=== PATIENT | female | born 1950 | race Caucasian/White ===

== ENCOUNTER 2016-03-04 14:19 | Inpatient (IN) ==
[2016-03-04 15:21] LABS: Red Cell Distribution Width 16.6 % (11.5-14.5)
[2016-03-04 15:27] LABS: Hematocrit 26.6 % (35.3-44.9); Hemoglobin 8.8 g/dL (11.5-15.4); Immature Platelets 5.8 % (1.1-6.1); Mean Corpuscular HGB Conc 33.1 g/dL (31.6-35.5); Mean Corpuscular Hemoglobin 28.3 pg (28.0-33.3); Mean Corpuscular Volume 85.5 fL (83.0-100.0); Mean Platelet Volume 9.3 fL (9.4-12.4); Red Blood Count 3.11 M/mcL (3.82-4.97)
[2016-03-04 15:29] LABS: INR 1.2; Prothrombin Time 13.1 Seconds (9.4-12.1)
[2016-03-04 15:32] LABS: Activated Partial Thrombo Time 25.9 Seconds (26.0-36.0)
--- NOTE | 2016-03-04 15:32 | Emergency Department Note ---
Disposition Clinical Impression: Congestive heart failure, Leukemia Disposition: Admitted As Inpatient Condition: Fair Referrals: Yuri Monsivais DO [Primary Care Provider] - Forms: ED Satisfaction Letter Time of Disposition: 17:30 General Adult HPI - General Chief complaint: ED Shortness of Breath/Dyspnea Stated complaint: KAREN Blood clot or water Time Seen by Provider: 03/04/16 14:51 Source: patient Limitations: no limitations Nursing Notes Reviewed: Yes Vital Signs Reviewed: Yes - History of Present Illness HPI Narrative: 65 year female presents to emergency room for shortness of breath. Patient was seeing her oncologist today for her leukemia appointment. They noted her to have oxygen saturations in the 70s. She was sent to the ER for evaluation. She does not wear home oxygen. She has no lung history. She denies any history of congestive heart failure. She has noticed increased swelling in her lower legs as well as the shortness of breath. She has pain along the bilateral lower ribs. No documented fevers. Slight sputum production at times. She denies any chest pain. Her last chemotherapy was on Thursday. Onset (ago): day(s) (2) Location: chest Radiation: non-radiation Pain Scale: 0 Consistency: constant Improves with: nothing Worsens with: movement Associated symptoms: Reports: other (Lower extremity swelling) Treatments Prior to Arrival: none - Related Data Home Medications Medication Instructions Recorded Confirmed Alprazolam [Xanax] 0.5 mg PO TID PRN 09/15/14 03/04/16 Multivitamin [Multivitamins] 1 tab PO PRN PRN 09/15/14 03/04/16 Citalopram [CeleXA] 20 mg PO DAILY 09/25/14 03/04/16 Previous Rx's Medication Instructions Recorded Folic Acid 1 mg PO DAILY #30 tablet 04/16/15 Filgrastim [Neupogen] 300 mcg IJ DAILY #30 mls 07/30/15 Diphenhydramine HCl/Zinc Acet 28.3 gm TP PRN PRN #1 cream..g. 10/16/15 [Benadryl Itch Stopping Crm] Cytarabine/PF [Cytarabine 20 mg/ml 20 mg SQ BID 10 Days 01/17/16 Vial] Deferasirox [Jadenu] 4 tab PO DAILY #360 tablet 02/19/16 Ondansetron [Zofran] 8 mg PO Q8HR PRN #90 tablet 02/19/16 Allergies Allergy/AdvReac Type Severity Reaction Status Date / Time Penicillins Allergy Unknown Hives Verified 07/02/15 11:43 Constitutional: Reports: as per HPI Eyes: Reports: as per HPI Cardiovascular: Reports: dyspnea on exertion, edema. Denies: chest pain Respiratory: Reports: cough, dyspnea Gastrointestinal: Reports: as per HPI Genitourinary: Reports: as per HPI Musculoskeletal: Reports: as per HPI Integumentary: Reports: as per HPI Neurological: Reports: as per HPI Psychiatric: Reports: as per HPI Endocrine: Reports: as per HPI Past Medical History - Past Medical History Medical history: Reports: cancer, other Surgical history: Reports: cholecystectomy Psychiatric history: Reports: anxiety, depression - Social History Smoking Status: Former smoker Smokeless Tobacco Status: No Alcohol use: Reports: none Drug use: Reports: none Physical Exam - General Limitations: no limitations General appearance: alert - Head Head exam: atraumatic, normocephalic - Eye Eye exam: Present: normal appearance - ENT ENT exam: normal exam - Chest Chest inspection: Present: symmetric chest wall rise - Respiratory Respiratory exam: Present: respiratory distress (Patient is tachypnea.), other ( Positive for bibasilar crackles. Decreased breath sounds in the bases.) - Cardiovascular Cardiovascular exam: Present: regular rate, normal rhythm - Abdominal Exam Abdominal exam: Present: soft, Non-Tender. Absent: tenderness, distention - Extremities Exam Extremities exam: Present: pedal edema, other (1+ pitting edema in the lower legs bilaterally.). Absent: calf tenderness - Back Exam Back exam: Present: normal inspection, full ROM - Neurological Exam Neurological exam: Present: alert, oriented X3, CN II-XII intact - Psychiatric Psychiatric exam: Present: normal affect, normal mood - Skin Skin exam: Present: warm, dry, intact Course Course Narrative: Chest x-ray reveals evidence of pulmonary edema. Symptoms are consistent with more congestive heart failure. Patient will need to be admitted for further workup. I did order 40 mg of IV Lasix. Spoke with the hospitalist who accepted the patient to their service. Vital Signs Temperature 97.8 F 03/04/16 14:37 Pulse Rate 86 03/04/16 14:37 Respiratory Rate 18 03/04/16 14:37 Blood Pressure 115/53 03/04/16 14:37 O2 Sat by Pulse Oximetry 63 L 03/04/16 14:37 Temperature 97.8 F 03/04/16 14:37 Pulse Rate 76 03/04/16 16:22 Respiratory Rate 22 03/04/16 16:22 Blood Pressure 132/71 03/04/16 16:22 O2 Sat by Pulse Oximetry 100 03/04/16 16:22 Oxygen Delivery Oxygen Delivery Nasal Cannula Medical Decision Making - MDM Narrative Medical decision making narrative: Patient is being admitted for further workup of her congestive heart failure. She is hemodynamically stable. Lasix was given. - Medical Records Medical records reviewed: Yes I reviewed the patient's medical records. - Lab Data Lab results reviewed: Yes I reviewed the patient's lab results. Result diagrams: 03/04/16 15:17 03/04/16 15:17 Lab Results 03/04/16 03/04/16 03/04/16 Range/Units 15:17 15:17 15:17 WBC 51.8 H* (4.3-11.1) K/mcL RBC 3.11 L (3.82-4.97) M/mcL Hgb 8.8 L (11.5-15.4) g/dL Hct 26.6 L (35.3-44.9) % MCV 85.5 (83.0-100.0) fL MCH 28.3 (28.0-33.3) pg MCHC 33.1 (31.6-35.5) g/dL RDW 16.6 H (11.5-14.5) % Plt Count 17 L* (140-400) K/mcL MPV 9.3 L (9.4-12.4) fL Seg Neutrophils % 12.0 % Band Neutrophils % 2.0 (0-4) % Lymphocytes % 24.0 % Monocytes % 4.0 % Myelocytes % 6.0 H (0) % Blast Cells % 52.0 H (0) % Neutrophils # 7.3 (1.6-8.9) K/mcL Lymphocytes # 12.4 H (0.6-4.6) K/mcL Monocytes # 2.1 H (0.0-1.3) K/mcL Smudge Cells Present A (Not Present) Platelet Estimate Marked Decrease L (Normal) Immature Plt Fraction 5.8 (1.1-6.1) % Anisocytosis 1+ A (Not Present) PT (9.4-12.1) Seconds INR APTT (26.0-36.0) Seconds Sodium 137 (136-145) mEq/L Potassium 3.9 (3.5-4.5) mEq/L Chloride 105 (98-109) mEq/L Carbon Dioxide 26 (19-29) mEq/L BUN 32 H (7-20) mg/dL Creatinine 0.86 (0.57-1.11) mg/dL Est GFR ( Amer) > 60 (> 60) Est GFR (Non-Af Amer) > 60 (> 60) BUN/Creatinine Ratio 37 H (6-26) Glucose 106 H (70-99) mg/dL Calculated Osmolality 291 (280-300) Calcium 7.6 L (8.6-10.8) mg/dL Troponin I 0.03 (0-0.03) ng/mL B-Natriuretic Peptide (0-100) pg/mL 03/04/16 03/04/16 Range/Units 15:17 15:17 WBC (4.3-11.1) K/mcL RBC (3.82-4.97) M/mcL Hgb (11.5-15.4) g/dL Hct (35.3-44.9) % MCV (83.0-100.0) fL MCH (28.0-33.3) pg MCHC (31.6-35.5) g/dL RDW (11.5-14.5) % Plt Count (140-400) K/mcL MPV (9.4-12.4) fL Seg Neutrophils % % Band Neutrophils % (0-4) % Lymphocytes % % Monocytes % % Myelocytes % (0) % Blast Cells % (0) % Neutrophils # (1.6-8.9) K/mcL Lymphocytes # (0.6-4.6) K/mcL Monocytes # (0.0-1.3) K/mcL Smudge Cells (Not Present) Platelet Estimate (Normal) Immature Plt Fraction (1.1-6.1) % Anisocytosis (Not Present) PT 13.1 H (9.4-12.1) Seconds INR 1.2 APTT 25.9 L (26.0-36.0) Seconds Sodium (136-145) mEq/L Potassium (3.5-4.5) mEq/L Chloride (98-109) mEq/L Carbon Dioxide (19-29) mEq/L BUN (7-20) mg/dL Creatinine (0.57-1.11) mg/dL Est GFR ( Amer) (> 60) Est GFR (Non-Af Amer) (> 60) BUN/Creatinine Ratio (6-26) Glucose (70-99) mg/dL Calculated Osmolality (280-300) Calcium (8.6-10.8) mg/dL Troponin I (0-0.03) ng/mL B-Natriuretic Peptide 198 H (0-100) pg/mL - Radiology Data Radiology results reviewed: Yes I reviewed the patient's radiology results. - EKG Data EKG #1 EKG attestation: Yes I reviewed and interpreted this EKG. EKG results narrative: Rate of 81. Normal sinus rhythm. Normal axis. MI interval 132. QRS 80. Corrected QT 414. No signs of acute ischemia
[2016-03-04 15:33] LABS: Platelet Count 17 K/mcL (140-400)
[2016-03-04 15:35] LABS: BUN/Creatinine Ratio 37 (6-26); Blood Urea Nitrogen 32 mg/dL (7-20); Calcium 7.6 mg/dL (8.6-10.8); Carbon Dioxide 26 mEq/L (19-29); Chloride 105 mEq/L (98-109); Glucose 106 mg/dL (70-99); Osmolality,Calculated 291 (280-300); Potassium 3.9 mEq/L (3.5-4.5); Sodium 137 mEq/L (136-145); eGFR For African Americans > 60 (> 60); eGFR For Non-African Americans > 60 (> 60)
[2016-03-04] MEDS ORDERED: Furosemide 40 MG/4 ML VIAL IVP ONE (15:36)
[2016-03-04 16:01] LABS: Lymphocytes # 12.4 K/mcL (0.6-4.6); Monocytes # 2.1 K/mcL (0.0-1.3); Neutrophils # 7.3 K/mcL (1.6-8.9)
[2016-03-04 16:03] LABS: Anisocytosis 1+ (Not Present); Platelet Estimate Marked Decrease (Normal); Smudge Cells Present (Not Present)
[2016-03-04] MEDS ORDERED: Ipratropium/Albuterol Neb 3 ML IH PRN (17:27)
[2016-03-04] MEDS ORDERED: Acetaminophen 325 MG TABLET PO PRN (17:28)
[2016-03-04] MEDS ORDERED: *HR* Morphine 2 MG/ML SYRINGE IVP PRN (17:28)
[2016-03-04] MEDS ORDERED: Ondansetron 4 MG/2 ML VIAL IVP PRN (17:28)
[2016-03-04] MEDS ORDERED: Naloxone 0.4 MG/ML INJ IVP PRN (17:28)
[2016-03-04] MEDS ORDERED: ALPRAZolam 0.5 MG TABLET PO PRN (17:30)
--- NOTE | 2016-03-04 17:34 | Internal Med History&Physical ---
Date of Encounter: 03/04/16 Time of Encounter: 17:32 Assessment and Plan (1) Acute pulmonary edema Current visit: Yes Status: Acute Acute hypoxic respiratory failure secondary to acute pulmonary edema and bilateral pleural effusions possibly secondary to CHF systolic versus diastolic that could be related to chemotherapy Start Lasix IV, strict I's and O's , daily weight Oxygen therapy Echocardiogram (2) Acute respiratory failure Current visit: Yes Status: Acute Qualifiers: Respiratory failure complication: hypoxia Qualified Code(s): J96.01 - Acute respiratory failure with hypoxia (3) Depression Current visit: Yes Status: Acute Qualifiers: Depression Type: unspecified Qualified Code(s): F32.9 - Major depressive disorder, single episode, unspecified (4) Anxiety Current visit: Yes Status: Acute Stable continue xanax prn (5) Congestive heart failure Current visit: Yes Status: Acute Qualifiers: Congestive heart failure type: unspecified congestive heart failure type Congestive heart failure chronicity: unspecified congestive heart failure chronicity Qualified Code(s): I50.9 - Heart failure, unspecified (6) Refractory thrombocytopenia Current visit: No Status: Acute Consider transfusion At the moment, we will avoid giving her more volume with a transfusion unless she starts bleeding Recheck in the morning (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 The patient will be admitted as inpatient, she is expected to stay more than 2 midnights. Full code. Time spent on this admission 45 minutes. She is high risk for respiratory failure Qualifiers: Leukemia Active/Remission status: relapsed Qualified Code(s): C92.02 - Acute myeloblastic leukemia, in relapse Internal Medicine - H&P: HPI Chief complaint: Shortness of breath and hypoxia Admitted From: Emergency Dept History of present illness: Ms. Miles is a 65 year old female with a past medical history of AML, depression , came to the emergency room sent from her oncologist office Dr. Humphrey she was found to have saturation of oxygen of 70%. She does not use any oxygen at home. She had chemotherapy last Thursday. The patient was referred to the emergency room and a chest x-ray shows acute pulmonary edema with bilateral pleural effusions. There are no echocardiograms recorded from the past. Her white blood cell count is 51.8 with 50% blasts platelets are 17 without signs of bleeding. The patient denies any chest pain, has been bringing up clear phlegm. No fevers or chills, no sick contacts. No other complaints other than leg edema for the past few days. 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) Psychiatric history: anxiety, depression - Past Surgical History Surgical History: cholecystectomy, other (Bone marrow biopsy) - Social History Smoking Status: Former smoker (Quit 7 years ago) Smokeless Tobacco Status: No Alcohol use: none Drug use: none - Additional Family History Additional family history: 2 brothers with AML and daughter with Hodgkin's lymphoma Internal Medicine - H&P: Meds Alprazolam [Xanax] 0.5 mg PO TID PRN 09/15/14 [History] Multivitamin [Multivitamins] 1 tab PO PRN PRN 09/15/14 [History] Citalopram [CeleXA] 20 mg PO DAILY 09/25/14 [History] Folic Acid 1 mg PO DAILY #30 tablet 04/16/15 [Rx] Filgrastim [Neupogen] 300 mcg IJ DAILY #30 mls 07/30/15 [Rx] Diphenhydramine HCl/Zinc Acet [Benadryl Itch Stopping Crm] 28.3 gm TP PRN PRN # 1 cream..g. 10/16/15 [Rx] Cytarabine/PF [Cytarabine 20 mg/ml Vial] 20 mg SQ BID 10 Days 01/17/16 [Rx] Deferasirox [Jadenu] 4 tab PO DAILY #360 tablet 02/19/16 [Rx] Ondansetron [Zofran] 8 mg PO Q8HR PRN #90 tablet 02/19/16 [Rx] Allergies Penicillins Allergy (Unknown, Verified 07/02/15 11:43) Hives All Systems PM: A 10-system review of systems was performed and is negative for pertinent findings except as documented above in the HPI. Review of systems: Still feels short of breath, denies any chest pain, no abdominal pain, no dysuria. Other systems out of the Ten reviewed were negative - Constitutional Vitals: Temp Pulse Resp BP Pulse Ox 97.8 F 76 22 132/71 100 03/04/16 14:37 03/04/16 16:22 03/04/16 16:22 03/04/16 16:22 03/04/16 16:22 General appearance: Present: A&O X 3 - Head Head exam: Present: atraumatic, normocephalic - Eye Eye exam: Present: PERRL, conjuntiva pink, sclera anicteric Pupils: Present: PERRL - Neck Neck exam general surgery: Present: supple, trachea midline. Absent: lymphadenopathy - Respiratory Respiratory exam: Present: CTAB, rales (Bilateral blunted breath sounds with diffuse crackles). Absent: accessory muscle use, rhonchi, wheezes - Cardiovascular Cardiovascular exam: Present: RRR, +S1, +S2. Absent: diastolic murmur, gallop, rubs, systolic murmur - GI/Abdominal GI/Abdominal exam: Present: normal bowel sounds, soft, no peritoneal signs. Absent: distended, tenderness - Extremities Exam Extremities exam: Present: pedal edema (+2 pitting edema in both lower extremities), warm, radial pulses palpable and symetrical. Absent: calf tenderness, cyanotic - Neurological Exam Neurological exam: Present: CN II-XII intact, oriented X3, no focal deficits. Absent: pronater drift, facial droop, speech deficit - Skin Skin exam: Present: dry, intact Internal Med - H&P Results - Labs CBC & Chem 7: 03/04/16 15:17 03/04/16 15:17 Labs: Short CBC 03/04/16 Range/Units 15:17 WBC 51.8 H* (4.3-11.1) K/mcL Hgb 8.8 L (11.5-15.4) g/dL Hct 26.6 L (35.3-44.9) % Plt Count 17 L* (140-400) K/mcL Neutrophils # 7.3 (1.6-8.9) K/mcL BMP 03/04/16 15:17 Sodium 137 Potassium 3.9 Chloride 105 Carbon Dioxide 26 BUN 32 H Creatinine 0.86 Glucose 106 H Calcium 7.6 L Cardiac Enzymes 03/04/16 Range/Units 15:17 Troponin I 0.03 (0-0.03) ng/mL - Impressions ITS Impressions Chest X-Ray 03/04/16 15:08 IMPRESSION: Pulmonary edema D/ / Cj Garcia MD / Cj Garcia MD Interpreting Provider: Cj Garcia MD
[2016-03-04] MEDS: Furosemide 40 MG/4 ML VIAL IV SCH (20:42)
[2016-03-05 06:05] LABS: BUN/Creatinine Ratio 29 (6-26); Blood Urea Nitrogen 30 mg/dL (7-20); Calcium 7.6 mg/dL (8.6-10.8); Carbon Dioxide 36 mEq/L (19-29); Chloride 98 mEq/L (98-109); Chol/HDL Ratio 12.4 (0-4.9); Cholesterol 124 mg/dL (< 200); Glucose 104 mg/dL (70-99); HDL Cholesterol 10 mg/dL (40-59); LDL Cholesterol,Calculated 67 mg/dL (0-99); Osmolality,Calculated 298 (280-300); Potassium 3.6 mEq/L (3.5-4.5); Sodium 141 mEq/L (136-145); Triglycerides 235 mg/dL (< 150); eGFR For African Americans > 60 (> 60); eGFR For Non-African Americans 54 (> 60)
[2016-03-05] MEDS: Furosemide 40 MG/4 ML VIAL IV SCH ×2 (08:38→22:02)
--- NOTE | 2016-03-05 09:38 | Electrocardiograph Report ---
[facility] Test Date: 2016-03-04 Pat Name: Tamy Miles Department: 105 Room: 2NE28 Gender: F [employer]: : 1950 Requested By: Slade Zelaya Order Number: [id number] Reading MD: Arron Persaud MD Measurements Intervals [place] Rate: 81 P: 51 LA: 132 QRS: 43 QRSD: 80 T: 59 QT: 376 QTc: 414 Interpretive Statements SINUS RHYTHM Electronically Signed On 03-05-16 09:37:05 EST by Arron Persaud MD
--- NOTE | 2016-03-05 10:56 | ECHO - Doppler Report ---
Echocardiogram Name: Tamy Miles Date of Study: 03/05/2016 Date: 1950 Ht: 61.0 in Medical Record#: [id number] Age: 65 Wt: 167.0 lb Gender: Female BSA: 1.75 Order #: [id number] Location: [facility] Room #: 2NE28 Reading Physician: Lexie Duarte DO Box Person: Lilia Rg Ordering Physician: Anthony Jenkins MD Primary Physician: Yuri Monsivais DO Indications: Congestive heart failure Impressions: LVEF 60%. Normal left ventricular size and systolic function. Normal right ventricular size and function. No significant valvular dysfunction. No pulmonary hypertension. Left Ventricular Wall Motion: Rest Echo Findings All wall segments showed normal motion. Findings: Study Quality * Technically adequate exam. ECG Findings * Normal sinus rhythm. Left Ventricle * LVEF 60%. * Normal LV chamber size, wall thickness and function. * Pseudonormal Grade II diastolic dysfunction. Aortic Valve * No aortic regurgitation. * Aortic valve not well visualized. * No aortic stenosis. Mitral Valve * Normal mitral valve structure. * No mitral stenosis. * Trace mitral regurgitation. Left Atrium * Normal left atrial size. Tricuspid Valve * Tricuspid valve not well visualized. * Estimated RA pressure is 3 mmHg. * Estimated RVSP is 15 mmHg. * No pulmonary hypertension. Right Ventricle * Normal right ventricular structure and function. Right Atrium * Normal right atrial size. Interatrial Septum * No evidence of PFO by color Doppler. IVC * The IVC is not dilated. Pericardium * There is no pericardial effusion present. Pulmonic Valve * Pulmonic valve is not well visualized. * No pulmonic stenosis. * No pulmonic regurgitation. Pulmonary Artery * Pulmonary artery not well visualized. Aorta * Not well visualized. History Years 40 Packs 1 Family History of CAD Measurements: BP: 132/ 67 2D Normal Values IVSd: .80 cm 0.6 - 1.0 cm LVIDd: 4.40 cm 3.7 - 5.6 cm LVPWd: .80 cm 0.6 - 1.1 cm LVIDs: 2.80 cm 1.5 - 3.6 cm AO: 2.90 cm < 4.0 cm LA: 3.90 cm 2.0 - 4.0cm %FS: 36.40 cm >25 % LA volume: 42 Mitral Valve Peak E:1.43 m/sec Peak A:1.30 m/sec E/A Ratio:1.1 Peak E' Lat Alvin:9.16 cm/s Peak E' Med Alvin:6.14 cm/s E/E' Lat Ratio:15.6 E/E' Med Ratio:23.3 Tricuspid Valve TV Regurg Peak Grad: 12.00mmHg TV Regurg Peak Alvin: 1.75m/sec Updated by Lexie Duarte on 03/05/2016 10:51:20 AM electronically signed on 03/05/2016 10:51:49 AM with status of Final Wall Motion [place]: 1=Normal, 2=Hypokinesis, 3=Akinesis, 4=Dyskinesis, 5=Aneurysmal, 6=Hyperkinetic, X=Not Visualized (Blank)=Missing
--- NOTE | 2016-03-05 12:44 | Internal Med Progress Note ---
<Ian Ceja - Last Filed: 03/05/16 14:31> Date of Encounter: 03/05/16 Time of Encounter: 09:15 - Assessment and plan (1) Acute pulmonary edema Current Visit: Yes Status: Acute Assessment and plan: -On the day of admission patient was restarted on her chemotherapy, infused with platelets and packed red blood cells. Developed shortness of breath shortly afterward. Believe Pulmonary edema due to acute fluid overload. -Patient given Lasix. Condition improved. -ECHO LV 60%. BNP <300 -Continue current therapy (2) Acute respiratory failure Current Visit: Yes Status: Acute Assessment and plan: -See above. -Patient still requiring nasal cannula. Does not wear home oxygen. -Patient will not be discharged today. Possibly tomorrow pending patient comfort and o2 status. We will reassess 02 status tomorrow to see if patient will need home oxygen or not. If so, will work with healthcare social worker to provide this service for the patient -Patient is improving. Repeat CXR not needed at this time or ABG. -Continue lasixs. Monitor renal function. Qualifiers: Respiratory failure complication: hypoxia Qualified Code(s): J96.01 - Acute respiratory failure with hypoxia (3) Leukemia Current Visit: Yes Status: Acute Assessment and plan: - Diagnosed in 2013. Multiple rounds of chemo therapy. Home meds reviewed and administered. -Not concerned for tumor lysis syndrome. However, continue to monitor. Monitor K , Ca Qualifiers: Leukemia type: myeloid Myeloid leukemia type: acute Leukemia Active/ Remission status: without remission Qualified Code(s): C92.00 - Acute myeloblastic leukemia, not having achieved remission (4) Goals of care, counseling/discussion Current Visit: Yes Status: Acute Assessment and plan: -Discussed with patient her CODE STATUS. She wishes to remain full code at this time. Open for discussion when is present in the room. - Time Spent With Patient 25 - 35 minutes - Subjective Interval history: Patient states that she is feeling much better today compared to yesterday. Does have mild shortness of breath, is on 4 L of nasal cannula, does not wear oxygen at home. When she took off the nasal cannula her oxygen saturation declined. Patient denies chest pain, has noticed her peripheral edema has decreased and she has returned back to baseline in her physical appearance. Patient has no questions or concerns at this time. Diagnosed with AML in 2013. Recently started back on chemotherapy. She is up ad andres., eating and drinking normally. Oxygen saturation 93% - Constitutional Vitals: Temp Pulse Resp BP Pulse Ox 98 F 86 16 135/57 92 L 03/05/16 11:20 03/05/16 11:20 03/05/16 11:20 03/05/16 11:20 03/05/16 11:20 General appearance: Present: A&O X 3 - Respiratory Respiratory exam: Present: CTAB - Cardiovascular Cardiovascular exam: Present: RRR. Absent: diastolic murmur - GI/Abdominal GI/Abdominal exam: Present: normal bowel sounds, soft, no peritoneal signs - Extremities Exam Additional comments: No peripheral upper or lower edema Internal Medicine: Result - Labs CBC & Chem 7: 03/04/16 15:17 03/05/16 05:40 Labs: BMP 03/05/16 05:40 Sodium 141 Potassium 3.6 Chloride 98 Carbon Dioxide 36 H BUN 30 H Creatinine 1.03 Glucose 104 H Calcium 7.6 L - ABG Interpretation ABG results: PT/INR, D-dimer PT 13.1 Seconds (9.4-12.1) H 03/04/16 15:17 - VTE Documentation of Mechanical Device: Intermittent pneumatic compression device Consult Discharge Plan - Plan Instructions: Heart Failure (DC), Pulmonary Edema (DC), Acute Myeloid Leukemia (DC), Acute Myeloid Leukemia, Inspector General (GEN) Additional Instructions: Please follow-up with your primary care doctor, oncologist. If you have worsening of symptoms including not limited to increased shortness of breath, chest pain, fever, rash, blood in the urine or stool. Please come to the ED to be evaluated. Referrals: Yuri Monsivais DO [Primary Care Provider] - <oJse Ramon Vergara - Last Filed: 03/06/16 18:49> Date of Encounter: 03/05/16 - Assessment and plan (1) Acute respiratory failure Current Visit: Yes Status: Acute Qualifiers: Respiratory failure complication: hypoxia Qualified Code(s): J96.01 - Acute respiratory failure with hypoxia (2) Acute pulmonary edema Current Visit: Yes Status: Resolved (3) Acute myeloid leukemia Current Visit: No Status: Chronic Qualifiers: Leukemia Active/Remission status: relapsed Qualified Code(s): C92.02 - Acute myeloblastic leukemia, in relapse - Constitutional Vitals: Temp Pulse Resp BP Pulse Ox 96.9 F L 84 16 137/62 91 L 03/06/16 16:36 03/06/16 16:36 03/06/16 16:36 03/06/16 16:36 03/06/16 16:36 Internal Medicine: Result - Labs CBC & Chem 7: 03/06/16 05:30 03/06/16 05:30 Labs: Short CBC 03/06/16 Range/Units 05:30 WBC 53.3 H* (4.3-11.1) K/mcL Hgb 8.4 L (11.5-15.4) g/dL Hct 25.4 L (35.3-44.9) % Plt Count 11 L* (140-400) K/mcL Neutrophils # 2.1 (1.6-8.9) K/mcL BMP 03/06/16 03/06/16 05:30 09:30 Sodium 141 Potassium 3.2 L Chloride 93 L Carbon Dioxide 39 H BUN 20 Creatinine 0.93 Glucose 102 H Calcium 7.3 L 7.6 L - ABG Interpretation ABG results: PT/INR, D-dimer PT 13.1 Seconds (9.4-12.1) H 03/04/16 15:17 - Attending Attestation I examined this patient and my medical decision-making was reviewed with the Resident Physician on 03/05/16. I agree with the documented findings, disposition and treatment plan as described except to the extent set forth below. Ms. Miles is currently admitted for acute pulmonary edema and hypoxic respiratory failure. She remains high risk due to the potential for worsening respiratory failure. Ms. Miles is doing somewhat better with diuresis. No CP. Still on oxygen. No GI symptoms. Exam Alert. Comfortable Heart reg Lungs with crackles I/P 1. Acute hypoxic resp failure 2. Acute pulmonary edema Further diagnoses and plan as above. Probable d/c next 1-2 days.
[2016-03-05 16:11] LABS: Hematocrit 24.9 % (35.3-44.9); Hemoglobin 8.1 g/dL (11.5-15.4); Mean Corpuscular HGB Conc 32.5 g/dL (31.6-35.5); Mean Corpuscular Hemoglobin 27.8 pg (28.0-33.3); Mean Corpuscular Volume 85.6 fL (83.0-100.0); Red Blood Count 2.91 M/mcL (3.82-4.97); Red Cell Distribution Width 15.9 % (11.5-14.5)
[2016-03-05 16:17] LABS: Platelet Count 10 K/mcL (140-400)
[2016-03-05 16:18] LABS: BUN/Creatinine Ratio 27 (6-26); Blood Urea Nitrogen 27 mg/dL (7-20); Calcium 7.3 mg/dL (8.6-10.8); Carbon Dioxide 37 mEq/L (19-29); Chloride 96 mEq/L (98-109); Glucose 97 mg/dL (70-99); Osmolality,Calculated 297 (280-300); Potassium 3.7 mEq/L (3.5-4.5); Sodium 141 mEq/L (136-145); eGFR For African Americans > 60 (> 60); eGFR For Non-African Americans 55 (> 60)
[2016-03-05 17:07] LABS: Monocytes # 1.1 K/mcL (0.0-1.3); Reactive Lymphocytes Present (Not Present)
[2016-03-05 17:08] LABS: Platelet Estimate Marked Decrease (Normal); Smudge Cells Present (Not Present)
[2016-03-05 17:09] LABS: Hypochromasia Present (Not Present)
[2016-03-06 05:58] LABS: Hemoglobin 8.4 g/dL (11.5-15.4)
[2016-03-06 06:00] LABS: Hematocrit 25.4 % (35.3-44.9); Mean Corpuscular HGB Conc 33.1 g/dL (31.6-35.5); Mean Corpuscular Hemoglobin 28.1 pg (28.0-33.3); Mean Corpuscular Volume 84.9 fL (83.0-100.0); Mean Platelet Volume 12.3 fL (9.4-12.4); Red Blood Count 2.99 M/mcL (3.82-4.97); Red Cell Distribution Width 15.8 % (11.5-14.5)
[2016-03-06 06:03] LABS: BUN/Creatinine Ratio 22 (6-26); Blood Urea Nitrogen 20 mg/dL (7-20); Calcium 7.3 mg/dL (8.6-10.8); Carbon Dioxide 39 mEq/L (19-29); Chloride 93 mEq/L (98-109); Glucose 102 mg/dL (70-99); Osmolality,Calculated 295 (280-300); Potassium 3.2 mEq/L (3.5-4.5); Sodium 141 mEq/L (136-145); eGFR For African Americans > 60 (> 60); eGFR For Non-African Americans > 60 (> 60)
[2016-03-06 06:28] LABS: Platelet Count 11 K/mcL (140-400)
[2016-03-06 07:00] LABS: Platelet Estimate Marked Decrease (Normal); Smudge Cells Present (Not Present)
[2016-03-06] MEDS: Furosemide 40 MG/4 ML VIAL IV SCH (08:21)
[2016-03-06 09:25] LABS: Eosinophils # 0.5 K/mcL (0.0-0.6); Lymphocytes # 28.8 K/mcL (0.6-4.6); Monocytes # 0.5 K/mcL (0.0-1.3); Neutrophils # 2.1 K/mcL (1.6-8.9)
--- NOTE | 2016-03-06 09:42 | Internal Med Progress Note ---
Date of Encounter: 03/06/16 - Assessment and plan (1) Acute pulmonary edema Current Visit: Yes Status: Acute (2) Acute respiratory failure Current Visit: Yes Status: Acute Qualifiers: Respiratory failure complication: hypoxia Qualified Code(s): J96.01 - Acute respiratory failure with hypoxia (3) Leukemia Current Visit: Yes Status: Acute Qualifiers: Leukemia type: myeloid Myeloid leukemia type: acute Leukemia Active/ Remission status: without remission Qualified Code(s): C92.00 - Acute myeloblastic leukemia, not having achieved remission (4) Goals of care, counseling/discussion Current Visit: Yes Status: Acute - Subjective Interval history: Patient states that she is feeling much better today compared to yesterday. Does have mild shortness of breath, is on 4 L of nasal cannula, does not wear oxygen at home. When she took off the nasal cannula her oxygen saturation declined. Patient denies chest pain, has noticed her peripheral edema has decreased and she has returned back to baseline in her physical appearance. Patient has no questions or concerns at this time. Diagnosed with AML in 2013. Recently started back on chemotherapy. She is up ad andres., eating and drinking normally. Oxygen saturation 93% - Constitutional Vitals: Temp Pulse Resp BP Pulse Ox 98.1 F 89 18 137/64 94 L 03/06/16 07:49 03/06/16 07:49 03/06/16 07:49 03/06/16 07:49 03/06/16 07:49 General appearance: Present: A&O X 3 Internal Medicine: Result - Labs CBC & Chem 7: 03/06/16 05:30 03/06/16 05:30 Labs: Short CBC 03/05/16 03/06/16 Range/Units 16:04 05:30 WBC 55.3 H* 53.3 H* (4.3-11.1) K/mcL Hgb 8.1 L 8.4 L (11.5-15.4) g/dL Hct 24.9 L 25.4 L (35.3-44.9) % Plt Count 10 L* 11 L* (140-400) K/mcL Neutrophils # 10.0 H 2.1 (1.6-8.9) K/mcL BMP 03/05/16 03/06/16 16:04 05:30 Sodium 141 141 Potassium 3.7 3.2 L Chloride 96 L 93 L Carbon Dioxide 37 H 39 H BUN 27 H 20 Creatinine 1.00 0.93 Glucose 97 102 H Calcium 7.3 L 7.3 L - ABG Interpretation ABG results: PT/INR, D-dimer PT 13.1 Seconds (9.4-12.1) H 03/04/16 15:17 - VTE Documentation of Mechanical Device: Intermittent pneumatic compression device Consult Discharge Plan - Plan Referrals: ColopyYuri DO [Primary Care Provider] -
[2016-03-06] MEDS ORDERED: 0.9 % Sodium Chloride 500 ML ONE (14:14)
--- NOTE | 2016-03-06 15:33 | Discharge Summary ---
<Ian Ceja - Last Filed: 03/06/16 17:13> Date of Encounter: 03/06/16 Time of Encounter: 10:00 - Discharge Diagnosis (1) Acute pulmonary edema Priority: Primary Status: Resolved Comments: -Resolved (2) Acute respiratory failure Priority: Primary Status: Acute Comments: -Patient is ambulatory, denies chest pain or shortness of breath. Feels want to go home. Feels like she is back to her baseline. -However, patient's oxygenation saturation less than 90% whenever she is not on nasal cannula. Discussed home oxygen therapy with patient, she agrees to this treatment. Qualifiers: Respiratory failure complication: hypoxia Qualified Code(s): J96.01 - Acute respiratory failure with hypoxia (3) Leukemia Priority: Primary Status: Acute Comments: -AML diagnosis in 2013 Qualifiers: Leukemia type: myeloid Myeloid leukemia type: acute Leukemia Active/ Remission status: without remission Qualified Code(s): C92.00 - Acute myeloblastic leukemia, not having achieved remission (4) Goals of care, counseling/discussion Priority: Primary Status: Acute Comments: -Patient remains full code -She has supportive household who is able to oversee her care and well-being (5) Thrombocytopenia, alloimmune Status: Acute Comments: -Spoke with the [facility] oncology team who oversees her care. They recommend 6 pack of platelets. It patient tolerates transfusion well she may be discharged home. Will put in order. - Discharge Medications Home Medications: Alprazolam [Xanax] 0.5 mg PO TID PRN 09/15/14 [History] Multivitamin [Multivitamins] 1 tab PO PRN PRN 09/15/14 [History] Citalopram [CeleXA] 20 mg PO DAILY 09/25/14 [History] Folic Acid 1 mg PO DAILY #30 tablet 04/16/15 [Rx] Deferasirox [Jadenu] 4 tab PO DAILY #360 tablet 02/19/16 [Rx] Ascorbate Calcium [Vitamin C] 500 mg PO DAILY 03/04/16 [History] Allergies/Adverse Reactions: Allergies Penicillins Allergy (Unknown, Verified 07/02/15 11:43) Hives Date of admission: 03/04/16 17:50 Primary care physician: Yuri Leone Colopy Consults: 03/06/16 13:40 Consult to Manager In Home [CONS] Routine Reason for SW Consult: New home O2 set-up. 03/06/16. [facility]. Thrombocytopenia and advancement of care. Discharging clinician: Ian Ceja Anticipated date of discharge: 03/06/16 - Patient Status Disposition: Home, Self-Care Condition: Fair Functional capacity at discharge: independent ambulation Overall status at discharge: patient is progressing back to baseline (Did not require oxygen saturation at home) - Discharge Instructions Instructions: Heart Failure (DC), Pulmonary Edema (DC), Acute Myeloid Leukemia (DC), Acute Myeloid Leukemia, Manager [employer]otive (GEN) Follow Up With: Yuri Monsivais DO [Primary Care Provider] - Additional Instructions: Please follow-up with your primary care doctor, oncologist. If you have worsening of symptoms including not limited to increased shortness of breath, chest pain, fever, rash, blood in the urine or stool. Please come to the ED to be evaluated. - Diet and Activity Activity: increase activity as tolerated Diet: advance to your usual diet Interval History: Patient feels better today compared to yesterday. She has no complaints or concerns. Does not complain of CP. She denies SOB when the nasal cannula is off or decreased. However her oxygen saturation does decrease significantly. Hospital course: Ms. Miles is a 65 year old female - Time Spent with Patient Total time spent providing and/or coordinating discharge services: Greater than 30 minutes Specific discharge activities: -Please follow-up with your oncology physician. - Constitutional Vitals: Temp Pulse Resp BP Pulse Ox 97.5 F L 84 16 130/59 92 L 03/06/16 14:48 03/06/16 14:48 03/06/16 14:48 03/06/16 14:48 03/06/16 14:48 General appearance: Present: A&O X 3 Exam: Sitting up in bed, resting comfortably. Able to answer questions appropriately without becoming short of breath, is currently on the nasal cannula. Oxygen saturation 94% - Head Head exam: Present: atraumatic, normocephalic - Respiratory Respiratory exam: Present: CTAB. Absent: accessory muscle use, rales, rhonchi, wheezes - Cardiovascular Cardiovascular exam: Present: RRR, +S1, +S2. Absent: diastolic murmur, gallop, rubs, systolic murmur - GI/Abdominal GI/Abdominal exam: Present: soft, no peritoneal signs. Absent: distended, tenderness - Neurological Exam Neurological exam: Present: alert, oriented X3 - Psychiatric Psychiatric exam: Present: normal affect, normal mood - VTE Documentation of Mechanical Device: Intermittent pneumatic compression device <Rell Vergarain Joseluis - Last Filed: 03/06/16 18:46> Date of Encounter: 03/06/16 - Discharge Diagnosis (1) Acute respiratory failure Status: Acute Qualifiers: Respiratory failure complication: hypoxia Qualified Code(s): J96.01 - Acute respiratory failure with hypoxia (2) Acute pulmonary edema Status: Resolved (3) Acute myeloid leukemia Priority: Secondary Status: Chronic Qualifiers: Leukemia Active/Remission status: relapsed Qualified Code(s): C92.02 - Acute myeloblastic leukemia, in relapse Date of admission: 03/04/16 17:50 Primary care physician: Yuri Monsivais Consults: 03/06/16 13:40 Consult to Manager In Home [CONS] Routine Reason for SW Consult: New home O2 set-up. 03/06/16 15:33 Consult to Oncology Hematology [CONS] Routine Consulting Provider: Que Zelaya Jr Reason for Consult: Thombocytopenia. Transfusion. Already spoke with Isiah Zelaya this morning. Call Completed: Yes Hospital course: Ms. Miles is a 65 year old female - Time Spent with Patient Total time spent providing and/or coordinating discharge services: 36min - Constitutional Vitals: Temp Pulse Resp BP Pulse Ox 96.9 F L 84 16 137/62 91 L 03/06/16 16:36 03/06/16 16:36 03/06/16 16:36 03/06/16 16:36 03/06/16 16:36 - Attending Attestation I examined this patient and my medical decision-making was reviewed with the Resident Physician on 03/06/16. I agree with the documented findings, disposition and treatment plan as described except to the extent set forth below. Ms. Miles is feeling better today. She is still requiring oxygen but less. She is going to get platelets today and then plan discharge home. Exam Alert. Comfortable Heart reg Lungs clear now Abd soft I/P 1. Acute hypoxic resp failure 2. Acute pulmonary edema 3. AML Pt stable for discharge today after platelet transfusion.
[2016-03-06 16:37] VITALS: BP 137/62
== END 2016-03-06 18:10 | disposition home or self-care (01) | DRG 189 ==
LOC: EMEROO 14:19 → 2NENU 17:50
PROVIDERS: ADMIT Internal Medicine; ATTEND Internal Medicine

== ENCOUNTER 2016-05-26 16:16 | Inpatient (IN) ==
[2016-05-26] MEDS ORDERED: Ondansetron 4 MG/2 ML VIAL IVP ONE (16:29)
[2016-05-26 16:46] LABS: Mean Corpuscular Hemoglobin 28.6 pg (28.0-33.3); Mean Platelet Volume 8.8 fL (9.4-12.4)
[2016-05-26 16:48] LABS: Hematocrit 23.3 % (35.3-44.9); Hemoglobin 7.8 g/dL (11.5-15.4); Immature Platelets 1.6 % (1.1-6.1); Mean Corpuscular HGB Conc 33.5 g/dL (31.6-35.5); Mean Corpuscular Volume 85.3 fL (83.0-100.0); Red Blood Count 2.73 M/mcL (3.82-4.97); Red Cell Distribution Width 16.1 % (11.5-14.5)
[2016-05-26 16:50] LABS: Platelet Count 74 K/mcL (140-400)
[2016-05-26 16:51] LABS: INR 1.2; Prothrombin Time 13.2 Seconds (9.4-12.1)
[2016-05-26 16:53] LABS: Activated Partial Thrombo Time 25.2 Seconds (26.0-36.0)
[2016-05-26] MEDS ORDERED: Ipratropium/Albuterol Neb 3 ML IH ONE (16:56)
[2016-05-26 17:03] LABS: Albumin/Globulin Ratio 0.5 (1.1-2.2); Bilirubin,Direct 0.5 mg/dL (0.0-0.5); Bilirubin,Indirect 0.6 mg/dL (0.0-1.2); Bilirubin,Total 1.1 mg/dL (0.2-1.2); Calcium 7.9 mg/dL (8.6-10.8); Globulin 5.9 g/dL (2.4-3.5); Potassium 3.8 mEq/L (3.5-4.5); Total Protein 8.9 g/dL (6.0-8.3)
--- NOTE | 2016-05-26 17:03 | Emergency Department Note ---
Disposition Clinical Impression: Multifocal pneumonia, Severe sepsis, Acute respiratory acidosis, Anemia, chronic disease, Leukemia, Acute kidney injury, Thrombocytopenia Disposition: Admitted As Inpatient Condition: Serious General Adult HPI - General Chief complaint: ED Altered Mental Status Stated complaint: Needs CT scan, sent by Dr. Yeh Time Seen by Provider: 05/26/16 16:23 Source: family Limitations: altered mental status - History of Present Illness Pain Scale: 0 - Related Data Home Medications Medication Instructions Recorded Confirmed Citalopram [CeleXA] 20 mg PO DAILY 09/25/14 05/26/16 Alprazolam [Xanax 1 MG Tablet] 1 mg PO TID PRN 05/26/16 05/26/16 Deferasirox [Jadenu] 1,440 mg PO DAILY 05/26/16 05/26/16 Ondansetron [Zofran] 8 mg PO Q8H PRN 05/26/16 05/26/16 Previous Rx's Medication Instructions Recorded Aminocaproic Acid [Amicar] 500 mg PO TID #90 tablet 03/25/16 Folic Acid 1 mg PO DAILY #30 tablet 04/25/16 Acetaminophen w/Cod 300-30 mg 1 each PO Q6HR PRN #60 tablet 05/19/16 [Tylenol w/Codeine #3] Fluconazole [Diflucan] 100 mg PO DAILY #30 tablet 05/19/16 Levofloxacin [Levaquin] 750 mg PO DAILY #14 tablet 05/19/16 Allergies Allergy/AdvReac Type Severity Reaction Status Date / Time Penicillins Allergy Unknown Hives Verified 07/02/15 11:43 Past Medical History - Past Medical History Medical history: Reports: cancer, other Surgical history: Reports: cholecystectomy, other Psychiatric history: Reports: anxiety, depression - Social History Smoking Status: Former smoker Smokeless Tobacco Status: No Alcohol use: Reports: none Drug use: Reports: none Physical Exam - General Limitations: altered mental status General appearance: lethargic Course Vital Signs Temperature 96.3 F L 05/26/16 16:25 Pulse Rate 105 05/26/16 16:25 Respiratory Rate 20 05/26/16 16:25 Blood Pressure 186/87 05/26/16 16:25 O2 Sat by Pulse Oximetry 82 05/26/16 16:25 Temperature 97.4 F L 05/26/16 19:55 Pulse Rate 93 05/26/16 19:55 Respiratory Rate 20 05/26/16 19:55 Blood Pressure 138/63 05/26/16 19:55 O2 Sat by Pulse Oximetry 92 05/26/16 19:55 Oxygen Delivery Oxygen Delivery Non Rebreather Mask Medical Decision Making - Lab Data Result diagrams: 05/26/16 16:31 05/26/16 16:31 Lab Results 05/26/16 05/26/16 05/26/16 Range/Units 16:31 16:31 16:31 WBC 15.8 H D (4.3-11.1) K/mcL RBC 2.73 L (3.82-4.97) M/mcL Hgb 7.8 L D (11.5-15.4) g/dL Hct 23.3 L (35.3-44.9) % MCV 85.3 (83.0-100.0) fL MCH 28.6 (28.0-33.3) pg MCHC 33.5 (31.6-35.5) g/dL RDW 16.1 H (11.5-14.5) % Plt Count 74 L D (140-400) K/mcL MPV 8.8 L (9.4-12.4) fL Seg Neutrophils % 26.0 % Band Neutrophils % 8.0 H (0-4) % Lymphocytes % 44.0 % Monocytes % 12.0 % Blast Cells % 10.0 H (0) % Neutrophils # 5.4 (1.6-8.9) K/mcL Lymphocytes # 7.0 H (0.6-4.6) K/mcL Monocytes # 1.9 H (0.0-1.3) K/mcL Platelet Estimate Decreased L (Normal) Immature Plt Fraction 1.6 (1.1-6.1) % PT 13.2 H (9.4-12.1) Seconds INR 1.2 APTT 25.2 L (26.0-36.0) Seconds ABG pH (7.32-7.45) pH Units ABG pCO2 (35-45) mmHg ABG pO2 (85-104) mmHg ABG HCO3 (21-27) mEQ/L ABG Total CO2 (20-26) mEq/L ABG O2 Saturation (95-98) % ABG Base Excess (-2.0 to 3.0) mEq/L Blood Gas Modality Inspired O2 % Sodium 137 (136-145) mEq/L Potassium 3.8 (3.5-4.5) mEq/L Chloride 102 (98-109) mEq/L Carbon Dioxide 28 (19-29) mEq/L BUN 38 H (7-20) mg/dL Creatinine 1.39 H (0.57-1.11) mg/dL Est GFR ( Amer) 46 L (> 60) Est GFR (Non-Af Amer) 38 L (> 60) BUN/Creatinine Ratio 27 H (6-26) Glucose 163 H (70-99) mg/dL POC Glucose (58-89) Calculated Osmolality 297 (280-300) Lactic Acid (0.5-2.2) mmol/L Calcium 7.9 L (8.6-10.8) mg/dL Total Bilirubin 1.1 (0.2-1.2) mg/dL Direct Bilirubin 0.5 (0.0-0.5) mg/dL Indirect Bilirubin 0.6 (0.0-1.2) mg/dL AST 133 H (5-34) Units/L ALT 62 H (0-55) Units/L Alkaline Phosphatase 71 (38-126) Units/L Ammonia (18-72) mcmol/L Troponin I (0-0.03) ng/mL Serum Total Protein 8.9 H (6.0-8.3) g/dL Albumin 3.0 L (3.5-5.0) g/dL Globulin 5.9 H (2.4-3.5) g/dL Albumin/Globulin Ratio 0.5 L (1.1-2.2) Urine Color (Yellow) Urine Clarity (Clear) Urine pH (5.0-8.0) pH Units Ur Specific [place] (1.010-1.025) Urine Protein (Neg-Trace) mg/dL Urine Glucose (UA) (Normal) mg/dL Urine Ketones (Negative) mg/dL Urine Blood (Negative) Urine Nitrite (Negative) Urine Bilirubin (Negative) Urine Urobilinogen (Normal) mg/dL Ur Leukocyte Esterase (Negative) Urine Microscopic RBC (0-3) per hpf Urine Microscopic WBC (0-3) per hpf Ur Squamous Epith Cells (None-Few) per lpf Urine Bacteria (None-Few) per hpf Hyaline Casts (None-Few) per lpf Granular Casts (None Seen) per lpf Ur Culture Indicated? (NO) 05/26/16 05/26/16 05/26/16 Range/Units 16:31 16:31 16:31 WBC (4.3-11.1) K/mcL RBC (3.82-4.97) M/mcL Hgb (11.5-15.4) g/dL Hct (35.3-44.9) % MCV (83.0-100.0) fL MCH (28.0-33.3) pg MCHC (31.6-35.5) g/dL RDW (11.5-14.5) % Plt Count (140-400) K/mcL MPV (9.4-12.4) fL Seg Neutrophils % % Band Neutrophils % (0-4) % Lymphocytes % % Monocytes % % Blast Cells % (0) % Neutrophils # (1.6-8.9) K/mcL Lymphocytes # (0.6-4.6) K/mcL Monocytes # (0.0-1.3) K/mcL Platelet Estimate (Normal) Immature Plt Fraction (1.1-6.1) % PT (9.4-12.1) Seconds INR APTT (26.0-36.0) Seconds ABG pH (7.32-7.45) pH Units ABG pCO2 (35-45) mmHg ABG pO2 (85-104) mmHg ABG HCO3 (21-27) mEQ/L ABG Total CO2 (20-26) mEq/L ABG O2 Saturation (95-98) % ABG Base Excess (-2.0 to 3.0) mEq/L Blood Gas Modality Inspired O2 % Sodium (136-145) mEq/L Potassium (3.5-4.5) mEq/L Chloride (98-109) mEq/L Carbon Dioxide (19-29) mEq/L BUN (7-20) mg/dL Creatinine (0.57-1.11) mg/dL Est GFR ( Amer) (> 60) Est GFR (Non-Af Amer) (> 60) BUN/Creatinine Ratio (6-26) Glucose (70-99) mg/dL POC Glucose (58-89) Calculated Osmolality (280-300) Lactic Acid 1.9 (0.5-2.2) mmol/L Calcium (8.6-10.8) mg/dL Total Bilirubin (0.2-1.2) mg/dL Direct Bilirubin (0.0-0.5) mg/dL Indirect Bilirubin (0.0-1.2) mg/dL AST (5-34) Units/L ALT (0-55) Units/L Alkaline Phosphatase (38-126) Units/L Ammonia 62 (18-72) mcmol/L Troponin I 0.04 H* (0-0.03) ng/mL Serum Total Protein (6.0-8.3) g/dL Albumin (3.5-5.0) g/dL Globulin (2.4-3.5) g/dL Albumin/Globulin Ratio (1.1-2.2) Urine Color (Yellow) Urine Clarity (Clear) Urine pH (5.0-8.0) pH Units Ur Specific [place] (1.010-1.025) Urine Protein (Neg-Trace) mg/dL Urine Glucose (UA) (Normal) mg/dL Urine Ketones (Negative) mg/dL Urine Blood (Negative) Urine Nitrite (Negative) Urine Bilirubin (Negative) Urine Urobilinogen (Normal) mg/dL Ur Leukocyte Esterase (Negative) Urine Microscopic RBC (0-3) per hpf Urine Microscopic WBC (0-3) per hpf Ur Squamous Epith Cells (None-Few) per lpf Urine Bacteria (None-Few) per hpf Hyaline Casts (None-Few) per lpf Granular Casts (None Seen) per lpf Ur Culture Indicated? (NO) 05/26/16 05/26/16 05/26/16 Range/Units 16:52 17:12 17:44 WBC (4.3-11.1) K/mcL RBC (3.82-4.97) M/mcL Hgb (11.5-15.4) g/dL Hct (35.3-44.9) % MCV (83.0-100.0) fL MCH (28.0-33.3) pg MCHC (31.6-35.5) g/dL RDW (11.5-14.5) % Plt Count (140-400) K/mcL MPV (9.4-12.4) fL Seg Neutrophils % % Band Neutrophils % (0-4) % Lymphocytes % % Monocytes % % Blast Cells % (0) % Neutrophils # (1.6-8.9) K/mcL Lymphocytes # (0.6-4.6) K/mcL Monocytes # (0.0-1.3) K/mcL Platelet Estimate (Normal) Immature Plt Fraction (1.1-6.1) % PT (9.4-12.1) Seconds INR APTT (26.0-36.0) Seconds ABG pH 7.18 L* (7.32-7.45) pH Units ABG pCO2 89 H* (35-45) mmHg ABG pO2 78 L (85-104) mmHg ABG HCO3 33.2 H (21-27) mEQ/L ABG Total CO2 35.9 H (20-26) mEq/L ABG O2 Saturation 92 L (95-98) % ABG Base Excess 4.0 H (-2.0 to 3.0) mEq/L Blood Gas Modality NRB Inspired O2 100 % Sodium (136-145) mEq/L Potassium (3.5-4.5) mEq/L Chloride (98-109) mEq/L Carbon Dioxide (19-29) mEq/L BUN (7-20) mg/dL Creatinine (0.57-1.11) mg/dL Est GFR ( Amer) (> 60) Est GFR (Non-Af Amer) (> 60) BUN/Creatinine Ratio (6-26) Glucose (70-99) mg/dL POC Glucose 166 H (58-89) Calculated Osmolality (280-300) Lactic Acid (0.5-2.2) mmol/L Calcium (8.6-10.8) mg/dL Total Bilirubin (0.2-1.2) mg/dL Direct Bilirubin (0.0-0.5) mg/dL Indirect Bilirubin (0.0-1.2) mg/dL AST (5-34) Units/L ALT (0-55) Units/L Alkaline Phosphatase (38-126) Units/L Ammonia (18-72) mcmol/L Troponin I (0-0.03) ng/mL Serum Total Protein (6.0-8.3) g/dL Albumin (3.5-5.0) g/dL Globulin (2.4-3.5) g/dL Albumin/Globulin Ratio (1.1-2.2) Urine Color Yellow (Yellow) Urine Clarity Cloudy A (Clear) Urine pH 5.5 (5.0-8.0) pH Units Ur Specific [place] 1.021 (1.010-1.025) Urine Protein 30 H (Neg-Trace) mg/dL Urine Glucose (UA) Normal (Normal) mg/dL Urine Ketones Negative (Negative) mg/dL Urine Blood Small H (Negative) Urine Nitrite Negative (Negative) Urine Bilirubin Negative (Negative) Urine Urobilinogen Normal (Normal) mg/dL Ur Leukocyte Esterase Negative (Negative) Urine Microscopic RBC 5-15 H (0-3) per hpf Urine Microscopic WBC 0-3 (0-3) per hpf Ur Squamous Epith Cells Many H (None-Few) per lpf Urine Bacteria None Seen (None-Few) per hpf Hyaline Casts Few (None-Few) per lpf Granular Casts Few H (None Seen) per lpf Ur Culture Indicated? NO (NO) Critical Care Time Critical Care Time: Yes Total Critical Care Time: 45 Attestation: Patient presented hypoxic. Supplemental oxygen administered. Case discussed with the ICU/sales and customer relations rep. Patient to be admitted to the ICU with pneumonia and sepsis. Attestation Statement - Attestation Attestation: I examined this patient and my medical decision-making was reviewed with the RECEIVING BARN CUSTODIAN/PA/Advanced Practice Nurse/Resident Physician. I agree with the documented findings, disposition and treatment plan as described except to the extent set forth below. [id number] time provided Patient presents at the recommendation of her finishing pan operator. She is currently undergoing chemotherapy for leukemia. She has been confused over the past 3 days. On exam, the patient is sleepy but arousable to verbal stimuli and answers questions appropriately. She denies dyspnea. Pulse ox is in the 30s with a good waveform Patient placed on supplemental oxygen. Oxygenation immediately improved. At 16:50 I spoke with the sales and customer relations rep/ICU physician who has reviewed the patient's CT chest from earlier today as well as her portable chest x-ray. He recommends neb therapy and chest physiotherapy without bronchoscopy at this time. 17:35: Sepsis protocol fluid resuscitation not undertaken because the patient was not hypotensive
[2016-05-26 17:06] LABS: Monocytes # 1.9 K/mcL (0.0-1.3); Neutrophils # 5.4 K/mcL (1.6-8.9)
--- NOTE | 2016-05-26 17:06 | Emergency Department Note ---
Disposition Clinical Impression: Multifocal pneumonia, Severe sepsis, Acute respiratory acidosis, Anemia, chronic disease, Acute kidney injury, Thrombocytopenia Leukemia Qualifiers: Leukemia type: unspecified Leukemia Active/Remission status: without remission Qualified Code(s): C95.90 - Leukemia, unspecified not having achieved remission Disposition: Admitted As Inpatient Condition: Serious Referrals: Yuri Monsivais DO [Primary Care Provider] - Forms: ED Satisfaction Letter Time of Disposition: 18:18 Altered Mental Status HPI - General Chief Complaint: ED Altered Mental Status Stated Complaint: Needs CT scan, sent by Dr. Yeh Time Seen by Provider: 05/26/16 16:23 Source: family Limitations: altered mental status Nursing Notes Reviewed: Yes Vital Signs Reviewed: Yes - Related Data Home Medications Medication Instructions Recorded Confirmed Citalopram [CeleXA] 20 mg PO DAILY 09/25/14 05/26/16 Alprazolam [Xanax 1 MG Tablet] 1 mg PO TID PRN 05/26/16 05/26/16 Deferasirox [Jadenu] 1,440 mg PO DAILY 05/26/16 05/26/16 Ondansetron [Zofran] 8 mg PO Q8H PRN 05/26/16 05/26/16 Previous Rx's Medication Instructions Recorded Aminocaproic Acid [Amicar] 500 mg PO TID #90 tablet 03/25/16 Folic Acid 1 mg PO DAILY #30 tablet 04/25/16 Acetaminophen w/Cod 300-30 mg 1 each PO Q6HR PRN #60 tablet 05/19/16 [Tylenol w/Codeine #3] Fluconazole [Diflucan] 100 mg PO DAILY #30 tablet 05/19/16 Levofloxacin [Levaquin] 750 mg PO DAILY #14 tablet 05/19/16 Allergies Allergy/AdvReac Type Severity Reaction Status Date / Time Penicillins Allergy Unknown Hives Verified 07/02/15 11:43 Past Medical History - Past Medical History Medical history: Reports: cancer, other Surgical history: Reports: cholecystectomy, other Psychiatric history: Reports: anxiety, depression - Social History Smoking Status: Former smoker Smokeless Tobacco Status: No Alcohol use: Reports: none Drug use: Reports: none Physical Exam - General Limitations: altered mental status General appearance: lethargic Course - Reevaluation(s) Reevaluation #1: Assessment: CVA/stroke, TIA, sepsis, pneumonia, PE, ACS/VT/heart failure Plan: Sepsis workup: chest x-ray, EKG, CBC, BMP, cultures peripheral, troponin, CT head, ABG, lactic acid Current plan is to withhold therapy secondary to patient recently had a transfusion and platelets and patient currently is not fluid depleted. We will continue to monitor her fluid status and add fluids appropriately. Time: 16:57 Reevaluation #2: Patient has no complaints at this time. Patient's O2 sats 92%. Patient's CT from earlier shows multiple consolidations of both lungs, and chest x-ray shows him's complete consolidation of her left long with mild tracheal deviation to the left. Farm Equipment Mechanic Apprentice was consult and suggests no bronchoscopy recommends DuoNeb therapy and chest physiotherapy. Time: 17:04 Reevaluation #3: Patient states that she is feeling a lot better. She is no longer ashen and mirza in the facial regions and extremities like she was when she first and to the ED. Patient is accepted decision to admit. She will be sent to ICU for further evaluation and care. Patient started on aztreonam, levofloxacin, and vancomycin to cover for healthcare associated pneumonia. Patient's lung sounds are slightly improved after DuoNeb therapy as well. Time: 18:00 - Consultations Consultation #1: Respiratory: ABG results showed pH of 7.18, CO2 of 89, PO2 of 78, bicarbonate of 33.2. Time: 17:31 Consultation #2: Neetu YANES Accepted for admission 1815hrs Time: 18:15 Vital Signs Temperature 96.3 F L 05/26/16 16:25 Pulse Rate 105 05/26/16 16:25 Respiratory Rate 20 05/26/16 16:25 Blood Pressure 186/87 05/26/16 16:25 O2 Sat by Pulse Oximetry 82 05/26/16 16:25 Temperature 96.3 F L 05/26/16 16:25 Pulse Rate 86 05/26/16 16:52 Respiratory Rate 22 05/26/16 16:52 Blood Pressure 136/76 05/26/16 16:52 O2 Sat by Pulse Oximetry 93 05/26/16 16:52 Oxygen Delivery Oxygen Delivery Non Rebreather Mask Altered Mental Status - Lab Data Result diagrams: 05/26/16 16:31 Lab Results 05/26/16 05/26/16 05/26/16 Range/Units 16:31 16:31 16:52 WBC 15.8 H D (4.3-11.1) K/mcL RBC 2.73 L (3.82-4.97) M/mcL Hgb 7.8 L D (11.5-15.4) g/dL Hct 23.3 L (35.3-44.9) % MCV 85.3 (83.0-100.0) fL MCH 28.6 (28.0-33.3) pg MCHC 33.5 (31.6-35.5) g/dL RDW 16.1 H (11.5-14.5) % Plt Count 74 L D (140-400) K/mcL MPV 8.8 L (9.4-12.4) fL Immature Plt Fraction 1.6 (1.1-6.1) % POC Glucose 166 H (58-89) Ammonia 62 (18-72) mcmol/L TPA Checklist - LKW: 3-4.5 hrs Add. Contraindications Patient/family understanding: The patient/family members have been counseled and understood the risk, benefit , and alternatives of treatment.
[2016-05-26 17:07] LABS: Platelet Estimate Decreased (Normal)
[2016-05-26 17:25] LABS: ABG HCO3 33.2 mEQ/L (21-27); ABG Oxygen Saturation 92 % (95-98); ABG PO2 78 mmHg (85-104); ABG TCO2 35.9 mEq/L (20-26)
[2016-05-26 17:26] LABS: Blood Gas FiO2 100 %
[2016-05-26 17:28] LABS: ABG PCO2 89 mmHg (35-45); ABG PH 7.18 pH Units (7.32-7.45)
[2016-05-26] MEDS ORDERED: Vancomycin 1,000 MG in D5% in Water 250 ML IVPB ONE (17:39)
[2016-05-26] MEDS ORDERED: Aztreonam 2,000 MG in D5% in Water (Mini-Bag+) 100 ML IVPB ONE (17:39)
[2016-05-26] MEDS ORDERED: Levofloxacin 750 MG/150 ML 750 MG/150 ML BAG IVPB ONE (17:39)
[2016-05-26 18:00] LABS: Bilirubin,Urine Negative (Negative); Blood,Urine Small (Negative); Clarity,Urine Cloudy (Clear); Color,Urine Yellow (Yellow); Glucose,Urine (UA) Normal (Normal); Ketones,Urine Negative (Negative); Leukocyte Esterase,Urine Negative (Negative); Nitrite,Urine Negative (Negative); PH,Urine 5.5 pH Units (5.0-8.0); Protein,Urine 30 mg/dL (Neg-Trace); Specific Gravity,Urine 1.021 (1.010-1.025); Urobilinogen,Urine Normal (Normal)
[2016-05-26 18:01] LABS: Bacteria,Urine None Seen per hpf (None-Few); Squamous Epithelial Cell,Urine Many per lpf (None-Few); WBC,Urine 0-3 per hpf (0-3)
[2016-05-26 18:11] LABS: Granular Casts,Urine Few per lpf (None Seen); Hyaline Casts,Urine Few per lpf (None-Few)
[2016-05-26 20:23] LABS: Bilirubin,Urine Negative (Negative); Blood,Urine Small (Negative); Clarity,Urine Cloudy (Clear); Color,Urine Dark Yellow (Yellow); Glucose,Urine (UA) Normal (Normal); Ketones,Urine Negative (Negative); Leukocyte Esterase,Urine Negative (Negative); Nitrite,Urine Negative (Negative); PH,Urine 5.5 pH Units (5.0-8.0); Protein,Urine 100 mg/dL (Neg-Trace); Urobilinogen,Urine Normal (Normal)
[2016-05-26 20:26] LABS: Bacteria,Urine None Seen per hpf (None-Few); Squamous Epithelial Cell,Urine Many per lpf (None-Few); WBC,Urine 0-3 per hpf (0-3)
[2016-05-26 20:35] LABS: Granular Casts,Urine Few per lpf (None Seen)
--- NOTE | 2016-05-26 20:46 | Internal Med History&Physical ---
Date of Encounter: 05/26/16 Time of Encounter: 20:45 Assessment and Plan (1) Multifocal pneumonia Current visit: Yes Status: Acute We will treat for healthcare associated pneumonia with aztreonam, vancomycin and levofloxacin. Mucinex and supportive care. Pulmonary consultation - may need bronchoscopy. (2) Sepsis Current visit: Yes Status: Acute Secondary to Pneumonia. On IV antibiotics Qualifiers: Sepsis type: sepsis due to unspecified organism Qualified Code(s): A41.9 - Sepsis, unspecified organism (3) Acute respiratory failure Current visit: Yes Status: Acute Likely due to severe pneumonia. Patient is on Supplemental oxygen through venti mask at this time. Will check ABG and consider BiPAP therapy if the patient is not improving. Pulmonary consult Qualifiers: Respiratory failure complication: hypoxia and hypercapnia Qualified Code(s) : J96.01 - Acute respiratory failure with hypoxia; J96.02 - Acute respiratory failure with hypercapnia (4) Encephalopathy acute Current visit: Yes Status: Acute Likely due to pneumonia and hypoxemia. 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 (7) Leukemia Current visit: Yes Status: Chronic consult oncologist Qualifiers: Leukemia type: myeloid Myeloid leukemia type: acute Leukemia Active/ Remission status: without remission Qualified Code(s): C92.00 - Acute myeloblastic leukemia, not having achieved remission (8) Thrombocytopenia Current visit: Yes Status: Chronic Oncology consultation (9) Depression Current visit: Yes Status: Chronic Continue home medications Qualifiers: Depression Type: unspecified Qualified Code(s): F32.9 - Major depressive disorder, single episode, unspecified (10) Iron overload, transfusional Current visit: Yes Status: Chronic (11) Pancytopenia Current visit: Yes Status: Chronic Internal Medicine - H&P: HPI Chief complaint: Confusion; Shortness of breath; hypoxia Admitted From: Emergency Dept Plans for Post Hospital Care: Home History of present illness: Ms. 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 She apparently had more than 50 PRBC transfusions and platelet transfusion since August 2013. She also has h/o transfusion iron overload. She was in the oncologist Dr Villeda office today for transfusions. She was noted to be confused and encephalopathic and apparently was disoriented to time place and person - oncologist was concerned about the possibility of intracranial hemorrhage given patient's long-standing, profound thrombocytopenia and recommended evaluation in the ER. She was also noted to have oxygen saturations of about 81% on room air. She was evaluated in the emergency department - CT head was negative for acute abnormality; chest x-ray reported worsening left lung airspace disease with near complete whiteout. Improving right lower lobe airspace disease. She was given aztreonam, vancomycin and levofloxacin. She is admitted to the intensive care unit for further management. She reports shortness of breath at rest and on exertion but is improving since presentation to the emergency department. She denies significant cough or expectoration. She denies fever chills. No chest pain. His abdominal pain, dysphagia, hematuria, nausea, vomiting, hematemesis, melena, focal weakness, visual disturbances. Past Med Surg Social Fam HX - Past Medical History Medical history: cancer, other Psychiatric history: anxiety, depression - Past Surgical History Surgical History: cholecystectomy, other - Social History Smoking Status: Former smoker Smokeless Tobacco Status: No Alcohol use: none Drug use: none - Family History Mother Family Member Ethnicity: Non- Living Status: Hx Family Cardiac Disorders: No Hx Family Respiratory Disorders: No Hx Family Cancer: Yes (possible colon) - Additional Family History Additional family history: Family history of AML in 2 of her brothers. Her daughter has Hodgkin's disease. Internal Medicine - H&P: Meds Citalopram [CeleXA] 20 mg PO DAILY 09/25/14 [History] Aminocaproic Acid [Amicar] 500 mg PO TID #90 tablet 03/25/16 [Rx] Folic Acid 1 mg PO DAILY #30 tablet 04/25/16 [Rx] Acetaminophen w/Cod 300-30 mg [Tylenol w/Codeine #3] 1 each PO Q6HR PRN #60 tablet 05/19/16 [Rx] Fluconazole [Diflucan] 100 mg PO DAILY #30 tablet 05/19/16 [Rx] Levofloxacin [Levaquin] 750 mg PO DAILY #14 tablet 05/19/16 [Rx] Alprazolam [Xanax 1 MG Tablet] 1 mg PO TID PRN 05/26/16 [History] Deferasirox [Jadenu] 1,440 mg PO DAILY 05/26/16 [History] Ondansetron [Zofran] 8 mg PO Q8H PRN 05/26/16 [History] Allergies Penicillins Allergy (Unknown, Verified 07/02/15 11:43) Hives All Systems PM: A 10-system review of systems was performed and is negative for pertinent findings except as documented above in the HPI. - Constitutional Vitals: Temp Pulse Resp BP Pulse Ox 97.4 F L 87 18 135/90 95 05/26/16 19:55 05/26/16 20:30 05/26/16 20:30 05/26/16 20:30 05/26/16 20:30 Exam: General: Not in acute distress at the time of my evaluation. Alert and oriented HEENT: Oral mucosa is moist. conjunctival palor present. No scleral icterus Neck: No obvious neck swellings Lungs:B/L basal crackles present Cardiac: Regular rate and rhythm. No significant murmurs Abdomen: Soft, non tender. Bowel sounds present Neurological: Alert and oriented. No gross localizing deficits Psych: Not aggressive or agitated Extremities: B/L leg edema Skin: No generalized rash Internal Med - H&P Results - Labs CBC & Chem 7: 05/26/16 16:31 05/26/16 16:31 Labs: Urine 05/26/16 Range/Units 20:19 Urine Color Dark Yellow (Yellow) Urine Clarity Cloudy A (Clear) Urine pH 5.5 (5.0-8.0) pH Units Ur Specific [place] 1.020 (1.010-1.025) Urine Protein 100 H (Neg-Trace) mg/dL Urine Glucose (UA) Normal (Normal) mg/dL - EKG Data -: EKG Interpreted by Myself EKG shows normal: sinus rhythm Rate: normal - Impressions ITS Impressions Chest X-Ray 05/26/16 16:27 IMPRESSION: Worsening left lung airspace disease with near complete white out. Improved right lower lobe airspace disease. D/ / Nicholas Hand MD / Nicholas Hand MD Interpreting Provider: Nicholas Hand MD Head CT 05/26/16 16:28 IMPRESSION: No acute intracranial abnormality. D/ / Nicholas Hand MD / Nicholas Hand MD Interpreting Provider: Nicholas Hand MD
[2016-05-26] MEDS ORDERED: Naloxone 0.4 MG/ML INJ IVP PRN (20:51)
[2016-05-26] MEDS ORDERED: ALPRAZolam 1 MG TABLET PO PRN (20:57)
[2016-05-26] MEDS ORDERED: *HR* Acetaminophen w/Cod 300-30 mg 1 TAB TABLET PO PRN (20:57)
[2016-05-26] MEDS ORDERED: Vancomycin 1,000 MG in D5% in Water 250 ML IVPB SCH (21:00)
[2016-05-26] MEDS: Ipratropium/Albuterol Neb 3 ML IH SCH ×2 (21:11→23:56)
[2016-05-26] MEDS ORDERED: 0.9 % Sodium Chloride 1,000 ML IVC SCH (23:45)
[2016-05-27 00:03] LABS: ABG Base Excess 3.7 mEq/L (-2.0 to 3.0); ABG HCO3 31.8 mEQ/L (21-27); ABG Oxygen Saturation 85 % (95-98); ABG PH 7.23 pH Units (7.32-7.45); ABG PO2 59 mmHg (85-104); ABG TCO2 34.1 mEq/L (20-26)
[2016-05-27 00:04] LABS: Blood Gas FiO2 50 %
[2016-05-27 00:05] LABS: ABG PCO2 76 mmHg (35-45)
[2016-05-27] MEDS: 0.9 % Sodium Chloride 1,000 ML IVC SCH ×2 (02:21→15:46)
[2016-05-27] MEDS: Ipratropium/Albuterol Neb 3 ML IH SCH ×6 (04:11→23:13)
[2016-05-27] MEDS: Aztreonam 1,000 MG in D5% in Water (Mini-Bag+) 100 ML IVPB SCH ×3 (05:09→18:07)
[2016-05-27 05:37] LABS: ABG Base Excess 1.3 mEq/L (-2.0 to 3.0); ABG HCO3 30.2 mEQ/L (21-27); ABG Oxygen Saturation 90 % (95-98); ABG PO2 73 mmHg (85-104); ABG TCO2 32.7 mEq/L (20-26)
[2016-05-27 05:38] LABS: Blood Gas FiO2 70 %
[2016-05-27 05:39] LABS: ABG PCO2 81 mmHg (35-45); ABG PH 7.18 pH Units (7.32-7.45)
--- NOTE | 2016-05-27 06:17 | Event Note ---
Date of Encounter: 05/27/16 Time of Encounter: 06:13 I was asked to see this patient, per respiratory therapy. She is in ICU 3, for what appears to be pneumonia, placed on BiPAP for respiratory failure approximately 7 hours ago. From a clinical standpoint she is continued to improve she is breathing easier, resting comfortably vital signs are quite stable. Although repeat ABG showing a worsening respiratory acidosis. Subsequent with Cooper evaluated the patient she easily awakens she is alert and oriented, she is not tachypneic, does look somewhat frail. The very comfortable. From a physical exam standpoint, there is consolidation with decreased airflow in the left base. The right is fairly clear. Her respiratory rate is really not increased. She is not labored. Her abdomen is fairly soft nontender. Her lung sounds are as noted, her heart is regular without murmur. There is no JVD. Respiratory therapy assured me this is the correct ABG for the patient, therefore make a minor adjustment on the BiPAP with change of 14 respiratory with 7 expiratory, repeat ABG in 1 hours lung she's comfortable.
[2016-05-27 07:33] LABS: Hematocrit 19.5 % (35.3-44.9); Hemoglobin 6.6 g/dL (11.5-15.4); Immature Platelets 1.6 % (1.1-6.1); Mean Corpuscular HGB Conc 33.8 g/dL (31.6-35.5); Mean Corpuscular Hemoglobin 28.7 pg (28.0-33.3); Mean Corpuscular Volume 84.8 fL (83.0-100.0); Mean Platelet Volume 9.4 fL (9.4-12.4); Red Cell Distribution Width 16.1 % (11.5-14.5)
[2016-05-27 07:40] LABS: Platelet Count 43 K/mcL (140-400)
[2016-05-27 07:42] LABS: BUN/Creatinine Ratio 26 (6-26); C-Reactive Protein 47 mg/L (Less than 5); Calcium 7.4 mg/dL (8.6-10.8); Carbon Dioxide 29 mEq/L (19-29); Chloride 103 mEq/L (98-109); Glucose 100 mg/dL (70-99); Magnesium 2.2 mg/dL (1.6-2.6); Osmolality,Calculated 289 (280-300); Potassium 4.2 mEq/L (3.5-4.5); Sodium 137 mEq/L (136-145); eGFR For African Americans > 60 (> 60); eGFR For Non-African Americans 52 (> 60)
[2016-05-27 07:43] LABS: Blood Urea Nitrogen 27 mg/dL (7-20)
[2016-05-27 08:00] LABS: ABG Base Excess 5.3 mEq/L (-2.0 to 3.0); ABG HCO3 32.8 mEQ/L (21-27); ABG Oxygen Saturation 98 % (95-98); ABG PH 7.26 pH Units (7.32-7.45); ABG PO2 113 mmHg (85-104)
[2016-05-27 08:01] LABS: Blood Gas FiO2 70 %
[2016-05-27 08:02] LABS: ABG PCO2 73 mmHg (35-45)
[2016-05-27 08:12] LABS: Monocytes # 0.7 K/mcL (0.0-1.3); Neutrophils # 3.6 K/mcL (1.6-8.9); Platelet Estimate Marked Decrease (Normal)
[2016-05-27 08:13] LABS: Anisocytosis 1+ (Not Present); Stomatocytes 1+ (Not Present)
[2016-05-27] MEDS: Folic Acid 1 MG TABLET PO SCH (09:14)
[2016-05-27] MEDS: DEFERASIROX PO SCH (09:14)
[2016-05-27] MEDS: Fluconazole 100 MG TABLET PO SCH (09:14)
--- NOTE | 2016-05-27 09:25 | Pulmonology Consult Note ---
<Fortino Ace - Last Filed: 05/27/16 10:54> Date of Encounter: 05/27/16 Time of Encounter: 08:55 Assessment and Plan (1) Multifocal pneumonia Current Visit: Yes Status: Acute Continue support with BiPAP. Continue Aztreonam, Vancomycin and levofloxacin pending cultures. Adjust accordingly. Continue Mucinex. Duo Nebs DEV Q6hr. Albuterol PRN Q2hr. Recommended chest physical therapy to try to open up airspace of the left lung. (2) Sepsis Current Visit: Yes Status: Acute Secondary to pneumonia. See above. Qualifiers: Sepsis type: sepsis due to unspecified organism Qualified Code(s): A41.9 - Sepsis, unspecified organism (3) Acute respiratory failure Current Visit: No Status: Acute Improving on BiPAP. Patient is now alert and oriented. Continue BiPAP and IV antibiotics. ABGs improving. Continue to monitor. Qualifiers: Respiratory failure complication: hypoxia Qualified Code(s): J96.01 - Acute respiratory failure with hypoxia (4) HOOD (acute kidney injury) Current Visit: Yes Status: Resolved Creatinine 1.39 > 1.05 (5) Leukemia Current Visit: No Status: Acute Oncology on board. Due for blood transfusion today. Daughter is getting blood band with transfusion information for type and cross match. Currently on chemotherapy. Uncertain what the regimen is currently. Qualifiers: Leukemia type: myeloid Myeloid leukemia type: acute Leukemia Active/ Remission status: without remission Qualified Code(s): C92.00 - Acute myeloblastic leukemia, not having achieved remission (6) Depression Current Visit: Yes Status: Chronic Continue home medications. Qualifiers: Depression Type: unspecified Qualified Code(s): F32.9 - Major depressive disorder, single episode, unspecified (7) Pancytopenia Current Visit: Yes Status: Chronic Secondary to bone marrow failure. Transfusion dependent requiring more than 50 transfusions since August 2013. Oncology on board. History of Present Illness Consult date: 05/26/16 Requesting physician: Maria M Bajwa Reason for consult: pneumonia, other (respiratory failure) Chief complaint: dyspnea History of present illness: This is a 65 year old female with PMH of AML, pancytopenia, transfusion dependence, anxiety and depression who presented to the ER per Dr. Yeh for altered mental status. Upon arrival to the ER she was A&Ox0. CT of her head was negative for acute abnormality. CT was requested by Dr. Yeh due to patient's transfusion dependance and concern for intracranial hemorrhage. Her last platelet transfusion was yesterday and she is due for a blood transfusion today. Upon further investigation she was found to have left lung airspace disease with nearly complete whiteout. While in the ER she was saturating 81% on room air. ABG demonstrated severe acidosis with hypercapnea. The patient was started on aztreonam, vancomycin, and levofloxacin in the ER. Upon admission she was already improving in her mental status. At this time she is A&Ox3 and able to follow commands and converse well. She is saturating at 95% on BiPAP at 14 and 7. She is comfortable and only complaining that her mouth is dry at this time. Past Med Surg Social Fam HX - Past Medical History Medical history: cancer, other Psychiatric history: anxiety, depression - Past Surgical History Surgical History: cholecystectomy, other - Social History Smoking Status: Former smoker Smokeless Tobacco Status: No Alcohol use: none Drug use: none - Family History Mother Family Member Ethnicity: Non- Living Status: Hx Family Cardiac Disorders: No Hx Family Respiratory Disorders: No Hx Family Cancer: Yes (possible colon) Medications and Allergies Citalopram [CeleXA] 20 mg PO DAILY 09/25/14 [History] Aminocaproic Acid [Amicar] 500 mg PO TID #90 tablet 03/25/16 [Rx] Folic Acid 1 mg PO DAILY #30 tablet 04/25/16 [Rx] Acetaminophen w/Cod 300-30 mg [Tylenol w/Codeine #3] 1 each PO Q6HR PRN #60 tablet 05/19/16 [Rx] Fluconazole [Diflucan] 100 mg PO DAILY #30 tablet 05/19/16 [Rx] Levofloxacin [Levaquin] 750 mg PO DAILY #14 tablet 05/19/16 [Rx] Alprazolam [Xanax 1 MG Tablet] 1 mg PO TID PRN 05/26/16 [History] Deferasirox [Jadenu] 1,440 mg PO DAILY 05/26/16 [History] Ondansetron [Zofran] 8 mg PO Q8H PRN 05/26/16 [History] Allergies Penicillins Allergy (Unknown, Verified 07/02/15 11:43) Hives All Systems: A 10-system review of systems was performed and is negative for pertinent findings except as documented above in the HPI. - Constitutional Constitutional: no chills, no fever(s) - EENT Eyes: no loss of vision Nose, mouth and throat: dry mouth, no dysphagia, no headache(s) - Cardiovascular Cardiovascular: dyspnea, no chest pain - Respiratory Respiratory: dyspnea, dyspnea on exertion - Gastrointestinal Gastrointestinal: no diarrhea, no hematochezia, no melena, no nausea, no vomiting - Neurological Neurological: no confusion Physical Examination Vital Signs: Vital Signs, Last 4 Hours Temp Pulse Resp BP Pulse Ox 05/27/16 09:00 93 23 124/52 93 05/27/16 08:00 80 18 124/52 93 05/27/16 07:41 97.8 F 05/27/16 07:38 25 125/53 98 05/27/16 07:00 80 14 125/53 95 05/27/16 06:00 82 16 128/57 96 General appearance: no acute distress Eyes: nonicteric ENT: oropharynx dry Neck: supple Effort: normal, other (On BiPAP) Auscultation: bilateral: clear Cardiovascular: regular rate and rhythm Gastrointestinal: normoactive bowel sounds, non-tender, non-distended Integumentary: normal Extremities: no cyanosis Musculoskeletal: no deformities normal mental status, non-focal exam Results - Laboratory Findings CBC and BMP: 05/27/16 07:19 05/27/16 07:19 ABG ABG pH 7.26 pH Units (7.32-7.45) L 05/27/16 07:48 ABG pCO2 73 mmHg (35-45) H* 05/27/16 07:48 ABG pO2 113 mmHg (85-104) H 05/27/16 07:48 ABG O2 Saturation 98 % (95-98) 05/27/16 07:48 PT/INR, D-dimer PT 13.2 Seconds (9.4-12.1) H 05/26/16 16:31 Abnormal lab findings: Abnormal lab results RBC 2.30 M/mcL (3.82-4.97) L 05/27/16 07:19 Hgb 6.6 g/dL (11.5-15.4) L 05/27/16 07:19 Hct 19.5 % (35.3-44.9) L 05/27/16 07:19 RDW 16.1 % (11.5-14.5) H 05/27/16 07:19 Plt Count 43 K/mcL (140-400) L 05/27/16 07:19 Band Neutrophils % 17.0 % (0-4) H 05/27/16 07:19 Metamyelocytes % 3.0 % (0) H 05/27/16 07:19 Myelocytes % 11.0 % (0) H 05/27/16 07:19 Blast Cells % 26.0 % (0) H 05/27/16 07:19 Platelet Estimate Marked Decrease (Normal) L 05/27/16 07:19 Anisocytosis 1+ (Not Present) A 05/27/16 07:19 Stomatocytes 1+ (Not Present) A 05/27/16 07:19 PT 13.2 Seconds (9.4-12.1) H 05/26/16 16:31 APTT 25.2 Seconds (26.0-36.0) L 05/26/16 16:31 ABG pH 7.26 pH Units (7.32-7.45) L 05/27/16 07:48 ABG pCO2 73 mmHg (35-45) H* 05/27/16 07:48 ABG pO2 113 mmHg (85-104) H 05/27/16 07:48 ABG HCO3 32.8 mEQ/L (21-27) H 05/27/16 07:48 ABG Total CO2 35.0 mEq/L (20-26) H 05/27/16 07:48 ABG Base Excess 5.3 mEq/L (-2.0 to 3.0) H 05/27/16 07:48 BUN 27 mg/dL (7-20) H D 05/27/16 07:19 Est GFR (Non-Af Amer) 52 (> 60) L 05/27/16 07:19 Glucose 100 mg/dL (70-99) H 05/27/16 07:19 POC Glucose 133 (58-89) H 05/26/16 19:55 Calcium 7.4 mg/dL (8.6-10.8) L 05/27/16 07:19 AST 133 Units/L (5-34) H 05/26/16 16:31 ALT 62 Units/L (0-55) H 05/26/16 16:31 C-Reactive Protein 47 mg/L (Less than 5) H 05/27/16 07:19 Serum Total Protein 8.9 g/dL (6.0-8.3) H 05/26/16 16:31 Albumin 3.0 g/dL (3.5-5.0) L 05/26/16 16:31 Globulin 5.9 g/dL (2.4-3.5) H 05/26/16 16:31 Albumin/Globulin Ratio 0.5 (1.1-2.2) L 05/26/16 16:31 Urine Clarity Cloudy (Clear) A 05/26/16 20:19 Urine Protein 100 mg/dL (Neg-Trace) H 05/26/16 20:19 Urine Blood Small (Negative) H 05/26/16 20:19 Urine Microscopic RBC 3-5 per hpf (0-3) H 05/26/16 20:19 Ur Squamous Epith Cells Many per lpf (None-Few) H 05/26/16 20:19 Granular Casts Few per lpf (None Seen) H 05/26/16 20:19 - Clinical Findings Intake & Output: Intake & Output 05/26/16 05/27/16 05/27/16 23:59 07:59 15:59 Intake Total 250 / 500 100 / 100 Output Total 900 / 900 Balance 250 / 500 -800 / -800 Weight 71.2 kg Consult Discharge Plan - Plan Referrals: ColYuri wilson DO [Primary Care Provider] - - Attending Attestation I examined this patient and my medical decision-making was reviewed with the [employer]/PA/Advanced Practice Nurse/Resident Physician. I agree with the documented findings, disposition and treatment plan as described except to the extent set forth below. <Mateo Vallejo - Last Filed: 05/27/16 12:30> Date of Encounter: 05/27/16 All Systems: A 10-system review of systems was performed and is negative for pertinent findings except as documented above in the HPI. Physical Examination Vital Signs: Vital Signs, Last 4 Hours Temp Pulse Resp BP Pulse Ox 05/27/16 12:00 80 18 132/51 99 05/27/16 11:45 80 05/27/16 11:36 20 124/52 95 05/27/16 11:29 97.9 F 05/27/16 10:00 83 14 123/57 95 05/27/16 09:00 93 23 124/52 93 Results - Laboratory Findings CBC and BMP: 05/27/16 07:19 05/27/16 07:19 ABG ABG pH 7.26 pH Units (7.32-7.45) L 05/27/16 07:48 ABG pCO2 73 mmHg (35-45) H* 05/27/16 07:48 ABG pO2 113 mmHg (85-104) H 05/27/16 07:48 ABG O2 Saturation 98 % (95-98) 05/27/16 07:48 PT/INR, D-dimer PT 13.2 Seconds (9.4-12.1) H 05/26/16 16:31 Abnormal lab findings: Abnormal lab results RBC 2.30 M/mcL (3.82-4.97) L 05/27/16 07:19 Hgb 6.6 g/dL (11.5-15.4) L 05/27/16 07:19 Hct 19.5 % (35.3-44.9) L 05/27/16 07:19 RDW 16.1 % (11.5-14.5) H 05/27/16 07:19 Plt Count 43 K/mcL (140-400) L 05/27/16 07:19 Band Neutrophils % 17.0 % (0-4) H 05/27/16 07:19 Metamyelocytes % 3.0 % (0) H 05/27/16 07:19 Myelocytes % 11.0 % (0) H 05/27/16 07:19 Blast Cells % 26.0 % (0) H 05/27/16 07:19 Platelet Estimate Marked Decrease (Normal) L 05/27/16 07:19 Anisocytosis 1+ (Not Present) A 05/27/16 07:19 Stomatocytes 1+ (Not Present) A 05/27/16 07:19 PT 13.2 Seconds (9.4-12.1) H 05/26/16 16:31 APTT 25.2 Seconds (26.0-36.0) L 05/26/16 16:31 ABG pH 7.26 pH Units (7.32-7.45) L 05/27/16 07:48 ABG pCO2 73 mmHg (35-45) H* 05/27/16 07:48 ABG pO2 113 mmHg (85-104) H 05/27/16 07:48 ABG HCO3 32.8 mEQ/L (21-27) H 05/27/16 07:48 ABG Total CO2 35.0 mEq/L (20-26) H 05/27/16 07:48 ABG Base Excess 5.3 mEq/L (-2.0 to 3.0) H 05/27/16 07:48 BUN 27 mg/dL (7-20) H D 05/27/16 07:19 Est GFR (Non-Af Amer) 52 (> 60) L 05/27/16 07:19 Glucose 100 mg/dL (70-99) H 05/27/16 07:19 POC Glucose 133 (58-89) H 05/26/16 19:55 Calcium 7.4 mg/dL (8.6-10.8) L 05/27/16 07:19 AST 133 Units/L (5-34) H 05/26/16 16:31 ALT 62 Units/L (0-55) H 05/26/16 16:31 C-Reactive Protein 47 mg/L (Less than 5) H 05/27/16 07:19 Serum Total Protein 8.9 g/dL (6.0-8.3) H 05/26/16 16:31 Albumin 3.0 g/dL (3.5-5.0) L 05/26/16 16:31 Globulin 5.9 g/dL (2.4-3.5) H 05/26/16 16:31 Albumin/Globulin Ratio 0.5 (1.1-2.2) L 05/26/16 16:31 Urine Clarity Cloudy (Clear) A 05/26/16 20:19 Urine Protein 100 mg/dL (Neg-Trace) H 05/26/16 20:19 Urine Blood Small (Negative) H 05/26/16 20:19 Urine Microscopic RBC 3-5 per hpf (0-3) H 05/26/16 20:19 Ur Squamous Epith Cells Many per lpf (None-Few) H 05/26/16 20:19 Granular Casts Few per lpf (None Seen) H 05/26/16 20:19 - Clinical Findings Intake & Output: Intake & Output 05/26/16 05/27/16 05/27/16 23:59 07:59 15:59 Intake Total 250 / 500 100 / 100 100 / 100 Output Total 900 / 900 300 / 300 Balance 250 / 500 -800 / -800 -200 / -200 Weight 71.2 kg - Attending Attestation I have examined the pt and discussed her case with the resident on multidisciplinary rounds and agree with documented assessment and plan. Evidence of left lung volume loss on chest imaging. Cause unclear but most likely severe atelectasis vs consolidation. Afebrile without productive cough so would favor atelectasis over pneumonia. However, no clear cause. Will continue empiric abx now. Aggressive lung recruitment with scheduled bronchodilators, NIPPV, and targeted CPT.
[2016-05-27] MEDS ORDERED: Albuterol 2.5 MG/3 ML NEBULIZER IH PRN (10:53)
[2016-05-27] MEDS ORDERED: Vancomycin 1,000 MG in D5% in Water 250 ML IVPB ONE (12:00)
[2016-05-27] MEDS: *HR* Heparin 5,000 UNIT/ML VIAL SQ SCH (16:56)
--- NOTE | 2016-05-27 17:52 | Oncology Inp Consult Note ---
<Kaye Dietz E - Last Filed: 05/27/16 17:54> Date of Encounter: 05/27/16 Time of Encounter: 15:00 Assessment and Plan (1) Thrombocytopenia Status: Chronic Assessment and plan: transfuse to maintain platelets of 20,000 or greater (2) Transfusion-dependent anemia Status: Acute Assessment and plan: transfuse to maintain HGB of 7. - Data of Consult Patient: known to practice within the last 3 years Consult date: 05/27/16 Requesting Physician: Xi Hutchison Primary Care Provider: Yuri Monsivais - Consult Narrative Reason for consult: Anemia, thrombocytopenia, AML History of present illness: Ms. Miles is a 65 year old female with a past medical history of AML, bone marrow failure- transfusion dependent, iron over load, and depression. She was sent from the [facility] where she was receiving platelets yesterday to [place] emergency department. She was admitted with multifocal pneumonia, severe sepsis, acute respiratory acidosis, anemia, chronic disease, acute kidney injury , acute thrombocytopenia and altered mental status. Upon emergency department evaluation she was admitted to ICU. ABG results indicate pH of 7.18, CO2 of 89, PO2 of 78 and bicarbonate of 33.2. CBC indicated a white count of 15.8, hemoglobin 7.8, platelets 74,000. She had a CT of the chest indicated multifocal lobular consolidation, most severe in the left upper lobe, small bilateral pleural effusions left greater than right, emphysema and CAD. She also had a CAT scan of the head that indicated no abnormality. She was placed on BiPAP remain on treatment until late this afternoon which time she was switched to high flow nasal O2. She is feeling much better today, more alert. Doesn't recall much of day yesterday. Remains weak with, shortness of breath but is no longer on BiPap. Pulse ox 93% on high flow O2 per nasal cannula. Like for her to be transfused to maintain hemoglobin 7 or above and platelets greater than 20,000. Hematology History: She presented in August 2013 with pancytopenia: Anemia-hemoglobin 6.1, ANC of 800 , and platelets of 34,000. In August 2013 she had a bone marrow biopsy revealed 84% blasts positive for CD 34 , CD45, CD13, CDs 117 partial HLA-DR and CD38. 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 Consultation with several leukemia experts it was recommended the patient receive backside being induction followed by maintenance. She was seen by Dr. Mulu Seo at [facility] and had a bone marrow biopsy in November 2013 showed 1% blasts. 2013 at [facility] she had a repeat bone marrow that indicated AML, CDE BP a mutated. After extensive consultation with new issues she declined to proceed with stem cell transplant. She also saw Dr. Elijah Kaiser at [facility] again declined stem cell transplant. Treatment summary: 09/26- induction with Decitabine 20 mg/m2 x 10 days 10/31/2013-05/12/2014 she received 7 courses of Decitabine consolidation/ maintenance. This was stopped due to pancytopenia with transfusion and growth factor dependence. 2015-resume treatment with decitabine induction 10 days followed by maintenance every 28 days. Ongoing with different dose modification schemes based on the disease state and cytopenias. April 23 through 05/02/2016 she received 10 day twice a day induction regimen with low dose araC due to rising blast on dictating maintenance. Extending was on hold during the araC induction. June 2015-started on Aranesp for anemia due to antineoplastic treatment. She is transfusion dependant. She has had numerous packed cell and platelet trasnfusions. (see transfusion history)She has transfusional iron overload and in on iron chelation-Jadenu Past Med Surg Social Fam HX - Past Medical History Medical history: cancer (AML, Iron overload,), other Psychiatric history: anxiety, depression - Past Surgical History Surgical History: cholecystectomy, other - Social History Smoking Status: Former smoker Smokeless Tobacco Status: No Alcohol use: none Drug use: none - Family History Mother Family Member Ethnicity: Non- Living Status: Hx Family Cardiac Disorders: No Hx Family Respiratory Disorders: No Hx Family Cancer: Yes (possible colon) Medications and Allergies Citalopram [CeleXA] 20 mg PO DAILY 09/25/14 [History] Aminocaproic Acid [Amicar] 500 mg PO TID #90 tablet 03/25/16 [Rx] Folic Acid 1 mg PO DAILY #30 tablet 04/25/16 [Rx] Acetaminophen w/Cod 300-30 mg [Tylenol w/Codeine #3] 1 each PO Q6HR PRN #60 tablet 05/19/16 [Rx] Fluconazole [Diflucan] 100 mg PO DAILY #30 tablet 05/19/16 [Rx] Levofloxacin [Levaquin] 750 mg PO DAILY #14 tablet 05/19/16 [Rx] Alprazolam [Xanax 1 MG Tablet] 1 mg PO TID PRN 05/26/16 [History] Deferasirox [Jadenu] 1,440 mg PO DAILY 05/26/16 [History] Ondansetron [Zofran] 8 mg PO Q8H PRN 05/26/16 [History] Allergies Penicillins Allergy (Unknown, Verified 07/02/15 11:43) Hives All systems: reviewed and no additional remarkable complaints except as stated Constitutional: Present: fatigue, weakness Respiratory: Present: dyspnea Hematologic/Lymphatic: Present: easy bruising Oncology - Exam - Constitutional Vitals: Temp Pulse Resp BP Pulse Ox 98.5 F 90 20 132/60 94 05/27/16 15:30 05/27/16 17:00 05/27/16 17:00 05/27/16 17:00 05/27/16 17:00 General appearance: cooperative - Head Head exam: Present: normal inspection - ENT ENT exam: Present: mucous membranes dry - Respiratory Respiratory exam: Present: decreased breath sounds (all lung bledsoe ) - Cardiovascular Cardiovascular exam: Present: RRR - GI/Abdominal GI/Abdominal exam: Present: soft ( non tender) - Extremities Exam Extremities exam: Present: normal capillary refill, pedal edema (minimal) - Neurological Exam Neurological exam: Present: alert, oriented X3 - Psychiatric Psychiatric exam: Present: normal affect - Skin Skin exam: Present: abrasion (bruises) Oncology - Results - Labs Labs: Short CBC 05/27/16 Range/Units 07:19 WBC 10.5 (4.3-11.1) K/mcL Hgb 6.6 L (11.5-15.4) g/dL Hct 19.5 L (35.3-44.9) % Plt Count 43 L (140-400) K/mcL Neutrophils # 3.6 (1.6-8.9) K/mcL BMP 05/27/16 07:19 Sodium 137 Potassium 4.2 Chloride 103 Carbon Dioxide 29 BUN 27 H D Creatinine 1.05 Glucose 100 H Calcium 7.4 L Cardiac Enzymes 05/27/16 05/27/16 Range/Units 07:19 15:43 Troponin I 0.02 0.02 (0-0.03) ng/mL Laboratory Results - last 48 hr 05/26/16 05/26/16 05/26/16 16:31 16:31 16:31 WBC 15.8 H D RBC 2.73 L Hgb 7.8 L D Hct 23.3 L MCV 85.3 MCH 28.6 MCHC 33.5 RDW 16.1 H Plt Count 74 L D MPV 8.8 L Seg Neutrophils % 26.0 Band Neutrophils % 8.0 H Lymphocytes % 44.0 Monocytes % 12.0 Metamyelocytes % Myelocytes % Blast Cells % 10.0 H Neutrophils # 5.4 Lymphocytes # 7.0 H Monocytes # 1.9 H Platelet Estimate Decreased L Immature Plt Fraction 1.6 Anisocytosis Stomatocytes PT 13.2 H INR 1.2 APTT 25.2 L ABG pH ABG pCO2 ABG pO2 ABG HCO3 ABG Total CO2 ABG O2 Saturation ABG Base Excess Blood Gas Modality Inspired O2 Sodium 137 Potassium 3.8 Chloride 102 Carbon Dioxide 28 BUN 38 H Creatinine 1.39 H Est GFR ( Amer) 46 L Est GFR (Non-Af Amer) 38 L BUN/Creatinine Ratio 27 H Glucose 163 H POC Glucose Calculated Osmolality 297 Lactic Acid Calcium 7.9 L Magnesium Total Bilirubin 1.1 Direct Bilirubin 0.5 Indirect Bilirubin 0.6 AST 133 H ALT 62 H Alkaline Phosphatase 71 Ammonia Troponin I C-Reactive Protein Serum Total Protein 8.9 H Albumin 3.0 L Globulin 5.9 H Albumin/Globulin Ratio 0.5 L Urine Color Urine Clarity Urine pH Ur Specific Calvin Urine Protein Urine Glucose (UA) Urine Ketones Urine Blood Urine Nitrite Urine Bilirubin Urine Urobilinogen Ur Leukocyte Esterase Urine Microscopic RBC Urine Microscopic WBC Ur Squamous Epith Cells Urine Bacteria Hyaline Casts Granular Casts Ur Culture Indicated? 05/26/16 05/26/16 05/26/16 16:31 16:31 16:31 WBC RBC Hgb Hct MCV MCH MCHC RDW Plt Count MPV Seg Neutrophils % Band Neutrophils % Lymphocytes % Monocytes % Metamyelocytes % Myelocytes % Blast Cells % Neutrophils # Lymphocytes # Monocytes # Platelet Estimate Immature Plt Fraction Anisocytosis Stomatocytes PT INR APTT ABG pH ABG pCO2 ABG pO2 ABG HCO3 ABG Total CO2 ABG O2 Saturation ABG Base Excess Blood Gas Modality Inspired O2 Sodium Potassium Chloride Carbon Dioxide BUN Creatinine Est GFR ( Amer) Est GFR (Non-Af Amer) BUN/Creatinine Ratio Glucose POC Glucose Calculated Osmolality Lactic Acid 1.9 Calcium Magnesium Total Bilirubin Direct Bilirubin Indirect Bilirubin AST ALT Alkaline Phosphatase Ammonia 62 Troponin I 0.04 H* C-Reactive Protein Serum Total Protein Albumin Globulin Albumin/Globulin Ratio Urine Color Urine Clarity Urine pH Ur Specific Calvin Urine Protein Urine Glucose (UA) Urine Ketones Urine Blood Urine Nitrite Urine Bilirubin Urine Urobilinogen Ur Leukocyte Esterase Urine Microscopic RBC Urine Microscopic WBC Ur Squamous Epith Cells Urine Bacteria Hyaline Casts Granular Casts Ur Culture Indicated? 05/26/16 05/26/16 05/26/16 16:52 17:12 17:44 WBC RBC Hgb Hct MCV MCH MCHC RDW Plt Count MPV Seg Neutrophils % Band Neutrophils % Lymphocytes % Monocytes % Metamyelocytes % Myelocytes % Blast Cells % Neutrophils # Lymphocytes # Monocytes # Platelet Estimate Immature Plt Fraction Anisocytosis Stomatocytes PT INR APTT ABG pH 7.18 L* ABG pCO2 89 H* ABG pO2 78 L ABG HCO3 33.2 H ABG Total CO2 35.9 H ABG O2 Saturation 92 L ABG Base Excess 4.0 H Blood Gas Modality NRB Inspired O2 100 Sodium Potassium Chloride Carbon Dioxide BUN Creatinine Est GFR ( Amer) Est GFR (Non-Af Amer) BUN/Creatinine Ratio Glucose POC Glucose 166 H Calculated Osmolality Lactic Acid Calcium Magnesium Total Bilirubin Direct Bilirubin Indirect Bilirubin AST ALT Alkaline Phosphatase Ammonia Troponin I C-Reactive Protein Serum Total Protein Albumin Globulin Albumin/Globulin Ratio Urine Color Yellow Urine Clarity Cloudy A Urine pH 5.5 Ur Specific Calvin 1.021 Urine Protein 30 H Urine Glucose (UA) Normal Urine Ketones Negative Urine Blood Small H Urine Nitrite Negative Urine Bilirubin Negative Urine Urobilinogen Normal Ur Leukocyte Esterase Negative Urine Microscopic RBC 5-15 H Urine Microscopic WBC 0-3 Ur Squamous Epith Cells Many H Urine Bacteria None Seen Hyaline Casts Few Granular Casts Few H Ur Culture Indicated? NO 05/26/16 05/26/16 05/26/16 19:55 20:03 20:19 WBC RBC Hgb Hct MCV MCH MCHC RDW Plt Count MPV Seg Neutrophils % Band Neutrophils % Lymphocytes % Monocytes % Metamyelocytes % Myelocytes % Blast Cells % Neutrophils # Lymphocytes # Monocytes # Platelet Estimate Immature Plt Fraction Anisocytosis Stomatocytes PT INR APTT ABG pH ABG pCO2 ABG pO2 ABG HCO3 ABG Total CO2 ABG O2 Saturation ABG Base Excess Blood Gas Modality Inspired O2 Sodium Potassium Chloride Carbon Dioxide BUN Creatinine Est GFR ( Amer) Est GFR (Non-Af Amer) BUN/Creatinine Ratio Glucose POC Glucose 133 H Calculated Osmolality Lactic Acid 1.1 Calcium Magnesium Total Bilirubin Direct Bilirubin Indirect Bilirubin AST ALT Alkaline Phosphatase Ammonia Troponin I C-Reactive Protein Serum Total Protein Albumin Globulin Albumin/Globulin Ratio Urine Color Dark Yellow Urine Clarity Cloudy A Urine pH 5.5 Ur Specific Calvin 1.020 Urine Protein 100 H Urine Glucose (UA) Normal Urine Ketones Negative Urine Blood Small H Urine Nitrite Negative Urine Bilirubin Negative Urine Urobilinogen Normal Ur Leukocyte Esterase Negative Urine Microscopic RBC 3-5 H Urine Microscopic WBC 0-3 Ur Squamous Epith Cells Many H Urine Bacteria None Seen Hyaline Casts Test Not Performed Granular Casts Few H Ur Culture Indicated? 05/26/16 05/27/16 05/27/16 23:53 05:20 07:19 WBC 10.5 RBC 2.30 L Hgb 6.6 L Hct 19.5 L MCV 84.8 MCH 28.7 MCHC 33.8 RDW 16.1 H Plt Count 43 L MPV 9.4 Seg Neutrophils % 17.0 Band Neutrophils % 17.0 H Lymphocytes % 19.0 Monocytes % 7.0 Metamyelocytes % 3.0 H Myelocytes % 11.0 H Blast Cells % 26.0 H Neutrophils # 3.6 Lymphocytes # 2.0 Monocytes # 0.7 Platelet Estimate Marked Decrease L Immature Plt Fraction 1.6 Anisocytosis 1+ A Stomatocytes 1+ A PT INR APTT ABG pH 7.23 L 7.18 L* ABG pCO2 76 H* 81 H* ABG pO2 59 L 73 L ABG HCO3 31.8 H 30.2 H ABG Total CO2 34.1 H 32.7 H ABG O2 Saturation 85 L 90 L ABG Base Excess 3.7 H 1.3 Blood Gas Modality VM BIPAP Inspired O2 50 70 Sodium Potassium Chloride Carbon Dioxide BUN Creatinine Est GFR ( Amer) Est GFR (Non-Af Amer) BUN/Creatinine Ratio Glucose POC Glucose Calculated Osmolality Lactic Acid Calcium Magnesium Total Bilirubin Direct Bilirubin Indirect Bilirubin AST ALT Alkaline Phosphatase Ammonia Troponin I C-Reactive Protein Serum Total Protein Albumin Globulin Albumin/Globulin Ratio Urine Color Urine Clarity Urine pH Ur Specific Calvin Urine Protein Urine Glucose (UA) Urine Ketones Urine Blood Urine Nitrite Urine Bilirubin Urine Urobilinogen Ur Leukocyte Esterase Urine Microscopic RBC Urine Microscopic WBC Ur Squamous Epith Cells Urine Bacteria Hyaline Casts Granular Casts Ur Culture Indicated? 05/27/16 05/27/16 05/27/16 07:19 07:19 07:48 WBC RBC Hgb Hct MCV MCH MCHC RDW Plt Count MPV Seg Neutrophils % Band Neutrophils % Lymphocytes % Monocytes % Metamyelocytes % Myelocytes % Blast Cells % Neutrophils # Lymphocytes # Monocytes # Platelet Estimate Immature Plt Fraction Anisocytosis Stomatocytes PT INR APTT ABG pH 7.26 L ABG pCO2 73 H* ABG pO2 113 H ABG HCO3 32.8 H ABG Total CO2 35.0 H ABG O2 Saturation 98 ABG Base Excess 5.3 H Blood Gas Modality BIPAP Inspired O2 70 Sodium 137 Potassium 4.2 Chloride 103 Carbon Dioxide 29 BUN 27 H D Creatinine 1.05 Est GFR ( Amer) > 60 Est GFR (Non-Af Amer) 52 L BUN/Creatinine Ratio 26 Glucose 100 H POC Glucose Calculated Osmolality 289 Lactic Acid Calcium 7.4 L Magnesium 2.2 Total Bilirubin Direct Bilirubin Indirect Bilirubin AST ALT Alkaline Phosphatase Ammonia Troponin I 0.02 C-Reactive Protein 47 H Serum Total Protein Albumin Globulin Albumin/Globulin Ratio Urine Color Urine Clarity Urine pH Ur Specific Calvin Urine Protein Urine Glucose (UA) Urine Ketones Urine Blood Urine Nitrite Urine Bilirubin Urine Urobilinogen Ur Leukocyte Esterase Urine Microscopic RBC Urine Microscopic WBC Ur Squamous Epith Cells Urine Bacteria Hyaline Casts Granular Casts Ur Culture Indicated? 05/27/16 15:43 WBC RBC Hgb Hct MCV MCH MCHC RDW Plt Count MPV Seg Neutrophils % Band Neutrophils % Lymphocytes % Monocytes % Metamyelocytes % Myelocytes % Blast Cells % Neutrophils # Lymphocytes # Monocytes # Platelet Estimate Immature Plt Fraction Anisocytosis Stomatocytes PT INR APTT ABG pH ABG pCO2 ABG pO2 ABG HCO3 ABG Total CO2 ABG O2 Saturation ABG Base Excess Blood Gas Modality Inspired O2 Sodium Potassium Chloride Carbon Dioxide BUN Creatinine Est GFR ( Amer) Est GFR (Non-Af Amer) BUN/Creatinine Ratio Glucose POC Glucose Calculated Osmolality Lactic Acid Calcium Magnesium Total Bilirubin Direct Bilirubin Indirect Bilirubin AST ALT Alkaline Phosphatase Ammonia Troponin I 0.02 C-Reactive Protein Serum Total Protein Albumin Globulin Albumin/Globulin Ratio Urine Color Urine Clarity Urine pH Ur Specific Calvin Urine Protein Urine Glucose (UA) Urine Ketones Urine Blood Urine Nitrite Urine Bilirubin Urine Urobilinogen Ur Leukocyte Esterase Urine Microscopic RBC Urine Microscopic WBC Ur Squamous Epith Cells Urine Bacteria Hyaline Casts Granular Casts Ur Culture Indicated? Consult Discharge Plan - Plan Referrals: Yuri Monsivais DO [Primary Care Provider] - <Yoshi Yeh - Last Filed: 05/28/16 08:11> Date of Encounter: 05/27/16 - Data of Consult Patient: known to practice within the last 3 years Requesting Physician: Xi Hutchison Primary Care Provider: Yuri Monsivais - Consult Narrative History of present illness: Ms. Miles is a 65 year old female Oncology - Exam - Constitutional Vitals: Temp Pulse Resp BP Pulse Ox 99.3 F 90 22 143/65 99 05/28/16 04:00 05/28/16 07:00 05/28/16 07:00 05/28/16 07:00 05/28/16 07:00 Oncology - Results - Labs Labs: Short CBC 05/27/16 05/28/16 Range/Units 07:19 04:22 WBC 13.0 H (4.3-11.1) K/mcL Hgb 6.4 L (11.5-15.4) g/dL Hct 19.4 L (35.3-44.9) % Plt Count 27 L* (140-400) K/mcL Neutrophils # 3.6 5.2 (1.6-8.9) K/mcL BMP 05/28/16 04:22 Sodium 139 Potassium 3.7 Chloride 105 Carbon Dioxide 28 BUN 18 Creatinine 0.91 Glucose 116 H Calcium 7.3 L Cardiac Enzymes 05/27/16 Range/Units 15:43 Troponin I 0.02 (0-0.03) ng/mL - Attending Attestation I saw and personally examined Ms. Miles at her bedside today and reviewed the chart for details of ongoing care by hospital team. I verified/agree with the history and physical exam findings documented by Leila Dietz CRATE REPAIRER above. Tamy a known patient of the cancer center followed for her long-standing history of acute myelogenous leukemia with associated bone marrow failure and pancytopenia. She is transfusion dependent for her pancytopenia. She is currently hospitalized for acute hypoxemic respiratory failure and associated encephalopathy. She is being treated for lung infection based on recent chest CT scan. On today's evaluation, she is doing considerably better. She is maintaining good oxygenation with supplemental O2. Sensorium has cleared up and she is anticipating that her care, transition to a low acuity unit sometime today and possibly discharge in the coming days. Cultures have returned negative and I suspect I will be able to de-escalate antibiotic regimen. She had an acute kidney injury at initial presentation with kidney function has completely returned to her usual baseline. For her pancytopenia, she has been managed supportively with transfusion. We'll recommend to maintain hemoglobin of 7 and platelets of 30,000 or greater with transfusion given severe illness and ICU admission. Overall, she is making steady, incremental improvement with current measures. We will follow her along with you. She already has not wish an follow-up appointment with us and she will keep that appointment. She comes to the cancer center for twice-weekly blood draws and will be monitored his discharge prior to her appointment.
[2016-05-27] MEDS ORDERED: Levofloxacin 750 MG/150 ML 750 MG/150 ML BAG IVPB SCH (18:00)
--- NOTE | 2016-05-27 18:43 | Electrocardiograph Report ---
[place] [id number] Test Date: 2016-05-26 Pat Name: Tamy Miles Department: 103 Room: [facility] Gender: F Dispute Resolution Specialist: : [id number] Requested By: Elbert Whitman Order Number: [id number] Reading MD: Danielle Isabel Measurements Intervals [place] Rate: 100 P: 70 NE: 142 QRS: 48 QRSD: 77 T: 65 QT: 338 QTc: 395 Interpretive Statements SINUS TACHYCARDIA POSSIBLE LEFT ATRIAL ENLARGEMENT MINIMAL ST DEPRESSION ABNORMAL RHYTHM ECG Electronically Signed On 05-27-2016 18:42:13 EDT by Danielle Isabel
[2016-05-28] MEDS: Ipratropium/Albuterol Neb 3 ML IH SCH ×5 (03:26→20:34)
[2016-05-28] MEDS: Aztreonam 1,000 MG in D5% in Water (Mini-Bag+) 100 ML IVPB SCH ×3 (04:31→18:03)
[2016-05-28] MEDS: *HR* Heparin 5,000 UNIT/ML VIAL SQ SCH ×2 (04:33→04:36)
[2016-05-28] MEDS: DEFERASIROX PO SCH (04:34)
[2016-05-28 04:40] LABS: Hemoglobin 6.4 g/dL (11.5-15.4)
[2016-05-28 04:42] LABS: Hematocrit 19.4 % (35.3-44.9); Immature Platelets 1.4 % (1.1-6.1); Mean Corpuscular Hemoglobin 28.3 pg (28.0-33.3); Mean Corpuscular Volume 85.8 fL (83.0-100.0); Mean Platelet Volume 8.9 fL (9.4-12.4); Red Blood Count 2.26 M/mcL (3.82-4.97); Red Cell Distribution Width 16.7 % (11.5-14.5)
[2016-05-28 04:47] LABS: Platelet Count 27 K/mcL (140-400)
[2016-05-28 04:56] LABS: BUN/Creatinine Ratio 20 (6-26); Blood Urea Nitrogen 18 mg/dL (7-20); Calcium 7.3 mg/dL (8.6-10.8); Carbon Dioxide 28 mEq/L (19-29); Chloride 105 mEq/L (98-109); Glucose 116 mg/dL (70-99); Osmolality,Calculated 291 (280-300); Potassium 3.7 mEq/L (3.5-4.5); Sodium 139 mEq/L (136-145); eGFR For African Americans > 60 (> 60); eGFR For Non-African Americans > 60 (> 60)
[2016-05-28 06:20] LABS: Lymphocytes # 2.9 K/mcL (0.6-4.6); Monocytes # 1.6 K/mcL (0.0-1.3); Neutrophils # 5.2 K/mcL (1.6-8.9)
[2016-05-28 06:21] LABS: Platelet Estimate Decreased (Normal)
[2016-05-28] MEDS: Folic Acid 1 MG TABLET PO SCH (08:45)
[2016-05-28] MEDS: Fluconazole 100 MG TABLET PO SCH (08:45)
[2016-05-28] MEDS: 0.9 % Sodium Chloride 1,000 ML IVC SCH ×2 (08:48→09:33)
[2016-05-28] MEDS ORDERED: Vancomycin 1,250 MG in D5% in Water 250 ML IVPB SCH (09:00)
--- NOTE | 2016-05-28 09:11 | Pulmonology Progress Note ---
Date of Encounter: 05/28/16 Time of Encounter: 08:15 Assessment and Plan (1) Multifocal pneumonia Current Visit: Yes Status: Acute Continue Aztreonam, Vancomycin and levoflxacin at this time. Continue supportive care with supplemental oxygen. Will titrate as needed. Currently at 99% saturation on 8L. Continue Mucinex. Continue Duo nebs DEV Q6hr. Continue chest percussion therapy. Contrast CT of the chest today demonstrated: multifocal consolidative opacities and small bilateral pleural effusions compatible with known pneumonia. Overall this appears slightly progressed since the prior exam from 05/26/16. However there are areas of ground-glass attenuation as well as interlobular septal thickening which may reflect superimposed edema. Stable mediastinal adenopathy, which may be reactive. It is of note that in the PACS system there is an additional non contrast CT of the chest from 05/27, which can not be seen in reports in [facility], and there is no history of the order in the patient's file. (2) Sepsis Current Visit: Yes Status: Acute The patient is stable at this time for transfer to a non-telemetry bed. Continue antibiotics at this time. Blood cultures continue to be negative. Qualifiers: Sepsis type: sepsis due to unspecified organism Qualified Code(s): A41.9 - Sepsis, unspecified organism (3) Acute respiratory failure Current Visit: No Status: Acute Continues to improve. Oxygen supplementation as needed. Continue IV antibiotics. Scheduled duo nebs with albuterol PRN. 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 Qualifiers: Depression Type: unspecified Qualified Code(s): F32.9 - Major depressive disorder, single episode, unspecified (6) Pancytopenia Current Visit: Yes Status: Chronic Recommendation per heme/oncology to maintain hemoglobin above 7 and platelets above 20,000. Currently platelets are 27. Heparin has been discontinued. Hb currently 6.4, will follow oncology for transfusions as she has had chronic transfusions with more than 50 transfusions since August 2013. The daughter has brought her transfusion band with her information on it for type and cross. (7) Histoplasmosis Current Visit: Yes Status: Chronic No suspected active infection with histoplasmosis at this time. Calcifications visualized in the spleen and thoracic lymph nodes on CT consisted with previous exposure. (8) Iron overload, transfusional Current Visit: Yes Status: Chronic The patient takes a home chelating agent. If she cannot get a hold of her home medication she made need to have IV defuroxamine. Subjective Principal diagnosis: multifocal pneumonia Interval history: The patient was seen and examined. No acute events over night. She has improved aeration of her left upper lobe with continued atelectasis and infiltration of her left lower lobe. She has been able to come off of BiPAP and is saturating well on high flow nasal cannula at this time. Objective PUL Vital signs: Last Vital Signs Temp 98.4 F 05/28/16 08:06 Pulse 96 05/28/16 09:00 Resp 22 05/28/16 09:00 BP 135/59 05/28/16 09:00 Pulse Ox 97 05/28/16 09:00 General appearance: no acute distress Eyes: nonicteric ENT: oropharynx moist Neck: supple Effort: normal Auscultation: left: diminished breath sounds (base) Cardiovascular: regular rate and rhythm Gastrointestinal: normoactive bowel sounds, non-distended Integumentary: normal Extremities: no cyanosis Musculoskeletal: no deformities normal mental status, non-focal exam mood appropriate Results - Laboratory Findings CBC and BMP: 05/28/16 04:22 05/28/16 04:22 ABG ABG pH 7.26 pH Units (7.32-7.45) L 05/27/16 07:48 ABG pCO2 73 mmHg (35-45) H* 05/27/16 07:48 ABG pO2 113 mmHg (85-104) H 05/27/16 07:48 ABG O2 Saturation 98 % (95-98) 05/27/16 07:48 PT/INR, D-dimer PT 13.2 Seconds (9.4-12.1) H 05/26/16 16:31 Abnormal lab findings: Abnormal lab results WBC 13.0 K/mcL (4.3-11.1) H 05/28/16 04:22 RBC 2.26 M/mcL (3.82-4.97) L 05/28/16 04:22 Hgb 6.4 g/dL (11.5-15.4) L 05/28/16 04:22 Hct 19.4 % (35.3-44.9) L 05/28/16 04:22 RDW 16.7 % (11.5-14.5) H 05/28/16 04:22 Plt Count 27 K/mcL (140-400) L* 05/28/16 04:22 MPV 8.9 fL (9.4-12.4) L 05/28/16 04:22 Band Neutrophils % 10.0 % (0-4) H 05/28/16 04:22 Metamyelocytes % 3.0 % (0) H 05/27/16 07:19 Myelocytes % 2.0 % (0) H 05/28/16 04:22 Blast Cells % 24.0 % (0) H 05/28/16 04:22 Monocytes # 1.6 K/mcL (0.0-1.3) H 05/28/16 04:22 Platelet Estimate Decreased (Normal) L 05/28/16 04:22 Anisocytosis 1+ (Not Present) A 05/27/16 07:19 Stomatocytes 1+ (Not Present) A 05/27/16 07:19 PT 13.2 Seconds (9.4-12.1) H 05/26/16 16:31 APTT 25.2 Seconds (26.0-36.0) L 05/26/16 16:31 ABG pH 7.26 pH Units (7.32-7.45) L 05/27/16 07:48 ABG pCO2 73 mmHg (35-45) H* 05/27/16 07:48 ABG pO2 113 mmHg (85-104) H 05/27/16 07:48 ABG HCO3 32.8 mEQ/L (21-27) H 05/27/16 07:48 ABG Total CO2 35.0 mEq/L (20-26) H 05/27/16 07:48 ABG Base Excess 5.3 mEq/L (-2.0 to 3.0) H 05/27/16 07:48 Glucose 116 mg/dL (70-99) H 05/28/16 04:22 POC Glucose 133 (58-89) H 05/26/16 19:55 Calcium 7.3 mg/dL (8.6-10.8) L 05/28/16 04:22 AST 133 Units/L (5-34) H 05/26/16 16:31 ALT 62 Units/L (0-55) H 05/26/16 16:31 C-Reactive Protein 47 mg/L (Less than 5) H 05/27/16 07:19 Serum Total Protein 8.9 g/dL (6.0-8.3) H 05/26/16 16:31 Albumin 3.0 g/dL (3.5-5.0) L 05/26/16 16:31 Globulin 5.9 g/dL (2.4-3.5) H 05/26/16 16:31 Albumin/Globulin Ratio 0.5 (1.1-2.2) L 05/26/16 16:31 Urine Clarity Cloudy (Clear) A 05/26/16 20:19 Urine Protein 100 mg/dL (Neg-Trace) H 05/26/16 20:19 Urine Blood Small (Negative) H 05/26/16 20:19 Urine Microscopic RBC 3-5 per hpf (0-3) H 05/26/16 20:19 Ur Squamous Epith Cells Many per lpf (None-Few) H 05/26/16 20:19 Granular Casts Few per lpf (None Seen) H 05/26/16 20:19 - Clinical Findings Intake & Output: Intake & Output 05/27/16 05/28/16 05/28/16 23:59 07:59 15:59 Intake Total 250 / 250 100 / 100 1000 / 1000 Output Total 350 / 350 600 / 600 300 / 300 Balance -100 / -100 -500 / -500 700 / 700 Weight 72.7 kg Consult Discharge Plan - Plan Referrals: Colopy,Yuri Leone DO [Primary Care Provider] - - Attending Attestation I examined this patient and my medical decision-making was reviewed with the SENIOR EXECUTIVE ASSISTANT/PA/Advanced Practice Nurse/Resident Physician. I agree with the documented findings, disposition and treatment plan as described except to the extent set forth below.
[2016-05-28] MEDS ORDERED: Naloxone 0.4 MG/ML INJ IVP PRN (09:13)
[2016-05-28] MEDS ORDERED: Albuterol 2.5 MG/3 ML NEBULIZER IH PRN (09:13)
[2016-05-28] MEDS: *HR* Acetaminophen w/Cod 300-30 mg 1 TAB TABLET PO PRN (14:24)
[2016-05-29] MEDS: Ipratropium/Albuterol Neb 3 ML IH SCH ×6 (00:28→20:24)
[2016-05-29] MEDS: 0.9 % Sodium Chloride 1,000 ML IVC SCH (01:33)
[2016-05-29] MEDS: Aztreonam 1,000 MG in D5% in Water (Mini-Bag+) 100 ML IVPB SCH ×3 (03:09→14:23)
[2016-05-29] MEDS: DEFERASIROX PO SCH (03:10)
[2016-05-29 04:02] LABS: Hemoglobin 6.1 g/dL (11.5-15.4); Mean Corpuscular Hemoglobin 28.5 pg (28.0-33.3); Red Blood Count 2.14 M/mcL (3.82-4.97)
[2016-05-29 04:03] LABS: Hematocrit 18.5 % (35.3-44.9); Immature Platelets 2.5 % (1.1-6.1); Mean Corpuscular Volume 86.4 fL (83.0-100.0); Mean Platelet Volume 9.2 fL (9.4-12.4); Red Cell Distribution Width 17.2 % (11.5-14.5)
[2016-05-29 04:25] LABS: BUN/Creatinine Ratio 17 (6-26); Blood Urea Nitrogen 15 mg/dL (7-20); Calcium 7.2 mg/dL (8.6-10.8); Carbon Dioxide 27 mEq/L (19-29); Chloride 103 mEq/L (98-109); Glucose 133 mg/dL (70-99); Osmolality,Calculated 287 (280-300); Potassium 3.6 mEq/L (3.5-4.5); Sodium 137 mEq/L (136-145); eGFR For African Americans > 60 (> 60); eGFR For Non-African Americans > 60 (> 60)
[2016-05-29 04:37] LABS: Platelet Count 18 K/mcL (140-400)
[2016-05-29 05:16] LABS: Anisocytosis 1+ (Not Present); Eosinophils # 0.3 K/mcL (0.0-0.6); Lymphocytes # 2.7 K/mcL (0.6-4.6); Microcytosis Present (Not Present); Monocytes # 2.4 K/mcL (0.0-1.3); Neutrophils # 5.4 K/mcL (1.6-8.9); Platelet Estimate Marked Decrease (Normal)
[2016-05-29] MEDS ORDERED: 0.9 % Sodium Chloride 250 ML ONE ×3 (07:41→15:31)
[2016-05-29] MEDS ORDERED: Vancomycin 1,250 MG in D5% in Water 250 ML IVPB SCH (09:00)
[2016-05-29] MEDS ORDERED: *HR* Etomidate 20 MG/10 ML AMPUL IVP ONE (09:59)
[2016-05-29] MEDS ORDERED: *HR* Succinylcholine 200 MG/10 ML VIAL IVP ONE (09:59)
[2016-05-29] MEDS ORDERED: *HR* Midazolam HCl 5 MG/5 ML VIAL IVP ONE (09:59)
[2016-05-29] MEDS: Fluconazole 100 MG TABLET PO SCH (11:05)
[2016-05-29] MEDS: Folic Acid 1 MG TABLET PO SCH (11:05)
[2016-05-29] MEDS: ALPRAZolam 1 MG TABLET PO PRN ×2 (12:47→20:43)
[2016-05-29] MEDS: Vancomycin 1,250 MG in D5% in Water 250 ML IVPB SCH (15:32)
[2016-05-29] MEDS ORDERED: Levofloxacin 750 MG/150 ML 750 MG/150 ML BAG IVPB SCH (18:00)
[2016-05-29] MEDS ORDERED: Ondansetron 4 MG/2 ML VIAL ONE (19:42)
[2016-05-29] MEDS ORDERED: Ondansetron 4 MG/2 ML VIAL IVP PRN (19:46)
[2016-05-29] MEDS: *HR* Acetaminophen w/Cod 300-30 mg 1 TAB TABLET PO PRN (20:41)
[2016-05-29 22:46] LABS: ABG Base Excess 2.6 mEq/L (-2.0 to 3.0); ABG HCO3 34.8 mEQ/L (21-27); ABG Oxygen Saturation 82 % (95-98); ABG PO2 66 mmHg (85-104); ABG TCO2 38.6 mEq/L (20-26)
[2016-05-29 22:48] LABS: Blood Gas FiO2 100 %
[2016-05-29 22:50] LABS: ABG PCO2 123 mmHg (35-45); ABG PH 7.06 pH Units (7.32-7.45)
[2016-05-29] MEDS ORDERED: Lacri-Lube 3.5 GM TUBE BOTH EYES PRN (23:11)
[2016-05-29] MEDS ORDERED: *HR* Midazolam HCl 2 MG/2 ML VIAL IVP ONE (23:11)
[2016-05-29] MEDS ORDERED: *HR* Etomidate 20 MG/10 ML AMPUL IVP STA (23:16)
[2016-05-29] MEDS ORDERED: *HR* Succinylcholine 200 MG/10 ML VIAL IVP STA (23:16)
--- NOTE | 2016-05-29 23:22 | Event Note ---
Date of Encounter: 05/29/16 Time of Encounter: 23:00 RAPID RESPONSE Called to bedside to address acute O2 saturation and respiratory compromise and patient was complicated medical picture. Evidence of extreme respiratory acidemia, hypoxia and hypercarbia evident. Toxic metabolic encephalopathy is apparently due to CO2 narcosis. Patient is arousable to noxious stimuli but incoherent. Respirations were agonal. Auscultation demonstrated diffuse, coarse upper airway rhonchi. Concerning for acute aspiration or rapidly progressive pulmonary edema. Patient was transitioned from 100% nonrebreather mask to BiPAP. This achieved improved oxygenation however correction of severe metabolic and acid base deficits persisted. Discussed need to stabilize patient 's airway and cardiopulmonary status with family at the bedside which included her daughter and granddaughter. They stated that Mrs. Barron had no specific advance care directive guidelines and would except intubation and mechanical ventilator support. Patient was just transferred to the intensive care unit and successfully intubated and placed on mechanical ventilator support. Vital signs were stable oxygenation optimal. Screening studies pending. Orders written. Vital Signs Temp Pulse Resp BP Pulse Ox 05/29/16 20:24 20 92 05/29/16 19:00 98.3 F 88 21 130/66 91 05/29/16 16:15 97.8 F 100 22 157/80 93 05/29/16 16:05 98 F 101 20 144/71 94 05/29/16 15:50 97.8 F 96 20 143/77 95 05/29/16 15:38 97.3 F L 99 22 123/68 91 05/29/16 15:15 20 90 05/29/16 15:10 16 90 05/29/16 14:19 97.8 F 96 20 146/76 96 05/29/16 14:04 97.8 F 97 20 136/65 96 05/29/16 12:40 95 05/29/16 11:29 20 90 05/29/16 10:38 98.0 F 98 20 144/61 92 05/29/16 10:37 98 F 98 20 144/61 92 05/29/16 08:38 98.5 F 98 20 143/78 98 05/29/16 08:27 97 05/29/16 08:23 98.1 F 98 20 153/76 100 05/29/16 08:08 22 95 05/29/16 08:05 97 05/29/16 07:48 100 04/13/17 07:40 97.9 F 101 22 146/71 91 05/29/16 04:32 17 96 05/29/16 03:58 98.5 F 86 20 141/54 91 05/29/16 00:28 17 98 Intake and Output 05/29/16 05/29/16 05/29/16 07:59 15:59 23:59 Intake Total 1100 / 1100 883 / 883 209 / 209 Output Total 200 / 200 200 / 200 Balance 900 / 900 683 / 683 209 / 209 Intake: IV Fluids 1100 / 1100 0.9 % Sodium Chloride 1, 1000 / 1000 000 ML @ 60 mls/hr IVC . [id number] Rx#: [id number] Azactam 1,000 MG In 100 / 100 Dextrose 5% (Minibag+) 100 ML 100 ML @ 200 mls/ hr IVPB Q8H DEV Rx#: [id number] Oral 0 / 0 Blood Product 883 / 883 209 / 209 Platelet Pheresis Lp Irr 583 / 583 1st Unit [id number] Platelet Pheresis Lp Irr 0 / 0 209 / 209 3rd Unit [id number] Rbcs Leuko Poor As-1 Irr 300 / 300 Unit [id number] Output: Urine 200 / 200 200 / 200 Other: Weight 73.5 kg Patient Weight 05/29/16 23:59 Weight 73.5 kg Short CBC 05/29/16 Range/Units 03:38 WBC 15.1 H (4.3-11.1) K/mcL Hgb 6.1 L (11.5-15.4) g/dL Hct 18.5 L (35.3-44.9) % Plt Count 18 L* (140-400) K/mcL Neutrophils # 5.4 (1.6-8.9) K/mcL BMP 05/29/16 05/26/16 Range/Units 03:38 16:31 Sodium 137 (136-145) mEq/L Potassium 3.6 (3.5-4.5) mEq/L Chloride 103 (98-109) mEq/L Carbon Dioxide 27 (19-29) mEq/L BUN 15 (7-20) mg/dL Creatinine 0.86 (0.57-1.11) mg/dL Glucose 133 H 163 H (70-99) mg/dL Calcium 7.2 L 7.9 L (8.6-10.8) mg/dL Liver Function 05/26/16 Range/Units 16:31 Total Bilirubin 1.1 (0.2-1.2) mg/dL Direct Bilirubin 0.5 (0.0-0.5) mg/dL AST 133 H (5-34) Units/L ALT 62 H (0-55) Units/L Alkaline Phosphatase 71 (38-126) Units/L Albumin 3.0 L (3.5-5.0) g/dL 05/26/16 05/26/16 05/27/16 17:12 23:53 05:20 ABG pH 7.18 L* 7.23 L 7.18 L* ABG pCO2 89 H* 76 H* 81 H* ABG pO2 78 L 59 L 73 L ABG HCO3 33.2 H 31.8 H 30.2 H ABG Total CO2 35.9 H 34.1 H 32.7 H ABG O2 Saturation 92 L 85 L 90 L ABG Base Excess 4.0 H 3.7 H 1.3 05/27/16 05/29/16 07:48 22:35 ABG pH 7.26 L 7.06 L* ABG pCO2 73 H* 123 H* ABG pO2 113 H 66 L ABG HCO3 32.8 H 34.8 H ABG Total CO2 35.0 H 38.6 H ABG O2 Saturation 98 82 L ABG Base Excess 5.3 H 2.6 Abnormal lab results WBC 15.1 K/mcL (4.3-11.1) H 05/29/16 03:38 RBC 2.14 M/mcL (3.82-4.97) L 05/29/16 03:38 Hgb 6.1 g/dL (11.5-15.4) L 05/29/16 03:38 Hct 18.5 % (35.3-44.9) L 05/29/16 03:38 RDW 17.2 % (11.5-14.5) H 05/29/16 03:38 Plt Count 18 K/mcL (140-400) L* 05/29/16 03:38 MPV 9.2 fL (9.4-12.4) L 05/29/16 03:38 Band Neutrophils % 8.0 % (0-4) H 05/29/16 03:38 Metamyelocytes % 2.0 % (0) H 05/29/16 03:38 Myelocytes % 2.0 % (0) H 05/29/16 03:38 Blast Cells % 24.0 % (0) H 05/29/16 03:38 Monocytes # 2.4 K/mcL (0.0-1.3) H 05/29/16 03:38 Platelet Estimate Marked Decrease (Normal) L 05/29/16 03:38 Anisocytosis 1+ (Not Present) A 05/29/16 03:38 Microcytosis Present (Not Present) A 05/29/16 03:38 Stomatocytes 1+ (Not Present) A 05/27/16 07:19 PT 13.2 Seconds (9.4-12.1) H 05/26/16 16:31 APTT 25.2 Seconds (26.0-36.0) L 05/26/16 16:31 ABG pH 7.06 pH Units (7.32-7.45) L* 05/29/16 22:35 ABG pCO2 123 mmHg (35-45) H* 05/29/16 22:35 ABG pO2 66 mmHg (85-104) L 05/29/16 22:35 ABG HCO3 34.8 mEQ/L (21-27) H 05/29/16 22:35 ABG Total CO2 38.6 mEq/L (20-26) H 05/29/16 22:35 ABG O2 Saturation 82 % (95-98) L 05/29/16 22:35 Glucose 133 mg/dL (70-99) H 05/29/16 03:38 POC Glucose 133 (58-89) H 05/26/16 19:55 Calcium 7.2 mg/dL (8.6-10.8) L 05/29/16 03:38 AST 133 Units/L (5-34) H 05/26/16 16:31 ALT 62 Units/L (0-55) H 05/26/16 16:31 C-Reactive Protein 47 mg/L (Less than 5) H 05/27/16 07:19 Serum Total Protein 8.9 g/dL (6.0-8.3) H 05/26/16 16:31 Albumin 3.0 g/dL (3.5-5.0) L 05/26/16 16:31 Globulin 5.9 g/dL (2.4-3.5) H 05/26/16 16:31 Albumin/Globulin Ratio 0.5 (1.1-2.2) L 05/26/16 16:31 Urine Clarity Cloudy (Clear) A 05/26/16 20:19 Urine Protein 100 mg/dL (Neg-Trace) H 05/26/16 20:19 Urine Blood Small (Negative) H 05/26/16 20:19 Urine Microscopic RBC 3-5 per hpf (0-3) H 05/26/16 20:19 Ur Squamous Epith Cells Many per lpf (None-Few) H 05/26/16 20:19 Granular Casts Few per lpf (None Seen) H 05/26/16 20:[address] 05/26/16 16:28 IMPRESSION: No acute intracranial abnormality. D/ / Nicholas Hand MD / Nicholas Hand MD Interpreting Provider: Nicholas Hand MD Chest X-Ray 05/27/16 13:53 IMPRESSION: Significant improved aeration left upper lobe. Increased airspace disease parahilar and both lower lobes. The entire left lower lobe is obscured with consolidating airspace disease. D/ / Justo Baumann MD / Justo Baumann MD Interpreting Provider: Justo Baumann MD Chest CT 05/28/16 07:34 IMPRESSION: 1. Multifocal consolidative opacities and small bilateral pleural effusions compatible with known pneumonia. Overall this appears slightly progressed since the prior exam from 05/26/2016. However there are areas of ground-glass attenuation as well as interlobular septal thickening which may reflect superimposed edema. 2. Stable mediastinal adenopathy, which may be reactive. D/ / 05/28/2016 09:11:18 Radha Escobedo MD / percy Interpreting Provider: Radha Escobedo MD
[2016-05-29] MEDS ORDERED: Acetaminophen 650 MG RECTAL SUPP RC PRN (23:44)
[2016-05-29] MEDS ORDERED: *HR* Morphine 2 MG/ML SYRINGE IVP PRN (23:44)
[2016-05-29] MEDS ORDERED: Acetaminophen 325 MG TABLET PO PRN (23:44)
[2016-05-29] MEDS ORDERED: *HR* LORazepam 2 MG/ML VIAL IVP PRN (23:44)
[2016-05-29 23:45] LABS: ABG Base Excess 4.6 mEq/L (-2.0 to 3.0); ABG HCO3 34.2 mEQ/L (21-27); ABG Oxygen Saturation 100 % (95-98); ABG PO2 334 mmHg (85-104); ABG TCO2 37.1 mEq/L (20-26)
[2016-05-29 23:47] LABS: ABG PH 7.16 pH Units (7.32-7.45); Blood Gas FiO2 100 %
[2016-05-29 23:48] LABS: ABG PCO2 96 mmHg (35-45)
[2016-05-30] MEDS: Ipratropium/Albuterol Neb 3 ML IH SCH ×6 (00:31→20:52)
[2016-05-30] MEDS: FentaNYL (PF) 1,000 MCG in 0.9 % Sodium Chloride 80 ML IVC SCH ×2 (01:07→11:25)
[2016-05-30] MEDS: Aztreonam 1,000 MG in D5% in Water (Mini-Bag+) 100 ML IVPB SCH ×3 (01:47→18:21)
[2016-05-30] MEDS: 0.9 % Sodium Chloride 1,000 ML IVC SCH ×2 (01:47→03:31)
[2016-05-30] MEDS: MethylPREDNISolone 40 MG/ML VIAL IVP SCH ×5 (01:48→23:48)
[2016-05-30] MEDS: Lacri-Lube 3.5 GM TUBE BOTH EYES SCH ×6 (01:48→21:23)
[2016-05-30 01:53] LABS: ABG Base Excess 7.8 mEq/L (-2.0 to 3.0); ABG HCO3 35.6 mEQ/L (21-27); ABG Oxygen Saturation 92 % (95-98); ABG PCO2 69 mmHg (35-45); ABG PH 7.32 pH Units (7.32-7.45); ABG PO2 69 mmHg (85-104); ABG TCO2 37.7 mEq/L (20-26); Blood Gas FiO2 45 %
[2016-05-30 04:38] LABS: Hematocrit 18.8 % (35.3-44.9); Hemoglobin 6.4 g/dL (11.5-15.4); Immature Platelets 1.5 % (1.1-6.1); Mean Corpuscular Hemoglobin 29.1 pg (28.0-33.3); Mean Corpuscular Volume 85.5 fL (83.0-100.0); Mean Platelet Volume 8.9 fL (9.4-12.4); Red Cell Distribution Width 16.6 % (11.5-14.5)
[2016-05-30 04:46] LABS: Ionized Calcium 1.01 mmol/L (1.15-1.35)
[2016-05-30 04:58] LABS: Alanine Aminotransferase 25 Units/L (0-55); Albumin 2.4 g/dL (3.5-5.0); Albumin/Globulin Ratio 0.5 (1.1-2.2); Alkaline Phosphatase 58 Units/L (38-126); Aspartate Amino Transferase 34 Units/L (5-34); BUN/Creatinine Ratio 24 (6-26); Bilirubin,Total 0.6 mg/dL (0.2-1.2); Blood Urea Nitrogen 20 mg/dL (7-20); Calcium 7.2 mg/dL (8.6-10.8); Carbon Dioxide 29 mEq/L (19-29); Chloride 104 mEq/L (98-109); Globulin 4.6 g/dL (2.4-3.5); Glucose 101 mg/dL (70-99); Magnesium 1.6 mg/dL (1.6-2.6); Osmolality,Calculated 291 (280-300); Phosphorous 1.1 mg/dL (2.3-4.7); Potassium 3.6 mEq/L (3.5-4.5); Sodium 139 mEq/L (136-145); eGFR For African Americans > 60 (> 60); eGFR For Non-African Americans > 60 (> 60)
[2016-05-30 05:01] LABS: Platelet Count 52 K/mcL (140-400)
[2016-05-30 05:05] LABS: ABG Base Excess 6.1 mEq/L (-2.0 to 3.0); ABG HCO3 31.1 mEQ/L (21-27); ABG Oxygen Saturation 82 % (95-98); ABG PCO2 48 mmHg (35-45); ABG PH 7.42 pH Units (7.32-7.45); ABG TCO2 32.6 mEq/L (20-26)
[2016-05-30 05:06] LABS: Platelet Estimate Marked Decrease (Normal)
[2016-05-30 05:07] LABS: ABG PO2 45 mmHg (85-104)
[2016-05-30 05:08] LABS: Monocytes # 1.5 K/mcL (0.0-1.3)
[2016-05-30 05:08] LABS: Blood Gas FiO2 30 %
[2016-05-30 05:09] LABS: Lymphocytes # 1.7 K/mcL (0.6-4.6); Neutrophils # 4.8 K/mcL (1.6-8.9)
[2016-05-30] MEDS ORDERED: Potassium Phosphate 44 MEQ in 0.9 % Sodium Chloride 250 ML IVPB PRN (05:32)
[2016-05-30] MEDS ORDERED: Sodium Phosphate 30 MMOL in D5% in Water 100 ML IVPB PRN (05:32)
[2016-05-30] MEDS ORDERED: Bumetanide 1 MG/4 ML VIAL IVP ONE (05:35)
[2016-05-30 05:55] LABS: ABG Base Excess 6.8 mEq/L (-2.0 to 3.0); ABG HCO3 32.2 mEQ/L (21-27); ABG Oxygen Saturation 99 % (95-98); ABG PCO2 52 mmHg (35-45); ABG PO2 124 mmHg (85-104); ABG TCO2 33.8 mEq/L (20-26)
[2016-05-30 06:00] LABS: Blood Gas FiO2 60 %
[2016-05-30] MEDS: Famotidine 20 MG/2 ML VIAL IVP SCH ×2 (06:02→18:30)
[2016-05-30] MEDS: Magnesium Sulfate 2 GM in D5% in Water 100 ML IVPB PRN (06:03)
[2016-05-30] MEDS: DEFERASIROX PO SCH (06:17)
[2016-05-30] MEDS: Calcium Gluconate 1,000 MG in D5% in Water 100 ML IVPB PRN ×3 (06:19→23:49)
[2016-05-30] MEDS: Chlorhexidine Rinse 15 ML MOUTHWASH MM SCH ×2 (08:55→21:23)
[2016-05-30] MEDS: Fluconazole 100 MG TABLET PO SCH (08:55)
[2016-05-30] MEDS: Nystatin SUSP 5 ML UD.LIQ PO SCH ×4 (08:55→21:25)
[2016-05-30] MEDS: Docusate Oral Soln 100 MG/10 ML UDC GTUBE SCH ×2 (08:55→21:24)
[2016-05-30] MEDS: Folic Acid 1 MG TABLET PO SCH (08:55)
--- NOTE | 2016-05-30 09:13 | Pulmonology Progress Note ---
Addendum entered and electronically signed by Vel Benitez DO 11:03: Spoke with operations technician Heme/Onc. Recommendation is to continue ABO matched blood products. Ms. Miles is already on their list from previous consult; will d/c my consult to heme/onc placed by me today. Original Note: <Vel Benitez - Last Filed: 05/30/16 10:33> Date of Encounter: 05/30/16 Time of Encounter: 09:06 Assessment and Plan (1) Multifocal pneumonia Current Visit: Yes Status: Acute 05/30 CXR: Tubing stable. BL airspace disease, pulm edema vs PNA. Bibasilar pleural effusion R > L. 05/29 CXR: ET tube 3cm cephalad to lesa. NG tube normal course. BL perihilar airspace disease pulm edema vs atelectasis. Costophrenic angles obscured L > R 05/28 CT Chest: Multicofal consolidative opacities and small BL pleural effusions compatilble with known pneumoina. Appears slightly progressed from prior exam 05/26/16. Areas of groud-glass attenuation as well as interlobular septal thickening which may reflect superimposed edema. Stable mediastinal adenopathy, which may be reactive. 05/27 non-contrast CT: study present in PACS, [facility], no order for study in patient's file. 05/27 CXR: Lt upper lobe improved aeration. Increased airspace disease in bother lower lobes and parahilar. Left lobe obscured with consolidating airspace disease. 05/26 CXR: worsening left lung airspace disease with near complete white out. Improved RLL airspace disease. Blood culture collected 05/26 (-) Suspect fluid overload causing pulmonary edema. PNA persists. Mechanically ventilated. Sedated with propofol, pain control with fentanyl. - Discontinue NS IVF. - Continue Aztreonam, day 5 - Continue Levofloxacin, day 5 - Continue Vancomycin, day 5 - Continue mucinex. - Continue DuoNeb DEV Q6hr - Continue Albuterol neb Q2hr PRN. - Continue Albuterol inh DEV Q2hr. - Continue chest PT - May BAL today. Hypophosphatemia at 1.1 - Potassium Phosphate IV 0.9 mg/kg/hr - Repeat PO4 Q6hr Anemia with Hb 6.4 - Transfuse 1u PRBC - re-consult Heme/Onc - patient is transfusion dependent. Bowel regimen: - Continue colace and doculax. (2) Acute respiratory failure Current Visit: No Status: Acute as above Qualifiers: Respiratory failure complication: hypoxia Qualified Code(s): J96.01 - Acute respiratory failure with hypoxia (3) Sepsis Current Visit: Yes Status: Acute as above Qualifiers: Sepsis type: sepsis due to unspecified organism Qualified Code(s): A41.9 - Sepsis, unspecified organism (4) Leukemia Current Visit: No Status: Acute AML. Followed by [facility] - Dr. Stafford. - Consult to Heme/Onc. Qualifiers: Leukemia type: myeloid Myeloid leukemia type: acute Leukemia Active/ Remission status: without remission Qualified Code(s): C92.00 - Acute myeloblastic leukemia, not having achieved remission (5) Pancytopenia Current Visit: Yes Status: Chronic as above (6) Histoplasmosis Current Visit: Yes Status: Chronic Secondary to living in [facility]. Inactive at this time. (7) Depression Current Visit: Yes Status: Chronic Continue home meds. Qualifiers: Depression Type: unspecified Qualified Code(s): F32.9 - Major depressive disorder, single episode, unspecified (8) Iron overload, transfusional Current Visit: Yes Status: Chronic Patient has home chelating agent, currently unknown. May consider IV defuroxamine. Subjective Principal diagnosis: multifocal pneumonia Interval history: Ms. Miles, a 65yo female, presented 05/26 to the emergency department per Dr. Stafford for altered mentation; was ashen and somers on presentation. Admitted to ICU for severe sepsis secondary to multifocal pneumonia in the setting of AML leukemia, pancytopenia, hx Fr-overload from numerous transfusions, and hx depression. CXR showed complete consolidation of left lung with mild leftward tracheal deviation. Patient was initially on BiPap in ICU, transitioned to O2 via NC. Transitioned from ICU to non-tele medical bed on hospital day 3 (yesterday). Overnight, patient experienced agonal respirations, was arousable to noxious stimulus and incoherent. Suspected CO2 narcosis. Was in respiratory acidosis with hypoxia and hypercarbia. Subsequently transitioned to the ICU and intubated with the permission of her daughter. Hospital day 4 Patient appears comfortable. Daughter is bedside and notes her mother appears more comfortable and visually looks better this morning vs last night prior to intubation. Objective PUL Vital signs: Last Vital Signs Temp 97.9 F 05/30/16 07:54 Pulse 77 05/30/16 07:59 Resp 14 05/30/16 07:59 BP 142/65 05/30/16 07:59 Pulse Ox 99 05/30/16 07:59 General appearance: no acute distress, other (sedated, intubated) Eyes: nonicteric ENT: oropharynx moist Neck: supple Auscultation: bilateral: diminished breath sounds, wheezes Cardiovascular: regular rate and rhythm Gastrointestinal: hypoactive bowel sounds, soft, non-distended Extremities: no cyanosis, pink and warm, pulses normal, edema (trace pitting edema) Musculoskeletal: no deformities pupils equal and round Ventilator Settings Ventilator Settings: Ventilator Settings, Last 8 Hours Ventilator Mode VC+ Ventilator Mode VC+ Ventilator Mode VC+ Ventilator Mode VC+ Ventilator Mode VC+ Ventilator Mode VC+ Ventilator Mode VC+ Ventilator Mode VC+ Ventilator Mode VC+ Ventilator Mode VC+ Ventilator Mode VC+ Ventilator Mode VC+ Ventilator Tidal Volume 450 Setting Ventilator Tidal Volume 450 Setting Ventilator Tidal Volume 500 Setting Ventilator Tidal Volume 500 Setting Ventilator Tidal Volume 500 Setting Ventilator Tidal Volume 500 Setting Ventilator Tidal Volume 500 Setting Ventilator Tidal Volume 500 Setting Ventilator Tidal Volume 500 Setting Ventilator Tidal Volume 500 Setting Ventilator Tidal Volume 500 Setting Ventilator Tidal Volume 500 Setting Ventilator Respiratory Rate 14 Setting Ventilator Respiratory Rate 14 Setting Ventilator Respiratory Rate 14 Setting Ventilator Respiratory Rate 14 Setting Ventilator Respiratory Rate 14 Setting Ventilator Respiratory Rate 14 Setting Ventilator Respiratory Rate 14 Setting Ventilator Respiratory Rate 14 Setting Ventilator Respiratory Rate 14 Setting Ventilator Respiratory Rate 14 Setting Ventilator Respiratory Rate 14 Setting Ventilator Respiratory Rate 14 Setting Actual Respiratory Rate 14 Actual Respiratory Rate 14 Actual Respiratory Rate 14 Actual Respiratory Rate 14 Actual Respiratory Rate 14 Actual Respiratory Rate 14 Actual Respiratory Rate 14 Actual Respiratory Rate 14 Actual Respiratory Rate 14 Positive End Expiratory 5 Pressure Positive End Expiratory 5 Pressure Positive End Expiratory 5 Pressure Positive End Expiratory 5 Pressure Positive End Expiratory 5 Pressure Positive End Expiratory 5 Pressure Positive End Expiratory 5 Pressure Positive End Expiratory 5 Pressure Positive End Expiratory 5 Pressure Positive End Expiratory 5 Pressure Positive End Expiratory 5 Pressure Positive End Expiratory 5 Pressure Peak Inspiratory Airway 34 Pressure Peak Inspiratory Airway 35 Pressure Peak Inspiratory Airway 31 Pressure Peak Inspiratory Airway 29 Pressure Peak Inspiratory Airway 30 Pressure Peak Inspiratory Airway 33 Pressure Peak Inspiratory Airway 33 Pressure Peak Inspiratory Airway 33 Pressure Peak Inspiratory Airway 35 Pressure Results - Laboratory Findings CBC and BMP: 05/30/16 04:30 05/30/16 04:30 ABG ABG pH 7.40 pH Units (7.32-7.45) 05/30/16 05:50 ABG pCO2 52 mmHg (35-45) H 05/30/16 05:50 ABG pO2 124 mmHg (85-104) H 05/30/16 05:50 ABG O2 Saturation 99 % (95-98) H 05/30/16 05:50 PT/INR, D-dimer PT 13.2 Seconds (9.4-12.1) H 05/26/16 16:31 Abnormal lab findings: Abnormal lab results RBC 2.20 M/mcL (3.82-4.97) L 05/30/16 04:30 Hgb 6.4 g/dL (11.5-15.4) L 05/30/16 04:30 Hct 18.8 % (35.3-44.9) L 05/30/16 04:30 RDW 16.6 % (11.5-14.5) H 05/30/16 04:30 Plt Count 52 K/mcL (140-400) L D 05/30/16 04:30 MPV 8.9 fL (9.4-12.4) L 05/30/16 04:30 Band Neutrophils % 14.0 % (0-4) H 05/30/16 04:30 Metamyelocytes % 2.0 % (0) H 05/29/16 03:38 Myelocytes % 2.0 % (0) H 05/29/16 03:38 Blast Cells % 24.0 % (0) H 05/30/16 04:30 Monocytes # 1.5 K/mcL (0.0-1.3) H 05/30/16 04:30 Platelet Estimate Marked Decrease (Normal) L 05/30/16 04:30 Anisocytosis 1+ (Not Present) A 05/29/16 03:38 Microcytosis Present (Not Present) A 05/29/16 03:38 Stomatocytes 1+ (Not Present) A 05/27/16 07:19 PT 13.2 Seconds (9.4-12.1) H 05/26/16 16:31 APTT 25.2 Seconds (26.0-36.0) L 05/26/16 16:31 ABG pCO2 52 mmHg (35-45) H 05/30/16 05:50 ABG pO2 124 mmHg (85-104) H 05/30/16 05:50 ABG HCO3 32.2 mEQ/L (21-27) H 05/30/16 05:50 ABG Total CO2 33.8 mEq/L (20-26) H 05/30/16 05:50 ABG O2 Saturation 99 % (95-98) H 05/30/16 05:50 ABG Base Excess 6.8 mEq/L (-2.0 to 3.0) H 05/30/16 05:50 Glucose 101 mg/dL (70-99) H 05/30/16 04:30 POC Glucose 141 (58-89) H 05/29/16 23:24 Calcium 7.2 mg/dL (8.6-10.8) L 05/30/16 04:30 Ionized Calcium 1.01 mmol/L (1.15-1.35) L 05/30/16 04:30 Phosphorus 1.1 mg/dL (2.3-4.7) L 05/30/16 04:30 C-Reactive Protein 47 mg/L (Less than 5) H 05/27/16 07:19 B-Natriuretic Peptide 282 pg/mL (0-100) H 05/30/16 00:01 Albumin 2.4 g/dL (3.5-5.0) L 05/30/16 04:30 Globulin 4.6 g/dL (2.4-3.5) H 05/30/16 04:30 Albumin/Globulin Ratio 0.5 (1.1-2.2) L 05/30/16 04:30 Urine Clarity Cloudy (Clear) A 05/26/16 20:19 Urine Protein 100 mg/dL (Neg-Trace) H 05/26/16 20:19 Urine Blood Small (Negative) H 05/26/16 20:19 Urine Microscopic RBC 3-5 per hpf (0-3) H 05/26/16 20:19 Ur Squamous Epith Cells Many per lpf (None-Few) H 05/26/16 20:19 Granular Casts Few per lpf (None Seen) H 05/26/16 20:19 - Diagnostic Findings Chest x-ray: report reviewed - Clinical Findings Intake & Output: Intake & Output 05/29/16 05/30/16 05/30/16 23:59 07:59 15:59 Intake Total 1209 / 1209 370 / 370 344 / 344 Output Total 1500 / 1500 Balance 1209 / 1209 -1130 / -1130 344 / 344 Weight 74.398 kg Consult Discharge Plan - Plan Referrals: Loi,Yuri Leone, DO [Primary Care Provider] - <Mateo Vallejo - Last Filed: 05/30/16 14:21> Date of Encounter: 05/30/16 Objective PUL Vital signs: Last Vital Signs Temp 97.8 F 05/30/16 13:00 Pulse 73 05/30/16 13:00 Resp 14 05/30/16 13:00 BP 147/74 05/30/16 13:00 Pulse Ox 98 05/30/16 13:00 Ventilator Settings Ventilator Settings: Ventilator Settings, Last 8 Hours Ventilator Mode VC+ Ventilator Mode VC+ Ventilator Mode VC+ Ventilator Mode VC+ Ventilator Mode VC+ Ventilator Mode VC+ Ventilator Mode VC+ Ventilator Tidal Volume 450 Setting Ventilator Tidal Volume 450 Setting Ventilator Tidal Volume 450 Setting Ventilator Tidal Volume 450 Setting Ventilator Tidal Volume 450 Setting Ventilator Tidal Volume 450 Setting Ventilator Tidal Volume 450 Setting Ventilator Respiratory Rate 14 Setting Ventilator Respiratory Rate 14 Setting Ventilator Respiratory Rate 14 Setting Ventilator Respiratory Rate 14 Setting Ventilator Respiratory Rate 14 Setting Ventilator Respiratory Rate 14 Setting Ventilator Respiratory Rate 14 Setting Actual Respiratory Rate 14 Actual Respiratory Rate 14 Actual Respiratory Rate 14 Actual Respiratory Rate 14 Actual Respiratory Rate 14 Actual Respiratory Rate 14 Actual Respiratory Rate 14 Positive End Expiratory 5 Pressure Positive End Expiratory 5 Pressure Positive End Expiratory 5 Pressure Positive End Expiratory 5 Pressure Positive End Expiratory 5 Pressure Positive End Expiratory 5 Pressure Positive End Expiratory 5 Pressure Peak Inspiratory Airway 28 Pressure Peak Inspiratory Airway 28 Pressure Peak Inspiratory Airway 36 Pressure Peak Inspiratory Airway 27 Pressure Peak Inspiratory Airway 28 Pressure Peak Inspiratory Airway 34 Pressure Peak Inspiratory Airway 35 Pressure Results - Laboratory Findings CBC and BMP: 05/30/16 04:30 05/30/16 04:30 ABG ABG pH 7.40 pH Units (7.32-7.45) 05/30/16 05:50 ABG pCO2 52 mmHg (35-45) H 05/30/16 05:50 ABG pO2 124 mmHg (85-104) H 05/30/16 05:50 ABG O2 Saturation 99 % (95-98) H 05/30/16 05:50 PT/INR, D-dimer PT 13.2 Seconds (9.4-12.1) H 05/26/16 16:31 Abnormal lab findings: Abnormal lab results RBC 2.20 M/mcL (3.82-4.97) L 05/30/16 04:30 Hgb 6.4 g/dL (11.5-15.4) L 05/30/16 04:30 Hct 18.8 % (35.3-44.9) L 05/30/16 04:30 RDW 16.6 % (11.5-14.5) H 05/30/16 04:30 Plt Count 52 K/mcL (140-400) L D 05/30/16 04:30 MPV 8.9 fL (9.4-12.4) L 05/30/16 04:30 Band Neutrophils % 14.0 % (0-4) H 05/30/16 04:30 Metamyelocytes % 2.0 % (0) H 05/29/16 03:38 Myelocytes % 2.0 % (0) H 05/29/16 03:38 Blast Cells % 24.0 % (0) H 05/30/16 04:30 Monocytes # 1.5 K/mcL (0.0-1.3) H 05/30/16 04:30 Platelet Estimate Marked Decrease (Normal) L 05/30/16 04:30 Anisocytosis 1+ (Not Present) A 05/29/16 03:38 Microcytosis Present (Not Present) A 05/29/16 03:38 Stomatocytes 1+ (Not Present) A 05/27/16 07:19 PT 13.2 Seconds (9.4-12.1) H 05/26/16 16:31 APTT 25.2 Seconds (26.0-36.0) L 05/26/16 16:31 ABG pCO2 52 mmHg (35-45) H 05/30/16 05:50 ABG pO2 124 mmHg (85-104) H 05/30/16 05:50 ABG HCO3 32.2 mEQ/L (21-27) H 05/30/16 05:50 ABG Total CO2 33.8 mEq/L (20-26) H 05/30/16 05:50 ABG O2 Saturation 99 % (95-98) H 05/30/16 05:50 ABG Base Excess 6.8 mEq/L (-2.0 to 3.0) H 05/30/16 05:50 Glucose 101 mg/dL (70-99) H 05/30/16 04:30 POC Glucose 141 (58-89) H 05/29/16 23:24 Calcium 7.2 mg/dL (8.6-10.8) L 05/30/16 04:30 Ionized Calcium 1.01 mmol/L (1.15-1.35) L 05/30/16 04:30 Phosphorus 1.1 mg/dL (2.3-4.7) L 05/30/16 04:30 C-Reactive Protein 47 mg/L (Less than 5) H 05/27/16 07:19 B-Natriuretic Peptide 282 pg/mL (0-100) H 05/30/16 00:01 Albumin 2.4 g/dL (3.5-5.0) L 05/30/16 04:30 Globulin 4.6 g/dL (2.4-3.5) H 05/30/16 04:30 Albumin/Globulin Ratio 0.5 (1.1-2.2) L 05/30/16 04:30 Urine Clarity Cloudy (Clear) A 05/26/16 20:19 Urine Protein 100 mg/dL (Neg-Trace) H 05/26/16 20:19 Urine Blood Small (Negative) H 05/26/16 20:19 Urine Microscopic RBC 3-5 per hpf (0-3) H 05/26/16 20:19 Ur Squamous Epith Cells Many per lpf (None-Few) H 05/26/16 20:19 Granular Casts Few per lpf (None Seen) H 05/26/16 20:19 Antibody Screen POSITIVE A 05/30/16 07:46 - Clinical Findings Intake & Output: Intake & Output 05/29/16 05/30/16 05/30/16 23:59 07:59 15:59 Intake Total 1209 / 1209 370 / 370 1564 / 1564 Output Total 1500 / 1500 1000 / 1000 Balance 1209 / 1209 -1130 / -1130 564 / 564 Weight 74.398 kg - Attending Attestation I have seen and examined the patient, reviewed all relevant labs, reviewed all pertinent imaging. The case was discussed in multidisciplinary Rounds and I agree with the resident's note as written with the following additions. 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 We will perform daily wakeup. Cardiovascular: Hemodynamically stable no acute issues. Pulmonary: Readmitted to MICU for respiratory failure. Most likely due to either pulmonary edema versus worsening of pneumonia. Favor pulmonary edema and will continue with aggressive diuresis. However will continue with broad- spectrum antibiotics given worsening respiratory failure. We will change aztreonam to cefepime for improved gram-negative, particularly pseudomonal, coverage. Nephro: Tolerating diuresis well. Continue with Lasix. Goal net -1-2 L over 24 hours. GI: OG tube in place. We will begin tube feeds today. ID: Admitted for multilobar pneumonia. Unclear if recent worsening is due to progression of pneumonia versus other cause. We will continue with antibiotic plan as listed above. We will obtain blood cultures and sputum cultures. HO: History of AML with pancytopenia will discuss red blood cell transfusion strategy with hematology service today. Endo: No acute issues. MS: No acute issues. Disposition: Patient remains in ICU. Total critical care time 45 minutes
[2016-05-30] MEDS ORDERED: 0.9 % Sodium Chloride 250 ML ONE (09:40)
--- NOTE | 2016-05-30 11:43 | Electrocardiograph Report ---
[address] [place], [place] [address] Test Date: 2016-05-30 Pat Name: Tamy Miles Department: 109 Room: [facility] Gender: F Medical Billing Representative: DESTIN : 1950 Requested By: Brigido Pat Order Number: [id number] Reading MD: Arron Persaud MD Measurements Intervals [place] Rate: 92 P: 67 TX: 125 QRS: 57 QRSD: 88 T: 54 QT: 375 QTc: 425 Interpretive Statements SINUS RHYTHM BASELINE ARTIFACT Electronically Signed On 05-30-2016 11:41:09 EDT by Arron Persaud MD
[2016-05-30] MEDS: Vancomycin 1,250 MG in D5% in Water 250 ML IVPB SCH (13:04)
[2016-05-30] MEDS: Furosemide 20 MG/2 ML VIAL IVP SCH (13:04)
[2016-05-30 16:09] LABS: Hemoglobin 7.9 g/dL (11.5-15.4)
[2016-05-30 16:10] LABS: Hematocrit 23.2 % (35.3-44.9)
--- NOTE | 2016-05-30 16:29 | Palliative - Consult Note ---
Date of Encounter: 05/30/16 Time of Encounter: 16:00 - Assessment and Plan (1) Generalized pain Current Visit: Yes Status: Acute Assessment and plan: Continues on Fentanyl per ICU protocol. MOnitor (2) Anxiety Current Visit: No Status: Acute Assessment and plan: Continues on propofol per ICU protocol. Monitor (3) Goals of care, counseling/discussion Current Visit: No Status: Acute Assessment and plan: Patient's' has left for the afternoon and will not return til the evening. D/W pt daughter, Teri. Will be meeting with Teri and tomorrow around 1100. Teri will begin discussing code status with pt this pm. Palliative-CN HPI - Data of Consult Requesting Physician: Xi Hutchison Primary Care Provider: Yuri Monsivais - Consult Narrative History of present illness: Ms. Miles is a 65 year old female with a history of transfusion dependent AML who was admitted and treated for multifocal pneumonia. She was originally sent to ED from [facility] where she was found to be confused and hypoxic, and there was concern for intracranial bleed. She was admitted and treated in the intensive care unit. She was transferred out of ICU to floor yesterday, and found last night to be hypoxic with agonal respirations. She was intubated after discussion was held with the patient's daughter, Teri. She was treated for volume overload and hypercarbia with CO2 over 120. ABG's this am were improved. Oncology history was reviewed and she had refused a stem cell transplant, but has continued treatments and transfusions at the [facility] with Dr. Yeh. Palliative care was consulted to assist with goals of care and code status discussions. CC: Xi Hutchison Past Med Surg Social Fam HX - Past Medical History Medical history: cancer (AML, Iron overload,), other Psychiatric history: anxiety, depression - Past Surgical History Surgical History: cholecystectomy, other - Social History Smoking Status: Former smoker Smokeless Tobacco Status: No Alcohol use: none Drug use: none - Family History Mother Family Member Ethnicity: Non- Living Status: Hx Family Cardiac Disorders: No Hx Family Respiratory Disorders: No Hx Family Cancer: Yes (possible colon) Medications and Allergies Citalopram [CeleXA] 20 mg PO DAILY 09/25/14 [History] Aminocaproic Acid [Amicar] 500 mg PO TID #90 tablet 03/25/16 [Rx] Folic Acid 1 mg PO DAILY #30 tablet 04/25/16 [Rx] Acetaminophen w/Cod 300-30 mg [Tylenol w/Codeine #3] 1 each PO Q6HR PRN #60 tablet 05/19/16 [Rx] Fluconazole [Diflucan] 100 mg PO DAILY #30 tablet 05/19/16 [Rx] Levofloxacin [Levaquin] 750 mg PO DAILY #14 tablet 05/19/16 [Rx] Alprazolam [Xanax 1 MG Tablet] 1 mg PO TID PRN 05/26/16 [History] Deferasirox [Jadenu] 1,440 mg PO DAILY 05/26/16 [History] Ondansetron [Zofran] 8 mg PO Q8H PRN 05/26/16 [History] Allergies Penicillins Allergy (Unknown, Verified 07/02/15 11:43) Hives ROS unobtainable: due to endotracheal tube Palliative Care-Exam - Constitutional Vitals: Temp Pulse Resp BP Pulse Ox 98.2 F 78 14 146/67 94 05/30/16 16:00 05/30/16 16:00 05/30/16 16:00 05/30/16 16:00 05/30/16 16:00 General appearance: Present: no acute distress - Head Head Exam: Present: normal inspection, normocephalic - Eye Eye exam: Present: normal appearance, PERRL - Respiratory Respiratory exam: Present: CTAB Additional comments: Breath sounds course with faint exp wheezes anteriorally - Cardiovascular Cardiovascular exam: Present: +S1, +S2 - GI/Abdominal Exam GI/Abdominal exam: Present: diminished bowel sounds, distended, soft - Catheter Type: Urethral (Wilde) - Extremities Exam Extremities exam: Present: normal capillary refill, normal inspection - Neurological Exam Additional comments: Sedated and on ventilator - Skin Skin exam: Present: dry, pallor, warm Internal Medicine - CN: Reslt - Labs CBC & Chem 7: 05/30/16 16:06 05/30/16 04:30 Labs: Short CBC 05/30/16 05/30/16 Range/Units 04:30 16:06 WBC 10.4 (4.3-11.1) K/mcL Hgb 6.4 L 7.9 L D (11.5-15.4) g/dL Hct 18.8 L 23.2 L (35.3-44.9) % Plt Count 52 L D (140-400) K/mcL Neutrophils # 4.8 (1.6-8.9) K/mcL BMP 05/30/16 04:30 Sodium 139 Potassium 3.6 Chloride 104 Carbon Dioxide 29 BUN 20 Creatinine 0.82 Glucose 101 H Calcium 7.2 L Cardiac Enzymes 05/30/16 Range/Units 00:01 Troponin I 0.02 (0-0.03) ng/mL Liver Function 05/30/16 Range/Units 04:30 Total Bilirubin 0.6 (0.2-1.2) mg/dL AST 34 (5-34) Units/L ALT 25 (0-55) Units/L Alkaline Phosphatase 58 (38-126) Units/L Albumin 2.4 L (3.5-5.0) g/dL - ABG Interpretation ABG results: ABG ABG pH 7.40 pH Units (7.32-7.45) 05/30/16 05:50 ABG pCO2 52 mmHg (35-45) H 05/30/16 05:50 ABG pO2 124 mmHg (85-104) H 05/30/16 05:50 ABG O2 Saturation 99 % (95-98) H 05/30/16 05:50 PT/INR, D-dimer PT 13.2 Seconds (9.4-12.1) H 05/26/16 16:31 - Impressions Impressions Chest CT 05/28/16 07:34 IMPRESSION: 1. Multifocal consolidative opacities and small bilateral pleural effusions compatible with known pneumonia. Overall this appears slightly progressed since the prior exam from 05/26/2016. However there are areas of ground-glass attenuation as well as interlobular septal thickening which may reflect superimposed edema. 2. Stable mediastinal adenopathy, which may be reactive. D/ /28/2016 09:11:18 Radha Escobedo MD / percy Interpreting Provider: Radha Escobedo MD Chest X-Ray 05/29/16 23:11 IMPRESSION: The endotracheal and orogastric tubes project in normal positions. Continued bilateral airspace disease, pulmonary edema versus atelectasis. Bilateral pleural effusions. D/ / Keyon Mandel MD / Keyon Mandel MD Interpreting Provider: Keyon Mandel MD X-Ray 05/29/16 23:12 IMPRESSION: Orogastric tube terminates in the fundus. Normal bowel gas pattern. D/ / Keyon Mandel MD / Keyon Mandel MD Interpreting Provider: Keyon Mandel MD Chest X-Ray 05/30/16 05:41 IMPRESSION: Supportive tubing is stable. Bilateral airspace disease, pulmonary edema versus pneumonia. Bibasilar pleural effusions, greater on the right. The right effusion may be increased in the interval, versus differences in positioning. D/ / Keyon Mandel MD / Keyon Mandel MD Interpreting Provider: Keyon Mandel MD Consult Discharge Plan - Plan Referrals: Yuri Monsivais DO [Primary Care Provider] - Palliative Quality Palliative Quality: Screen for Code Status: NA (meeting with in am), Screen for Goals of Care: NA, Screen for Pain: NA, If Pain Regimen Started, Initiate Bowel Regimen: NA, Screen for Nausea/Vomitting: NA
[2016-05-30 17:21] LABS: Magnesium 2.1 mg/dL (1.6-2.6); Potassium 3.6 mEq/L (3.5-4.5)
[2016-05-30 17:23] LABS: Ionized Calcium 0.98 mmol/L (1.15-1.35)
[2016-05-30] MEDS: Levofloxacin 750 MG/150 ML 750 MG/150 ML BAG IVPB SCH (18:18)
[2016-05-30 22:26] LABS: Ionized Calcium 0.98 mmol/L (1.15-1.35)
[2016-05-30 22:31] LABS: Magnesium 2.2 mg/dL (1.6-2.6); Potassium 3.5 mEq/L (3.5-4.5)
[2016-05-30 22:32] LABS: Phosphorous 3.3 mg/dL (2.3-4.7)
[2016-05-31] MEDS: Ipratropium/Albuterol Neb 3 ML IH SCH ×6 (00:47→21:48)
[2016-05-31] MEDS: Lacri-Lube 3.5 GM TUBE BOTH EYES SCH ×4 (00:58→11:56)
[2016-05-31] MEDS: Aztreonam 1,000 MG in D5% in Water (Mini-Bag+) 100 ML IVPB SCH ×3 (01:56→17:47)
[2016-05-31] MEDS: FentaNYL (PF) 1,000 MCG in 0.9 % Sodium Chloride 80 ML IVC SCH (04:16)
[2016-05-31 04:41] LABS: Hemoglobin 7.3 g/dL (11.5-15.4)
[2016-05-31 04:43] LABS: Hematocrit 21.4 % (35.3-44.9); Immature Platelets 1.3 % (1.1-6.1); Mean Corpuscular HGB Conc 34.1 g/dL (31.6-35.5); Mean Corpuscular Volume 84.9 fL (83.0-100.0); Mean Platelet Volume 8.7 fL (9.4-12.4); Red Blood Count 2.52 M/mcL (3.82-4.97); Red Cell Distribution Width 15.8 % (11.5-14.5)
[2016-05-31 04:53] LABS: Ionized Calcium 1.08 mmol/L (1.15-1.35)
[2016-05-31] MEDS: Famotidine 20 MG/2 ML VIAL IVP SCH ×2 (04:53→17:48)
[2016-05-31] MEDS: Furosemide 20 MG/2 ML VIAL IVP SCH (04:53)
[2016-05-31] MEDS: MethylPREDNISolone 40 MG/ML VIAL IVP SCH ×4 (04:53→23:16)
[2016-05-31] MEDS: DEFERASIROX PO SCH (04:54)
[2016-05-31 04:59] LABS: Magnesium 1.9 mg/dL (1.6-2.6); Phosphorous 2.6 mg/dL (2.3-4.7)
[2016-05-31 05:07] LABS: BUN/Creatinine Ratio 36 (6-26); Calcium 7.5 mg/dL (8.6-10.8); Carbon Dioxide 28 mEq/L (19-29); Chloride 104 mEq/L (98-109); Glucose 172 mg/dL (70-99); Osmolality,Calculated 298 (280-300); Potassium 3.9 mEq/L (3.5-4.5); Sodium 138 mEq/L (136-145); eGFR For African Americans > 60 (> 60); eGFR For Non-African Americans 58 (> 60)
[2016-05-31 05:10] LABS: Blood Urea Nitrogen 35 mg/dL (7-20)
[2016-05-31 05:17] LABS: Platelet Count 36 K/mcL (140-400)
[2016-05-31 05:22] LABS: Lymphocytes # 1.5 K/mcL (0.6-4.6); Neutrophils # 3.5 K/mcL (1.6-8.9)
[2016-05-31 05:23] LABS: Platelet Estimate Decreased (Normal)
[2016-05-31] MEDS: Magnesium Sulfate 2 GM in D5% in Water 100 ML IVPB PRN (05:38)
[2016-05-31] MEDS: Calcium Gluconate 1,000 MG in D5% in Water 100 ML IVPB PRN ×3 (06:03→23:14)
[2016-05-31 06:10] LABS: ABG Oxygen Saturation 92 % (95-98); ABG PCO2 63 mmHg (35-45); ABG PH 7.34 pH Units (7.32-7.45); ABG PO2 68 mmHg (85-104); ABG TCO2 35.9 mEq/L (20-26); Blood Gas FiO2 40 %
[2016-05-31] MEDS ORDERED: Aminoglycoside Consult 1 EACH MC ONE (07:51)
[2016-05-31] MEDS: Docusate Oral Soln 100 MG/10 ML UDC GTUBE SCH ×2 (08:29→20:25)
[2016-05-31] MEDS: Chlorhexidine Rinse 15 ML MOUTHWASH MM SCH (08:29)
[2016-05-31] MEDS: Folic Acid 1 MG TABLET PO SCH (08:29)
[2016-05-31] MEDS: Fluconazole 100 MG TABLET PO SCH (08:29)
[2016-05-31] MEDS: Nystatin SUSP 5 ML UD.LIQ PO SCH ×4 (08:29→20:25)
[2016-05-31] MEDS ORDERED: Furosemide 20 MG/2 ML VIAL IVP ONE (10:28)
--- NOTE | 2016-05-31 11:23 | Pulmonology Progress Note ---
Date of Encounter: 05/31/16 Time of Encounter: 10:30 Assessment and Plan (1) Acute respiratory failure Current Visit: No Status: Acute Originally admitted for multifocal pneumonia with complete left lung collapse. This initially improved with conservative therapy to include bronchodilators, chest physiotherapy, and noninvasive positive pressure ventilation. Following initial improvement patient had recurrent respiratory failure this appears to be related to volume overload. Since her admission to MICU, has been treated with diuresis and responded well. I approximately -1-1.5 L since readmission to the ICU. Underwent spontaneous breathing trial this morning with us twice a day less than 30. Patient awake and oriented indicating desire to be extubated. We will give additional dose of 20 mg of Lasix now. Plan for extubation this morning. Qualifiers: Respiratory failure complication: hypoxia Qualified Code(s): J96.01 - Acute respiratory failure with hypoxia (2) Multifocal pneumonia Current Visit: Yes Status: Acute Unknown organism and treated broadly with empiric antibiosis. Has clinically improved and is currently on day 5 antibiotics. We will begin to wean antibiotics at day 7. 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 Has received numerous platelet transfusions. We will maintain goal platelet count of greater than 20,000. No indication for transfusion today. 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 Hemoglobin greater than 7 g morning's no indication for further transfusion today. 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 Followed by a hematology not currently on therapy. Will continue transfusions as needed. Qualifiers: Leukemia Active/Remission status: relapsed Qualified Code(s): C92.02 - Acute myeloblastic leukemia, in relapse Subjective Principal diagnosis: multifocal pneumonia Interval history: 65-year-old female admitted to MICU on May 29 for respiratory failure, most likely related to volume overload. Has been treated with aggressive diuresis is approximately -1 L of her past 24-hour period. On spontaneous breathing trial this morning, awake and alert, indicating desire to have ET tube removed. Patient denies any discomfort or new complaint. No acute events overnight. Objective PUL Vital signs: Last Vital Signs Temp 98.3 F 05/31/16 07:15 Pulse 107 05/31/16 10:00 Resp 16 05/31/16 10:00 BP 147/75 05/31/16 10:00 Pulse Ox 94 05/31/16 10:00 General appearance: no acute distress, alert Eyes: nonicteric Effort: normal Auscultation: bilateral: clear Cardiovascular: regular rate and rhythm Gastrointestinal: soft, non-tender Extremities: no cyanosis, no clubbing, edema (Mild BL lower extremity edema) Musculoskeletal: no deformities normal mental status, non-focal exam mood appropriate Ventilator Settings Ventilator Settings: Ventilator Settings, Last 8 Hours Ventilator Mode VC+ Ventilator Mode VC+ Ventilator Mode VC+ Ventilator Mode VC+ Ventilator Mode VC+ Ventilator Mode VC+ Ventilator Mode VC+ Ventilator Mode VC+ Ventilator Mode VC+ Ventilator Mode VC+ Ventilator Mode VC+ Ventilator Mode VC+ Ventilator Tidal Volume 450 Setting Ventilator Tidal Volume 450 Setting Ventilator Tidal Volume 450 Setting Ventilator Tidal Volume 450 Setting Ventilator Tidal Volume 450 Setting Ventilator Tidal Volume 450 Setting Ventilator Tidal Volume 450 Setting Ventilator Tidal Volume 450 Setting Ventilator Tidal Volume 450 Setting Ventilator Tidal Volume 450 Setting Ventilator Tidal Volume 450 Setting Ventilator Tidal Volume 450 Setting Ventilator Respiratory Rate 14 Setting Ventilator Respiratory Rate 14 Setting Ventilator Respiratory Rate 14 Setting Ventilator Respiratory Rate 14 Setting Ventilator Respiratory Rate 14 Setting Ventilator Respiratory Rate 14 Setting Ventilator Respiratory Rate 14 Setting Ventilator Respiratory Rate 14 Setting Ventilator Respiratory Rate 14 Setting Ventilator Respiratory Rate 14 Setting Ventilator Respiratory Rate 14 Setting Ventilator Respiratory Rate 14 Setting Actual Respiratory Rate 16 Actual Respiratory Rate 16 Actual Respiratory Rate 16 Actual Respiratory Rate 16 Actual Respiratory Rate 16 Actual Respiratory Rate 18 Actual Respiratory Rate 16 Actual Respiratory Rate 14 Actual Respiratory Rate 14 Actual Respiratory Rate 18 Actual Respiratory Rate 16 Positive End Expiratory 8 Pressure Positive End Expiratory 8 Pressure Positive End Expiratory 8 Pressure Positive End Expiratory 8 Pressure Positive End Expiratory 8 Pressure Positive End Expiratory 8 Pressure Positive End Expiratory 8 Pressure Positive End Expiratory 8 Pressure Positive End Expiratory 8 Pressure Positive End Expiratory 8 Pressure Positive End Expiratory 8 Pressure Positive End Expiratory 8 Pressure Peak Inspiratory Airway 20 Pressure Peak Inspiratory Airway 21 Pressure Peak Inspiratory Airway 20 Pressure Peak Inspiratory Airway 24 Pressure Peak Inspiratory Airway 21 Pressure Peak Inspiratory Airway 14 Pressure Peak Inspiratory Airway 19 Pressure Results - Laboratory Findings CBC and BMP: 05/31/16 04:30 05/31/16 04:30 ABG ABG pH 7.34 pH Units (7.32-7.45) 05/31/16 05:56 ABG pCO2 63 mmHg (35-45) H 05/31/16 05:56 ABG pO2 68 mmHg (85-104) L 05/31/16 05:56 ABG O2 Saturation 92 % (95-98) L 05/31/16 05:56 PT/INR, D-dimer PT 13.2 Seconds (9.4-12.1) H 05/26/16 16:31 Abnormal lab findings: Abnormal lab results RBC 2.52 M/mcL (3.82-4.97) L 05/31/16 04:30 Hgb 7.3 g/dL (11.5-15.4) L 05/31/16 04:30 Hct 21.4 % (35.3-44.9) L 05/31/16 04:30 RDW 15.8 % (11.5-14.5) H 05/31/16 04:30 Plt Count 36 K/mcL (140-400) L 05/31/16 04:30 MPV 8.7 fL (9.4-12.4) L 05/31/16 04:30 Band Neutrophils % 12.0 % (0-4) H 05/31/16 04:30 Metamyelocytes % 2.0 % (0) H 05/29/16 03:38 Myelocytes % 2.0 % (0) H 05/29/16 03:38 Blast Cells % 6.0 % (0) H 05/31/16 04:30 Platelet Estimate Decreased (Normal) L 05/31/16 04:30 Anisocytosis 1+ (Not Present) A 05/29/16 03:38 Microcytosis Present (Not Present) A 05/29/16 03:38 Stomatocytes 1+ (Not Present) A 05/27/16 07:19 PT 13.2 Seconds (9.4-12.1) H 05/26/16 16:31 APTT 25.2 Seconds (26.0-36.0) L 05/26/16 16:31 ABG pCO2 63 mmHg (35-45) H 05/31/16 05:56 ABG pO2 68 mmHg (85-104) L 05/31/16 05:56 ABG HCO3 34.0 mEQ/L (21-27) H 05/31/16 05:56 ABG Total CO2 35.9 mEq/L (20-26) H 05/31/16 05:56 ABG O2 Saturation 92 % (95-98) L 05/31/16 05:56 ABG Base Excess 7.0 mEq/L (-2.0 to 3.0) H 05/31/16 05:56 BUN 35 mg/dL (7-20) H D 05/31/16 04:30 Est GFR (Non-Af Amer) 58 (> 60) L 05/31/16 04:30 BUN/Creatinine Ratio 36 (6-26) H 05/31/16 04:30 Glucose 172 mg/dL (70-99) H 05/31/16 04:30 POC Glucose 131 (58-89) H 05/31/16 00:39 Calcium 7.5 mg/dL (8.6-10.8) L 05/31/16 04:30 Ionized Calcium 1.08 mmol/L (1.15-1.35) L 05/31/16 04:30 C-Reactive Protein 47 mg/L (Less than 5) H 05/27/16 07:19 B-Natriuretic Peptide 282 pg/mL (0-100) H 05/30/16 00:01 Albumin 2.4 g/dL (3.5-5.0) L 05/30/16 04:30 Globulin 4.6 g/dL (2.4-3.5) H 05/30/16 04:30 Albumin/Globulin Ratio 0.5 (1.1-2.2) L 05/30/16 04:30 Urine Clarity Cloudy (Clear) A 05/26/16 20:19 Urine Protein 100 mg/dL (Neg-Trace) H 05/26/16 20:19 Urine Blood Small (Negative) H 05/26/16 20:19 Urine Microscopic RBC 3-5 per hpf (0-3) H 05/26/16 20:19 Ur Squamous Epith Cells Many per lpf (None-Few) H 05/26/16 20:19 Granular Casts Few per lpf (None Seen) H 05/26/16 20:19 Antibody Screen POSITIVE A 05/30/16 07:46 - Clinical Findings Intake & Output: Intake & Output 05/30/16 05/31/16 05/31/16 23:59 07:59 15:59 Intake Total 706 / 706 1212 / 1212 350.5 / 350.5 Output Total 1400 / 1400 800 / 800 Balance -694 / -694 412 / 412 350.5 / 350.5 Weight 73.936 kg - VTE Documentation of Mechanical Device: Venous foot pump, device Consult Discharge Plan - Plan Referrals: Yuri Monsivais DO [Primary Care Provider] - - Attending Attestation [employer]: Alert and oriented on sedation holiday no acute issues. Cardiovascular: Slightly hypertensive this morning but otherwise tolerating diuresis mechanical ventilation well. Pulmonary: Pulmonary edema due to volume overload. Has improved with diuresis. Performed well on spontaneous breathing trial this morning. We will repeat dose of Lasix prior to extubation. Nephrology: No significant change in renal function with diuresis. We will continue diuresis today with goal of -1-1.5 24 hours. GI: After extubation will perform bedside swallow study initiate enteral feeds. ID: Radiology suggestive of bilateral multifocal pneumonia. Currently on broad- spectrum antibiosis but no organism isolated. We will continue with empiric therapy for planned 7 day course. HO: History of AML with chronic pancytopenia. We will continue as needed transfusions of packed red blood cells and platelets. Endocrine: No acute issues. MS: No acute issues. Disposition: Patient remained in MICU. Total critical care time: 45 minutes.
[2016-05-31] MEDS: Vancomycin 1,250 MG in D5% in Water 250 ML IVPB SCH (12:13)
--- NOTE | 2016-05-31 12:19 | Palliative Progress Note ---
Date of Encounter: 05/31/16 Time of Encounter: 12:10 - Assessment and plan (1) Generalized pain Current Visit: Yes Status: Acute (2) Anxiety Current Visit: No Status: Acute Assessment and plan: Sedation off for possible extubation. Monitor (3) Goals of care, counseling/discussion Current Visit: No Status: Acute Assessment and plan: Met with and pt daughter to discuss goals of care. Patient has never completed advanced directives, but states "we've been 40 years, and have had lots of conversations, so I know what her wishes are". Discussed code status and explained DNRCC-Arrest, and DNRCC. Daughter and states that although would never want skilled nursing vent support, they desire and believe the pt would still desire short term intubation. I explained that DNRCC-Arrest level would entail resuscitation efforts up to a cardiac/resp arrest, -they desire to continue to discuss and talk with patient once she is extubated. We also discussed joint terminal attack controller issues with her disease process and that eventually her body may not respond as well to transfusions, or she may tire of this and want to stop. We discussed how hospice could support them and pt during this process. They acknowledged understanding and were appreciative of the information. Will follow up with her clinical course on Thursday. - Time Spent With Patient Total time spent is greater than 50% in coordination of care (as documented) at patient's floor/unit and/or counseling patient: 25 - 35 minutes - Subjective Interval history: Awake and following commands. Tolerating breathing trial well and expected to be extubated later today. and daughter present. - Constitutional Vitals: Abnormal lab results RBC 2.52 M/mcL (3.82-4.97) L 05/31/16 04:30 Hgb 7.3 g/dL (11.5-15.4) L 05/31/16 04:30 Hct 21.4 % (35.3-44.9) L 05/31/16 04:30 RDW 15.8 % (11.5-14.5) H 05/31/16 04:30 Plt Count 36 K/mcL (140-400) L 05/31/16 04:30 MPV 8.7 fL (9.4-12.4) L 05/31/16 04:30 Band Neutrophils % 12.0 % (0-4) H 05/31/16 04:30 Metamyelocytes % 2.0 % (0) H 05/29/16 03:38 Myelocytes % 2.0 % (0) H 05/29/16 03:38 Blast Cells % 6.0 % (0) H 05/31/16 04:30 Platelet Estimate Decreased (Normal) L 05/31/16 04:30 Anisocytosis 1+ (Not Present) A 05/29/16 03:38 Microcytosis Present (Not Present) A 05/29/16 03:38 Stomatocytes 1+ (Not Present) A 05/27/16 07:19 PT 13.2 Seconds (9.4-12.1) H 05/26/16 16:31 APTT 25.2 Seconds (26.0-36.0) L 05/26/16 16:31 ABG pCO2 63 mmHg (35-45) H 05/31/16 05:56 ABG pO2 68 mmHg (85-104) L 05/31/16 05:56 ABG HCO3 34.0 mEQ/L (21-27) H 05/31/16 05:56 ABG Total CO2 35.9 mEq/L (20-26) H 05/31/16 05:56 ABG O2 Saturation 92 % (95-98) L 05/31/16 05:56 ABG Base Excess 7.0 mEq/L (-2.0 to 3.0) H 05/31/16 05:56 BUN 35 mg/dL (7-20) H D 05/31/16 04:30 Est GFR (Non-Af Amer) 58 (> 60) L 05/31/16 04:30 BUN/Creatinine Ratio 36 (6-26) H 05/31/16 04:30 Glucose 172 mg/dL (70-99) H 05/31/16 04:30 POC Glucose 131 (58-89) H 05/31/16 00:39 Calcium 7.5 mg/dL (8.6-10.8) L 05/31/16 04:30 Ionized Calcium 1.08 mmol/L (1.15-1.35) L 05/31/16 04:30 C-Reactive Protein 47 mg/L (Less than 5) H 05/27/16 07:19 B-Natriuretic Peptide 282 pg/mL (0-100) H 05/30/16 00:01 Albumin 2.4 g/dL (3.5-5.0) L 05/30/16 04:30 Globulin 4.6 g/dL (2.4-3.5) H 05/30/16 04:30 Albumin/Globulin Ratio 0.5 (1.1-2.2) L 05/30/16 04:30 Urine Clarity Cloudy (Clear) A 05/26/16 20:19 Urine Protein 100 mg/dL (Neg-Trace) H 05/26/16 20:19 Urine Blood Small (Negative) H 05/26/16 20:19 Urine Microscopic RBC 3-5 per hpf (0-3) H 05/26/16 20:19 Ur Squamous Epith Cells Many per lpf (None-Few) H 05/26/16 20:19 Granular Casts Few per lpf (None Seen) H 05/26/16 20:19 Antibody Screen POSITIVE A 05/30/16 07:46 Palliative Quality Palliative Quality: Screen for Code Status: Yes (meeting with in am), Screen for Goals of Care: Yes, Screen for Pain: Yes, If Pain Regimen Started, Initiate Bowel Regimen: NA, Screen for Nausea/Vomitting: NA - Labs CBC & Chem 7: 05/31/16 04:30 05/31/16 04:30 Labs: Laboratory Results - last 24 hr 05/30/16 05/30/16 05/30/16 07:46 11:53 15:00 WBC RBC Hgb Hct MCV MCH MCHC RDW Plt Count MPV Seg Neutrophils % Band Neutrophils % Lymphocytes % Monocytes % Blast Cells % Neutrophils # Lymphocytes # Monocytes # Platelet Estimate Immature Plt Fraction ABG pH ABG pCO2 ABG pO2 ABG HCO3 ABG Total CO2 ABG O2 Saturation ABG Base Excess Blood Gas Modality Inspired O2 Sodium Potassium Chloride Carbon Dioxide BUN Creatinine Est GFR ( Amer) Est GFR (Non-Af Amer) BUN/Creatinine Ratio Glucose POC Glucose 130 H Calculated Osmolality Calcium Ionized Calcium Phosphorus Magnesium Specimen Rejected Hemolyzed MTS Gel Crossmatch See Detail 05/30/16 05/30/16 05/30/16 16:06 16:58 22:03 WBC RBC Hgb 7.9 L D Hct 23.2 L MCV MCH MCHC RDW Plt Count MPV Seg Neutrophils % Band Neutrophils % Lymphocytes % Monocytes % Blast Cells % Neutrophils # Lymphocytes # Monocytes # Platelet Estimate Immature Plt Fraction ABG pH ABG pCO2 ABG pO2 ABG HCO3 ABG Total CO2 ABG O2 Saturation ABG Base Excess Blood Gas Modality Inspired O2 Sodium Potassium 3.6 3.5 Chloride Carbon Dioxide BUN Creatinine Est GFR ( Amer) Est GFR (Non-Af Amer) BUN/Creatinine Ratio Glucose POC Glucose Calculated Osmolality Calcium Ionized Calcium 0.98 L 0.98 L Phosphorus 3.3 D Magnesium 2.1 2.2 Specimen Rejected MTS Gel Crossmatch 05/31/16 05/31/16 05/31/16 00:39 04:30 04:30 WBC 6.4 RBC 2.52 L Hgb 7.3 L Hct 21.4 L MCV 84.9 MCH 29.0 MCHC 34.1 RDW 15.8 H Plt Count 36 L MPV 8.7 L Seg Neutrophils % 42.0 Band Neutrophils % 12.0 H Lymphocytes % 24.0 Monocytes % 16.0 Blast Cells % 6.0 H Neutrophils # 3.5 Lymphocytes # 1.5 Monocytes # 1.0 Platelet Estimate Decreased L Immature Plt Fraction 1.3 ABG pH ABG pCO2 ABG pO2 ABG HCO3 ABG Total CO2 ABG O2 Saturation ABG Base Excess Blood Gas Modality Inspired O2 Sodium Potassium Chloride Carbon Dioxide BUN Creatinine Est GFR ( Amer) Est GFR (Non-Af Amer) BUN/Creatinine Ratio Glucose POC Glucose 131 H Calculated Osmolality Calcium Ionized Calcium 1.08 L Phosphorus 2.6 Magnesium 1.9 Specimen Rejected [facility] Gel Crossmatch 05/31/16 05/31/16 04:30 05:56 WBC RBC Hgb Hct MCV MCH MCHC RDW Plt Count MPV Seg Neutrophils % Band Neutrophils % Lymphocytes % Monocytes % Blast Cells % Neutrophils # Lymphocytes # Monocytes # Platelet Estimate Immature Plt Fraction ABG pH 7.34 ABG pCO2 63 H ABG pO2 68 L ABG HCO3 34.0 H ABG Total CO2 35.9 H ABG O2 Saturation 92 L ABG Base Excess 7.0 H Blood Gas Modality VC Inspired O2 40 Sodium 138 Potassium 3.9 Chloride 104 Carbon Dioxide 28 BUN 35 H D Creatinine 0.96 Est GFR ( Amer) > 60 Est GFR (Non-Af Amer) 58 L BUN/Creatinine Ratio 36 H Glucose 172 H POC Glucose Calculated Osmolality 298 Calcium 7.5 L Ionized Calcium Phosphorus Magnesium Specimen Rejected [facility] Gel Crossmatch - Impressions Impressions Chest CT 05/28/16 07:34 IMPRESSION: 1. Multifocal consolidative opacities and small bilateral pleural effusions compatible with known pneumonia. Overall this appears slightly progressed since the prior exam from 05/26/2016. However there are areas of ground-glass attenuation as well as interlobular septal thickening which may reflect superimposed edema. 2. Stable mediastinal adenopathy, which may be reactive. D/ / 05/28/2016 09:11:18 Radha Escobedo MD / percy Interpreting Provider: Radha Escobedo MD - ABG Interpretation ABG results: ABG ABG pH 7.34 pH Units (7.32-7.45) 05/31/16 05:56 ABG pCO2 63 mmHg (35-45) H 05/31/16 05:56 ABG pO2 68 mmHg (85-104) L 05/31/16 05:56 ABG O2 Saturation 92 % (95-98) L 05/31/16 05:56 PT/INR, D-dimer PT 13.2 Seconds (9.4-12.1) H 05/26/16 16:31 Consult Discharge Plan - Plan Referrals: Yuri Monsivais DO [Primary Care Provider] -
[2016-05-31 12:43] LABS: Ionized Calcium 1.02 mmol/L (1.15-1.35)
[2016-05-31 12:46] LABS: Magnesium 2.5 mg/dL (1.6-2.6)
[2016-05-31] MEDS: *HR* Acetaminophen w/Cod 300-30 mg 1 TAB TABLET PO PRN (16:47)
[2016-05-31 17:01] LABS: Potassium 4.5 mEq/L (3.5-4.5)
[2016-05-31 17:10] LABS: Phosphorous 4.3 mg/dL (2.3-4.7)
[2016-05-31] MEDS: Levofloxacin 750 MG/150 ML 750 MG/150 ML BAG IVPB SCH (17:47)
[2016-06-01] MEDS: FentaNYL (PF) 1,000 MCG in 0.9 % Sodium Chloride 80 ML IVC SCH (01:32)
[2016-06-01] MEDS: Aztreonam 1,000 MG in D5% in Water (Mini-Bag+) 100 ML IVPB SCH ×2 (01:41→09:18)
[2016-06-01] MEDS: Ipratropium/Albuterol Neb 3 ML IH SCH ×4 (04:34→21:26)
[2016-06-01 04:38] LABS: Hematocrit 21.9 % (35.3-44.9); Hemoglobin 7.4 g/dL (11.5-15.4); Mean Corpuscular HGB Conc 33.8 g/dL (31.6-35.5); Mean Corpuscular Hemoglobin 29.2 pg (28.0-33.3); Mean Corpuscular Volume 86.6 fL (83.0-100.0); Red Blood Count 2.53 M/mcL (3.82-4.97)
[2016-06-01 04:40] LABS: Immature Platelets 2.6 % (1.1-6.1); Mean Platelet Volume 8.6 fL (9.4-12.4); Red Cell Distribution Width 16.2 % (11.5-14.5)
[2016-06-01 04:44] LABS: Platelet Count 23 K/mcL (140-400)
[2016-06-01 04:49] LABS: Phosphorous 4.5 mg/dL (2.3-4.7)
[2016-06-01 04:50] LABS: BUN/Creatinine Ratio 43 (6-26); Blood Urea Nitrogen 37 mg/dL (7-20); Calcium 7.9 mg/dL (8.6-10.8); Carbon Dioxide 34 mEq/L (19-29); Chloride 102 mEq/L (98-109); Glucose 129 mg/dL (70-99); Osmolality,Calculated 298 (280-300); Potassium 4.6 mEq/L (3.5-4.5); Sodium 139 mEq/L (136-145); eGFR For African Americans > 60 (> 60); eGFR For Non-African Americans > 60 (> 60)
[2016-06-01 05:08] LABS: Lymphocytes # 3.4 K/mcL (0.6-4.6); Monocytes # 0.6 K/mcL (0.0-1.3); Neutrophils # 4.7 K/mcL (1.6-8.9); Platelet Estimate Decreased (Normal)
[2016-06-01 05:09] LABS: Anisocytosis 1+ (Not Present); Ionized Calcium 1.08 mmol/L (1.15-1.35)
[2016-06-01] MEDS: Famotidine 20 MG/2 ML VIAL IVP SCH ×2 (05:52→17:06)
[2016-06-01] MEDS: MethylPREDNISolone 40 MG/ML VIAL IVP SCH ×2 (05:52→12:15)
[2016-06-01] MEDS: DEFERASIROX PO SCH (05:52)
[2016-06-01] MEDS: Calcium Gluconate 1,000 MG in D5% in Water 100 ML IVPB PRN (05:52)
[2016-06-01] MEDS: Docusate Oral Soln 100 MG/10 ML UDC GTUBE SCH (09:18)
[2016-06-01] MEDS: Nystatin SUSP 5 ML UD.LIQ PO SCH ×5 (09:18→20:50)
[2016-06-01] MEDS: Fluconazole 100 MG TABLET PO SCH (09:18)
[2016-06-01] MEDS: Folic Acid 1 MG TABLET PO SCH (09:18)
--- NOTE | 2016-06-01 10:33 | Oncology Inp Progress Note ---
Date of Encounter: 06/01/16 Time of Encounter: 09:00 (1) Leukemia Current Visit: No Status: Acute Assessment and plan: Patient is currently undergoing treatment with low-dose cytarabine reports that her last treatment was end of April. Lysed with pneumoniae and cytopenia and is status post intubation and extubation for respiratory failure. She is currently doing better and is being transferred to regular medical floor. She has not needed transfusions since Thursday. Her hemoglobin is steady below, and thrombocytopenia with platelets trending over 20,000. No clinical signs of bleeding. She will be transfused for symptomatic anemia or clinical bleeding or if the platelet counts are less than 20,000. Plan of care was discussed with the team, the patient in detail. Qualifiers: Leukemia type: myeloid Myeloid leukemia type: acute Leukemia Active/ Remission status: without remission Qualified Code(s): C92.00 - Acute myeloblastic leukemia, not having achieved remission Oncology: Subj Interval history: Breathing is better, she denies any chest pain or discomfort. - Constitutional Vitals: Vital Signs Temp Pulse Resp BP Pulse Ox 06/01/16 10:00 114 16 145/66 94 06/01/16 09:00 104 16 150/77 97 06/01/16 08:00 95 16 137/57 94 06/01/16 07:45 93 06/01/16 07:27 97.2 F L 06/01/16 07:00 95 16 148/70 95 06/01/16 06:00 96 17 132/65 93 06/01/16 05:30 100 18 143/64 93 06/01/16 04:34 20 96 06/01/16 04:30 98.0 F 98 20 148/72 95 06/01/16 03:00 85 19 133/72 94 06/01/16 02:00 88 17 142/74 96 06/01/16 01:00 86 15 141/62 93 06/01/16 00:00 98.4 F 94 16 146/78 94 05/31/16 23:00 95 18 136/75 92 05/31/16 22:13 23 95 05/31/16 22:00 105 23 144/50 94 05/31/16 21:00 87 19 152/75 94 05/31/16 20:00 98.3 F 91 20 143/76 95 05/31/16 19:30 91 22 150/67 94 05/31/16 18:00 96 20 131/70 93 05/31/16 17:00 104 20 129/78 93 05/31/16 16:15 16 95 05/31/16 16:00 90 20 153/71 95 05/31/16 15:25 91 05/31/16 15:17 98.4 F 05/31/16 15:00 90 22 156/71 92 05/31/16 14:00 99 22 150/73 93 05/31/16 13:00 99 24 138/85 93 05/31/16 12:00 107 24 141/64 90 05/31/16 11:54 20 150/77 90 05/31/16 11:23 22 143/64 95 05/31/16 11:20 108 05/31/16 11:00 98.2 F 108 26 143/64 95 Intake and Output 05/31/16 06/01/16 06/01/16 23:59 07:59 15:59 Intake Total 1220 / 1220 240 / 240 Output Total 1100 / 1100 1550 / 1550 Balance 120 / 120 -1310 / -1310 Intake: IV Fluids 360 / 360 210 / 210 Azactam 1,000 MG In 100 / 100 100 / 100 Dextrose 5% (Minibag+) 100 ML 100 ML @ 200 mls/ hr IVPB Q8H [facility] Rx#: [id number] Calcium Gluconate 1,000 110 / 110 110 / 110 MG In Dextrose 5% 100 ML @ 50 mls/hr IVPB Q6HR PRN Rx#:[id number] Levaquin 750mg/150 mL 750 150 / 150 mg In 150 ml @ 100 mls/ hr IVPB Q24H [facility] Rx#: [id number] Oral 860 / 860 30 / 30 Output: Urine 700 / 700 650 / 650 Urethral (Wilde) 700 / 700 650 / 650 Catheter 400 / 400 900 / 900 Other: Meal Dinner Stool Size Small # Bowel Movements 1 Weight 75 kg Blood Glucose* 194 145 Patient Weight 06/01/16 23:59 Weight 75 kg General appearance: mild distress Exam: on neb RX - Head Head exam: Present: atraumatic, normal inspection - Eye Eye exam: Present: sclera anicteric - Neck Neck exam: Present: full ROM - Respiratory Respiratory exam: Present: wheezes - Cardiovascular Cardiovascular exam: Present: +S1, +S2 - GI/Abdominal GI/Abdominal exam: Present: normal bowel sounds, soft - Neurological Exam Neurological exam: Present: alert, CN II-XII intact, oriented X3, no focal deficits - Psychiatric Psychiatric exam: Present: normal affect Oncology: Obj Data - Labs CBC & Chem 7: 06/01/16 02:31 06/01/16 02:31 Labs: Laboratory Results - last 24 hr 05/31/16 05/31/16 05/31/16 05:57 11:29 12:30 WBC RBC Hgb Hct MCV MCH MCHC RDW Plt Count MPV Seg Neutrophils % Band Neutrophils % Lymphocytes % Monocytes % Metamyelocytes % Promyelocytes % Blast Cells % Neutrophils # Lymphocytes # Monocytes # Platelet Estimate Immature Plt Fraction Anisocytosis Sodium Potassium Chloride Carbon Dioxide BUN Creatinine Est GFR ( Amer) Est GFR (Non-Af Amer) BUN/Creatinine Ratio Glucose POC Glucose 207 H 157 H Calculated Osmolality Calcium Ionized Calcium 1.02 L Phosphorus Magnesium 2.5 05/31/16 05/31/16 05/31/16 16:34 17:42 21:16 WBC RBC Hgb Hct MCV MCH MCHC RDW Plt Count MPV Seg Neutrophils % Band Neutrophils % Lymphocytes % Monocytes % Metamyelocytes % Promyelocytes % Blast Cells % Neutrophils # Lymphocytes # Monocytes # Platelet Estimate Immature Plt Fraction Anisocytosis Sodium Potassium 4.5 Chloride Carbon Dioxide BUN Creatinine Est GFR ( Amer) Est GFR (Non-Af Amer) BUN/Creatinine Ratio Glucose POC Glucose 194 H Calculated Osmolality Calcium Ionized Calcium 1.07 L Phosphorus 4.3 D Magnesium 05/31/16 06/01/16 06/01/16 23:24 02:31 02:31 WBC 9.3 RBC 2.53 L Hgb 7.4 L Hct 21.9 L MCV 86.6 MCH 29.2 MCHC 33.8 RDW 16.2 H Plt Count 23 L* MPV 8.6 L Seg Neutrophils % 46.0 Band Neutrophils % 4.0 Lymphocytes % 36.0 Monocytes % 6.0 Metamyelocytes % 2.0 H Promyelocytes % 2.0 H Blast Cells % 4.0 H Neutrophils # 4.7 Lymphocytes # 3.4 Monocytes # 0.6 Platelet Estimate Decreased L Immature Plt Fraction 2.6 Anisocytosis 1+ A Sodium Potassium Chloride Carbon Dioxide BUN Creatinine Est GFR ( Amer) Est GFR (Non-Af Amer) BUN/Creatinine Ratio Glucose POC Glucose 126 H Calculated Osmolality Calcium Ionized Calcium 1.08 L Phosphorus 4.5 Magnesium 2.0 06/01/16 02:31 WBC RBC Hgb Hct MCV MCH MCHC RDW Plt Count MPV Seg Neutrophils % Band Neutrophils % Lymphocytes % Monocytes % Metamyelocytes % Promyelocytes % Blast Cells % Neutrophils # Lymphocytes # Monocytes # Platelet Estimate Immature Plt Fraction Anisocytosis Sodium 139 Potassium 4.6 H Chloride 102 Carbon Dioxide 34 H BUN 37 H Creatinine 0.86 Est GFR ( Amer) > 60 Est GFR (Non-Af Amer) > 60 BUN/Creatinine Ratio 43 H Glucose 129 H POC Glucose Calculated Osmolality 298 Calcium 7.9 L Ionized Calcium Phosphorus Magnesium - ABG Interpretation ABG results: ABG ABG pH 7.34 pH Units (7.32-7.45) 05/31/16 05:56 ABG pCO2 63 mmHg (35-45) H 05/31/16 05:56 ABG pO2 68 mmHg (85-104) L 05/31/16 05:56 ABG O2 Saturation 92 % (95-98) L 05/31/16 05:56 PT/INR, D-dimer PT 13.2 Seconds (9.4-12.1) H 05/26/16 16:31 Consult Discharge Plan - Plan Referrals: Yuri Monsivais DO [Primary Care Provider] -
[2016-06-01] MEDS: Vancomycin 1,250 MG in D5% in Water 250 ML IVPB SCH (12:15)
[2016-06-01] MEDS ORDERED: Ondansetron 4 MG/2 ML VIAL IVP PRN (12:26)
[2016-06-01] MEDS ORDERED: ALPRAZolam 1 MG TABLET PO PRN (12:26)
--- NOTE | 2016-06-01 12:33 | Pulmonology Progress Note ---
Date of Encounter: 06/01/16 Time of Encounter: 09:30 Assessment and Plan (1) Acute respiratory failure Current Visit: No Status: Resolved Acute respiratory failure secondary to volume overload. Improved following diuresis in MICU and successfully extubated yesterday. Now with no residual respiratory distress. Adequate SPO2 maintained with relatively low flow oxygen. Qualifiers: Respiratory failure complication: hypoxia Qualified Code(s): J96.01 - Acute respiratory failure with hypoxia (2) Multifocal pneumonia Current Visit: Yes Status: Acute Unknown organism and treated broadly with empiric antibiosis. Has clinically improved and is currently on day 6 of antibiotics. Plan to discontinue aztreonam today. 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 Has received numerous platelet transfusions. We will maintain goal platelet count of greater than 20,000. No indication for transfusion today. 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 Hemoglobin greater than 7 g morning's no indication for further transfusion today. 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 Followed by a hematology. Will continue transfusions as needed. Qualifiers: Leukemia Active/Remission status: relapsed Qualified Code(s): C92.02 - Acute myeloblastic leukemia, in relapse (7) Atelectasis of left lung Current Visit: Yes Status: Acute Improved with chest physiotherapy and airway clearance regimen. Recommend continued scheduled DuoNeb's every 6 hours, albuterol nebs every 2 hours as needed, respiratory guided chest physiotherapy, and use a flutter valve. Pulmonary will continue to follow as consult service following disposition to telemetry unit. Subjective Principal diagnosis: multifocal pneumonia Interval history: Successfully extubated yesterday. Now approximately 2 L net negative since readmission to the ICU. No acute events overnight. Patient no respiratory distress and able to take oral nutrition. Able to ambulate with assistance. No need for transfusion and past 24 hours. Objective PUL Vital signs: Last Vital Signs Temp 97.2 F L 06/01/16 07:27 Pulse 94 06/01/16 11:30 Resp 16 06/01/16 11:00 BP 154/70 06/01/16 11:00 Pulse Ox 96 06/01/16 11:00 General appearance: no acute distress Neck: supple Effort: normal Auscultation: left: diminished breath sounds (Lower field), right: clear Cardiovascular: regular rate and rhythm Gastrointestinal: soft, tender Extremities: no cyanosis, no clubbing Musculoskeletal: no deformities Gait: normal gait normal mental status mood appropriate Results - Laboratory Findings CBC and BMP: 06/01/16 02:31 06/01/16 02:31 ABG ABG pH 7.34 pH Units (7.32-7.45) 05/31/16 05:56 ABG pCO2 63 mmHg (35-45) H 05/31/16 05:56 ABG pO2 68 mmHg (85-104) L 05/31/16 05:56 ABG O2 Saturation 92 % (95-98) L 05/31/16 05:56 PT/INR, D-dimer PT 13.2 Seconds (9.4-12.1) H 05/26/16 16:31 Abnormal lab findings: Abnormal lab results RBC 2.53 M/mcL (3.82-4.97) L 06/01/16 02:31 Hgb 7.4 g/dL (11.5-15.4) L 06/01/16 02:31 Hct 21.9 % (35.3-44.9) L 06/01/16 02:31 RDW 16.2 % (11.5-14.5) H 06/01/16 02:31 Plt Count 23 K/mcL (140-400) L* 06/01/16 02:31 MPV 8.6 fL (9.4-12.4) L 06/01/16 02:31 Metamyelocytes % 2.0 % (0) H 06/01/16 02:31 Myelocytes % 2.0 % (0) H 05/29/16 03:38 Promyelocytes % 2.0 % (0) H 06/01/16 02:31 Blast Cells % 4.0 % (0) H 06/01/16 02:31 Platelet Estimate Decreased (Normal) L 06/01/16 02:31 Anisocytosis 1+ (Not Present) A 06/01/16 02:31 Microcytosis Present (Not Present) A 05/29/16 03:38 Stomatocytes 1+ (Not Present) A 05/27/16 07:19 PT 13.2 Seconds (9.4-12.1) H 05/26/16 16:31 APTT 25.2 Seconds (26.0-36.0) L 05/26/16 16:31 ABG pCO2 63 mmHg (35-45) H 05/31/16 05:56 ABG pO2 68 mmHg (85-104) L 05/31/16 05:56 ABG HCO3 34.0 mEQ/L (21-27) H 05/31/16 05:56 ABG Total CO2 35.9 mEq/L (20-26) H 05/31/16 05:56 ABG O2 Saturation 92 % (95-98) L 05/31/16 05:56 ABG Base Excess 7.0 mEq/L (-2.0 to 3.0) H 05/31/16 05:56 Potassium 4.6 mEq/L (3.5-4.5) H 06/01/16 02:31 Carbon Dioxide 34 mEq/L (19-29) H 06/01/16 02:31 BUN 37 mg/dL (7-20) H 06/01/16 02:31 BUN/Creatinine Ratio 43 (6-26) H 06/01/16 02:31 Glucose 129 mg/dL (70-99) H 06/01/16 02:31 POC Glucose 126 (58-89) H 05/31/16 23:24 Calcium 7.9 mg/dL (8.6-10.8) L 06/01/16 02:31 Ionized Calcium 1.08 mmol/L (1.15-1.35) L 06/01/16 02:31 C-Reactive Protein 47 mg/L (Less than 5) H 05/27/16 07:19 B-Natriuretic Peptide 282 pg/mL (0-100) H 05/30/16 00:01 Albumin 2.4 g/dL (3.5-5.0) L 05/30/16 04:30 Globulin 4.6 g/dL (2.4-3.5) H 05/30/16 04:30 Albumin/Globulin Ratio 0.5 (1.1-2.2) L 05/30/16 04:30 Urine Clarity Cloudy (Clear) A 05/26/16 20:19 Urine Protein 100 mg/dL (Neg-Trace) H 05/26/16 20:19 Urine Blood Small (Negative) H 05/26/16 20:19 Urine Microscopic RBC 3-5 per hpf (0-3) H 05/26/16 20:19 Ur Squamous Epith Cells Many per lpf (None-Few) H 05/26/16 20:19 Granular Casts Few per lpf (None Seen) H 05/26/16 20:19 Antibody Screen POSITIVE A 05/30/16 07:46 - Clinical Findings Intake & Output: Intake & Output 05/31/16 06/01/16 06/01/16 23:59 07:59 15:59 Intake Total 1220 / 1220 240 / 240 100 / 100 Output Total 1100 / 1100 1550 / 1550 Balance 120 / 120 -1310 / -1310 100 / 100 Weight 75 kg - VTE Documentation of Mechanical Device: Venous foot pump, device Consult Discharge Plan - Plan Referrals: Yuri Monsivais DO [Primary Care Provider] - - Attending Attestation DELIVERY SUPERVISOR: Alert and oriented 3 no acute issues. Cardiovascular: No acute issues. Pulmonary: Multifocal pneumonia with complete left lung atelectasis. Has improved with conservative measures including bronchodilators, chest physiotherapy, and flutter valve. Recommend continued respiratory therapy following disposition for MICU. Acute respiratory failure due to volume overload. Improved after diuresis and patient successfully extubated yesterday. No ongoing respiratory distress. Low-flow supplemental oxygen dependence. Nephrology: Has tolerated diuresis well. No acute events. GI: Tolerating normal diet. No acute issues. ID: Multilobar pneumonia with no identified organism. Has improved on 6 days of empiric antibiosis. We will discontinue aztreonam today. HO: History of AML currently followed by hematology. Chronic transfusion dependence for chronic anemia and recurrent thrombocytopenia. Hemoglobin greater than 7 g and goal platelet count greater than 20,000. Apical goals today no indication for transfusion. Endo: No acute issues. Disposition: Transfer to telemetry. Total critical care time: 30 minutes.
[2016-06-01] MEDS ORDERED: Levofloxacin 750 MG/150 ML 750 MG/150 ML BAG IVPB SCH (18:00)
[2016-06-02] MEDS: Ipratropium/Albuterol Neb 3 ML IH SCH ×2 (03:59→10:22)
[2016-06-02] MEDS: Famotidine 20 MG/2 ML VIAL IVP SCH (05:58)
[2016-06-02] MEDS ORDERED: DEFERASIROX PO SCH (06:00)
[2016-06-02] MEDS: Nystatin SUSP 5 ML UD.LIQ PO SCH ×2 (07:32→11:29)
[2016-06-02] MEDS ORDERED: Folic Acid 1 MG TABLET PO SCH (09:00)
--- NOTE | 2016-06-02 09:17 | Palliative Progress Note ---
<Aaron Salinas M - Last Filed: 06/02/16 09:28> Date of Encounter: 06/02/16 Time of Encounter: 09:15 - Assessment and plan (1) Goals of care, counseling/discussion Status: Acute Assessment and plan: Goals of care previously discussed with and daughter. The patient was able to participate in the conversations today and expresses her wish to remain FULL CODE. Pt will discuss code status further with family as well as further goals of care. Pt would want intubation for respiratory decline but no intermediate project manager vent management. (2) Leukemia Status: Acute Assessment and plan: Followed by oncology. Last treatment was the end of April. Pt states next treatment is coming up but is expecting to hold off until respiratory illness improved. Continue management per Oncology team. Qualifiers: Leukemia type: myeloid Myeloid leukemia type: acute Leukemia Active/ Remission status: without remission Qualified Code(s): C92.00 - Acute myeloblastic leukemia, not having achieved remission (3) Acute respiratory failure Status: Resolved Assessment and plan: Pt on Nasal Canula in no distress. Continue management per primary team. Qualifiers: Respiratory failure complication: hypoxia Qualified Code(s): J96.01 - Acute respiratory failure with hypoxia - Time Spent With Patient Total time spent is greater than 50% in coordination of care (as documented) at patient's floor/unit and/or counseling patient: 25 - 35 minutes - Subjective Interval history: Pt improved from clinical and respiratory status. Pt out of the ICU to floor bed. Received transfusions with improvement in blood work but morning labs pending. Pt did not have a chance to further discuss code status with family. - Constitutional Vitals: Abnormal lab results RBC 2.53 M/mcL (3.82-4.97) L 06/01/16 02:31 Hgb 7.4 g/dL (11.5-15.4) L 06/01/16 02:31 Hct 21.9 % (35.3-44.9) L 06/01/16 02:31 RDW 16.2 % (11.5-14.5) H 06/01/16 02:31 Plt Count 23 K/mcL (140-400) L* 06/01/16 02:31 MPV 8.6 fL (9.4-12.4) L 06/01/16 02:31 Metamyelocytes % 2.0 % (0) H 04/16/17 02:31 Myelocytes % 2.0 % (0) H 05/29/16 03:38 Promyelocytes % 2.0 % (0) H 06/01/16 02:31 Blast Cells % 4.0 % (0) H 06/01/16 02:31 Platelet Estimate Decreased (Normal) L 06/01/16 02:31 Anisocytosis 1+ (Not Present) A 06/01/16 02:31 Microcytosis Present (Not Present) A 05/29/16 03:38 Stomatocytes 1+ (Not Present) A 05/27/16 07:19 PT 13.2 Seconds (9.4-12.1) H 05/26/16 16:31 APTT 25.2 Seconds (26.0-36.0) L 05/26/16 16:31 ABG pCO2 63 mmHg (35-45) H 05/31/16 05:56 ABG pO2 68 mmHg (85-104) L 05/31/16 05:56 ABG HCO3 34.0 mEQ/L (21-27) H 05/31/16 05:56 ABG Total CO2 35.9 mEq/L (20-26) H 05/31/16 05:56 ABG O2 Saturation 92 % (95-98) L 05/31/16 05:56 ABG Base Excess 7.0 mEq/L (-2.0 to 3.0) H 05/31/16 05:56 Potassium 4.6 mEq/L (3.5-4.5) H 06/01/16 02:31 Carbon Dioxide 34 mEq/L (19-29) H 06/01/16 02:31 BUN 37 mg/dL (7-20) H 06/01/16 02:31 BUN/Creatinine Ratio 43 (6-26) H 06/01/16 02:31 Glucose 129 mg/dL (70-99) H 06/01/16 02:31 POC Glucose 145 (58-89) H 06/01/16 06:01 Calcium 7.9 mg/dL (8.6-10.8) L 06/01/16 02:31 Ionized Calcium 1.08 mmol/L (1.15-1.35) L 06/01/16 02:31 C-Reactive Protein 47 mg/L (Less than 5) H 05/27/16 07:19 B-Natriuretic Peptide 282 pg/mL (0-100) H 05/30/16 00:01 Albumin 2.4 g/dL (3.5-5.0) L 05/30/16 04:30 Globulin 4.6 g/dL (2.4-3.5) H 05/30/16 04:30 Albumin/Globulin Ratio 0.5 (1.1-2.2) L 05/30/16 04:30 Urine Clarity Cloudy (Clear) A 05/26/16 20:19 Urine Protein 100 mg/dL (Neg-Trace) H 05/26/16 20:19 Urine Blood Small (Negative) H 05/26/16 20:19 Urine Microscopic RBC 3-5 per hpf (0-3) H 05/26/16 20:19 Ur Squamous Epith Cells Many per lpf (None-Few) H 05/26/16 20:19 Granular Casts Few per lpf (None Seen) H 05/26/16 20:19 Antibody Screen POSITIVE A 05/30/16 07:46 - Head Head exam: Present: atraumatic, normal inspection - Eye Eye exam: Absent: conjunctival injection, scleral icterus, sclera anicteric - ENT ENT exam: Present: mucous membranes moist, normal exam - Neck Neck exam: Present: full ROM, normal inspection - Respiratory Respiratory exam: Present: rhonchi. Absent: accessory muscle use, respiratory distress - Neurological Exam Neurological exam: Present: alert, oriented X3. Absent: facial droop, speech deficit - Psychiatric Psychiatric exam: Present: normal affect, normal mood - Skin Skin exam: Absent: abrasion, petechiae Additional comments: areas of echymosis on forearms. Palliative Quality Palliative Quality: Screen for Code Status: Yes (meeting with in am), Screen for Goals of Care: Yes, Screen for Pain: Yes, If Pain Regimen Started, Initiate Bowel Regimen: NA, Screen for Nausea/Vomitting: NA - Labs CBC & Chem 7: 06/01/16 02:31 06/01/16 02:31 Labs: Laboratory Results - last 24 hr 06/01/16 06:01 POC Glucose 145 H - ABG Interpretation ABG results: ABG ABG pH 7.34 pH Units (7.32-7.45) 05/31/16 05:56 ABG pCO2 63 mmHg (35-45) H 05/31/16 05:56 ABG pO2 68 mmHg (85-104) L 05/31/16 05:56 ABG O2 Saturation 92 % (95-98) L 05/31/16 05:56 PT/INR, D-dimer PT 13.2 Seconds (9.4-12.1) H 05/26/16 16:31 Consult Discharge Plan - Plan Additional Instructions: you will need a repeat Ct chest in 3-6 months to assess resolution of pneumonia. follow up in the oncology clinic. check your blood counts in 3 days. Referrals: Yuri Monsivais, DO [Primary Care Provider] - Prescriptions: Ipratropium/Albuterol Neb [Duoneb] 3 ml IH [id number] #120 inhsol Nebulizer [Aeroeclipse] 1 each AD #1 each <Eric Cota - Last Filed: 06/02/16 15:59> Date of Encounter: 06/02/16 - Time Spent With Patient Total time spent is greater than 50% in coordination of care (as documented) at patient's floor/unit and/or counseling patient: - Constitutional Vitals: Abnormal lab results RBC 2.53 M/mcL (3.82-4.97) L 06/01/16 02:31 Hgb 7.4 g/dL (11.5-15.4) L 06/01/16 02:31 Hct 21.9 % (35.3-44.9) L 06/01/16 02:31 RDW 16.2 % (11.5-14.5) H 06/01/16 02:31 Plt Count 23 K/mcL (140-400) L* 06/01/16 02:31 MPV 8.6 fL (9.4-12.4) L 06/01/16 02:31 Metamyelocytes % 2.0 % (0) H 06/01/16 02:31 Myelocytes % 2.0 % (0) H 05/29/16 03:38 Promyelocytes % 2.0 % (0) H 06/01/16 02:31 Blast Cells % 4.0 % (0) H 06/01/16 02:31 Platelet Estimate Decreased (Normal) L 06/01/16 02:31 Anisocytosis 1+ (Not Present) A 06/01/16 02:31 Microcytosis Present (Not Present) A 05/29/16 03:38 Stomatocytes 1+ (Not Present) A 05/27/16 07:19 PT 13.2 Seconds (9.4-12.1) H 05/26/16 16:31 APTT 25.2 Seconds (26.0-36.0) L 05/26/16 16:31 ABG pCO2 63 mmHg (35-45) H 05/31/16 05:56 ABG pO2 68 mmHg (85-104) L 05/31/16 05:56 ABG HCO3 34.0 mEQ/L (21-27) H 05/31/16 05:56 ABG Total CO2 35.9 mEq/L (20-26) H 05/31/16 05:56 ABG O2 Saturation 92 % (95-98) L 05/31/16 05:56 ABG Base Excess 7.0 mEq/L (-2.0 to 3.0) H 05/31/16 05:56 Potassium 4.6 mEq/L (3.5-4.5) H 06/01/16 02:31 Carbon Dioxide 34 mEq/L (19-29) H 06/01/16 02:31 BUN 37 mg/dL (7-20) H 06/01/16 02:31 BUN/Creatinine Ratio 43 (6-26) H 06/01/16 02:31 Glucose 129 mg/dL (70-99) H 06/01/16 02:31 POC Glucose 145 (58-89) H 06/01/16 06:01 Calcium 7.9 mg/dL (8.6-10.8) L 06/01/16 02:31 Ionized Calcium 1.08 mmol/L (1.15-1.35) L 06/01/16 02:31 C-Reactive Protein 47 mg/L (Less than 5) H 05/27/16 07:19 B-Natriuretic Peptide 282 pg/mL (0-100) H 05/30/16 00:01 Albumin 2.4 g/dL (3.5-5.0) L 05/30/16 04:30 Globulin 4.6 g/dL (2.4-3.5) H 05/30/16 04:30 Albumin/Globulin Ratio 0.5 (1.1-2.2) L 05/30/16 04:30 Urine Clarity Cloudy (Clear) A 05/26/16 20:19 Urine Protein 100 mg/dL (Neg-Trace) H 05/26/16 20:19 Urine Blood Small (Negative) H 05/26/16 20:19 Urine Microscopic RBC 3-5 per hpf (0-3) H 05/26/16 20:19 Ur Squamous Epith Cells Many per lpf (None-Few) H 05/26/16 20:19 Granular Casts Few per lpf (None Seen) H 05/26/16 20:19 Antibody Screen POSITIVE A 05/30/16 07:46 - Attending Attestation I examined this patient and my medical decision-making was reviewed with the Resident Physician. I agree with the documented findings, disposition and treatment plan as described except to the extent set forth below. - Labs CBC & Chem 7: 06/01/16 02:31 06/01/16 02:31 Labs: Laboratory Results - last 24 hr 06/01/16 06:01 POC Glucose 145 H - ABG Interpretation ABG results: ABG ABG pH 7.34 pH Units (7.32-7.45) 05/31/16 05:56 ABG pCO2 63 mmHg (35-45) H 05/31/16 05:56 ABG pO2 68 mmHg (85-104) L 05/31/16 05:56 ABG O2 Saturation 92 % (95-98) L 05/31/16 05:56 PT/INR, D-dimer PT 13.2 Seconds (9.4-12.1) H 05/26/16 16:31
--- NOTE | 2016-06-02 09:41 | Pulmonology Progress Note ---
Date of Encounter: 06/02/16 Time of Encounter: 08:25 Assessment and Plan (1) Acute respiratory failure Current Visit: No Status: Resolved Patient is feeling better now and advised her to follow up as outpatient if continue to have problem. Recommend to do 6 mwt on her before she is discharge from hospital. Qualifiers: Respiratory failure complication: hypoxia Qualified Code(s): J96.01 - Acute respiratory failure with hypoxia (2) Multifocal pneumonia Current Visit: Yes Status: Suspected Complete 8 days for antibiotics. I suspect pulmonary edema was major factor causing her respirator failure. Subjective Principal diagnosis: multifocal pneumonia Interval history: Patient is feeling better and denies any complaints. Objective PUL Vital signs: Last Vital Signs Temp 97.6 F 06/02/16 07:36 Pulse 92 06/02/16 07:36 Resp 20 06/02/16 07:36 BP 143/62 06/02/16 07:36 Pulse Ox 93 06/02/16 07:36 General appearance: no acute distress ENT: oropharynx moist Neck: supple Effort: normal Auscultation: bilateral: diminished breath sounds (Bases) Percussion: bilateral: not dull Cardiovascular: regular rate and rhythm Gastrointestinal: normoactive bowel sounds Extremities: no cyanosis normal mental status, non-focal exam mood appropriate Results - Laboratory Findings CBC and BMP: 06/01/16 02:31 06/01/16 02:31 ABG ABG pH 7.34 pH Units (7.32-7.45) 05/31/16 05:56 ABG pCO2 63 mmHg (35-45) H 05/31/16 05:56 ABG pO2 68 mmHg (85-104) L 05/31/16 05:56 ABG O2 Saturation 92 % (95-98) L 05/31/16 05:56 PT/INR, D-dimer PT 13.2 Seconds (9.4-12.1) H 05/26/16 16:31 Abnormal lab findings: Abnormal lab results RBC 2.53 M/mcL (3.82-4.97) L 06/01/16 02:31 Hgb 7.4 g/dL (11.5-15.4) L 06/01/16 02:31 Hct 21.9 % (35.3-44.9) L 06/01/16 02:31 RDW 16.2 % (11.5-14.5) H 06/01/16 02:31 Plt Count 23 K/mcL (140-400) L* 06/01/16 02:31 MPV 8.6 fL (9.4-12.4) L 06/01/16 02:31 Metamyelocytes % 2.0 % (0) H 06/01/16 02:31 Myelocytes % 2.0 % (0) H 05/29/16 03:38 Promyelocytes % 2.0 % (0) H 06/01/16 02:31 Blast Cells % 4.0 % (0) H 06/01/16 02:31 Platelet Estimate Decreased (Normal) L 06/01/16 02:31 Anisocytosis 1+ (Not Present) A 06/01/16 02:31 Microcytosis Present (Not Present) A 05/29/16 03:38 Stomatocytes 1+ (Not Present) A 05/27/16 07:19 PT 13.2 Seconds (9.4-12.1) H 05/26/16 16:31 APTT 25.2 Seconds (26.0-36.0) L 05/26/16 16:31 ABG pCO2 63 mmHg (35-45) H 05/31/16 05:56 ABG pO2 68 mmHg (85-104) L 05/31/16 05:56 ABG HCO3 34.0 mEQ/L (21-27) H 05/31/16 05:56 ABG Total CO2 35.9 mEq/L (20-26) H 05/31/16 05:56 ABG O2 Saturation 92 % (95-98) L 05/31/16 05:56 ABG Base Excess 7.0 mEq/L (-2.0 to 3.0) H 05/31/16 05:56 Potassium 4.6 mEq/L (3.5-4.5) H 06/01/16 02:31 Carbon Dioxide 34 mEq/L (19-29) H 06/01/16 02:31 BUN 37 mg/dL (7-20) H 06/01/16 02:31 BUN/Creatinine Ratio 43 (6-26) H 06/01/16 02:31 Glucose 129 mg/dL (70-99) H 06/01/16 02:31 POC Glucose 145 (58-89) H 06/01/16 06:01 Calcium 7.9 mg/dL (8.6-10.8) L 06/01/16 02:31 Ionized Calcium 1.08 mmol/L (1.15-1.35) L 06/01/16 02:31 C-Reactive Protein 47 mg/L (Less than 5) H 05/27/16 07:19 B-Natriuretic Peptide 282 pg/mL (0-100) H 05/30/16 00:01 Albumin 2.4 g/dL (3.5-5.0) L 05/30/16 04:30 Globulin 4.6 g/dL (2.4-3.5) H 05/30/16 04:30 Albumin/Globulin Ratio 0.5 (1.1-2.2) L 05/30/16 04:30 Urine Clarity Cloudy (Clear) A 05/26/16 20:19 Urine Protein 100 mg/dL (Neg-Trace) H 05/26/16 20:19 Urine Blood Small (Negative) H 05/26/16 20:19 Urine Microscopic RBC 3-5 per hpf (0-3) H 05/26/16 20:19 Ur Squamous Epith Cells Many per lpf (None-Few) H 05/26/16 20:19 Granular Casts Few per lpf (None Seen) H 05/26/16 20:19 Antibody Screen POSITIVE A 05/30/16 07:46 - Clinical Findings Intake & Output: Intake & Output 06/01/16 06/02/16 06/02/16 23:59 07:59 15:59 Intake Total 150 / 150 120 / 120 200 / 200 Output Total 400 / 400 650 / 650 Balance -250 / -250 -530 / -530 200 / 200 Weight 72.631 kg - VTE Documentation of Mechanical Device: Venous foot pump, device Consult Discharge Plan - Plan Referrals: ColopyYuri DO [Primary Care Provider] -
[2016-06-02 10:47] VITALS: BP 141/61
--- NOTE | 2016-06-02 14:54 | Discharge Summary ---
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 Qualifiers: Leukemia Active/Remission status: relapsed Qualified Code(s): C92.02 - Acute myeloblastic leukemia, in relapse (6) Thrombocytopenia Priority: Secondary Status: Chronic (7) Anemia, chronic disease Priority: Secondary Status: Chronic - Discharge Medications Prescriptions: Ipratropium/Albuterol Neb [Duoneb] 3 ml IH [id number] #120 inhsol Nebulizer [Aeroeclipse] 1 each AD #1 each Home Medications: Citalopram [CeleXA] 20 mg PO DAILY 09/25/14 [History] Aminocaproic Acid [Amicar] 500 mg PO TID #90 tablet 03/25/16 [Rx] Folic Acid 1 mg PO DAILY #30 tablet 04/25/16 [Rx] Acetaminophen w/Cod 300-30 mg [Tylenol w/Codeine #3] 1 each PO Q6HR PRN #60 tablet 05/19/16 [Rx] Fluconazole [Diflucan] 100 mg PO DAILY #30 tablet 05/19/16 [Rx] Alprazolam [Xanax 1 MG Tablet] 1 mg PO TID PRN 05/26/16 [History] Deferasirox [Jadenu] 1,440 mg PO DAILY 05/26/16 [History] Ondansetron [Zofran] 8 mg PO Q8H PRN 05/26/16 [History] Ipratropium/Albuterol Neb [Duoneb] 3 ml IH [id number] #120 inhsol 06/02/16 [Rx] Nebulizer [Aeroeclipse] 1 each AD #1 each 06/02/16 [Rx] Allergies/Adverse Reactions: Allergies Penicillins Allergy (Unknown, Verified 07/02/15 11:43) Hives Procedures/tests Complete & Pending: Procedures Performed prior 72 hours Category Date Time Status ECG 12 lead ECG [ECG] Routine Y 05/31/16 02:10 Completed Date of admission: 05/26/16 20:51 Primary care physician: Yuri Monsivais Consults: 05/31/16 15:20 Consult to Respiratory Therapy [CONS] Routine Reason for Consult: flutter with breathing txs Call Completed: Yes 06/02/16 10:39 Consult to Occupational Therapy [CONS] Stat Comment: Evaluate, develop and implement POC Consult to Physical Therapy [CONS] Stat Comment: Evaluate, develop and implement POC - Patient Status Disposition: Home, Self-Care Condition: Serious Functional capacity at discharge: uses cane/walker Overall status at discharge: patient is progressing back to baseline - Discharge Instructions Follow Up With: Yuri Monsivais DO [Primary Care Provider] - Additional Instructions: you will need a repeat Ct chest in 3-6 months to assess resolution of pneumonia. follow up in the oncology clinic. check your blood counts in 3 days. - Diet and Activity Activity: wear oxygen at all times (4L ) Interval History: Patient feels better. She has no shortness of breath. She is eager to go home. Hospital course: Ms. 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 Patient presented with changes in mental status, and the shortness of breath. CT of the head was negative for any acute process, chest x-ray showed worsening left lung airspace disease and atelectasis of left lung. She was started on IV Aztreonam, vancomycin, levofloxacin, BIPAP, and nebulizations with initial improvement. On 05/29, patient developed severe hypoxia with associated hypercapnia and metabolic encephalopathy that the required intubation and mechanical ventilation. She improved following diuresis and was successfully extubated on 05/31. She continue nebulizations and her antibiotics were de- escalated to IV levofloxacin with clinical improvement. At discharge, patient was tolerating 4 L of oxygen via nasal cannula well. She was able to standup and reached the bedside commode with minimal help without any shortness of breath or chest pain. Patient completed 8 days of IV levofloxacin inpatient. PLAN: Continue oxygen supplementation for little nasal cannula at home. CBC check in 3 days. Follow-up in the oncology clinic in one week. Follow-up with primary care physician next week. Patient and daughter verbalized understanding and agreed with the plan. I answered all questions. - Time Spent with Patient Total time spent providing and/or coordinating discharge services: - Constitutional Vitals: Temp Pulse Resp BP Pulse Ox 98.2 F 92 18 141/61 99 06/02/16 10:45 06/02/16 13:39 06/02/16 13:39 06/02/16 13:39 06/02/16 13:39 General appearance: Present: cooperative, A&O X 3, pleasant, no acute distress, answers questions appropriately - Respiratory Respiratory exam: Present: rhonchi - Cardiovascular Cardiovascular exam: Absent: RRR - GI/Abdominal GI/Abdominal exam: Present: normal bowel sounds, soft. Absent: distended, tenderness - Extremities Exam Extremities exam: Present: pedal edema (Ankle edema.) - Back Exam Back exam: Absent: CVA tenderness (L), CVA tenderness (R) - Neurological Exam Neurological exam: Present: alert, oriented X3, no focal deficits, strengths equal and symetr throughout. Absent: facial droop, speech deficit - Skin Skin exam: Absent: rash - VTE Documentation of Mechanical Device: Venous foot pump, device
--- NOTE | 2016-06-02 20:26 | Electrocardiograph Report ---
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
== END 2016-06-02 15:40 | disposition home or self-care (01) | DRG 871 ==
LOC: EMEROO 16:16 → ICNU 16:16 → SUATTDRO 20:51 → 3BNU 05-29 07:28 → 2NENU 05-29 19:40 → ICNU 05-29 23:12 → 3ANU 06-01 17:21
PROVIDERS: ADMIT Nurse Practitioner Family; ATTEND Internal Medicine

== ENCOUNTER 2016-09-22 10:52 | Inpatient (IN) ==
--- NOTE | 2016-09-22 11:24 | Emergency Department Note ---
Disposition Clinical Impression: Elevated troponin, Elevated serum creatinine, Thrombocytopenia Chest pain Qualifiers: Chest pain type: unspecified Qualified Code(s): R07.9 - Chest pain, unspecified Disposition: Admitted As Inpatient Condition: Good Chest Pain HPI - General Chief Complaint: ED Chest Pain Stated Complaint: chest pain Time Seen by Provider: 09/22/16 11:10 Source: patient Limitations: no limitations Vital Signs Reviewed: Yes Nursing Notes Reviewed: Yes - History of Present Illness HPI Narrative: Patient presents today for chief complaint of chest pain. She states that her chest pain started several days ago and is a dull ache in the center for chest. Worse with inspiration. Not worse with exertion. With associated fatigue. Her last episode of chest pain was greater than 24 hours ago however she states that the continued fatigue" not feeling right" is what brought her in. She received a bite from her dog to her left hand which she describes as a small scratch. The scratch has increased to the point that she has got a 3 cm x 3 cm erythematous area that appears to be a nonhealing wound but in the setting of the minor injury 3 days ago is concerning for possible infection. Patient has multiple ecchymosis and petechiae throughout the abdomen and extremities. She states that this is normal for her as she has leukemia and has to get transfusions frequently at the cancer center. The patient's most recent chemotherapy was Thursday. She did not receive chemotherapy on Thursday. Her last chemotherapy treatment was in March and she has an unknown future treatment plan. Severity scale (1-10): 0 - Related Data Home Medications Medication Instructions Recorded Confirmed Citalopram [CeleXA] 20 mg PO DAILY 09/25/14 09/22/16 ALPRAZolam [Xanax 1 MG Tablet] 1 mg PO TID PRN 05/26/16 09/22/16 Ondansetron [Zofran] 8 mg PO Q8H PRN 05/26/16 09/22/16 Acetaminophen w/Cod 300-30 mg 1 tab PO Q6HR PRN 09/22/16 09/22/16 [Tylenol w/Codeine #3] Previous Rx's Medication Instructions Recorded Folic Acid 1 mg PO DAILY #30 tablet 04/25/16 Furosemide [Lasix] 20 mg PO DAILY PRN #30 tablet 06/04/16 Potassium Chloride 40 meq PO BID #70 tab.er.prt 06/09/16 Deferasirox [Jadenu] 1,440 mg PO DAILY #120 tablet 06/17/16 Aminocaproic Acid [Amicar] 500 mg PO TID #90 tablet 09/02/16 Amoxicillin/Clavulanate [Augmentin] 875 mg PO BIDWM #20 tablet 09/18/16 Doxycycline 100 mg PO BID #20 capsule 09/18/16 Allergies Allergy/AdvReac Type Severity Reaction Status Date / Time Penicillins Allergy Unknown Hives Verified 09/22/16 10:57 All systems ED: reviewed and negative except as stated. Constitutional: Denies: fever, weakness Cardiovascular: Reports: chest pain. Denies: dyspnea on exertion Respiratory: Denies: cough, dyspnea Gastrointestinal: Denies: abdominal pain, nausea, vomiting Genitourinary: Denies: urgency, dysuria Musculoskeletal: Denies: back pain Integumentary: Reports: other (wound) Neurological: Denies: headache Endocrine: Reports: fatigue Hematological/Lymphatic: Reports: easy bleeding, easy bruising Chest Pain PMH - Past Medical History Medical history: Reports: cancer, other Surgical history: Reports: cholecystectomy, other Psychiatric history: Reports: anxiety, depression - Social History Smoking Status: Former smoker Alcohol use: Reports: none Drug use: Reports: none Physical Exam General appearance: NAD, conversant Eyes: anicteric sclerae, moist conjunctivae; PERRL HENT: Atraumatic; oropharynx clear with moist mucous membranes and no mucosal ulcerations Neck: Normal inspection; Trachea midline; FROM, supple Lungs: CTA, with normal respiratory effort and no intercostal retractions CV: RRR, no MRGs Abdomen: Soft, non-tender; no rebound or gaurding Extremities: No peripheral edema or extremity lymphadenopathy Skin: Ecchymosis and petechiae. Right hand with a erythematous lesion from previous bite Psych: Appropriate mood and affect Neuro: alert and oriented to person, place and time - General Limitations: no limitations General appearance: alert, in no apparent distress Course - Reevaluation(s) Reevaluation #1: Patient remains chest pain-free. - Consultations Consultation #1: Discussed with oncology. They recommended giving 1 pool platelets. The patient can receive aspirin once she has received platelets. No aspirin currently given in the ED. Consultation #2: Discussed with the hospitalist. VQ scan is pending. We will keep the patient in the emergency department until the VQ scan is performed. We are also going to continue to monitor her chest pain and will repeat EKGs as needed. Patient has not received aspirin as the platelets have not finished transfusing. Vital Signs Temperature 97.4 F L 09/22/16 10:54 Pulse Rate 110 09/22/16 10:54 Respiratory Rate 18 09/22/16 10:54 Blood Pressure 140/65 09/22/16 10:54 O2 Sat by Pulse Oximetry 95 09/22/16 10:54 Temperature 97.9 F 09/22/16 15:09 Pulse Rate 65 09/22/16 15:09 Respiratory Rate 16 09/22/16 15:09 Blood Pressure 160/94 09/22/16 15:09 O2 Sat by Pulse Oximetry 98 09/22/16 15:09 Oxygen Delivery Oxygen Delivery Room Air Chest Pain - Medical Records Medical records reviewed: Yes I reviewed the patient's medical records. - Lab Data Lab results reviewed: Yes I reviewed the patient's lab results. Result diagrams: 09/22/16 11:29 09/22/16 11:29 Lab Results 09/22/16 09/22/16 09/22/16 Range/Units 11:29 11:29 11:29 WBC 12.2 H (4.3-11.1) K/mcL RBC 3.14 L (3.82-4.97) M/mcL Hgb 8.7 L (11.5-15.4) g/dL Hct 26.5 L (35.3-44.9) % MCV 84.4 (83.0-100.0) fL MCH 27.7 L (28.0-33.3) pg MCHC 32.8 (31.6-35.5) g/dL RDW 17.9 H (11.5-14.5) % Plt Count 5 L* D (140-400) K/mcL Seg Neutrophils % 44.0 % Band Neutrophils % 23.0 H (0-4) % Lymphocytes % 20.0 % Monocytes % 5.0 % Metamyelocytes % 1.0 H (0) % Blast Cells % 7.0 H (0) % Neutrophils # 8.2 (1.6-8.9) K/mcL Lymphocytes # 2.4 (0.6-4.6) K/mcL Monocytes # 0.6 (0.0-1.3) K/mcL Platelet Estimate Marked Decrease L (Normal) Immature Plt Fraction 9.1 H (1.1-6.1) % PT 22.5 H (9.4-12.1) Seconds INR 2.0 APTT 30.2 (26.0-36.0) Seconds Sodium 142 (136-145) mEq/L Potassium 3.2 L (3.5-4.5) mEq/L Chloride 105 (98-109) mEq/L Carbon Dioxide 26 (19-29) mEq/L BUN 57 H (7-20) mg/dL Creatinine 1.93 H (0.57-1.11) mg/dL Est GFR ( Amer) 31 L (> 60) Est GFR (Non-Af Amer) 26 L (> 60) BUN/Creatinine Ratio 30 H (6-26) Glucose 120 H (70-99) mg/dL Calculated Osmolality 311 H (280-300) Calcium 8.1 L (8.6-10.8) mg/dL Total Bilirubin 1.2 (0.2-1.2) mg/dL AST 27 (5-34) Units/L ALT 19 (0-55) Units/L Alkaline Phosphatase 77 (38-126) Units/L Troponin I (0-0.03) ng/mL B-Natriuretic Peptide (0-100) pg/mL Serum Total Protein 7.5 (6.0-8.3) g/dL Albumin 2.9 L (3.5-5.0) g/dL Globulin 4.6 H (2.4-3.5) g/dL Albumin/Globulin Ratio 0.6 L (1.1-2.2) TSH 2.830 (0.350-4.840) mcIU/mL Blood Type Antibody Screen Antibody Identification 09/22/16 09/22/16 09/22/16 Range/Units 11:29 11:29 13:07 WBC (4.3-11.1) K/mcL RBC (3.82-4.97) M/mcL Hgb (11.5-15.4) g/dL Hct (35.3-44.9) % MCV (83.0-100.0) fL MCH (28.0-33.3) pg MCHC (31.6-35.5) g/dL RDW (11.5-14.5) % Plt Count (140-400) K/mcL Seg Neutrophils % % Band Neutrophils % (0-4) % Lymphocytes % % Monocytes % % Metamyelocytes % (0) % Blast Cells % (0) % Neutrophils # (1.6-8.9) K/mcL Lymphocytes # (0.6-4.6) K/mcL Monocytes # (0.0-1.3) K/mcL Platelet Estimate (Normal) Immature Plt Fraction (1.1-6.1) % PT (9.4-12.1) Seconds INR APTT (26.0-36.0) Seconds Sodium (136-145) mEq/L Potassium (3.5-4.5) mEq/L Chloride (98-109) mEq/L Carbon Dioxide (19-29) mEq/L BUN (7-20) mg/dL Creatinine (0.57-1.11) mg/dL Est GFR ( Amer) (> 60) Est GFR (Non-Af Amer) (> 60) BUN/Creatinine Ratio (6-26) Glucose (70-99) mg/dL Calculated Osmolality (280-300) Calcium (8.6-10.8) mg/dL Total Bilirubin (0.2-1.2) mg/dL AST (5-34) Units/L ALT (0-55) Units/L Alkaline Phosphatase (38-126) Units/L Troponin I 0.15 H* (0-0.03) ng/mL B-Natriuretic Peptide 100 (0-100) pg/mL Serum Total Protein (6.0-8.3) g/dL Albumin (3.5-5.0) g/dL Globulin (2.4-3.5) g/dL Albumin/Globulin Ratio (1.1-2.2) TSH (0.350-4.840) mcIU/mL Blood Type A NEGATIVE Antibody Screen POSITIVE Antibody Identification Known Anti-S - Radiology Data Radiology results reviewed: Yes I reviewed the patient's radiology results. - EKG Data EKG attestation: Yes I reviewed and interpreted this EKG. EKG results narrative: EKG shows sinus rhythm with a ventricular rate of 95. OK interval 125. QRS 77. QTC 409. There is no ST elevations or depressions. No previous EKG for comparison. Attestation Statement - Attestation Attestation: I, Frederic Araujo, examined this patient and my medical decision-making was reviewed with the TRAIN GATEMAN/PA/Advanced Practice Nurse/Resident Physician. I agree with the documented findings, disposition and treatment plan as described except to the extent set forth below. 65-year-old female presents with concerns of increased weakness, fatigue and chest pain. Patient states the weakness and fatigue occurred after her chemotherapy on Thursday and of last week. Patient did not receive her chemotherapy on Thursday due to nausea and vomiting and fever. Patient reports she has not had a fever since that time. Yesterday however, she developed chest pain that was not aching in the center of her chest that did not radiate. Patient states that it has largely improved however she does continue to have pain with deep inspiration in the center of her chest that does not radiate. This is not associated with shortness of breath or diaphoresis or palpitations. On physical examination his lungs are clear to auscultation bilaterally. I am unable to reproduce the patient's chest pain with palpation of the chest. Abdomen had mild generalized tenderness to palpation without evidence of rigidity, guarding, or rebound. Laboratory evaluation revealed an elevated troponin of 0.15. EKG showed 95 normal sinus rhythm without evidence of STEMI. Patient also had platelet level V which she has had intermittently with her diagnosis of leukemia and often receives platelet transfusion. The resident spoke with the oncologist who recommended the patient should not get aspirin until she has received platelet transfusion. VQ scan ordered in the emergency department to rule out PE. Patient admitted to the hospital for further care and evaluation of her thrombocytopenia, chest pain with elevated troponin
[2016-09-22 11:36] LABS: Hematocrit 26.5 % (35.3-44.9); Hemoglobin 8.7 g/dL (11.5-15.4); Immature Platelets 9.1 % (1.1-6.1); Mean Corpuscular HGB Conc 32.8 g/dL (31.6-35.5); Mean Corpuscular Hemoglobin 27.7 pg (28.0-33.3); Mean Corpuscular Volume 84.4 fL (83.0-100.0); Red Blood Count 3.14 M/mcL (3.82-4.97); Red Cell Distribution Width 17.9 % (11.5-14.5)
[2016-09-22 11:42] LABS: Platelet Count 5 K/mcL (140-400)
[2016-09-22 11:45] LABS: Prothrombin Time 22.5 Seconds (9.4-12.1)
[2016-09-22] MEDS ORDERED: Tdap (Boostrix) Vaccine 0.5 ML SYRINGE IM ONE (11:47)
[2016-09-22 11:48] LABS: Activated Partial Thrombo Time 30.2 Seconds (26.0-36.0)
[2016-09-22 11:49] LABS: Albumin 2.9 g/dL (3.5-5.0); Albumin/Globulin Ratio 0.6 (1.1-2.2); Bilirubin,Total 1.2 mg/dL (0.2-1.2); Calcium 8.1 mg/dL (8.6-10.8); Globulin 4.6 g/dL (2.4-3.5); Potassium 3.2 mEq/L (3.5-4.5); Total Protein 7.5 g/dL (6.0-8.3)
[2016-09-22 12:01] LABS: Lymphocytes # 2.4 K/mcL (0.6-4.6); Monocytes # 0.6 K/mcL (0.0-1.3); Neutrophils # 8.2 K/mcL (1.6-8.9); Platelet Estimate Marked Decrease (Normal)
[2016-09-22 12:11] LABS: Thyroid Stimulating Hormone 2.83 mcIU/mL (0.350-4.840)
[2016-09-22] MEDS ORDERED: 0.9 % Sodium Chloride 500 ML IVC ONE ×2 (12:51→17:51)
[2016-09-22] MEDS ORDERED: Ondansetron ODT 4 MG TAB.RAPDIS PO PRN (16:49)
[2016-09-22] MEDS ORDERED: Furosemide 20 MG TABLET PO PRN (16:49)
--- NOTE | 2016-09-22 16:52 | Electrocardiograph Report ---
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
[2016-09-22] MEDS ORDERED: Sulfamethoxazole/Trimeth DS 1 EACH TABLET PO SCH (17:00)
--- NOTE | 2016-09-22 17:11 | Internal Med History&Physical ---
Date of Encounter: 09/22/16 Time of Encounter: 17:09 Assessment and Plan (1) New onset a-fib Current visit: Yes Status: Acute Rate 150 during my interview. Cardizem drip (2) Cellulitis Current visit: Yes Status: Acute Cellulitis after dog bite. Patient has 23% bands will start on vancomycin and levaquin Qualifiers: Qualified Code(s): L03.90 - Cellulitis, unspecified (3) Thrombocytopenia Current visit: Yes Status: Acute No evidence of bleeding. She is getting platelet transfusion (4) NSTEMI (non-ST elevated myocardial infarction) Current visit: Yes Status: Acute Due to demand ischemia related to the rapid atrial fibrillation. Check serial troponin Internal Medicine - H&P: HPI Chief complaint: chest pain History of present illness: Ms. Miles is a 65 year old female presents to the emergency room today with a complaining of chest pain. Patient has been having sharp retrosternal chest pain over the past 3 days. She was not noticed any relation to inspiration or exertion. She has been having intermittent fevers over the past few days on check during chemotherapy administration. She denies any sputum production diary or urinary symptoms. She will sounds of a platelet count of 5000. Denies any headache blurry vision focal weakness or bleeding. During my interview patient was found to be in AFib with rapid ventricular response. She has also been noticing that she is short of breath with exertion. She denies prior history of atrial fibrillation. Patient mentioned that she was scratched by the dog on the right wrist. He sustained a want with minimal purulent drainage Past Med Surg Social Fam HX - Past Medical History Medical history: cancer, other Psychiatric history: anxiety, depression - Past Surgical History Surgical History: cholecystectomy, other - Social History Smoking Status: Former smoker Smokeless Tobacco Status: No Alcohol use: none Drug use: none - Family History Mother Family Member Ethnicity: Non- Living Status: Hx Family Cardiac Disorders: No Hx Family Respiratory Disorders: Yes (asthma) Hx Family Cancer: Yes (colon cancer) Father Name: wilmer luevano Age: 74 Family Member Ethnicity: Non- Age at : 74 Cause of : stroke Hx Family Cardiac Disorders: Yes (heart attacks at young ages) Internal Medicine - H&P: Meds Citalopram [CeleXA] 20 mg PO DAILY 09/25/14 [History] Folic Acid 1 mg PO DAILY #30 tablet 04/25/16 [Rx] ALPRAZolam [Xanax 1 MG Tablet] 1 mg PO TID PRN 05/26/16 [History] Ondansetron [Zofran] 8 mg PO Q8H PRN 05/26/16 [History] Furosemide [Lasix] 20 mg PO DAILY PRN #30 tablet 06/04/16 [Rx] Potassium Chloride 40 meq PO BID #70 tab.er.prt 06/09/16 [Rx] Deferasirox [Jadenu] 1,440 mg PO DAILY #120 tablet 06/17/16 [Rx] Aminocaproic Acid [Amicar] 500 mg PO TID #90 tablet 09/02/16 [Rx] Amoxicillin/Clavulanate [Augmentin] 875 mg PO BIDWM #20 tablet 09/18/16 [Rx] Doxycycline 100 mg PO BID #20 capsule 09/18/16 [Rx] Acetaminophen w/Cod 300-30 mg [Tylenol w/Codeine #3] 1 tab PO Q6HR PRN 09/22/16 [History] Allergies Penicillins Allergy (Unknown, Verified 09/22/16 10:57) Hives All Systems PM: A 10-system review of systems was performed and is negative for pertinent findings except as documented above in the HPI. Review of systems: 10 point review of systems is negative except for HPI - Constitutional Vitals: Temp Pulse Resp BP Pulse Ox 97.9 F 65 16 160/94 98 09/22/16 15:09 09/22/16 15:09 09/22/16 15:09 09/22/16 15:09 09/22/16 15:09 Exam: Gen.: patient is alert oriented times 3 not in distress cardiac: VARIABLE INTENSITY OF s1 DUE TO afIB chest clears auscultation abdomen soft nontender nondistended lower extremity laX CALF MUSCLES Muskloskletal: right hand wound with minimal purulent drainage Internal Med - H&P Results - Labs CBC & Chem 7: 09/22/16 11:29 09/22/16 11:29 - Impressions ITS Impressions Pulmonary Perfusion Imaging 09/22/16 14:29 IMPRESSION: Low probability for pulmonary embolism. D/ / Siddhartha Du MD / Siddhartha Du MD Interpreting Provider: Siddhartha Du MD
[2016-09-22 17:20] LABS: Magnesium 1.7 mg/dL (1.6-2.6); Potassium 3.6 mEq/L (3.5-4.5)
[2016-09-22] MEDS ORDERED: *HR* Digoxin 0.5 MG/2 ML AMPUL IVP ONE ×2 (17:24→18:52)
[2016-09-22] MEDS ORDERED: 0.9 % Sodium Chloride 500 ML ONE ×2 (17:53→18:07)
[2016-09-22] MEDS ORDERED: Levofloxacin 750 MG/150 ML 750 MG/150 ML BAG IVPB SCH (18:00)
[2016-09-22] MEDS ORDERED: Vancomycin 1 EACH in D5% in Water 250 ML IVPB SCH (18:00)
[2016-09-22] MEDS ORDERED: Vancomycin 1,000 MG in D5% in Water 250 ML IVPB ONE (18:02)
[2016-09-22] MEDS ORDERED: Magnesium Sulfate 2 GM in D5% in Water 100 ML IVPB ONE (18:52)
[2016-09-22] MEDS: 0.9 % Sodium Chloride 1,000 ML IVC SCH (21:30)
[2016-09-23 08:13] LABS: Hemoglobin 7.5 g/dL (11.5-15.4); Mean Corpuscular HGB Conc 32.6 g/dL (31.6-35.5); Mean Corpuscular Hemoglobin 27.6 pg (28.0-33.3); Mean Corpuscular Volume 84.6 fL (83.0-100.0); Red Blood Count 2.72 M/mcL (3.82-4.97); Red Cell Distribution Width 17.8 % (11.5-14.5)
[2016-09-23 08:16] LABS: Platelet Count 4 K/mcL (140-400)
[2016-09-23 08:33] LABS: Lymphocytes # 2.4 K/mcL (0.6-4.6); Monocytes # 0.2 K/mcL (0.0-1.3); Platelet Estimate Decreased (Normal); Smudge Cells Present (Not Present)
[2016-09-23 08:34] LABS: Anisocytosis 2+ (Not Present); Microcytosis Present (Not Present)
[2016-09-23] MEDS: Folic Acid 1 MG TABLET PO SCH (09:18)
[2016-09-23 09:43] LABS: Magnesium 2.2 mg/dL (1.6-2.6); Potassium 4.2 mEq/L (3.5-4.5)
[2016-09-23 09:44] LABS: Calcium 7.5 mg/dL (8.6-10.8)
--- NOTE | 2016-09-23 09:58 | Internal Med Progress Note ---
Date of Encounter: 09/23/16 Time of Encounter: 09:45 - Assessment and plan (1) New onset a-fib Current Visit: Yes Status: Acute Assessment and plan: Patient was noted to have new onset of atrial fibrillation with rapid ventricular response at admission, likely related to pericardial effusion. Received a dose of IV Cardizem and loading dose of IV digoxin. Currently rate controlled. Patient is not a candidate for anticoagulation due to significant thrombocytopenia. Echocardiogram shows preserved EF, mild left ventricular diastolic dysfunction, mild to moderate pulmonary hypertension and large pericardial effusion with signs of early tamponade. Cardiology consult appreciated, Recommended low-dose calcium channel radha. Recommend CT surgery for possible pericardial window. Cardiothoracic surgery on board, patient is considering surgery. (2) Elevated troponin Current Visit: Yes Status: Acute Assessment and plan: Serial troponins currently trending down. Likely due to tachycardia. Continue telemetry monitoring. (3) Cellulitis Current Visit: Yes Status: Acute Assessment and plan: Mild right hand cellulitis secondary to dog scratch. Continue broad-spectrum IV antibiotics-vancomycin and Levaquin for now. Send Gram stain and culture from right hand wound. Supportive care. Qualifiers: Site of cellulitis: extremity Site of cellulitis of extremity: upper extremity Laterality: right Qualified Code(s): L03.113 - Cellulitis of right upper limb (4) Refractory thrombocytopenia Current Visit: Yes Status: Acute Assessment and plan: Follows with oncology as outpatient, likely has MDS. Platelet transfusion dependent. Noted to have limited count of 5000 at admission, received a unit of platelets and continues to have a count of 4000 today. Requires aggressive platelet transfusion if patient decides to go for a pericardial window surgery. Cardiothoracic surgery recommends at least 70,000 prior to surgery. Patient is also noted to have INR of 2, will receive FFP's in anticipation of surgery as planned. We will consult hematology for further recommendations. (5) Pancytopenia Current Visit: Yes Status: Chronic (6) HOOD (acute kidney injury) Current Visit: Yes Status: Resolved Assessment and plan: likely secondary to dehydration. Responding to IV hydration, serum creatinine noted to be improving today. 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 Qualifiers: Leukemia Active/Remission status: relapsed Qualified Code(s): C92.02 - Acute myeloblastic leukemia, in relapse (9) Depression Current Visit: Yes Status: Chronic Qualifiers: Depression Type: unspecified Qualified Code(s): F32.9 - Major depressive disorder, single episode, unspecified (10) Anxiety Current Visit: Yes Status: Chronic - Subjective Interval history: Reports improvement in chest pain, dyspnea; uses O2 PRN at home; no orthopnea, leg swelling, vomiting; - Constitutional Vitals: Temp Pulse Resp BP Pulse Ox 97.5 F L 82 16 142/74 96 09/23/16 07:39 09/23/16 07:39 09/23/16 07:39 09/23/16 07:39 09/23/16 09:23 General appearance: Present: A&O X 3, answers questions appropriately - Respiratory Respiratory exam: Present: CTAB. Absent: accessory muscle use, rales, rhonchi, wheezes - Cardiovascular Cardiovascular exam: Present: RRR, +S1, +S2. Absent: diastolic murmur, gallop, rubs, systolic murmur - GI/Abdominal GI/Abdominal exam: Present: normal bowel sounds, soft, no peritoneal signs. Absent: distended, tenderness - Extremities Exam Extremities exam: Present: full ROM, warm, radial pulses palpable and symetrical. Absent: calf tenderness, cyanotic, pedal edema - Neurological Exam Neurological exam: Present: CN II-XII intact, oriented X3, no focal deficits. Absent: pronater drift, facial droop, speech deficit Internal Medicine: Result - Labs CBC & Chem 7: 09/23/16 07:53 09/23/16 07:53 Labs: Short CBC 09/23/16 Range/Units 07:53 WBC 10.0 (4.3-11.1) K/mcL Hgb 7.5 L (11.5-15.4) g/dL Hct 23.0 L (35.3-44.9) % Plt Count 4 L* (140-400) K/mcL Neutrophils # 7.0 (1.6-8.9) K/mcL BMP 09/22/16 09/23/16 17:04 07:53 Sodium 140 Potassium 3.6 4.2 Chloride 108 Carbon Dioxide 21 BUN 48 H Creatinine 1.49 H Glucose 79 Calcium 7.5 L Cardiac Enzymes 09/22/16 09/22/16 Range/Units 17:04 22:50 Troponin I 0.14 H* 0.12 H* (0-0.03) ng/mL - ABG Interpretation ABG results: PT/INR, D-dimer PT 22.5 Seconds (9.4-12.1) H 09/22/16 11:29 Consult Discharge Plan - Plan Referrals: Yuri Monsivais DO [Primary Care Provider] -
[2016-09-23 10:06] LABS: Thyroid Stimulating Hormone 1.829 mcIU/mL (0.350-4.840)
--- NOTE | 2016-09-23 10:30 | Cardiothoracic Consult Note ---
Date of Encounter: 09/23/16 Time of Encounter: 10:27 Assessment and Plan (1) Leukemia Current Visit: No Status: Acute The assessment and plan as outlined above was discussed with the patient and/or family members who expressed understanding and agreement. All questions were answered. The patient has a pericardial effusion with early signs of cardiac tamponade on echo. Clinically, she is quite stable. Her blood pressure is 140 systolic. Her heart rate is 80. No jugular venous distention. No pulses paradoxus. I discussed possible pericardial window with the patient. Hopefully, this could be done through a subxiphoid approach. Risks would include , infection, bleeding, lack of diagnosis and recurrent effusion. The effusion may be secondary to bleeding, cancer or idiopathic. The procedure, its risks benefits and alternatives were explained and she wishes to consider. If she does decide on surgery, she would need transfusion of platelets to get her platelet count above 70,000 and transfusion of fresh frozen plasma and cryoprecipitate to get her INR below 1.5. This may take a day or 2. I would also recommend oncology/ hematology consult. The patient is clinically stable. She will let us know her decision. Qualifiers: Leukemia type: myeloid Myeloid leukemia type: acute Leukemia Active/ Remission status: without remission Qualified Code(s): C92.00 - Acute myeloblastic leukemia, not having achieved remission - History of Present Illness History of present illness: Ms. Miles is a 65 year old female The patient is a 65-year-old female with a history of leukemia. She has had this for 3 years. She was admitted with chest pain and atrial fibrillation. Upon admission, her platelet count was 4000 and her INR was 2. Creatinine is 1.93. Echocardiogram revealed a pericardial effusion with possible early tamponade. The patient did receive chemotherapy on Thursday and of last week, but was unable to receive and on Thursday. Past medical history is notable for gallbladder removal. Review of systems. She lives in [place] with her and 2 grandchildren. She is to smoke one pack of cigarettes per day, but quit 10 years ago. Does not drink alcohol. Family history is positive for stroke and cancer. Review of systems is notable for a dog scratch on her right wrist. Past Med Surg Social Fam HX - Past Medical History Medical history: cancer, other Psychiatric history: anxiety, depression - Past Surgical History Surgical History: cholecystectomy, other - Social History Smoking Status: Former smoker Smokeless Tobacco Status: No Alcohol use: none Drug use: none - Family History Mother Family Member Ethnicity: Non- Living Status: Hx Family Cardiac Disorders: No Hx Family Respiratory Disorders: Yes (asthma) Hx Family Cancer: Yes (colon cancer) Father Name: wilmer luevano Age: 74 Family Member Ethnicity: Non- Age at : 74 Cause of : stroke Hx Family Cardiac Disorders: Yes (heart attacks at young ages) Medications and Allergies Citalopram [CeleXA] 20 mg PO DAILY 09/25/14 [History] Folic Acid 1 mg PO DAILY #30 tablet 04/25/16 [Rx] ALPRAZolam [Xanax 1 MG Tablet] 1 mg PO TID PRN 05/26/16 [History] Ondansetron [Zofran] 8 mg PO Q8H PRN 05/26/16 [History] Furosemide [Lasix] 20 mg PO DAILY PRN #30 tablet 06/04/16 [Rx] Potassium Chloride 40 meq PO BID #70 tab.er.prt 06/09/16 [Rx] Deferasirox [Jadenu] 1,440 mg PO DAILY #120 tablet 06/17/16 [Rx] Aminocaproic Acid [Amicar] 500 mg PO TID #90 tablet 09/02/16 [Rx] Amoxicillin/Clavulanate [Augmentin] 875 mg PO BIDWM #20 tablet 09/18/16 [Rx] Doxycycline 100 mg PO BID #20 capsule 09/18/16 [Rx] Acetaminophen w/Cod 300-30 mg [Tylenol w/Codeine #3] 1 tab PO Q6HR PRN 09/22/16 [History] Allergies Penicillins Allergy (Unknown, Verified 09/22/16 10:57) Hives All Systems Review: A 10-system review of systems was performed and is negative for pertinent findings except as documented above in the HPI. Physical Examination Vital Signs, Last 4 Hours Temp Pulse Resp BP Pulse Ox 09/23/16 09:23 96 09/23/16 07:39 97.5 F L 82 16 142/74 96 Pupils are equal, round and reactive to light and accommodation. She is edentulous. Neck is supple. Trachea in the midline. No thyromegaly or carotid bruits. No jugular venous distention. Lungs are clear to percussion and auscultation. Heart is in a regular rate and rhythm with good heart tones. No murmurs, gallops or rubs. No pulsus paradoxus. Abdomen is benign. No tenderness , rebound or guarding. She is status post cholecystectomy to an open approach. Extremities without edema. She has numerous bruises and petechiae. She has a open cut on her right wrist that is bleeding slightly. Cranial nerves, motor and sensory intact. Results 09/23/16 07:53 09/23/16 07:53 Lab Results, Last 24 hours 09/22/16 09/22/16 09/22/16 17:04 17:04 22:50 WBC Hgb Hct Plt Count Sodium Potassium 3.6 Chloride Carbon Dioxide BUN Creatinine Glucose Calcium Magnesium 1.7 Troponin I 0.14 H* 0.12 H* TSH 09/23/16 09/23/16 07:53 07:53 WBC 10.0 Hgb 7.5 L Hct 23.0 L Plt Count 4 L* Sodium 140 Potassium 4.2 Chloride 108 Carbon Dioxide 21 BUN 48 H Creatinine 1.49 H Glucose 79 Calcium 7.5 L Magnesium 2.2 Troponin I TSH 1.829 Consult Discharge Plan - Plan Referrals: Yuri Monsivais DO [Primary Care Provider] -
--- NOTE | 2016-09-23 11:35 | Cardiology History & Physical ---
<Don Ceballos - Last Filed: 09/23/16 11:29> Date of Encounter: 09/23/16 Time of Encounter: 11:29 Assessment and Plan (1) New onset a-fib Current Visit: Yes Status: Acute Atrial fibrillation with RVR on admission. HR 150 on admission. Appeared to be symptomatic. May have been exacerbated by large pericardial effusion. Now NSR with short PA interval. Start low dose short acting CCB. She is not a candidate for termination clerk anticoagulation in the setting of severe thrombocytopenia. (2) Pericardial effusion Current Visit: Yes Status: Acute TTE reviewed: Normal LV systolic function, LVEF 70%. There is a large circumferential pericardial effusion present. There is echocardiographic evidence of early tamponade (increased respiratory variation in mitral inflow, mildly decreased inspiratory collapse of IVC). May be secondary to AML. Abnormal findings were discussed with Dr. Garcia with CT surgery. Recommended to consider pericardial window. May have recurrent pericardial effusions with AML. Patient currently considering. Will need correction of PLT and INR prior to surgery. Hematology /oncology consult is recommended. Currently hemodynamicaly stable. Give gentle IV fluid. Hold diuretic. (3) Elevated troponin Current Visit: Yes Status: Acute Mild adynamic troponin elevation up to 0.15 in the setting of atrial fibrillation with RVR and early tamponade. Demand ischemia. She is not a candidate for ischemia evaluation. PLT 4000 and INR 2.0. TTE comleted today Normal LV systolic function, LVEF 70%. Mild left ventricular diastolic dysfunction. Normal right ventricular size and function. No significant valvular dysfunction. Mild-moderate pulmonary hypertension. Estimated RVSP = 46 mmHg.There is a large circumferential pericardial effusion present.There is echocardiographic evidence of early tamponade (increased respiratory variation in mitral inflow, mildly decreased inspiratory collapse of IVC). See plan above. No further cardiac testing at this time. (4) Chest pain Current Visit: Yes Status: Acute Pleuritic chest pain. Likely secondary to pericardial effusion and afib with RVR. She is not a candidate for ischemic evaluation. TTE shows preserved EF. Qualifiers: Chest pain type: unspecified Qualified Code(s): R07.9 - Chest pain, unspecified History of Present Illness Chief complaint: Chest pain HPI: Ms. Miles is a 65 year old female with a history of AML on chemotherapy for the last three years who presented with the c/o sharp midsternal chest pain with deep breaths for two days. She states the pain started after chemotherapy on . On presentation she was found to be in atrial fibrillation with RVR, HR 150. Patient was started on cardizem gtt. She converted to NSR and cardizem gtt was stopped. She denies recurrent chest pain. TTE completed today showed large circumferential pericardial effusion with signs of early tamponade. CT surgery was consulted for evaluation and recommendation. She denies trae history of CAD or atrial fibrillation. She follows with [facility] for chemotherapy, AML, and pancytopenia. PLT are 4,000, Hgb 8.7, WBC 12 on admission and now 10. She denies signs of bleeding. INR 2.0 off anticoagulation. Past Med Surg Social Fam HX - Past Medical History Medical history: cancer (AML diagnosed 3 years ago. ), other Psychiatric history: anxiety, depression - Past Surgical History Surgical History: cholecystectomy, other - Social History Smoking Status: Former smoker Smokeless Tobacco Status: No Alcohol use: none Drug use: none - Family History Mother Family Member Ethnicity: Non- Living Status: Hx Family Cardiac Disorders: No Hx Family Respiratory Disorders: Yes (asthma) Hx Family Cancer: Yes (colon cancer) Father Name: wilmer luevano Age: 74 Family Member Ethnicity: Non- Age at : 74 Cause of : stroke Hx Family Cardiac Disorders: Yes (heart attacks at young ages) Medications and Allergies Citalopram [CeleXA] 20 mg PO DAILY 09/25/14 [History] Folic Acid 1 mg PO DAILY #30 tablet 04/25/16 [Rx] ALPRAZolam [Xanax 1 MG Tablet] 1 mg PO TID PRN 05/26/16 [History] Ondansetron [Zofran] 8 mg PO Q8H PRN 05/26/16 [History] Furosemide [Lasix] 20 mg PO DAILY PRN #30 tablet 06/04/16 [Rx] Potassium Chloride 40 meq PO BID #70 tab.er.prt 06/09/16 [Rx] Deferasirox [Jadenu] 1,440 mg PO DAILY #120 tablet 06/17/16 [Rx] Aminocaproic Acid [Amicar] 500 mg PO TID #90 tablet 09/02/16 [Rx] Amoxicillin/Clavulanate [Augmentin] 875 mg PO BIDWM #20 tablet 09/18/16 [Rx] Doxycycline 100 mg PO BID #20 capsule 09/18/16 [Rx] Acetaminophen w/Cod 300-30 mg [Tylenol w/Codeine #3] 1 tab PO Q6HR PRN 09/22/16 [History] Allergies Penicillins Allergy (Unknown, Verified 09/22/16 10:57) Hives All Systems Review: A 10-system review of systems was performed and is negative for pertinent findings except as documented above in the HPI. Physical Examination Vital Signs, Last 4 Hours Temp Pulse Resp BP Pulse Ox 09/23/16 09:23 96 09/23/16 07:39 97.5 F L 82 16 142/74 96 General: Conversant, No Apparent Distress HEENT: Atraumatic, Normocephaly, Mucus Membranes Moist Neck: No JVD, Normal carotid pulses Cardiac: Reg Rate and Rhythm, Normal S1 and S2, No Murmur Lungs: Normal Breath Sounds, No Wheeze, Rales, Rhonchi Neuro: Alert and responsive, No focal deficits noted Abdomen: Soft, Non-Tender Skin: No rashes noted on visualized skin Musculoskeletal: No Chest Wall Tenderness Extremities: No Clubbing, No Cyanosis, Normal Pulses, Other (Trace edema in bilaterla ankles. ) Results 09/23/16 07:53 09/23/16 07:53 Lab Results 09/22/16 09/22/16 09/22/16 17:04 17:04 22:50 WBC Hgb Hct Plt Count Sodium Potassium 3.6 Chloride Carbon Dioxide BUN Creatinine Glucose Calcium Magnesium 1.7 Troponin I 0.14 H* 0.12 H* TSH 09/23/16 09/23/16 07:53 07:53 WBC 10.0 Hgb 7.5 L Hct 23.0 L Plt Count 4 L* Sodium 140 Potassium 4.2 Chloride 108 Carbon Dioxide 21 BUN 48 H Creatinine 1.49 H Glucose 79 Calcium 7.5 L Magnesium 2.2 Troponin I TSH 1.829 - Imaging and Cardiology Echo: report reviewed - EKG Interpretation EKG results cardiology: personally reviewed (Atrial fibrillation with RVR, HR 150 bpm.) <Lexie Duarte - Last Filed: 09/23/16 17:01> Date of Encounter: 09/23/16 History of Present Illness HPI: Ms. Miles is a 65 year old female All Systems Review: A 10-system review of systems was performed and is negative for pertinent findings except as documented above in the HPI. Physical Examination Vital Signs, Last 4 Hours Temp Pulse Resp BP Pulse Ox 09/23/16 15:46 98.1 F 82 16 141/73 95 09/23/16 15:23 98.5 F 77 16 143/62 96 09/23/16 15:08 98 F 82 16 135/68 95 Results 09/23/16 07:53 09/23/16 07:53 Lab Results 09/22/16 09/22/16 09/22/16 17:04 17:04 22:50 WBC Hgb Hct Plt Count Sodium Potassium 3.6 Chloride Carbon Dioxide BUN Creatinine Glucose Calcium Magnesium 1.7 Troponin I 0.14 H* 0.12 H* TSH 09/23/16 09/23/16 07:53 07:53 WBC 10.0 Hgb 7.5 L Hct 23.0 L Plt Count 4 L* Sodium 140 Potassium 4.2 Chloride 108 Carbon Dioxide 21 BUN 48 H Creatinine 1.49 H Glucose 79 Calcium 7.5 L Magnesium 2.2 Troponin I TSH 1.829 - Attending Attestation I examined this patient and my medical decision-making was reviewed with the Resident Physician. I agree with the documented findings, disposition and treatment plan as described except to the extent set forth below. This note is a consult note and not an H&P. Entered by accident. Ms. Miles presented with newly discovered AF RVR now in NSR in setting of profound thrombocytopenia and as well as anemia. Mild troponin elevation does not appear to be secondary to ACS. Echo demonstrates normal LVEF. Incidentally discovered also is a large pericardial effusion with early signs of tamponade. She was seen by Dr. Garcia and pericardial window was recommended. The patient is undecided at this time. She is hemodynamically stable and does not appear to be in distress. She plans on speaking with her this evening. Otherwise, we agree with recommendations for Oncology evaluation. She is not a termination clerk anticoagulation candidate given hematologic abnormalities.
[2016-09-23] MEDS ORDERED: Furosemide 20 MG/2 ML VIAL IVP ONE ×2 (12:00→23:36)
[2016-09-23] MEDS ORDERED: 0.9 % Sodium Chloride 1,000 ML IVC SCH (12:00)
--- NOTE | 2016-09-23 12:37 | Electrocardiograph Report ---
[place] [id number] Test Date: 2016-09-22 Pat Name: Tamy Miles Department: 111 Room: 2NE19 Gender: F Activities Leader: : 1950 Requested By: Jacoby Gonzalez Order Number: [id number] Reading MD: Danielle Isabel Measurements Intervals [place] Rate: 151 P: MS: 0 QRS: 39 QRSD: 74 T: -39 QT: 232 QTc: 318 Interpretive Statements ATRIAL FIBRILLATION WITH RAPID VENTRICULAR RESPONSE NONSPECIFIC ST & T-WAVE ABNORMALITY Electronically Signed On 09-23-2016 12:35:17 EDT by Danielle Isabel
[2016-09-23] MEDS ORDERED: 0.9 % Sodium Chloride 250 ML ONE (14:36)
--- NOTE | 2016-09-23 18:19 | Oncology Inp Consult Note ---
Date of Encounter: 09/23/16 Time of Encounter: 17:00 Assessment and Plan (1) Acute myeloid leukemia Status: Chronic Assessment and plan: Patient with acute myeloid leukemia, relapsed in diagnosed in 2013 currently taking decitabine, with worsening cytopenia. -Thrombocytopenia patient had tried Promacta which she was unable to tolerate due to skin rash per oncology notes, she marked increase in blasts, multiple platelet transfusions with possible antibodies. Platelet counts in the past had never been higher than 30,000, she has a large pericardial effusion, with early tamponade on possibly need needing procedural intervention. Platelet goal is 70,000, patient will be unable to achieve it due to alloantibodies, she might need HLA typed platelets if pericardiocentesis/window procedure is required and is at risk of bleeding. Plt response after transfusion yesterday 5,000 to 4,000, platelet refractoriness. SHe had received 2 units today, rpt plt recommended. Volume overload is also a concern. Discussed with patient/family and attending physician the above issues and possibly transfer to [facility]. Will discuss with CT surgery. Qualifiers: Leukemia Active/Remission status: relapsed Qualified Code(s): C92.02 - Acute myeloblastic leukemia, in relapse - Data of Consult Requesting Physician: Jacoby Gonzalez MD Primary Care Provider: Yuri Monsivais - Consult Narrative Reason for consult: AML, percardial effusion History of present illness: Ms. Miles is a 65 year old female with medical history significant for acute myeloid leukemia diagnosed in 2013 when she presented with pancytopenia, bone marrow showed 84% blasts and cytogenetics and Fish had shown uncommon chromosomal abnormalities, patient underwent treatment with decitabine until May 2014 and she had persistent cytopenia due to decitabine, she progressed after in December 2014, restarted decitabine until April 2016 when she was treated with low-dose cytarabine, again retreated in August 2016 with decitabine. She continues to have cytopenia profound thrombocytopenia, takes Amicar prophylaxis, was unable to tolerate Promacta due to skin rash she is also platelet refractory due to possible alloantibodies. She is hospitalized with a large pericardial effusion early evidence of tamponade, hematology consulted due to thrombocytopenia. Past Med Surg Social Fam HX - Past Medical History Medical history: cancer (AML diagnosed 3 years ago. ), other Psychiatric history: anxiety, depression - Past Surgical History Surgical History: cholecystectomy, other - Social History Smoking Status: Former smoker Smokeless Tobacco Status: No Alcohol use: none Drug use: none - Family History Mother Family Member Ethnicity: Non- Living Status: Hx Family Cardiac Disorders: No Hx Family Respiratory Disorders: Yes (asthma) Hx Family Cancer: Yes (colon cancer) Father Name: wilmer luevano Age: 74 Family Member Ethnicity: Non- Age at : 74 Cause of : stroke Hx Family Cardiac Disorders: Yes (heart attacks at young ages) Medications and Allergies Citalopram [CeleXA] 20 mg PO DAILY 09/25/14 [History] Folic Acid 1 mg PO DAILY #30 tablet 04/25/16 [Rx] ALPRAZolam [Xanax 1 MG Tablet] 1 mg PO TID PRN 05/26/16 [History] Ondansetron [Zofran] 8 mg PO Q8H PRN 05/26/16 [History] Furosemide [Lasix] 20 mg PO DAILY PRN #30 tablet 06/04/16 [Rx] Potassium Chloride 40 meq PO BID #70 tab.er.prt 06/09/16 [Rx] Deferasirox [Jadenu] 1,440 mg PO DAILY #120 tablet 06/17/16 [Rx] Aminocaproic Acid [Amicar] 500 mg PO TID #90 tablet 09/02/16 [Rx] Amoxicillin/Clavulanate [Augmentin] 875 mg PO BIDWM #20 tablet 09/18/16 [Rx] Doxycycline 100 mg PO BID #20 capsule 09/18/16 [Rx] Acetaminophen w/Cod 300-30 mg [Tylenol w/Codeine #3] 1 tab PO Q6HR PRN 09/22/16 [History] Allergies Penicillins Allergy (Unknown, Verified 09/22/16 10:57) Hives Constitutional: Present: fatigue Cardiovascular: Present: chest pain Respiratory: Present: as per HPI Neurological: Present: as per HPI Hematologic/Lymphatic: Present: easy bruising Oncology - Exam - Constitutional Vitals: Temp Pulse Resp BP Pulse Ox 98.9 F 87 16 132/99 92 09/23/16 17:59 09/23/16 17:59 09/23/16 17:59 09/23/16 17:59 09/23/16 17:59 General appearance: average body habitus - Head Head exam: Present: atraumatic, normal inspection - Eye Eye exam: Present: EOMI, sclera anicteric - ENT ENT exam: Present: mucous membranes moist - Respiratory Respiratory exam: Present: CTAB - Cardiovascular Cardiovascular exam: Present: +S1, +S2 - GI/Abdominal GI/Abdominal exam: Present: normal bowel sounds, soft - Extremities Exam Extremities exam: Present: normal inspection - Neurological Exam Neurological exam: Present: alert, CN II-XII intact, oriented X3 Oncology - Results - Labs Labs: Short CBC 09/23/16 Range/Units 07:53 WBC 10.0 (4.3-11.1) K/mcL Hgb 7.5 L (11.5-15.4) g/dL Hct 23.0 L (35.3-44.9) % Plt Count 4 L* (140-400) K/mcL Neutrophils # 7.0 (1.6-8.9) K/mcL BMP 09/23/16 07:53 Sodium 140 Potassium 4.2 Chloride 108 Carbon Dioxide 21 BUN 48 H Creatinine 1.49 H Glucose 79 Calcium 7.5 L Cardiac Enzymes 09/22/16 Range/Units 22:50 Troponin I 0.12 H* (0-0.03) ng/mL Consult Discharge Plan - Plan Referrals: ColYuri wilson DO [Primary Care Provider] -
[2016-09-24] MEDS ORDERED: 0.9 % Sodium Chloride 250 ML ONE ×3 (00:05→18:36)
[2016-09-24] MEDS ORDERED: Vancomycin 1,000 MG in D5% in Water 250 ML IVPB ONE (02:00)
[2016-09-24 04:58] LABS: INR 1.7; Prothrombin Time 18.4 Seconds (9.4-12.1)
[2016-09-24 05:06] LABS: Calcium 8.4 mg/dL (8.6-10.8); Potassium 3.7 mEq/L (3.5-4.5)
[2016-09-24 05:13] LABS: Hemoglobin 6.8 g/dL (11.5-15.4)
[2016-09-24 05:15] LABS: Hematocrit 20.8 % (35.3-44.9); Immature Platelets 3.7 % (1.1-6.1); Mean Corpuscular HGB Conc 32.7 g/dL (31.6-35.5); Mean Corpuscular Volume 85.6 fL (83.0-100.0); Red Blood Count 2.43 M/mcL (3.82-4.97); Red Cell Distribution Width 17.4 % (11.5-14.5)
[2016-09-24 05:35] LABS: Platelet Count 90 K/mcL (140-400)
[2016-09-24 07:33] LABS: Lymphocytes # 1.9 K/mcL (0.6-4.6); Monocytes # 0.4 K/mcL (0.0-1.3); Platelet Estimate Decreased (Normal)
[2016-09-24 07:35] LABS: Smudge Cells Present (Not Present)
[2016-09-24] MEDS: Folic Acid 1 MG TABLET PO SCH (08:11)
--- NOTE | 2016-09-24 08:31 | Cardiothoracic Progress Note ---
Date of Encounter: 09/24/16 Time of Encounter: 08:28 - Assessment and plan (1) Leukemia Current Visit: No Status: Acute The patient states that she does not wish to be transferred to [facility]. She wishes to have the surgery done here at this hospital. The procedure, its risks benefits and alternatives were explained. I will tentatively schedule her for tomorrow morning. Operative consent was obtained. I would transfuse HER-2 units of packed red blood cells today. She has no questions. 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 She has no complaints. Vital Signs, Last 4 Hours Temp Pulse Resp BP Pulse Ox 09/24/16 07:01 98 F 119 20 104/82 99 09/24/16 05:00 97.6 F 106 20 113/69 96 Oxgyen Flow Rate Oxygen Flow Rate (LPM) 3 Clinical Data, last 8 Hours Output, Urine Amount 0 Output, Urine Amount 1,000 Weight 09/22/16 09/23/16 09/24/16 23:59 23:59 23:59 Weight 72 kg 69.1 kg Lungs are clear to percussion and auscultation. Heart is in an irregular rate and rhythm. She is back in atrial fibrillation. No jugular venous distention. No pulsus paradoxus. - Labs 09/24/16 04:48 09/24/16 04:48 Lab Results, Last 24 hours 09/23/16 09/24/16 09/24/16 07:53 04:48 04:48 WBC 10.3 Hgb 6.8 L Hct 20.8 L Plt Count 90 L D INR 1.7 Sodium 140 Potassium 4.2 Chloride 108 Carbon Dioxide 21 BUN 48 H Creatinine 1.49 H Glucose 79 Calcium 7.5 L Magnesium 2.2 TSH 1.829 09/24/16 04:48 WBC Hgb Hct Plt Count INR Sodium 141 Potassium 3.7 Chloride 107 Carbon Dioxide 24 BUN 47 H Creatinine 1.56 H Glucose 85 Calcium 8.4 L Magnesium TSH Consult Discharge Plan - Plan Referrals: Yuri Monsivais DO [Primary Care Provider] -
[2016-09-24] MEDS ORDERED: Clindamycin 600 MG in D5% in Water 50 ML IVPB ONE (08:32)
[2016-09-24] MEDS ORDERED: Clindamycin 600 MG/50 ML 600 MG/50 ML IV.SOLN IVPB ONE (09:00)
[2016-09-24] MEDS ORDERED: Furosemide 20 MG/2 ML VIAL IVP ONE ×2 (09:06→18:53)
--- NOTE | 2016-09-24 09:09 | Internal Med Progress Note ---
Date of Encounter: 09/24/16 Time of Encounter: 08:55 - Assessment and plan (1) New onset a-fib Current Visit: Yes Status: Acute Assessment and plan: Patient was noted to have new onset of atrial fibrillation with rapid ventricular response at admission, likely related to pericardial effusion. Heart rate has been controlled with brief IV Cardizem, that was transitioned to oral Cardizem. Patient is not a candidate for anticoagulation due to significant thrombocytopenia. Patient was noted to have an episode of RVR overnight, responded to a dose of IV Cardizem. Noted to be tachycardic currently with heart rate in the 140s, resume oral Cardizem. Echocardiogram shows preserved EF, mild left ventricular diastolic dysfunction, mild to moderate pulmonary hypertension and large pericardial effusion with signs of early tamponade. Cardiology follow up appreciated, agree with current management and recommend when necessary IV metoprolol for RVR. Cardiothoracic surgery follow-up appreciated-patient declined being transferred to [place] for higher level of care, plan for pericardial window in a.m. after platelet and PRBC transfusion. (2) Elevated troponin Current Visit: Yes Status: Resolved (3) Cellulitis Current Visit: Yes Status: Acute Assessment and plan: Mild right hand cellulitis secondary to dog scratch. Preliminary wound culture shows no growth. Will change antibiotics to IV cefazolin. Supportive care. Qualifiers: Site of cellulitis: extremity Site of cellulitis of extremity: upper extremity Laterality: right Qualified Code(s): L03.113 - Cellulitis of right upper limb (4) Refractory thrombocytopenia Current Visit: Yes Status: Acute Assessment and plan: Follows with oncology as outpatient, likely has MDS. Platelet transfusion dependent. Oncology consult appreciated, recommended transfer to tertiary care center which the patient has declined. Continue when necessary platelet transfusion, platelet count noted to be 90,000 this morning, questionable accuracy. Will repeat CBC. Patient is also noted to have INR of 2, will receive FFP's in anticipation of surgery as planned. We will consult hematology for further recommendations. (5) Pancytopenia Current Visit: Yes Status: Chronic Assessment and plan: Noted to have worsening anemia with hemoglobin 6.8 today. We will transfuse 2 units PRBC in anticipation of cardiothoracic surgery in a.m. Will give IV Lasix posttransfusion for volume overload. (6) HOOD (acute kidney injury) Current Visit: Yes Status: Resolved 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 Qualifiers: Leukemia Active/Remission status: relapsed Qualified Code(s): C92.02 - Acute myeloblastic leukemia, in relapse (9) Depression Current Visit: Yes Status: Chronic Qualifiers: Depression Type: unspecified Qualified Code(s): F32.9 - Major depressive disorder, single episode, unspecified (10) Anxiety Current Visit: Yes Status: Chronic - Subjective Interval history: No chest pain or palpitations but does have exertional dyspnea; no fever/chills , nausea/vomiting; discussed plan of care and she declines being transferred to [facility] at this time and is agreeable to have CT surgery done here; - Constitutional Vitals: Temp Pulse Resp BP Pulse Ox 98 F 119 20 104/82 99 09/24/16 07:01 09/24/16 07:01 09/24/16 07:01 09/24/16 07:01 09/24/16 07:01 General appearance: Present: A&O X 3, answers questions appropriately - Respiratory Respiratory exam: Present: CTAB. Absent: accessory muscle use, rales, rhonchi, wheezes - Cardiovascular Cardiovascular exam: Present: irregular rhythm, +S1, +S2, tachycardia. Absent: diastolic murmur, gallop, rubs, systolic murmur - GI/Abdominal GI/Abdominal exam: Present: normal bowel sounds, soft, no peritoneal signs. Absent: distended, tenderness - Extremities Exam Extremities exam: Present: full ROM, warm, radial pulses palpable and symmetrical. Absent: calf tenderness, cyanotic, pedal edema - Neurological Exam Neurological exam: Present: CN II-XII intact, oriented X3, no focal deficits. Absent: pronater drift, facial droop, speech deficit Internal Medicine: Result - Labs CBC & Chem 7: 09/24/16 04:48 09/24/16 04:48 Labs: Short CBC 09/24/16 Range/Units 04:48 WBC 10.3 (4.3-11.1) K/mcL Hgb 6.8 L (11.5-15.4) g/dL Hct 20.8 L (35.3-44.9) % Plt Count 90 L D (140-400) K/mcL Neutrophils # 7.0 (1.6-8.9) K/mcL BMP 09/23/16 09/24/16 07:53 04:48 Sodium 140 141 Potassium 4.2 3.7 Chloride 108 107 Carbon Dioxide 21 24 BUN 48 H 47 H Creatinine 1.49 H 1.56 H Glucose 79 85 Calcium 7.5 L 8.4 L - ABG Interpretation ABG results: PT/INR, D-dimer PT 18.4 Seconds (9.4-12.1) H 09/24/16 04:48 Consult Discharge Plan - Plan Referrals: ColYuri wilson DO [Primary Care Provider] -
--- NOTE | 2016-09-24 09:47 | Cardiology Progress Note ---
Date of Encounter: 09/24/16 Time of Encounter: 09:40 Assessment and Plan (1) New onset a-fib Current Visit: Yes Status: Acute Atrial fibrillation with RVR on admission. HR 150 on admission. Appeared to be symptomatic. May have been exacerbated by large pericardial effusion. Converted to NSR with short UT interval yesterday. Overnight developed atrial fibrillation with RVR. Given IV cardizem 10 mg this morning. B/p marginal. Continue oral cardizem. B/p stable currently. HR in the 90's. Continue to monitor. 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 (2) Pericardial effusion Current Visit: Yes Status: Acute TTE reviewed: Normal LV systolic function, LVEF 70%. There is a large circumferential pericardial effusion present. There is echocardiographic evidence of early tamponade (increased respiratory variation in mitral inflow, mildly decreased inspiratory collapse of IVC). May be secondary to AML. CT surgery following. Planning on CT surgery tomorrow. Pt wishes to stay at [place]. She declines going to [facility]/ [place]. INR now 90,000 after 3 units of PLT. Receiving two units of blood today for Hgb 6.8. Planning for surgery tomorrow. With multiple transfusions there was concern for fluid overload. IV fluid discontinued. Agree with IV lasix today and as needed. (3) Elevated troponin Current Visit: Yes Status: Acute Mild adynamic troponin elevation up to 0.15 in the setting of atrial fibrillation with RVR, anemia, HOOD, and early tamponade. Demand ischemia. Doubt ACS. She is not a candidate for ischemia evaluation due to thrombcytopenia and anemia. TTE comleted today Normal LV systolic function, LVEF 70%. Mild left ventricular diastolic dysfunction. Normal right ventricular size and function. No significant valvular dysfunction. Mild-moderate pulmonary hypertension. Estimated RVSP = 46 mmHg.There is a large circumferential pericardial effusion present.There is echocardiographic evidence of early tamponade (increased respiratory variation in mitral inflow, mildly decreased inspiratory collapse of IVC). See plan above. No further cardiac testing at this time. (4) Chest pain Current Visit: Yes Status: Acute Pleuritic chest pain on admission. Likely secondary to pericardial effusion and afib with RVR. She is not a candidate for ischemic evaluation. TTE shows preserved EF. Qualifiers: Chest pain type: unspecified Qualified Code(s): R07.9 - Chest pain, unspecified Discussion w patient/family: The assessment and plan as outlined above was discussed with the patient and/or family members who expressed understanding and agreement. All questions were answered. Thank you for involving us in the care of your patient. Please call with any questions. Subjective Principal diagnosis: Afib, pericardial effusion Interval history: Mrs. Miles denies chest pain or SOB. Admits to BLE edema. Patient wears oxygen at home only at night. She received IV lasix after PLT transfusion last night for concern of fluid overload. Objective Vital Signs, Last 4 Hours Temp Pulse Resp BP Pulse Ox 09/24/16 07:01 98 F 119 20 104/82 99 General: Conversant, No Apparent Distress HEENT: Atraumatic, Normocephaly, Mucus Membranes Moist Neck: No JVD, Normal carotid pulses Cardiac: Other (irregularly irregular) Lungs: Normal Breath Sounds, No Wheeze, Rales, Rhonchi, Other (diminished bases) Neuro: Alert and responsive, No focal deficits noted Abdomen: Soft, Non-Tender Skin: No rashes noted on visualized skin Musculoskeletal: No Chest Wall Tenderness Extremities: No Clubbing, No Cyanosis, Normal Pulses, Other (1+) Results 09/24/16 04:48 09/24/16 04:48 Lab Results 09/23/16 09/24/16 09/24/16 07:53 04:48 04:48 WBC 10.3 Hgb 6.8 L Hct 20.8 L Plt Count 90 L D INR 1.7 Sodium 140 Potassium 4.2 Chloride 108 Carbon Dioxide 21 BUN 48 H Creatinine 1.49 H Glucose 79 Calcium 7.5 L Magnesium 2.2 TSH 1.829 09/24/16 04:48 WBC Hgb Hct Plt Count INR Sodium 141 Potassium 3.7 Chloride 107 Carbon Dioxide 24 BUN 47 H Creatinine 1.56 H Glucose 85 Calcium 8.4 L Magnesium TSH - Imaging and Cardiology Echo: report reviewed Consult Discharge Plan - Plan Referrals: Yuri Monsivais DO [Primary Care Provider] -
[2016-09-24] MEDS ORDERED: Piperacillin/Tazobactam 3.375 GM in D5% in Water (Mini-Bag+) 100 ML IVPB SCH (16:00)
[2016-09-24 17:19] LABS: Hematocrit 26.4 % (35.3-44.9); Hemoglobin 8.7 g/dL (11.5-15.4); Immature Platelets 3.1 % (1.1-6.1); Mean Corpuscular Hemoglobin 28.6 pg (28.0-33.3); Mean Corpuscular Volume 86.8 fL (83.0-100.0); Mean Platelet Volume 10.7 fL (9.4-12.4); Red Blood Count 3.04 M/mcL (3.82-4.97)
[2016-09-24 17:26] LABS: Platelet Count 73 K/mcL (140-400)
[2016-09-24 18:07] LABS: Lymphocytes # 1.3 K/mcL (0.6-4.6); Monocytes # 0.6 K/mcL (0.0-1.3); Neutrophils # 7.5 K/mcL (1.6-8.9); Platelet Estimate Decreased (Normal); Reactive Lymphocytes Present (Not Present)
[2016-09-24 18:08] LABS: Anisocytosis 1+ (Not Present); Hypochromasia Present (Not Present)
--- NOTE | 2016-09-24 20:36 | Electrocardiograph Report ---
[address] [address] Test Date: 2016-09-24 Pat Name: Tamy Miles Department: 111 Room: 2NE19 Gender: F Rn Liaison: [facility] : 1950 Requested By: Huma Murphy Order Number: [id number] Reading MD: Arron Persaud MD Measurements Intervals [place] Rate: 134 P: GA: 0 QRS: 29 QRSD: 69 T: -60 QT: 276 QTc: 355 Interpretive Statements ATRIAL FIBRILLATION WITH RAPID VENTRICULAR RESPONSE LOW QRS VOLTAGE IN PRECORDIAL LEADS Electronically Signed On 09-24-2016 20:34:55 EDT by Arron Persaud MD
[2016-09-25] MEDS: ceFAZolin 1,000 MG in D5% in Water (Mini-Bag+) 100 ML IVPB SCH ×2 (00:31→09:24)
[2016-09-25 05:12] LABS: Hemoglobin 9.7 g/dL (11.5-15.4); Red Cell Distribution Width 16.5 % (11.5-14.5)
[2016-09-25 05:14] LABS: Hematocrit 28.6 % (35.3-44.9); Immature Platelets 3.9 % (1.1-6.1); Mean Corpuscular HGB Conc 33.9 g/dL (31.6-35.5); Mean Corpuscular Hemoglobin 28.7 pg (28.0-33.3); Mean Corpuscular Volume 84.6 fL (83.0-100.0); Mean Platelet Volume 11.1 fL (9.4-12.4); Red Blood Count 3.38 M/mcL (3.82-4.97)
[2016-09-25 05:25] LABS: Platelet Count 56 K/mcL (140-400)
[2016-09-25 05:36] LABS: Calcium 8.2 mg/dL (8.6-10.8); Potassium 3.5 mEq/L (3.5-4.5)
[2016-09-25 06:05] LABS: Lymphocytes # 2.1 K/mcL (0.6-4.6); Monocytes # 0.2 K/mcL (0.0-1.3); Neutrophils # 6.9 K/mcL (1.6-8.9)
[2016-09-25 06:06] LABS: Anisocytosis 1+ (Not Present); Platelet Estimate Decreased (Normal)
[2016-09-25] MEDS ORDERED: Clindamycin 600 MG/50 ML 600 MG/50 ML IV.SOLN IVPB ONE (07:00)
[2016-09-25] MEDS ORDERED: *HR* Midazolam HCl 5 MG/5 ML VIAL IVP ONE (07:15)
[2016-09-25] MEDS ORDERED: *HR* Morphine 10 MG/ML VIAL ONE (07:15)
[2016-09-25] MEDS ORDERED: *HR* Etomidate 20 MG/10 ML AMPUL IVP ONE (07:16)
[2016-09-25] MEDS ORDERED: SUGAMMADEX SODIUM 500 MG/5 ML VIAL IV ONE (07:17)
--- NOTE | 2016-09-25 07:25 | Anesthesia Evaluation PreOp ---
Date of Encounter: 09/25/16 - Past History Alcohol Use: none Drug use: none Medications and Allergies Citalopram [CeleXA] 20 mg PO DAILY 09/25/14 [History] Folic Acid 1 mg PO DAILY #30 tablet 04/25/16 [Rx] ALPRAZolam [Xanax 1 MG Tablet] 1 mg PO TID PRN 05/26/16 [History] Ondansetron [Zofran] 8 mg PO Q8H PRN 05/26/16 [History] Furosemide [Lasix] 20 mg PO DAILY PRN #30 tablet 06/04/16 [Rx] Potassium Chloride 40 meq PO BID #70 tab.er.prt 06/09/16 [Rx] Deferasirox [Jadenu] 1,440 mg PO DAILY #120 tablet 06/17/16 [Rx] Aminocaproic Acid [Amicar] 500 mg PO TID #90 tablet 09/02/16 [Rx] Amoxicillin/Clavulanate [Augmentin] 875 mg PO BIDWM #20 tablet 09/18/16 [Rx] Doxycycline 100 mg PO BID #20 capsule 09/18/16 [Rx] Acetaminophen w/Cod 300-30 mg [Tylenol w/Codeine #3] 1 tab PO Q6HR PRN 09/22/16 [History] Allergies Penicillins Allergy (Unknown, Verified 09/22/16 10:57) Hives Anesthesia Results - Labs 09/25/16 04:30 09/25/16 04:30 - Imaging Additional studies: TTE: Normal LV systolic function, LVEF 70%. Mild left ventricular diastolic dysfunction. Normal right ventricular size and function. No significant valvular dysfunction. Mild-moderate pulmonary hypertension. Estimated RVSP = 46 mmHg. There is a large circumferential pericardial effusion present. There is echocardiographic evidence of early tamponade (increased respiratory variation in mitral inflow, mildly decreased inspiratory collapse of IVC). Abnormal findings were discussed with the inpatient cardiology consult service (Dr. Duarte) and cardiothoracic surgery (Dr. Garcia).
[2016-09-25] MEDS ORDERED: Naloxone 0.4 MG/ML INJ IVP PRN (09:11)
[2016-09-25] MEDS ORDERED: *HR* Morphine 2 MG/ML SYRINGE IVP PRN (09:11)
[2016-09-25] MEDS ORDERED: *HR* OxyCODONE/APAP 5/325 TABLET PO PRN (09:11)
--- NOTE | 2016-09-25 09:20 | Operative Note ---
Date of procedure: 09/25/16 Procedure in Detail: Preoperative diagnosis. Pericardial effusion. Postoperative diagnosis. Same. Procedures. Pericardial window with removal of 700 mL of serosanguineous fluid and pericardial biopsy. Surgeon. Dr. Eduar Garcia. The patient is a 65-year- old female with a history of leukemia. Echocardiogram revealed a moderate to large pericardial effusion with early signs of tamponade. We transfused her with packed red blood cells, platelets and fresh frozen plasma. She was brought to the operating room today where she underwent a general anesthetic. She was prepped and draped in standard fashion. A standard incision was made over the lower sternum and xiphoid into the midline epigastrium. Dissection was begun superiorly with the Metzenbaum scissors until we reached the pericardium. This was opened with a #15 blade and 700 mL of serosanguineous fluid were obtained. The fluid was cultured both aerobically and anaerobically and also for fungus and TB. The fluid was also sent for cytology. 2 pericardial biopsies were taken. The pericardium was grasped with an Allis clamp and a piece was removed using the Metzenbaum scissors. These pieces were sent for permanent pathology. A single #32 right angle chest tube was inserted into the pericardial well. The incision was closed with deep layer of #1 Vicryl to the fascia. A 2-0 Vicryl to the subcutaneous tissues. A 3-0 Vicryl subcuticular stitch. The patient tolerated procedure well and was returned intensive care unit in satisfactory and stable condition.
[2016-09-25] MEDS: *HR* Metoprolol 5 MG/5 ML VIAL IVP PRN (09:35)
[2016-09-25] MEDS: 0.9 % Sodium Chloride 1,000 ML IVC SCH ×3 (09:38→21:55)
[2016-09-25] MEDS: Albuterol 2.5 MG/3 ML NEBULIZER IH SCH ×4 (11:20→23:18)
[2016-09-25 11:29] LABS: Hematocrit 30.3 % (35.3-44.9); Hemoglobin 10.1 g/dL (11.5-15.4); Immature Platelets 3.2 % (1.1-6.1); Mean Corpuscular HGB Conc 33.3 g/dL (31.6-35.5); Mean Corpuscular Hemoglobin 28.6 pg (28.0-33.3); Mean Corpuscular Volume 85.8 fL (83.0-100.0); Mean Platelet Volume 10.3 fL (9.4-12.4); Red Blood Count 3.53 M/mcL (3.82-4.97); Red Cell Distribution Width 16.8 % (11.5-14.5)
[2016-09-25 11:52] LABS: ABG Base Excess 0.7 mEq/L (-2.0 to 3.0); ABG HCO3 28.7 mEQ/L (21-27); ABG Oxygen Saturation 99 % (95-98); ABG PCO2 64 mmHg (35-45); ABG PH 7.26 pH Units (7.32-7.45); ABG PO2 142 mmHg (85-104); ABG TCO2 30.7 mEq/L (20-26)
[2016-09-25 11:55] LABS: Platelet Count 47 K/mcL (140-400)
[2016-09-25 11:55] LABS: Blood Gas Liter Flow 8 L/MIN
[2016-09-25 12:31] LABS: Lymphocytes # 1.5 K/mcL (0.6-4.6); Monocytes # 0.6 K/mcL (0.0-1.3); Neutrophils # 9.1 K/mcL (1.6-8.9)
[2016-09-25 12:33] LABS: Platelet Estimate Marked Decrease (Normal)
--- NOTE | 2016-09-25 13:07 | Cardiology Progress Note ---
Date of Encounter: 09/25/16 Time of Encounter: 13:01 Assessment and Plan (1) New onset a-fib Current Visit: Yes Status: Acute Atrial fibrillation with RVR on admission. HR 150 on admission. New onset. Appeared to be symptomatic. May have been exacerbated by large pericardial effusion. PAF seen during stay. Currently NSR this morning. Seen to have sinus tachycardia pot-operatively. Responded well to IV metoprolol. Continue oral cardizem. Convert to long acting at discharge if tolerated. B/p stable currently. HR in the 60's. TTE showed EF 70% and no significant valvular disease. TSH normal. She is not a candidate for cutter apprentice hand anticoagulation in the setting of severe/ chronic thrombocytopenia. Out-pt f/u will be scheduled with [facility]. Please call with questions. (2) Pericardial effusion Current Visit: Yes Status: Acute TTE reviewed: Normal LV systolic function, LVEF 70%. There is a large circumferential pericardial effusion present. There is echocardiographic evidence of early tamponade (increased respiratory variation in mitral inflow, mildly decreased inspiratory collapse of IVC). S/p pericadial window. Chest tubes in place. Extubated this morning. CT surgery following. (3) Elevated troponin Current Visit: Yes Status: Resolved Mild adynamic troponin elevation up to 0.15 in the setting of atrial fibrillation with RVR, anemia, HOOD, and early tamponade. Demand ischemia. Doubt ACS. She is not a candidate for ischemia evaluation due to thrombcytopenia and anemia. TTE comleted today Normal LV systolic function, LVEF 70%. Mild left ventricular diastolic dysfunction. Normal right ventricular size and function. No significant valvular dysfunction. Mild-moderate pulmonary hypertension. Estimated RVSP = 46 mmHg.There is a large circumferential pericardial effusion present.There is echocardiographic evidence of early tamponade (increased respiratory variation in mitral inflow, mildly decreased inspiratory collapse of IVC). See plan above. No further cardiac testing indicated at this time. (4) Chest pain Current Visit: Yes Status: Acute Pleuritic chest pain on admission. Likely secondary to pericardial effusion and afib with RVR. She is not a candidate for ischemic evaluation. TTE shows preserved EF. Qualifiers: Chest pain type: unspecified Qualified Code(s): R07.9 - Chest pain, unspecified Discussion w patient/family: The assessment and plan as outlined above was discussed with the patient and/or family members who expressed understanding and agreement. All questions were answered. Thank you for involving us in the care of your patient. Please call with any questions. Subjective Principal diagnosis: Afib, pericardial effusion Interval history: Mrs. Miles is s/p pericardial window this morning. She is drowsy on my exam. Now on oximask. Granddaughter at bedside. Objective Vital Signs, Last 4 Hours Temp Pulse Resp BP Pulse Ox 09/25/16 12:00 72 16 97/73 97 09/25/16 11:58 97.9 F 09/25/16 11:22 20 96 09/25/16 11:00 77 20 98/54 97 09/25/16 10:15 80 20 94/55 94 09/25/16 09:45 108 14 107/54 94 09/25/16 09:30 128 14 140/61 95 09/25/16 09:15 131 14 113/79 97 09/25/16 09:05 98.1 F 136 16 131/74 92 General: Conversant, No Apparent Distress HEENT: Atraumatic, Normocephaly, Mucus Membranes Moist Neck: No JVD, Normal carotid pulses Cardiac: Reg Rate and Rhythm, Normal S1 and S2, No Murmur, Other (NSR on telemetry, chest tube intact with serosangenious drainage.) Lungs: Normal Breath Sounds, No Wheeze, Rales, Rhonchi Neuro: Alert and responsive, No focal deficits noted Abdomen: Soft, Non-Tender Skin: No rashes noted on visualized skin Musculoskeletal: No Chest Wall Tenderness Extremities: No Clubbing, No Cyanosis, Normal Pulses, Other (1+ edema in bilat ankles) Results 09/25/16 11:18 09/25/16 04:30 Lab Results 09/24/16 09/25/16 09/25/16 17:00 04:30 04:30 WBC 9.6 9.3 Hgb 8.7 L D 9.7 L Hct 26.4 L 28.6 L Plt Count 73 L 56 L Sodium 139 Potassium 3.5 Chloride 104 Carbon Dioxide 27 BUN 42 H Creatinine 1.65 H Glucose 92 Calcium 8.2 L 09/25/16 11:18 WBC 12.3 H Hgb 10.1 L Hct 30.3 L Plt Count 47 L Sodium Potassium Chloride Carbon Dioxide BUN Creatinine Glucose Calcium Consult Discharge Plan - Plan Referrals: Yuri Monsivais DO [Primary Care Provider] -
[2016-09-25] MEDS: Clindamycin 900 MG/50 ML 900 MG/50 ML IV.SOLN IVPB SCH ×2 (14:43→23:44)
[2016-09-25] MEDS: Folic Acid 1 MG TABLET PO SCH (14:43)
--- NOTE | 2016-09-25 17:18 | Internal Med Progress Note ---
Date of Encounter: 09/25/16 Time of Encounter: 15:00 - Assessment and plan (1) New onset a-fib Current Visit: Yes Status: Acute Assessment and plan: Patient was noted to have new onset of atrial fibrillation with rapid ventricular response at admission, likely related to pericardial effusion. Continue short-acting PO Cardizem, to switch to long acting form at discharge, as tolerated. Patient is not a candidate for anticoagulation due to significant thrombocytopenia. Echocardiogram shows preserved EF, mild left ventricular diastolic dysfunction , mild to moderate pulmonary hypertension and large pericardial effusion with signs of early tamponade. Cardiology on board. Cardiothoracic surgery on board , patient underwent pericardial window today. (2) Elevated troponin Current Visit: Yes Status: Resolved (3) Cellulitis Current Visit: Yes Status: Acute Assessment and plan: Mild right hand cellulitis secondary to dog scratch. Preliminary wound culture shows no growth. Continue IV clindamycin. Supportive care. Qualifiers: Site of cellulitis: extremity Site of cellulitis of extremity: upper extremity Laterality: right Qualified Code(s): L03.113 - Cellulitis of right upper limb (4) Refractory thrombocytopenia Current Visit: Yes Status: Acute Assessment and plan: Follows with oncology as outpatient, likely has MDS. Platelet transfusion dependent. Oncology consult appreciated; Continue when necessary platelet transfusion, platelet count continues to decline. (5) Pancytopenia Current Visit: Yes Status: Chronic Assessment and plan: Hemoglobin improved to 10.4 after 2 units PRBC transfusion. Continue to monitor. (6) HOOD (acute kidney injury) Current Visit: Yes Status: Resolved 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 Assessment and plan: Outpatient oncology follow-up. Qualifiers: Leukemia Active/Remission status: relapsed Qualified Code(s): C92.02 - Acute myeloblastic leukemia, in relapse (9) Depression Current Visit: Yes Status: Chronic Qualifiers: Depression Type: unspecified Qualified Code(s): F32.9 - Major depressive disorder, single episode, unspecified (10) Anxiety Current Visit: Yes Status: Chronic - Subjective Interval history: Had pericardial window placed today; denies pain, dyspnea; - Constitutional Vitals: Temp Pulse Resp BP Pulse Ox 97.8 F 79 20 98/53 97 09/25/16 15:32 09/25/16 16:00 09/25/16 16:00 09/25/16 16:00 09/25/16 16:00 General appearance: Present: A&O X 3, answers questions appropriately - Respiratory Respiratory exam: Present: decreased breath sounds, CTAB. Absent: accessory muscle use, rales, rhonchi, wheezes - Cardiovascular Cardiovascular exam: Present: RRR, +S1, +S2. Absent: diastolic murmur, gallop, rubs, systolic murmur - GI/Abdominal GI/Abdominal exam: Present: normal bowel sounds, soft, no peritoneal signs. Absent: distended, tenderness Internal Medicine: Result - Labs CBC & Chem 7: 09/25/16 11:18 09/25/16 04:30 Labs: Short CBC 09/24/16 09/25/16 09/25/16 Range/Units 17:00 04:30 11:18 WBC 9.6 9.3 12.3 H (4.3-11.1) K/mcL Hgb 8.7 L D 9.7 L 10.1 L (11.5-15.4) g/dL Hct 26.4 L 28.6 L 30.3 L (35.3-44.9) % Plt Count 73 L 56 L 47 L (140-400) K/mcL Neutrophils # 7.5 6.9 9.1 H (1.6-8.9) K/mcL BMP 09/25/16 04:30 Sodium 139 Potassium 3.5 Chloride 104 Carbon Dioxide 27 BUN 42 H Creatinine 1.65 H Glucose 92 Calcium 8.2 L - ABG Interpretation ABG results: ABG ABG pH 7.26 pH Units (7.32-7.45) L 09/25/16 11:41 ABG pCO2 64 mmHg (35-45) H 09/25/16 11:41 ABG pO2 142 mmHg (85-104) H 09/25/16 11:41 ABG O2 Saturation 99 % (95-98) H 09/25/16 11:41 PT/INR, D-dimer PT 18.4 Seconds (9.4-12.1) H 09/24/16 04:48 - Impressions Impressions Chest X-Ray 09/25/16 09:11 IMPRESSION: 1. Left-sided chest tube without evidence of pneumothorax. 2. Enlarged cardiac silhouette with minimal perihilar opacification and bilateral pleural effusions. D/ / Edilberto Wilde MD / Edilberto Wilde MD Interpreting Provider: Edilberto Wilde MD - VTE Documentation of Mechanical Device: Intermittent pneumatic compression device Consult Discharge Plan - Plan Referrals: ColopyYuri DO [Primary Care Provider] -
[2016-09-26 03:41] LABS: Hemoglobin 8.7 g/dL (11.5-15.4)
[2016-09-26 03:43] LABS: Hematocrit 26.2 % (35.3-44.9); Immature Platelets 3.4 % (1.1-6.1); Mean Corpuscular HGB Conc 33.2 g/dL (31.6-35.5); Mean Corpuscular Hemoglobin 28.4 pg (28.0-33.3); Mean Corpuscular Volume 85.6 fL (83.0-100.0); Mean Platelet Volume 11.8 fL (9.4-12.4); Red Blood Count 3.06 M/mcL (3.82-4.97); Red Cell Distribution Width 16.7 % (11.5-14.5)
[2016-09-26 03:51] LABS: Platelet Count 37 K/mcL (140-400)
[2016-09-26 03:54] LABS: Calcium 7.5 mg/dL (8.6-10.8); Potassium 3.9 mEq/L (3.5-4.5)
[2016-09-26] MEDS: Albuterol 2.5 MG/3 ML NEBULIZER IH SCH ×5 (03:59→20:46)
[2016-09-26 04:17] LABS: Lymphocytes # 1.3 K/mcL (0.6-4.6); Neutrophils # 9.2 K/mcL (1.6-8.9)
[2016-09-26 04:18] LABS: Anisocytosis 1+ (Not Present); Platelet Estimate Marked Decrease (Normal)
[2016-09-26 04:19] LABS: Reactive Lymphocytes Present (Not Present); Smudge Cells Present (Not Present)
[2016-09-26 04:26] LABS: ABG Base Excess 0.9 mEq/L (-2.0 to 3.0); ABG HCO3 26.6 mEQ/L (21-27); ABG Oxygen Saturation 92 % (95-98); ABG PCO2 47 mmHg (35-45); ABG PH 7.36 pH Units (7.32-7.45); ABG PO2 67 mmHg (85-104)
[2016-09-26 04:27] LABS: Blood Gas FiO2 32 %
[2016-09-26] MEDS: Folic Acid 1 MG TABLET PO SCH (08:04)
--- NOTE | 2016-09-26 08:17 | Cardiothoracic Progress Note ---
Date of Encounter: 09/26/16 Time of Encounter: 08:14 - Assessment and plan (1) Pericardial effusion Current Visit: Yes Status: Acute The patient is recovering well from her subxiphoid pericardial window. The chest tube drainage has decreased. The chest tube will remain in place for several days to allow the adhesion between the epicardium and the pericardium. She may be transferred to the stepdown unit at the hospitalist discretion. The assessment and plan as outlined above was discussed with the patient and/or family members who expressed understanding and agreement. All questions were answered. - Subjective Procedure(s) Performed: POD#1 S/P Subxiphoid pericardial window Interval history: The patient remained hemodynamically stable overnight. She has no complaints. Vital Signs, Last 4 Hours Pulse Resp BP Pulse Ox 09/26/16 07:44 20 93 09/26/16 07:30 78 20 134/57 94 09/26/16 06:00 79 20 113/52 93 09/26/16 05:00 81 17 105/51 93 Oxgyen Flow Rate Oxygen Flow Rate (LPM) 3 Clinical Data, last 8 Hours Output, Chest Tube Drainage 10 Amount [Mediastinal] Output, Urine Amount 350 Weight 09/24/16 09/25/16 09/26/16 23:59 23:59 23:59 Weight 69.1 kg 68.5 kg 73.4 kg - Physical Examination General: Conversant, No Apparent Distress Neck: No JVD, Normal carotid pulses Cardiac: Reg Rate and Rhythm, Normal S1 and S2, No Murmur Incision: No signs of infection, Dry/intact dressing Chest tubes: Minimal drainage, Other (No air leak.) Lungs: Normal Breath Sounds, No Wheeze, Rales, Rhonchi Neuro: Alert and responsive, No focal deficits noted Vascular: Normal capillary refill Extremities: No Clubbing, No Cyanosis, No Edema - Labs 09/26/16 03:30 09/26/16 03:30 Lab Results, Last 24 hours 09/25/16 09/26/16 09/26/16 11:18 03:30 03:30 WBC 12.3 H 10.5 Hgb 10.1 L 8.7 L Hct 30.3 L 26.2 L Plt Count 47 L 37 L Sodium 141 Potassium 3.9 Chloride 107 Carbon Dioxide 26 BUN 40 H Creatinine 1.50 H Glucose 129 H Calcium 7.5 L - Imaging Chest Xray: image reviewed (No pneumothorax. Stable cardiomegaly. Bilateral pleural effusions.) - VTE Documentation of Mechanical Device: Intermittent pneumatic compression device Consult Discharge Plan - Plan Referrals: Yuri Monsivais DO [Primary Care Provider] -
--- NOTE | 2016-09-26 08:41 | Oncology Inp Progress Note ---
Date of Encounter: 09/25/16 Time of Encounter: 18:00 (1) Acute myeloid leukemia Current Visit: Yes Status: Chronic Assessment and plan: Patient with acute myeloid leukemia, relapsed in diagnosed in 2013 currently taking decitabine, with worsening cytopenia. -Thrombocytopenia patient had tried Promacta which she was unable to tolerate due to skin rash per oncology notes, she marked increase in blasts, multiple platelet transfusions with possible antibodies. Platelet counts in the past had never been higher than 30,000, she has a large pericardial effusion, with early tamponade on possibly need needing procedural intervention. Platelet goal is 70,000, patient will be unable to achieve it due to alloantibodies, she might need HLA typed platelets if pericardiocentesis/window procedure is required and is at risk of bleeding. Plt response after transfusion yesterday 5,000 to 4,000, platelet refractoriness. SHe had received 2 units today, rpt plt recommended. Volume overload is also a concern. Discussed with patient/family and attending physician the above issues and possibly transfer to [facility]. Will discuss with CT surgery. Qualifiers: Leukemia Active/Remission status: relapsed Qualified Code(s): C92.02 - Acute myeloblastic leukemia, in relapse (2) Leukemia Current Visit: No Status: Acute Assessment and plan: Is on palliative RX with decitabine, with thrombocytopenia, anemia requiring transfusions. s/p pericardial window, pre procedural plt count was at 90k, prior multiple plt transfusions and refractoriness to plt. Labs daily, transfuse if cts <35k, or prior to any procedure or with bleeding. PAin control seemed to be adequate. Discussed plan of care with patient and family Qualifiers: Leukemia type: myeloid Myeloid leukemia type: acute Leukemia Active/ Remission status: without remission Qualified Code(s): C92.00 - Acute myeloblastic leukemia, not having achieved remission Oncology: Subj Interval history: Pt sitting in the chair comfortable on O2, no pain now - Constitutional Vitals: Vital Signs Temp Pulse Resp BP Pulse Ox 09/26/16 08:29 98.0 F 09/26/16 08:00 95 20 133/68 94 09/26/16 07:44 20 93 09/26/16 07:30 78 20 134/57 94 09/26/16 06:00 79 20 113/52 93 09/26/16 05:00 81 17 105/51 93 09/26/16 04:00 97.9 F 83 19 133/57 95 09/26/16 03:59 16 141/74 94 09/26/16 03:41 77 09/26/16 03:00 77 16 115/52 94 09/26/16 02:00 79 18 111/54 93 09/26/16 01:00 81 17 110/51 93 09/26/16 00:00 97.7 F 82 16 114/56 92 09/25/16 23:19 18 85/57 93 09/25/16 23:00 68 16 88/44 94 09/25/16 22:00 112 24 109/66 92 09/25/16 21:03 96.8 F L 09/25/16 21:00 117 15 112/83 92 09/25/16 20:00 75 22 124/60 100 09/25/16 19:54 18 117/54 96 09/25/16 19:00 75 15 107/55 98 09/25/16 18:00 76 20 110/47 97 09/25/16 17:00 68 16 105/63 97 09/25/16 16:00 79 20 98/53 97 09/25/16 15:42 18 105/63 97 09/25/16 15:32 97.8 F 09/25/16 15:00 116 24 112/62 95 09/25/16 14:00 83 12 88/51 98 09/25/16 13:00 71 12 95/58 97 09/25/16 12:00 72 16 97/73 97 09/25/16 11:58 97.9 F 09/25/16 11:22 20 96 09/25/16 11:00 77 20 98/54 97 09/25/16 10:15 80 20 94/55 94 09/25/16 09:45 108 14 107/54 94 09/25/16 09:30 128 14 140/61 95 09/25/16 09:15 131 14 113/79 97 09/25/16 09:05 98.1 F 136 16 131/74 92 Intake and Output 09/25/16 09/26/16 09/26/16 23:59 07:59 15:59 Intake Total 1000 / 1000 500 / 500 Output Total 225 / 225 360 / 360 416 / 416 Balance 775 / 775 -360 / -360 84 / 84 Intake: IV Fluids 1000 / 1000 0.9 % Sodium Chloride 1, 1000 / 1000 000 ML @ 75 mls/hr IVC . [id number] Rx#: [id number] Oral 500 / 500 Output: Urine 200 / 200 350 / 350 400 / 400 Chest Tube Drainage Mediastinal Other: Meal Breakfast Percent of Meal Consumed 100% Weight 73.4 kg Patient Weight 09/26/16 23:59 Weight 73.4 kg General appearance: average body habitus - Head Head exam: Present: atraumatic, normal inspection - Eye Eye exam: Present: sclera anicteric - ENT ENT exam: Present: mucous membranes moist Additional comments: O2 NC, no mm bleeding - Neck Neck exam: Present: full ROM - Respiratory Respiratory exam: Present: CTAB - Cardiovascular Cardiovascular exam: Present: +S1, +S2 Additional comments: ant chest dressing in place. CT blood stained drainage - GI/Abdominal GI/Abdominal exam: Present: normal bowel sounds, soft - Extremities Exam Extremities exam: Present: normal inspection - Neurological Exam Neurological exam: Present: alert, oriented X3 Oncology: Obj Data - Labs CBC & Chem 7: 09/26/16 03:30 09/26/16 03:30 Labs: Laboratory Results - last 24 hr 09/25/16 09/25/16 09/25/16 09:08 10:00 11:18 WBC 12.3 H RBC 3.53 L Hgb 10.1 L Hct 30.3 L MCV 85.8 MCH 28.6 MCHC 33.3 RDW 16.8 H Plt Count 47 L MPV 10.3 Seg Neutrophils % 53.0 Band Neutrophils % 21.0 H Lymphocytes % 12.0 Monocytes % 5.0 Metamyelocytes % 2.0 H Myelocytes % 3.0 H Blast Cells % 4.0 H Neutrophils # 9.1 H Lymphocytes # 1.5 Monocytes # 0.6 Reactive Lymphocytes Smudge Cells Platelet Estimate Marked Decrease L Immature Plt Fraction 3.2 Anisocytosis ABG pH ABG pCO2 ABG pO2 ABG HCO3 ABG Total CO2 ABG O2 Saturation ABG Base Excess Liter Flow Blood Gas Modality Inspired O2 Sodium Potassium Chloride Carbon Dioxide BUN Creatinine Est GFR ( Amer) Est GFR (Non-Af Amer) BUN/Creatinine Ratio Glucose POC Glucose 128 H Calculated Osmolality Calcium Specimen Rejected Miscellaneous 09/25/16 09/26/16 09/26/16 11:41 03:30 03:30 WBC 10.5 RBC 3.06 L Hgb 8.7 L Hct 26.2 L MCV 85.6 MCH 28.4 MCHC 33.2 RDW 16.7 H Plt Count 37 L MPV 11.8 Seg Neutrophils % 68.0 Band Neutrophils % 20.0 H Lymphocytes % 12.0 Monocytes % Metamyelocytes % Myelocytes % Blast Cells % Neutrophils # 9.2 H Lymphocytes # 1.3 Monocytes # Reactive Lymphocytes Present A Smudge Cells Present A Platelet Estimate Marked Decrease L Immature Plt Fraction 3.4 Anisocytosis 1+ A ABG pH 7.26 L ABG pCO2 64 H ABG pO2 142 H ABG HCO3 28.7 H ABG Total CO2 30.7 H ABG O2 Saturation 99 H ABG Base Excess 0.7 Liter Flow 8 Blood Gas Modality OM Inspired O2 Sodium 141 Potassium 3.9 Chloride 107 Carbon Dioxide 26 BUN 40 H Creatinine 1.50 H Est GFR ( Amer) 42 L Est GFR (Non-Af Amer) 35 L BUN/Creatinine Ratio 27 H Glucose 129 H POC Glucose Calculated Osmolality 303 H Calcium 7.5 L Specimen Rejected 09/26/16 04:16 WBC RBC Hgb Hct MCV MCH MCHC RDW Plt Count MPV Seg Neutrophils % Band Neutrophils % Lymphocytes % Monocytes % Metamyelocytes % Myelocytes % Blast Cells % Neutrophils # Lymphocytes # Monocytes # Reactive Lymphocytes Smudge Cells Platelet Estimate Immature Plt Fraction Anisocytosis ABG pH 7.36 ABG pCO2 47 H ABG pO2 67 L ABG HCO3 26.6 ABG Total CO2 28.0 H ABG O2 Saturation 92 L ABG Base Excess 0.9 Liter Flow Blood Gas Modality NC Inspired O2 32 Sodium Potassium Chloride Carbon Dioxide BUN Creatinine Est GFR ( Amer) Est GFR (Non-Af Amer) BUN/Creatinine Ratio Glucose POC Glucose Calculated Osmolality Calcium Specimen Rejected - Impressions Impressions Chest X-Ray 09/25/16 09:11 IMPRESSION: 1. Left-sided chest tube without evidence of pneumothorax. 2. Enlarged cardiac silhouette with minimal perihilar opacification and bilateral pleural effusions. D/ / Edilberto Wilde MD / Edilberto Wilde MD Interpreting Provider: Edilberto Wilde MD Chest X-Ray 09/26/16 06:00 IMPRESSION: Slight increase in bibasilar airspace disease, likely atelectasis. D/ / Weston Tariq MD / Weston Tariq MD Interpreting Provider: Weston Tariq MD - ABG Interpretation ABG results: ABG ABG pH 7.36 pH Units (7.32-7.45) 09/26/16 04:16 ABG pCO2 47 mmHg (35-45) H 09/26/16 04:16 ABG pO2 67 mmHg (85-104) L 09/26/16 04:16 ABG O2 Saturation 92 % (95-98) L 09/26/16 04:16 PT/INR, D-dimer PT 18.4 Seconds (9.4-12.1) H 09/24/16 04:48 Consult Discharge Plan - Plan Referrals: Yuri Monsivais DO [Primary Care Provider] -
[2016-09-26] MEDS: 0.9 % Sodium Chloride 1,000 ML IVC SCH (15:07)
[2016-09-26 16:29] LABS: CK-BB (CK isoenzymes) 0 % (0-0); CK-MB (CK isoenzymes) 0 % (0-4); CK-MM (CK-isoenzymes) 100 % (96-100)
[2016-09-26 16:29] LABS: CK-MB (CK isoenzymes) 0 % (0-4); CK-MM (CK-isoenzymes) 100 % (96-100)
[2016-09-27] MEDS: Albuterol 2.5 MG/3 ML NEBULIZER IH SCH ×6 (00:25→19:45)
[2016-09-27] MEDS: 0.9 % Sodium Chloride 1,000 ML IVC SCH ×2 (00:32→19:34)
[2016-09-27 04:52] LABS: Hematocrit 25.2 % (35.3-44.9); Hemoglobin 8.6 g/dL (11.5-15.4); Immature Platelets 2.7 % (1.1-6.1); Mean Corpuscular HGB Conc 34.1 g/dL (31.6-35.5); Mean Corpuscular Hemoglobin 28.8 pg (28.0-33.3); Mean Corpuscular Volume 84.3 fL (83.0-100.0); Mean Platelet Volume 10.5 fL (9.4-12.4); Red Blood Count 2.99 M/mcL (3.82-4.97); Red Cell Distribution Width 16.6 % (11.5-14.5)
[2016-09-27 05:03] LABS: Calcium 7.7 mg/dL (8.6-10.8); Potassium 3.6 mEq/L (3.5-4.5)
[2016-09-27 05:32] LABS: Platelet Count 24 K/mcL (140-400)
[2016-09-27 06:10] LABS: Platelet Estimate Marked Decrease (Normal); Reactive Lymphocytes Present (Not Present)
[2016-09-27 06:20] LABS: Band Neutrophils % 10.9 % (0-4); Lymphocytes % 9.1 %; Monocytes # 1.8 K/mcL (0.0-1.3); Monocytes % 16.4 %; Myelocytes % 3.6 % (0); Neutrophils # 7.6 K/mcL (1.6-8.9)
[2016-09-27 06:21] LABS: Anisocytosis 1+ (Not Present)
[2016-09-27 07:05] LABS: CK Total (Ck Isoenzymes) 50 U/L (20-180); CK-BB (CK isoenzymes) 0 % (0-0)
[2016-09-27 07:06] LABS: CK Total (Ck Isoenzymes) 103 U/L (20-180)
--- NOTE | 2016-09-27 07:56 | Cardiothoracic Progress Note ---
Date of Encounter: 09/27/16 Time of Encounter: 07:55 - Assessment and plan (1) Pericardial effusion Current Visit: Yes Status: Acute The patient is recovering well from her subxiphoid pericardial window. The chest tube drainage has decreased. The chest tube will remain in place for several days to allow the adhesion between the epicardium and the pericardium. She may be transferred to the stepdown unit when a bed is available. The assessment and plan as outlined above was discussed with the patient and/or family members who expressed understanding and agreement. All questions were answered. - Subjective Procedure(s) Performed: POD#2 S/P Subxiphoid pericardial window Interval history: The patient remained hemodynamically stable overnight. She is sitting in a chair and has no complaints. Vital Signs, Last 4 Hours Temp Pulse Resp BP Pulse Ox 09/27/16 07:40 27 93 09/27/16 07:31 98.5 F 09/27/16 04:00 99 F 101 27 150/65 93 Oxgyen Flow Rate Oxygen Flow Rate (LPM) 4 Clinical Data, last 8 Hours Output, Chest Tube Drainage 0 Amount [Mediastinal] Output, Chest Tube Drainage 6 Amount [Mediastinal] Output, Urine Amount 800 Weight 09/25/16 09/26/16 09/27/16 23:59 23:59 23:59 Weight 68.5 kg 73.4 kg 73.1 kg - Physical Examination General: Conversant, No Apparent Distress Cardiac: Reg Rate and Rhythm, Normal S1 and S2, No Murmur Incision: No signs of infection, Dry/intact dressing Chest tubes: Minimal drainage, Other (No air leak.) Lungs: Normal Breath Sounds, No Wheeze, Rales, Rhonchi Neuro: Alert and responsive, No focal deficits noted Vascular: Normal capillary refill Extremities: No Clubbing, No Cyanosis, No Edema - Labs 09/27/16 04:40 09/27/16 04:40 Lab Results, Last 24 hours 09/27/16 09/27/16 04:40 04:40 WBC 10.7 Hgb 8.6 L Hct 25.2 L Plt Count 24 L* Sodium 142 Potassium 3.6 Chloride 107 Carbon Dioxide 27 BUN 36 H Creatinine 1.51 H Glucose 96 Calcium 7.7 L - Imaging Chest Xray: image reviewed (No pneumothorax.) - VTE Documentation of Mechanical Device: Intermittent pneumatic compression device Consult Discharge Plan - Plan Referrals: Colopy,Yuri Leone DO [Primary Care Provider] -
[2016-09-27] MEDS: Folic Acid 1 MG TABLET PO SCH (08:04)
--- NOTE | 2016-09-27 10:50 | Oncology Inp Progress Note ---
Date of Encounter: 09/27/16 Time of Encounter: 10:45 (1) Pericardial effusion Current Visit: Yes Status: Acute Assessment and plan: Status post window placement 09/25/2016 without complication. Appreciate the expert care provided by our cardiothoracic team. I will arrange for transfusion of one unit of platelets and repeat CBC in the a.m. Please do not hesitate to call me at [phone] for bleeding issues. (2) Acute myeloid leukemia Current Visit: Yes Status: Chronic Assessment and plan: Currently receiving palliative decitabine for refractory thrombocytopenia. Further management deferred to outpatient oncologist. No therapy while hospitalized. Again we will support with platelet transfusions intermittently. Qualifiers: Leukemia Active/Remission status: relapsed Qualified Code(s): C92.02 - Acute myeloblastic leukemia, in relapse Oncology: Subj Interval history: Mrs. Miles underwent successful and uneventful pericardial window placement. She has not had any significant bleeding and drainage has been serosanguineous. She is coughing a bit and this cough does cause some incisional discomfort but otherwise she feels well. No fever chills or symptoms of infection. She definitely feels better since her window placement with regard to her breathing. - Constitutional Vitals: Vital Signs Temp Pulse Resp BP Pulse Ox 09/27/16 09:49 97 23 133/55 96 09/27/16 07:40 27 93 09/27/16 07:31 98.5 F 09/27/16 04:00 99 F 101 27 150/65 93 09/27/16 03:43 18 92 09/27/16 00:25 20 93 09/27/16 00:00 98.4 F 102 12 131/61 95 09/26/16 20:46 23 95 09/26/16 20:00 98.3 F 93 26 134/72 95 09/26/16 18:36 98.3 F 09/26/16 18:00 87 16 135/58 96 09/26/16 17:00 103 18 130/62 90 09/26/16 16:12 16 95 09/26/16 16:00 98.2 F 88 18 127/54 96 09/26/16 15:00 88 16 136/57 95 09/26/16 13:00 88 18 116/50 96 09/26/16 12:00 98.1 F 89 16 130/53 96 09/26/16 11:48 88 09/26/16 11:24 20 98 09/26/16 11:00 86 20 127/55 98 Intake and Output 09/27/16 09/27/16 09/27/16 00:59 08:59 16:59 Intake Total 360 / 360 Output Total 675 / 675 806 / 806 Balance -315 / -315 -806 / -806 Intake: Oral 360 / 360 Output: Urine 650 / 650 800 / 800 Chest Tube Drainage Mediastinal Other: Meal Dinner Percent of Meal Consumed 100% Weight 73.1 kg - Head Head exam: Present: atraumatic, normal inspection, normocephalic - Eye Eye exam: Present: normal appearance, conjuntiva pink, sclera anicteric - ENT ENT exam: Present: mucous membranes moist, normal exam, normal oropharynx - Neck Neck exam: Present: full ROM, normal inspection - Respiratory Respiratory exam: Present: decreased breath sounds - Cardiovascular Cardiovascular exam: Present: RRR Additional comments: Pericardial drain in place with serosanguinous drainage - GI/Abdominal GI/Abdominal exam: Present: normal bowel sounds, soft - Extremities Exam Extremities exam: Present: pedal edema - Neurological Exam Neurological exam: Present: alert, CN II-XII intact, oriented X3, no focal deficits Oncology: Obj Data - Labs CBC & Chem 7: 09/27/16 04:40 09/27/16 04:40 Labs: Laboratory Results - last 24 hr 09/22/16 09/22/16 09/27/16 17:04 22:50 04:40 WBC 10.7 RBC 2.99 L Hgb 8.6 L Hct 25.2 L MCV 84.3 MCH 28.8 MCHC 34.1 RDW 16.6 H Plt Count 24 L* MPV 10.5 Seg Neutrophils % 60.0 Band Neutrophils % 10.9 H Lymphocytes % 9.1 Monocytes % 16.4 Myelocytes % 3.6 H Neutrophils # 7.6 Lymphocytes # 1.0 Monocytes # 1.8 H Reactive Lymphocytes Present A Platelet Estimate Marked Decrease L Immature Plt Fraction 2.7 Anisocytosis 1+ A Sodium Potassium Chloride Carbon Dioxide BUN Creatinine Est GFR ( Amer) Est GFR (Non-Af Amer) BUN/Creatinine Ratio Glucose Calculated Osmolality Calcium Creatine Kinase 50 103 CK-MM (CK-3) 100 100 CK-MB (CK-2) 0 0 CK-BB (CK-1) 0 0 Macro CK Type I 0 0 Macro CK Type II 0 0 09/27/16 04:40 WBC RBC Hgb Hct MCV MCH MCHC RDW Plt Count MPV Seg Neutrophils % Band Neutrophils % Lymphocytes % Monocytes % Myelocytes % Neutrophils # Lymphocytes # Monocytes # Reactive Lymphocytes Platelet Estimate Immature Plt Fraction Anisocytosis Sodium 142 Potassium 3.6 Chloride 107 Carbon Dioxide 27 BUN 36 H Creatinine 1.51 H Est GFR ( Amer) 42 L Est GFR (Non-Af Amer) 34 L BUN/Creatinine Ratio 24 Glucose 96 Calculated Osmolality 302 H Calcium 7.7 L Creatine Kinase CK-MM (CK-3) CK-MB (CK-2) CK-BB (CK-1) Macro CK Type I Macro CK Type II Pericardial fluid: Red blood cells, few inflammatory cells and rare degenerated cells seen - Impressions Impressions Chest X-Ray 09/27/16 06:00 IMPRESSION: 1. Findings consistent with presence of bilateral pleuroparenchymal disease, left much more so than right. 2. Mild fullness/ill definition of pulmonary vascularity raises possibility of underlying pulmonary vascular congestion. 3. Distal aspect of thoracostomy tube appears to overlie the medial aspect of the left lower lung zone as described above. D/ / 09/27/2016 07:26:23 Slade Hester MD / bcagerson Interpreting Provider: Slade Hester MD - ABG Interpretation ABG results: ABG ABG pH 7.36 pH Units (7.32-7.45) 09/26/16 04:16 ABG pCO2 47 mmHg (35-45) H 09/26/16 04:16 ABG pO2 67 mmHg (85-104) L 09/26/16 04:16 ABG O2 Saturation 92 % (95-98) L 09/26/16 04:16 PT/INR, D-dimer PT 18.4 Seconds (9.4-12.1) H 09/24/16 04:48 Consult Discharge Plan - Plan Referrals: Yuri Monsivais DO [Primary Care Provider] -
[2016-09-27] MEDS: *HR* Acetaminophen w/Cod 300-30 mg 1 TAB TABLET PO PRN ×2 (13:00→21:14)
[2016-09-27] MEDS: ALPRAZolam 1 MG TABLET PO PRN ×2 (13:00→21:14)
[2016-09-27] MEDS: *HR* Metoprolol 5 MG/5 ML VIAL IVP PRN ×2 (13:38→20:08)
--- NOTE | 2016-09-27 17:11 | Internal Med Progress Note ---
Date of Encounter: 09/26/16 Time of Encounter: 15:00 - Assessment and plan (1) Pericardial effusion Current Visit: Yes Status: Acute Assessment and plan: Echocardiogram showed severe pericardial effusion and signs of early tamponade. Cardiothoracic surgery was consulted and patient underwent subxiphoid pericardial window creation, chest tube drainage up to 160 mL so far. (2) New onset a-fib Current Visit: Yes Status: Acute Assessment and plan: Currently rate controlled. Continue by mouth Cardizem along with when necessary IV metoprolol for appropriate heart rate control. Cardiology on board. Patient is not a candidate for long-term anticoagulation due to significant thrombocytopenia. (3) Elevated troponin Current Visit: Yes Status: Resolved (4) Cellulitis Current Visit: Yes Status: Resolved Assessment and plan: Right hand cellulitis secondary to dog scratch, improved. Completed antibiotics. Qualifiers: Site of cellulitis: extremity Site of cellulitis of extremity: upper extremity Laterality: right Qualified Code(s): L03.113 - Cellulitis of right upper limb (5) Refractory thrombocytopenia Current Visit: Yes Status: Acute Assessment and plan: Follows with oncology as outpatient, likely has MDS. Platelet transfusion dependent. Oncology follow-up appreciated; Continue when necessary platelet transfusion, platelet count continues to decline. Monitor closely and transfuse if decreased below 35,000. (6) Pancytopenia Current Visit: Yes Status: Chronic Assessment and plan: Hemoglobin decreased to 8.7. Continue to monitor. 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 Assessment and plan: Outpatient oncology follow-up. Qualifiers: Leukemia Active/Remission status: relapsed Qualified Code(s): C92.02 - Acute myeloblastic leukemia, in relapse (10) Depression Current Visit: Yes Status: Chronic Qualifiers: Depression Type: unspecified Qualified Code(s): F32.9 - Major depressive disorder, single episode, unspecified (11) Anxiety Current Visit: Yes Status: Chronic - Subjective Interval history: Improving since receiving pericardial window. Chest pain is well-controlled. No shortness of breath, able to get out of bed to chair. Tolerates diet. Reports lactose but no bowel movements. - Constitutional Vitals: Temp Pulse Resp BP Pulse Ox 97.9 F 146 24 116/55 95 09/27/16 17:02 09/27/16 17:02 09/27/16 17:02 09/27/16 17:02 09/27/16 17:02 General appearance: Present: A&O X 3, answers questions appropriately - Respiratory Respiratory exam: Present: CTAB. Absent: accessory muscle use, rales, rhonchi, wheezes - Cardiovascular Cardiovascular exam: Present: RRR, +S1, +S2. Absent: diastolic murmur, gallop, rubs, systolic murmur - GI/Abdominal GI/Abdominal exam: Present: normal bowel sounds, soft, no peritoneal signs. Absent: distended, tenderness - Extremities Exam Extremities exam: Present: full ROM, warm, radial pulses palpable and symmetrical. Absent: calf tenderness, cyanotic, pedal edema Additional comments: Right hand wound-healing well, no evidence of infection. Internal Medicine: Result - Labs CBC & Chem 7: 09/27/16 04:40 09/27/16 04:40 Labs: Short CBC 09/27/16 Range/Units 04:40 WBC 10.7 (4.3-11.1) K/mcL Hgb 8.6 L (11.5-15.4) g/dL Hct 25.2 L (35.3-44.9) % Plt Count 24 L* (140-400) K/mcL Neutrophils # 7.6 (1.6-8.9) K/mcL BMP 09/27/16 04:40 Sodium 142 Potassium 3.6 Chloride 107 Carbon Dioxide 27 BUN 36 H Creatinine 1.51 H Glucose 96 Calcium 7.7 L Cardiac Enzymes 09/22/16 09/22/16 Range/Units 17:04 22:50 CK-MB (CK-2) 0 0 (0-4) % - ABG Interpretation ABG results: ABG ABG pH 7.36 pH Units (7.32-7.45) 09/26/16 04:16 ABG pCO2 47 mmHg (35-45) H 09/26/16 04:16 ABG pO2 67 mmHg (85-104) L 09/26/16 04:16 ABG O2 Saturation 92 % (95-98) L 09/26/16 04:16 PT/INR, D-dimer PT 18.4 Seconds (9.4-12.1) H 09/24/16 04:48 - Impressions Impressions Chest X-Ray 09/27/16 06:00 IMPRESSION: 1. Findings consistent with presence of bilateral pleuroparenchymal disease, left much more so than right. 2. Mild fullness/ill definition of pulmonary vascularity raises possibility of underlying pulmonary vascular congestion. 3. Distal aspect of thoracostomy tube appears to overlie the medial aspect of the left lower lung zone as described above. D/ / 09/27/2016 07:26:23 Slade Hester MD / bcarter Interpreting Provider: Slade Hester MD - VTE Documentation of Mechanical Device: Intermittent pneumatic compression device Consult Discharge Plan - Plan Referrals: Yuri Monsivais DO [Primary Care Provider] -
--- NOTE | 2016-09-27 17:21 | Internal Med Progress Note ---
Date of Encounter: 09/27/16 Time of Encounter: 14:00 - Assessment and plan (1) Pericardial effusion Current Visit: Yes Status: Acute Assessment and plan: Echocardiogram showed severe pericardial effusion and signs of early tamponade. Cardiothoracic surgery was consulted and patient underwent subxiphoid pericardial window creation, chest tube drainage up to 180 mL so far, significantly decreased. AFB smear and Gram stain and culture negative. 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 Continue pain control with when necessary Percocet. Patient is medically stable for transfer to regular floor, awaiting beds. (2) New onset a-fib Current Visit: Yes Status: Acute Assessment and plan: Noted to have asymptomatic atrial fibrillation with rapid ventricular response, not responding to IV metoprolol or Cardizem pushes. Will start IV Cardizem drip at this time and hold oral Cardizem. Continue telemetry. Hold IV hydration. Will discuss with cardiology. Patient is not a candidate for long- term anticoagulation due to significant thrombocytopenia. (3) Elevated troponin Current Visit: Yes Status: Resolved (4) Cellulitis Current Visit: Yes Status: Resolved Qualifiers: Site of cellulitis: extremity Site of cellulitis of extremity: upper extremity Laterality: right Qualified Code(s): L03.113 - Cellulitis of right upper limb (5) Refractory thrombocytopenia Current Visit: Yes Status: Acute Assessment and plan: Follows with oncology as outpatient, likely has MDS. Platelet transfusion dependent. Oncology follow-up appreciated; received one unit platelet transfusion today. Continue when necessary platelet transfusion, platelet count continues to decline. (6) Pancytopenia Current Visit: Yes Status: Chronic Assessment and plan: Hemoglobin stable. Continue to monitor. 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 - Subjective Interval history: Denies chest pain, palpitations or shortness of breath. Tolerates diet and noted to have bowel movements. - Constitutional Vitals: Temp Pulse Resp BP Pulse Ox 97.9 F 146 24 116/55 95 09/27/16 17:02 09/27/16 17:02 09/27/16 17:02 09/27/16 17:02 09/27/16 17:02 General appearance: Present: A&O X 3, answers questions appropriately - Respiratory Respiratory exam: Present: CTAB. Absent: accessory muscle use, rales, rhonchi, wheezes - Cardiovascular Cardiovascular exam: Present: RRR, +S1, +S2, tachycardia. Absent: diastolic murmur, gallop, rubs, systolic murmur - GI/Abdominal GI/Abdominal exam: Present: normal bowel sounds, soft, no peritoneal signs. Absent: distended, tenderness - Extremities Exam Extremities exam: Present: full ROM, warm, radial pulses palpable and symmetrical. Absent: calf tenderness, cyanotic, pedal edema Internal Medicine: Result - Labs CBC & Chem 7: 09/27/16 04:40 09/27/16 04:40 Labs: Short CBC 09/27/16 Range/Units 04:40 WBC 10.7 (4.3-11.1) K/mcL Hgb 8.6 L (11.5-15.4) g/dL Hct 25.2 L (35.3-44.9) % Plt Count 24 L* (140-400) K/mcL Neutrophils # 7.6 (1.6-8.9) K/mcL BMP 09/27/16 04:40 Sodium 142 Potassium 3.6 Chloride 107 Carbon Dioxide 27 BUN 36 H Creatinine 1.51 H Glucose 96 Calcium 7.7 L Cardiac Enzymes 09/22/16 09/22/16 Range/Units 17:04 22:50 CK-MB (CK-2) 0 0 (0-4) % - ABG Interpretation ABG results: ABG ABG pH 7.36 pH Units (7.32-7.45) 09/26/16 04:16 ABG pCO2 47 mmHg (35-45) H 09/26/16 04:16 ABG pO2 67 mmHg (85-104) L 09/26/16 04:16 ABG O2 Saturation 92 % (95-98) L 09/26/16 04:16 PT/INR, D-dimer PT 18.4 Seconds (9.4-12.1) H 09/24/16 04:48 - Impressions Impressions Chest X-Ray 09/27/16 06:00 IMPRESSION: 1. Findings consistent with presence of bilateral pleuroparenchymal disease, left much more so than right. 2. Mild fullness/ill definition of pulmonary vascularity raises possibility of underlying pulmonary vascular congestion. 3. Distal aspect of thoracostomy tube appears to overlie the medial aspect of the left lower lung zone as described above. D/ / 09/27/2016 07:26:23 Slade Hester MD / bcarter Interpreting Provider: Slade Hester MD - VTE Documentation of Mechanical Device: Intermittent pneumatic compression device Consult Discharge Plan - Plan Referrals: Yuri Monsivais DO [Primary Care Provider] -
[2016-09-27] MEDS: *HR* Metoprolol 5 MG/5 ML VIAL IVP SCH ×2 (23:00→23:10)
[2016-09-28] MEDS: Albuterol 2.5 MG/3 ML NEBULIZER IH SCH ×7 (00:02→23:08)
[2016-09-28] MEDS: *HR* Metoprolol 5 MG/5 ML VIAL IVP PRN ×2 (06:05→22:52)
[2016-09-28 06:17] LABS: Hemoglobin 8.6 g/dL (11.5-15.4)
[2016-09-28 06:19] LABS: Immature Platelets 5.2 % (1.1-6.1); Mean Corpuscular HGB Conc 33.1 g/dL (31.6-35.5); Mean Corpuscular Hemoglobin 28.5 pg (28.0-33.3); Mean Corpuscular Volume 86.1 fL (83.0-100.0); Mean Platelet Volume 10.6 fL (9.4-12.4); Red Blood Count 3.02 M/mcL (3.82-4.97); Red Cell Distribution Width 16.9 % (11.5-14.5)
[2016-09-28 06:22] LABS: Platelet Count 55 K/mcL (140-400)
[2016-09-28 06:33] LABS: Anisocytosis 1+ (Not Present); Lymphocytes # 1.5 K/mcL (0.6-4.6); Neutrophils # 9.8 K/mcL (1.6-8.9); Reactive Lymphocytes Present (Not Present)
[2016-09-28 06:34] LABS: Platelet Estimate Decreased (Normal)
--- NOTE | 2016-09-28 06:58 | Cardiothoracic Progress Note ---
Date of Encounter: 09/28/16 Time of Encounter: 06:56 - Assessment and plan (1) Pericardial effusion Current Visit: Yes Status: Acute The patient is recovering well from her subxiphoid pericardial window. The chest tube drainage has decreased. The chest tube will remain in place until tomorrow to allow the adhesion between the epicardium and the pericardium. She will continue on medical therapy for her atrial fibrillation/flutter. She may be transferred to the stepdown unit when a bed is available. The assessment and plan as outlined above was discussed with the patient and/or family members who expressed understanding and agreement. All questions were answered. - Subjective Procedure(s) Performed: POD#3 S/P Subxiphoid pericardial window Interval history: The patient remained hemodynamically stable overnight. She is resting in her hospital bed. She has no complaints. Vital Signs, Last 4 Hours Temp Pulse Resp BP Pulse Ox 09/28/16 06:00 70 23 119/68 90 09/28/16 05:00 132 27 105/62 89 09/28/16 04:00 131 21 112/49 88 09/28/16 03:45 18 91 09/28/16 03:35 116 09/28/16 03:22 97.8 F 09/28/16 03:00 116 17 117/79 91 Oxgyen Flow Rate Oxygen Flow Rate (LPM) 4 Clinical Data, last 8 Hours Output, Chest Tube Drainage 6 Amount [Mediastinal] Output, Urine Amount 0 Output, Urine Amount 0 Weight 09/26/16 09/27/16 09/28/16 23:59 23:59 23:59 Weight 73.4 kg 73.1 kg 72.1 kg - Physical Examination General: Conversant, No Apparent Distress Neck: No JVD, Normal carotid pulses Cardiac: Normal S1 and S2, No Murmur, Other (Irregular rate and rhythm (atrial fibrillation/flutter).) Incision: No signs of infection, Dry/intact dressing Chest tubes: Minimal drainage, Other (No air leak.) Lungs: Normal Breath Sounds, No Wheeze, Rales, Rhonchi Neuro: Alert and responsive, No focal deficits noted Vascular: Normal capillary refill Musculoskeletal: No Chest Wall Tenderness Extremities: No Clubbing, No Cyanosis, No Edema - Labs 09/28/16 06:10 09/27/16 04:40 Lab Results, Last 24 hours 09/28/16 06:10 WBC 12.2 H Hgb 8.6 L Hct 26.0 L Plt Count 55 L D - VTE Documentation of Mechanical Device: Intermittent pneumatic compression device Consult Discharge Plan - Plan Referrals: ColopyYuri DO [Primary Care Provider] -
[2016-09-28] MEDS: Folic Acid 1 MG TABLET PO SCH (08:03)
[2016-09-28] MEDS: ALPRAZolam 1 MG TABLET PO PRN ×2 (08:03→20:26)
[2016-09-28] MEDS: *HR* Acetaminophen w/Cod 300-30 mg 1 TAB TABLET PO PRN ×2 (08:03→20:26)
--- NOTE | 2016-09-28 09:24 | Cardiology Progress Note ---
Date of Encounter: 09/28/16 Time of Encounter: 09:00 Assessment and Plan (1) New onset a-fib Current Visit: Yes Status: Acute Atrial fibrillation with RVR on admission. HR 150 on admission, may have been exacerbated by large pericardial effusion. Reconsulted for atrial fibrillation with RVR, upon exam, HR 110's-130's afib/ flutter, appears asymptomatic. On cardizem IV gtt at 20 mg/hr and po, SBP 90s. 12 hour tele: avg JV=102 afib/flutter. Will add low dose betablocker. TTE showed EF 70% and no significant valvular disease. TSH normal. She is not a candidate for intermediate manager anticoagulation in the setting of severe/ chronic thrombocytopenia. Out-pt f/u will be scheduled with [facility]. Please call with questions. (2) Elevated troponin Current Visit: Yes Status: Resolved Mild adynamic troponin elevation up to 0.15 in the setting of atrial fibrillation with RVR, anemia, HOOD, and early tamponade. Demand ischemia. Doubt ACS. She is not a candidate for ischemia evaluation due to thrombcytopenia and anemia. TTE shows Normal LV systolic function, LVEF 70%. s/p pericardial window. (3) Pericardial effusion Current Visit: Yes Status: Acute TTE reviewed: Normal LV systolic function, LVEF 70%, large circumferential pericardial effusion present with echocardiographic evidence of early tamponade (increased respiratory variation in mitral inflow, mildly decreased inspiratory collapse of IVC). S/p pericadial window. Chest tubes in place with serosang drainage. CT surgery following. Discussion w patient/family: The assessment and plan as outlined above was discussed with the patient and/or family members who expressed understanding and agreement. All questions were answered. Thank you for involving us in the care of your patient. Please call with any questions. The patient will be discussed and reviewed with Dr. Duarte; changes to be made accordingly. Subjective Principal diagnosis: Afib, pericardial effusion Interval history: Seen and examined. Denies complaints this AM. Denies palpitations, chest pain, dyspnea, or dizziness. Objective Vital Signs, Last 4 Hours Temp Pulse Resp BP Pulse Ox 09/28/16 08:18 151 22 84/59 93 09/28/16 08:12 96.7 F L 09/28/16 08:08 95 09/28/16 07:46 22 97 09/28/16 07:45 118 22 106/70 96 09/28/16 06:00 70 23 119/68 90 General: Conversant, No Apparent Distress HEENT: Atraumatic, Normocephaly, Mucus Membranes Moist Cardiac: Other (irregularly irregular) Lungs: Normal Breath Sounds Abdomen: Soft, Other (chest tube draining serosang. fluid) Skin: No rashes noted on visualized skin Musculoskeletal: No Chest Wall Tenderness Extremities: No Edema, Normal Pulses Results 09/28/16 06:10 09/27/16 04:40 Lab Results 09/28/16 06:10 WBC 12.2 H Hgb 8.6 L Hct 26.0 L Plt Count 55 L D Active Medications Acetaminophen/Codeine Phosphate (Tylenol W/Codeine #3) 1 tab PO Q6HR PRN PRN Reason: Pain Stop: 03/24/17 16:50 Last Admin: 09/28/16 08:03 Dose: 1 tab Albuterol Sulfate (Proventil Neb) 2.5 mg IH [id number] PRN Reason: Protocol Stop: 03/27/17 12:01 Last Admin: 09/28/16 07:44 Dose: 2.5 mg Alprazolam (Xanax) 1 mg PO TID PRN; Protocol PRN Reason: Anxiety Stop: 03/24/17 16:50 Last Admin: 09/28/16 08:03 Dose: 1 mg Aminocaproic Acid (Amicar) 500 mg PO TID DEV Stop: 03/24/17 21:01 Last Admin: 09/28/16 08:02 Dose: 500 mg Citalopram Hydrobromide (Celexa) 20 mg PO DAILY DEV Stop: 03/25/17 09:01 Last Admin: 09/28/16 08:03 Dose: 20 mg Diltiazem HCl (Cardizem) 30 mg PO Q6HR DEV Stop: 03/28/17 12:01 Last Admin: 09/27/16 13:00 Dose: 30 mg Diphenhydramine HCl (Benadryl) 25 mg IVP Q6HR PRN PRN Reason: Allergic Reaction Stop: 03/24/17 17:23 Last Admin: 09/22/16 18:38 Dose: 25 mg Folic Acid (Folic Acid) 1 mg PO DAILY DEV Stop: 03/25/17 09:01 Last Admin: 09/28/16 08:03 Dose: 1 mg Diltiazem HCl 125 mg/ Dextrose 125 mls @ 10 mls/hr IVC .[id number] DEV; 10 MG/HR PRN Reason: Protocol Stop: 03/29/17 17:16 Last Titration: 09/28/16 07:54 Dose: 20 mg/hr, 20 mls/hr Metoprolol Tartrate (Lopressor) 5 mg IVP Q6HR PRN PRN Reason: atrial fibrillation Stop: 03/26/17 14:32 Last Admin: 09/28/16 06:05 Dose: 5 mg Morphine Sulfate (Morphine Sulfate) 2 mg IVP Q2H PRN PRN Reason: Moderate Pain Stop: 03/27/17 09:12 Naloxone HCl (Narcan) 0.4 mg IVP Q2MIN PRN PRN Reason: Opioid Reversal Stop: 03/27/17 09:12 Ondansetron HCl (Zofran Odt) 8 mg PO Q8H PRN PRN Reason: Nausea Last Admin: 09/22/16 17:41 Dose: 8 mg Oxycodone/Acetaminophen (Percocet 5/325) 1 each PO Q4HR PRN PRN Reason: Mild Pain Stop: 03/27/17 09:12 - Imaging and Cardiology Other Results: 12 hour tele: avg OL=313 afib/flutter - EKG Interpretation EKG results cardiology: personally reviewed - VTE Documentation of Mechanical Device: Intermittent pneumatic compression device Consult Discharge Plan - Plan Referrals: Yuri Monsivais DO [Primary Care Provider] -
[2016-09-28] MEDS: Metoprolol XL (24 HR) Succ 25 MG TAB.ER.24H PO SCH (10:34)
--- NOTE | 2016-09-28 11:06 | Internal Med Progress Note ---
Date of Encounter: 09/28/16 Time of Encounter: 11:05 - Assessment and plan (1) Pericardial effusion Current Visit: Yes Status: Acute Assessment and plan: Echocardiogram showed severe pericardial effusion and signs of early tamponade. Cardiothoracic surgery was consulted and patient underwent subxiphoid pericardial window creation, chest tube drainage significantly decreased. AFB smear and Gram stain and culture negative. 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 Continue pain control with when necessary Percocet. Patient is medically stable for transfer to regular floor, awaiting beds. (2) New onset a-fib Current Visit: Yes Status: Acute Assessment and plan: Noted to have asymptomatic atrial fibrillation with rapid ventricular response, not responding to IV Cardizem drip. Reconsukted Cardiology and recommended adding low dose beta radha and continue current management. Continue telemetry. Patient is not a candidate for long-term anticoagulation due to significant thrombocytopenia. (3) Elevated troponin Current Visit: Yes Status: Resolved (4) Cellulitis Current Visit: Yes Status: Resolved Qualifiers: Site of cellulitis: extremity Site of cellulitis of extremity: upper extremity Laterality: right Qualified Code(s): L03.113 - Cellulitis of right upper limb (5) Refractory thrombocytopenia Current Visit: Yes Status: Acute Assessment and plan: Follows with oncology as outpatient, likely has MDS. Platelet transfusion dependent. Oncology follow-up appreciated; received one unit platelet transfusion and platelet count improved to 55K today. Continue when necessary platelet transfusion; (6) Pancytopenia Current Visit: Yes Status: Chronic Assessment and plan: Hemoglobin stable. Continue to monitor. 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 Qualifiers: Leukemia Active/Remission status: relapsed Qualified Code(s): C92.02 - Acute myeloblastic leukemia, in relapse (10) Depression Current Visit: Yes Status: Chronic Qualifiers: Depression Type: unspecified Qualified Code(s): F32.9 - Major depressive disorder, single episode, unspecified (11) Anxiety Current Visit: Yes Status: Chronic - Subjective Interval history: Doing well; denies chest discomfort, palpitations, shortness of breath; slightly drowsy today due to pain meds; - Constitutional Vitals: Temp Pulse Resp BP Pulse Ox 96.7 F L 78 22 113/70 94 09/28/16 08:12 09/28/16 10:15 09/28/16 10:15 09/28/16 10:15 09/28/16 10:15 General appearance: Present: A&O X 3, answers questions appropriately - Respiratory Respiratory exam: Present: CTAB (anterolaterally). Absent: accessory muscle use , rales, rhonchi, wheezes Additional comments: subxiphoid chest tube in place, very minimal drainage today - Cardiovascular Cardiovascular exam: Present: irregular rhythm, +S1, +S2. Absent: diastolic murmur, gallop, rubs, systolic murmur - GI/Abdominal GI/Abdominal exam: Present: normal bowel sounds, soft, no peritoneal signs. Absent: distended, tenderness Internal Medicine: Result - Labs CBC & Chem 7: 09/28/16 06:10 09/27/16 04:40 Labs: Short CBC 09/28/16 Range/Units 06:10 WBC 12.2 H (4.3-11.1) K/mcL Hgb 8.6 L (11.5-15.4) g/dL Hct 26.0 L (35.3-44.9) % Plt Count 55 L D (140-400) K/mcL Neutrophils # 9.8 H (1.6-8.9) K/mcL - ABG Interpretation ABG results: ABG ABG pH 7.36 pH Units (7.32-7.45) 09/26/16 04:16 ABG pCO2 47 mmHg (35-45) H 09/26/16 04:16 ABG pO2 67 mmHg (85-104) L 09/26/16 04:16 ABG O2 Saturation 92 % (95-98) L 09/26/16 04:16 PT/INR, D-dimer PT 18.4 Seconds (9.4-12.1) H 09/24/16 04:48 - Impressions Impressions Chest X-Ray 09/27/16 06:00 IMPRESSION: 1. Findings consistent with presence of bilateral pleuroparenchymal disease, left much more so than right. 2. Mild fullness/ill definition of pulmonary vascularity raises possibility of underlying pulmonary vascular congestion. 3. Distal aspect of thoracostomy tube appears to overlie the medial aspect of the left lower lung zone as described above. D/ / 09/27/2016 07:26:23 Slade Hester MD / warren Interpreting Provider: Slade Hester MD - VTE Documentation of Mechanical Device: Intermittent pneumatic compression device Consult Discharge Plan - Plan Referrals: ColopyYuri DO [Primary Care Provider] -
--- NOTE | 2016-09-28 17:36 | Electrocardiograph Report ---
[address] [place], [place] [address] Test Date: 2016-09-27 Pat Name: Tamy Miles Department: 109 Room: 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
[2016-09-29] MEDS: Albuterol 2.5 MG/3 ML NEBULIZER IH SCH ×6 (05:26→23:46)
[2016-09-29] MEDS: *HR* Metoprolol 5 MG/5 ML VIAL IVP PRN (05:46)
[2016-09-29 06:41] LABS: Mean Corpuscular HGB Conc 32.5 g/dL (31.6-35.5)
[2016-09-29 06:43] LABS: Hematocrit 27.1 % (35.3-44.9); Hemoglobin 8.8 g/dL (11.5-15.4); Immature Platelets 6.6 % (1.1-6.1); Mean Corpuscular Hemoglobin 28.9 pg (28.0-33.3); Mean Corpuscular Volume 89.1 fL (83.0-100.0); Mean Platelet Volume 11.7 fL (9.4-12.4); Red Blood Count 3.04 M/mcL (3.82-4.97); Red Cell Distribution Width 17.2 % (11.5-14.5)
[2016-09-29 06:58] LABS: Platelet Count 41 K/mcL (140-400)
[2016-09-29 08:51] LABS: Lymphocytes # 3.3 K/mcL (0.6-4.6); Monocytes # 0.4 K/mcL (0.0-1.3); Neutrophils # 6.5 K/mcL (1.6-8.9); Platelet Estimate Decreased (Normal)
[2016-09-29 08:52] LABS: Anisocytosis 1+ (Not Present)
--- NOTE | 2016-09-29 09:09 | Cardiothoracic Progress Note ---
Date of Encounter: 09/29/16 Time of Encounter: 09:07 - Assessment and plan (1) Leukemia Current Visit: No Status: Acute The pathology is negative for cancer. The chest tube was removed. We will consult pulmonary for intensive care management. Qualifiers: Leukemia type: myeloid Myeloid leukemia type: acute Leukemia Active/ Remission status: without remission Qualified Code(s): C92.00 - Acute myeloblastic leukemia, not having achieved remission - Subjective Interval history: The patient has no complaints. Vital Signs, Last 4 Hours Pulse Resp BP Pulse Ox 09/29/16 08:31 117 26 120/45 92 09/29/16 07:46 26 92 09/29/16 06:00 117 26 113/87 92 Oxgyen Flow Rate Oxygen Flow Rate (LPM) 3 Clinical Data, last 8 Hours Output, Urine Amount 450 Weight 09/27/16 09/28/16 09/29/16 23:59 23:59 23:59 Weight 73.1 kg 72.1 kg 75.5 kg Lungs are clear to percussion and auscultation. Heart is in an atrial fibrillation with a controlled rate on a Cardizem drip. Her incision is healing well without signs of infection. Chest tube drainage is minimal. - Labs 09/29/16 06:11 09/27/16 04:40 Lab Results, Last 24 hours 09/29/16 06:11 WBC 10.4 Hgb 8.8 L Hct 27.1 L Plt Count 41 L - VTE Documentation of Mechanical Device: Intermittent pneumatic compression device Consult Discharge Plan - Plan Referrals: Yuri Monsivais DO [Primary Care Provider] -
[2016-09-29] MEDS: Metoprolol XL (24 HR) Succ 25 MG TAB.ER.24H PO SCH (10:28)
[2016-09-29] MEDS: Folic Acid 1 MG TABLET PO SCH (10:28)
[2016-09-29] MEDS ORDERED: Furosemide 40 MG TABLET PO SCH (10:45)
--- NOTE | 2016-09-29 10:45 | Pulmonology Consult Note ---
<Roderick Daley - Last Filed: 09/29/16 13:54> Date of Encounter: 09/29/16 Time of Encounter: 10:41 Assessment and Plan (1) Pleural effusion Current Visit: Yes Status: Acute Patient's chest x-ray today shows bilateral pleural effusions with more pain on the right. Patient also has had a oxygen saturation of 95% on 5 L of oxygen via nasal cannula which is a new requirement for her as she has been home off and on 3 L of oxygen via nasal cannula. I am going to diurese this patient with 40 mg IV Lasix to see if this helps with the pleural effusions. I may consider performing a therapeutic thoracentesis as well. Lipase is on Lasix, I will monitor her electrolytes and renal function as well as urinary output. The use of incentive spirometer also be helpful for her dyspnea (2) New onset a-fib Current Visit: Yes Status: Acute This patient's rate is under control with IV diltiazem. At this time, I am going to stop it and continue her metoprolol succinate 25 mg twice a day as well as 5 mg metoprolol succinate when necessary. (3) Pericardial effusion Current Visit: Yes Status: Acute This was managed and treated by Dr. Garcia, cardiothoracic surgeon. (4) Thrombocytopenia Current Visit: Yes Status: Acute This patient is chronically thrombocytopenic. We will continue to monitor her platelet levels. 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 Qualifiers: Leukemia Active/Remission status: relapsed Qualified Code(s): C92.02 - Acute myeloblastic leukemia, in relapse (6) DVT prophylaxis Current Visit: Yes Status: Acute We will use SCDs as this patient has chronic thrombocytopenia and is at risk for bleeding. History of Present Illness Consult date: 09/29/16 Requesting physician: Eduar Garcia Reason for consult: dyspnea Chief complaint: Dyspnea History of present illness: This is a 65-year-old female with a past medical history of acute myelogenous leukemia. On September 25, the patient received a pericardiocentesis by Dr. Garcia. She has been under his care up until this point as he became concerned about worsening dyspnea. Patient states that she currently is on 3 L of oxygen at home, but has never felt short of breath before. She states that she does have some mild shortness of breath. She also states that she has had a cough over the last few days but this has been nonproductive in nature and has improved in quality since the pericardiocentesis. This patient also has a new diagnosis of atrial fibrillation which has been managed on metoprolol as well as Cardizem. Patient denies any chest pain pressure or tightness. Past Med Surg Social Fam HX - Past Medical History Medical history: cancer (AML diagnosed 3 years ago. ), other Psychiatric history: anxiety, depression - Past Surgical History Surgical History: cholecystectomy, other - Social History Smoking Status: Former smoker Smokeless Tobacco Status: No Alcohol use: none Drug use: none - Family History Mother Family Member Ethnicity: Non- Living Status: Hx Family Cardiac Disorders: No Hx Family Respiratory Disorders: Yes (asthma) Hx Family Cancer: Yes (colon cancer) Father Name: wilmer luevano Age: 74 Family Member Ethnicity: Non- Age at : 74 Cause of : stroke Hx Family Cardiac Disorders: Yes (heart attacks at young ages) Medications and Allergies Citalopram [CeleXA] 20 mg PO DAILY 09/25/14 [History] Folic Acid 1 mg PO DAILY #30 tablet 04/25/16 [Rx] ALPRAZolam [Xanax 1 MG Tablet] 1 mg PO TID PRN 05/26/16 [History] Ondansetron [Zofran] 8 mg PO Q8H PRN 05/26/16 [History] Furosemide [Lasix] 20 mg PO DAILY PRN #30 tablet 06/04/16 [Rx] Potassium Chloride 40 meq PO BID #70 tab.er.prt 06/09/16 [Rx] Deferasirox [Jadenu] 1,440 mg PO DAILY #120 tablet 06/17/16 [Rx] Aminocaproic Acid [Amicar] 500 mg PO TID #90 tablet 09/02/16 [Rx] Amoxicillin/Clavulanate [Augmentin] 875 mg PO BIDWM #20 tablet 09/18/16 [Rx] Doxycycline 100 mg PO BID #20 capsule 09/18/16 [Rx] Acetaminophen w/Cod 300-30 mg [Tylenol w/Codeine #3] 1 tab PO Q6HR PRN 09/22/16 [History] Allergies Penicillins Allergy (Unknown, Verified 09/22/16 10:57) Hives All Systems: A 10-system review of systems was performed and is negative for pertinent findings except as documented above in the HPI. Physical Examination Vital Signs: Vital Signs, Last 4 Hours Pulse Resp BP Pulse Ox 09/29/16 10:31 88 26 107/54 92 09/29/16 08:31 117 26 120/45 92 09/29/16 07:46 26 92 General appearance: alert, other (Appears slightly short of breath when mentating.) Eyes: nonicteric ENT: oropharynx moist Neck: supple Effort: normal Inspection: normal Auscultation: bilateral: diminished breath sounds Cardiovascular: irregular rhythm (Telemetry: Atrial fibrillation with a ventricular rate of 121 bpm) Gastrointestinal: normoactive bowel sounds, non-distended Extremities: no cyanosis, edema (1+ pitting) Musculoskeletal: no deformities normal mental status, non-focal exam, pupils equal and round mood appropriate, affect normal Results - Laboratory Findings CBC and BMP: 09/29/16 06:11 09/29/16 12:05 ABG ABG pH 7.36 pH Units (7.32-7.45) 09/26/16 04:16 ABG pCO2 47 mmHg (35-45) H 09/26/16 04:16 ABG pO2 67 mmHg (85-104) L 09/26/16 04:16 ABG O2 Saturation 92 % (95-98) L 09/26/16 04:16 PT/INR, D-dimer PT 18.4 Seconds (9.4-12.1) H 09/24/16 04:48 Abnormal lab findings: Abnormal lab results RBC 3.04 M/mcL (3.82-4.97) L 09/29/16 06:11 Hgb 8.8 g/dL (11.5-15.4) L 09/29/16 06:11 Hct 27.1 % (35.3-44.9) L 09/29/16 06:11 RDW 17.2 % (11.5-14.5) H 09/29/16 06:11 Plt Count 41 K/mcL (140-400) L 09/29/16 06:11 Metamyelocytes % 2.0 % (0) H 09/25/16 11:18 Myelocytes % 2.0 % (0) H 09/29/16 06:11 Blast Cells % 4.0 % (0) H 09/25/16 11:18 Reactive Lymphocytes Present (Not Present) A 09/28/16 06:10 Smudge Cells Present (Not Present) A 09/26/16 03:30 Platelet Estimate Decreased (Normal) L 09/29/16 06:11 Immature Plt Fraction 6.6 % (1.1-6.1) H 09/29/16 06:11 Hypochromasia Present (Not Present) A 09/24/16 17:00 Anisocytosis 1+ (Not Present) A 09/29/16 06:11 Microcytosis Present (Not Present) A 09/23/16 07:53 PT 18.4 Seconds (9.4-12.1) H 09/24/16 04:48 ABG pCO2 47 mmHg (35-45) H 09/26/16 04:16 ABG pO2 67 mmHg (85-104) L 09/26/16 04:16 ABG Total CO2 28.0 mEq/L (20-26) H 09/26/16 04:16 ABG O2 Saturation 92 % (95-98) L 09/26/16 04:16 BUN 36 mg/dL (7-20) H 09/27/16 04:40 Creatinine 1.51 mg/dL (0.57-1.11) H 09/27/16 04:40 Est GFR ( Amer) 42 (> 60) L 09/27/16 04:40 Est GFR (Non-Af Amer) 34 (> 60) L 09/27/16 04:40 POC Glucose 128 (58-89) H 09/25/16 09:08 Calculated Osmolality 302 (280-300) H 09/27/16 04:40 Calcium 7.7 mg/dL (8.6-10.8) L 09/27/16 04:40 Troponin I 0.12 ng/mL (0-0.03) H* 09/22/16 22:50 Albumin 2.9 g/dL (3.5-5.0) L 09/22/16 11:29 Globulin 4.6 g/dL (2.4-3.5) H 09/22/16 11:29 Albumin/Globulin Ratio 0.6 (1.1-2.2) L 09/22/16 11:29 - Microbiology Findings Microbiology Findings: Microbiology, Last 48 Hours 09/25/16 Unknown Anaerobic Culture - Preliminary Pericardial Fluid At this time, no anaerobic growth is present. The culture will be finalized after 5 days of incubation. 09/25/16 Unknown Body Fluid Culture - Final Pericardial Fluid 09/25/16 Unknown Acid Fast Stain - Final Pericardial Fluid - Diagnostic Findings Chest x-ray: report reviewed, image reviewed - Clinical Findings Intake & Output: Intake & Output 09/28/16 09/29/16 09/29/16 23:59 07:59 15:59 Intake Total 325 / 325 40 / 40 125 / 125 Output Total 416 / 416 458 / 458 Balance -91 / -91 -418 / -418 125 / 125 Weight 75.5 kg Consult Discharge Plan - Plan Referrals: Yuri Monsivais DO [Primary Care Provider] - <Deon Gaspar - Last Filed: 09/29/16 14:11> Date of Encounter: 09/29/16 All Systems: A 10-system review of systems was performed and is negative for pertinent findings except as documented above in the HPI. Physical Examination Vital Signs: Vital Signs, Last 4 Hours Temp Pulse Resp BP Pulse Ox 09/29/16 12:32 98.1 F 09/29/16 12:00 88 26 131/61 92 09/29/16 10:31 88 26 107/54 92 Results - Laboratory Findings CBC and BMP: 09/29/16 06:11 09/29/16 12:05 ABG ABG pH 7.36 pH Units (7.32-7.45) 09/26/16 04:16 ABG pCO2 47 mmHg (35-45) H 09/26/16 04:16 ABG pO2 67 mmHg (85-104) L 09/26/16 04:16 ABG O2 Saturation 92 % (95-98) L 09/26/16 04:16 PT/INR, D-dimer PT 12.6 Seconds (9.4-12.1) H 09/29/16 12:05 Abnormal lab findings: Abnormal lab results RBC 3.04 M/mcL (3.82-4.97) L 09/29/16 06:11 Hgb 8.8 g/dL (11.5-15.4) L 09/29/16 06:11 Hct 27.1 % (35.3-44.9) L 09/29/16 06:11 RDW 17.2 % (11.5-14.5) H 09/29/16 06:11 Plt Count 41 K/mcL (140-400) L 09/29/16 06:11 Metamyelocytes % 2.0 % (0) H 09/25/16 11:18 Myelocytes % 2.0 % (0) H 09/29/16 06:11 Blast Cells % 4.0 % (0) H 09/25/16 11:18 Reactive Lymphocytes Present (Not Present) A 09/28/16 06:10 Smudge Cells Present (Not Present) A 09/26/16 03:30 Platelet Estimate Decreased (Normal) L 09/29/16 06:11 Immature Plt Fraction 6.6 % (1.1-6.1) H 09/29/16 06:11 Hypochromasia Present (Not Present) A 09/24/16 17:00 Anisocytosis 1+ (Not Present) A 09/29/16 06:11 Microcytosis Present (Not Present) A 09/23/16 07:53 PT 12.6 Seconds (9.4-12.1) H 09/29/16 12:05 ABG pCO2 47 mmHg (35-45) H 09/26/16 04:16 ABG pO2 67 mmHg (85-104) L 09/26/16 04:16 ABG Total CO2 28.0 mEq/L (20-26) H 09/26/16 04:16 ABG O2 Saturation 92 % (95-98) L 09/26/16 04:16 Potassium 4.6 mEq/L (3.5-4.5) H D 09/29/16 12:05 Carbon Dioxide 30 mEq/L (19-29) H 09/29/16 12:05 BUN 33 mg/dL (7-20) H 09/29/16 12:05 Creatinine 1.52 mg/dL (0.57-1.11) H 09/29/16 12:05 Est GFR ( Amer) 41 (> 60) L 09/29/16 12:05 Est GFR (Non-Af Amer) 34 (> 60) L 09/29/16 12:05 POC Glucose 128 (58-89) H 09/25/16 09:08 Calcium 8.3 mg/dL (8.6-10.8) L 09/29/16 12:05 Troponin I 0.12 ng/mL (0-0.03) H* 09/22/16 22:50 Albumin 2.6 g/dL (3.5-5.0) L 09/29/16 12:05 Globulin 4.3 g/dL (2.4-3.5) H 09/29/16 12:05 Albumin/Globulin Ratio 0.6 (1.1-2.2) L 09/29/16 12:05 - Microbiology Findings Microbiology Findings: Microbiology, Last 48 Hours 09/25/16 Unknown Anaerobic Culture - Preliminary Pericardial Fluid At this time, no anaerobic growth is present. The culture will be finalized after 5 days of incubation. 09/25/16 Unknown Body Fluid Culture - Final Pericardial Fluid 09/25/16 Unknown Acid Fast Stain - Final Pericardial Fluid - Clinical Findings Intake & Output: Intake & Output 09/28/16 09/29/16 09/29/16 23:59 07:59 15:59 Intake Total 325 / 325 40 / 40 125 / 125 Output Total 416 / 416 458 / 458 Balance -91 / -91 -418 / -418 125 / 125 Weight 75.5 kg - Attending Attestation I examined this patient and my medical decision-making was reviewed with the Resident Physician. I agree with the documented findings, disposition and treatment plan as described except to the extent set forth below. Patient seen and examined. Labs, radiology, chart personally reviewed. Agree with resident's history and physical, assessment, plan with following comments: DICE SPOTTER: Patient follows commands, Pulmonary: Acceptable oxygenation and ventilation. The patient with pleural effusion and due to thrombocytopenia was referred to diuresis first and patient is back to her baseline using oxygen. I suspect atelectasis is playing a major role and incentive spirometry is important. Cardiovascular: Patient with A. fib and plan to wean off Cardizem on the beta radha. GI: Nutrition per dietary and GI prophylaxis per routine Heme: DVT prophylaxis per routine ID: No evidence of infection Renal; urine out put and renal funtion reviewed. Repeat blood work and monitor renal function Endorcine: blood glucose is monitored Lines: all lines checked and no evidence of infections Skin: skin care to prevent pressure ulcers per nursing routine care Overall patient is is stable enough to be transferred to the floor and discussed this with Dr. Garcia. Hospitalist will follow-up and also in follow- up if she needs thoracentesis in the future.
--- NOTE | 2016-09-29 10:58 | Cardiology Progress Note ---
Date of Encounter: 09/29/16 Time of Encounter: 10:57 Assessment and Plan (1) New onset a-fib Current Visit: Yes Status: Acute Atrial fibrillation with RVR on admission. HR 150 on admission, may have been exacerbated by large pericardial effusion. Reconsulted for atrial fibrillation with RVR, then noted to be in A-Flutter. On cardizem IV gtt at 15 mg/hr. Toprol XL 25mg daily started yesterday. 12 hr tele AVG HR 97, A-Flutter. Pt converted to SR this AM--HR 80s. Will start PO Cardizem CD 360mg daily and continue Toprol XL 25mg daily. Stop cardizem gtt. TTE showed EF 70% and no significant valvular disease. TSH normal. She is not a candidate for intermediate accountant anticoagulation in the setting of severe/ chronic thrombocytopenia. Out-pt f/u will be scheduled with [facility]. Please call with questions. Cardiology signing off. Reconsult PRN. (2) Pericardial effusion Current Visit: Yes Status: Acute TTE reviewed: Normal LV systolic function, LVEF 70%, large circumferential pericardial effusion present with echocardiographic evidence of early tamponade (increased respiratory variation in mitral inflow, mildly decreased inspiratory collapse of IVC). S/p pericadial window. CXR this AM Removal of the left-sided chest tube without evidence of a pneumothorax. 2. Bilateral pleural effusions, left side greater than right, with associated bibasilar atelectasis. 3. Pulmonary vascular congestion, stable. (3) Elevated troponin Current Visit: Yes Status: Resolved Mild adynamic troponin elevation up to 0.15 in the setting of atrial fibrillation with RVR, anemia, HOOD, and early tamponade. Demand ischemia. Doubt ACS. She is not a candidate for ischemia evaluation due to thrombcytopenia and anemia. TTE shows Normal LV systolic function, LVEF 70%. s/p pericardial window. Discussion w patient/family: The assessment and plan as outlined above was discussed with the patient and/or family members who expressed understanding and agreement. All questions were answered. Thank you for involving us in the care of your patient. Please call with any questions. I will discuss all the above with Dr. Hampton and make changes as necessary. Subjective Principal diagnosis: Afib, pericardial effusion Interval history: Pt reports dyspnea on exertion, but denies chest pain. 12 hr tele AVG HR 97, A- Flutter, on cardizem gtt at 15mg/hr and Toprol XL 25mg daily. This AM pt converted back to SR. Objective Vital Signs, Last 4 Hours Pulse Resp BP Pulse Ox 09/29/16 10:31 88 26 107/54 92 09/29/16 08:31 117 26 120/45 92 09/29/16 07:46 26 92 Vital Signs Temp Pulse Resp BP Pulse Ox 09/29/16 10:31 88 26 107/54 92 09/29/16 08:31 117 26 120/45 92 09/29/16 07:46 26 92 09/29/16 06:00 117 26 113/87 92 09/29/16 05:00 131 20 96/62 91 09/29/16 04:00 120 22 97/69 90 09/29/16 03:39 97.2 F L 09/29/16 03:00 72 18 116/80 91 09/29/16 02:00 108 20 88/66 91 09/29/16 01:00 75 24 105/51 91 09/29/16 00:30 108 24 97/64 93 09/29/16 00:16 98.4 F 09/28/16 23:08 21 81/59 88 09/28/16 23:00 100 26 81/59 88 09/28/16 22:00 135 20 89/64 91 09/28/16 21:00 114 20 106/65 92 09/28/16 20:30 115 22 97/52 95 09/28/16 19:49 17 95 09/28/16 19:47 97.8 F 09/28/16 19:00 112 24 139/63 95 09/28/16 18:00 76 23 131/56 95 09/28/16 17:00 119 22 119/70 94 09/28/16 16:00 123 21 113/62 96 09/28/16 15:50 97.7 F 09/28/16 15:38 25 96 09/28/16 15:00 101 25 104/55 96 09/28/16 14:00 99 22 110/62 95 09/28/16 13:00 99 23 113/61 96 09/28/16 12:00 100 21 116/44 95 09/28/16 11:44 97.8 F Intake and Output 0809/29/16 09/29/16 23:59 07:59 15:59 Intake Total 325 / 325 40 / 40 125 / 125 Output Total 416 / 416 458 / 458 Balance -91 / -91 -418 / -418 125 / 125 Intake: IV Fluids 40 / 40 125 / 125 Cardizem 125 MG In 85 40 / 40 125 / 125 Dextrose 5% 100 ML @ 10 MG/HR 10 mls/hr IVC . [id number] [facility] Rx#: [id number] Oral 240 / 240 0 / 0 Output: Urine 400 / 400 450 / 450 Chest Tube Drainage Mediastinal Other: Stool Size Small Stool Characteristics Normal for Patient Stool Color Brown Weight 75.5 kg Patient Weight 09/29/16 23:59 Weight 75.5 kg General: Conversant, No Apparent Distress HEENT: Atraumatic, Normocephaly, Mucus Membranes Moist Neck: No JVD, Normal carotid pulses Cardiac: Reg Rate and Rhythm, Normal S1 and S2, No Murmur Lungs: Other (diminished) Neuro: Alert and responsive, No focal deficits noted Abdomen: Soft, Non-Tender Skin: No rashes noted on visualized skin Musculoskeletal: No Chest Wall Tenderness Extremities: No Clubbing, No Cyanosis, No Edema, Normal Pulses Results 09/29/16 06:11 09/27/16 04:40 Lab Results 09/29/16 06:11 WBC 10.4 Hgb 8.8 L Hct 27.1 L Plt Count 41 L Short CBC 09/29/16 Range/Units 06:11 WBC 10.4 (4.3-11.1) K/mcL Hgb 8.8 L (11.5-15.4) g/dL Hct 27.1 L (35.3-44.9) % Plt Count 41 L (140-400) K/mcL Neutrophils # 6.5 (1.6-8.9) K/mcL Impressions Chest X-Ray 09/29/16 09:10 IMPRESSION: 1. Removal of the left-sided chest tube without evidence of a pneumothorax. 2. Bilateral pleural effusions, left side greater than right, with associated bibasilar atelectasis. 3. Pulmonary vascular congestion, stable. D/ / 09/29/2016 10:05:44 Keyon Capellan MD / Leila Johnson Interpreting Provider: Keyon Capellan MD Active Medications Acetaminophen/Codeine Phosphate (Tylenol W/Codeine #3) 1 tab PO Q6HR PRN PRN Reason: Pain Stop: 03/24/17 16:50 Last Admin: 09/28/16 20:26 Dose: 1 tab Albuterol Sulfate (Proventil Neb) 2.5 mg IH [id number] PRN Reason: Protocol Stop: 03/27/17 12:01 Last Admin: 09/29/16 07:44 Dose: 2.5 mg Alprazolam (Xanax) 1 mg PO TID PRN; Protocol PRN Reason: Anxiety Stop: 03/24/17 16:50 Last Admin: 09/28/16 20:26 Dose: 1 mg Aminocaproic Acid (Amicar) 500 mg PO TID DEV Stop: 03/24/17 21:01 Last Admin: 09/29/16 10:28 Dose: 500 mg Citalopram Hydrobromide (Celexa) 20 mg PO DAILY DEV Stop: 03/25/17 09:01 Last Admin: 09/29/16 10:28 Dose: 20 mg Diltiazem HCl (Cardizem Cd) 360 mg PO DAILY [facility] Stop: 03/31/17 11:01 Diphenhydramine HCl (Benadryl) 25 mg IVP Q6HR PRN PRN Reason: Allergic Reaction Stop: 03/24/17 17:23 Last Admin: 09/22/16 18:38 Dose: 25 mg Folic Acid (Folic Acid) 1 mg PO DAILY [facility] Stop: 03/25/17 09:01 Last Admin: 09/29/16 10:28 Dose: 1 mg Furosemide (Lasix) 40 mg PO DAILY DEV Stop: 03/31/17 10:46 Metoprolol Succinate (Toprol Xl) 25 mg PO DAILY [facility] Stop: 03/30/17 09:46 Last Admin: 09/29/16 10:28 Dose: 25 mg Metoprolol Tartrate (Lopressor) 5 mg IVP Q6HR PRN PRN Reason: atrial fibrillation Stop: 03/26/17 14:32 Last Admin: 09/29/16 05:46 Dose: 5 mg Morphine Sulfate (Morphine Sulfate) 2 mg IVP Q2H PRN PRN Reason: Moderate Pain Stop: 03/27/17 09:12 Naloxone HCl (Narcan) 0.4 mg IVP Q2MIN PRN PRN Reason: Opioid Reversal Stop: 03/27/17 09:12 Ondansetron HCl (Zofran Odt) 8 mg PO Q8H PRN PRN Reason: Nausea Last Admin: 09/22/16 17:41 Dose: 8 mg Oxycodone/Acetaminophen (Percocet 5/325) 1 each PO Q4HR PRN PRN Reason: Mild Pain Stop: 03/27/17 09:12 - Imaging and Cardiology Echo: report reviewed - EKG Interpretation EKG results cardiology: other (12 hr tele AVG HR 97, A-Hardy, now SR.) - VTE Documentation of Mechanical Device: Intermittent pneumatic compression device Consult Discharge Plan - Plan Referrals: ColopyYuri DO [Primary Care Provider] -
--- NOTE | 2016-09-29 11:13 | Oncology Inp Progress Note ---
Date of Encounter: 09/29/16 Time of Encounter: 11:11 (1) Leukemia Current Visit: No Status: Chronic Assessment and plan: -Associated with thrombocytopenia. Inpatient management consisting of supportive management for platelet count less than 35K, or 50K if there is active bleeding. Chest tube removed today without complications. No platelet transfusions required today. - Monitor CBC daily. - No indications for inpatient chemotherapy. - Follow up with outpatient oncologist to discuss timing to resume hypomethylating agent. Qualifiers: Leukemia type: myeloid Myeloid leukemia type: acute Leukemia Active/ Remission status: without remission Qualified Code(s): C92.00 - Acute myeloblastic leukemia, not having achieved remission Oncology: Subj Interval history: Chief complaint: cough with clear sputum. Ms. Miles reports feeling better now that her chest tube was removed earlier today. Her platelet count today is in the 40s. She reports not bleeding events, denying any recent episode of hematuria, hematochezia, easy bruising. She feels hopeful that will be ready to be discharged home within the next few days. Denies pain. - Constitutional Vitals: Vital Signs Temp Pulse Resp BP Pulse Ox 09/29/16 10:31 88 26 107/54 92 09/29/16 08:31 117 26 120/45 92 09/29/16 07:46 26 92 09/29/16 06:00 117 26 113/87 92 09/29/16 05:00 131 20 96/62 91 09/29/16 04:00 120 22 97/69 90 09/29/16 03:39 97.2 F L 09/29/16 03:00 72 18 116/80 91 09/29/16 02:00 108 20 88/66 91 09/29/16 01:00 75 24 105/51 91 09/29/16 00:30 108 24 97/64 93 09/29/16 00:16 98.4 F 09/28/16 23:08 21 81/59 88 09/28/16 23:00 100 26 81/59 88 09/28/16 22:00 135 20 89/64 91 09/28/16 21:00 114 20 106/65 92 09/28/16 20:30 115 22 97/52 95 09/28/16 19:49 17 95 09/28/16 19:47 97.8 F 09/28/16 19:00 112 24 139/63 95 08/13/17 18:00 76 23 131/56 95 09/28/16 17:00 119 22 119/70 94 09/28/16 16:00 123 21 113/62 96 09/28/16 15:50 97.7 F 09/28/16 15:38 25 96 09/28/16 15:00 101 25 104/55 96 09/28/16 14:00 99 22 110/62 95 09/28/16 13:00 99 23 113/61 96 09/28/16 12:00 100 21 116/44 95 09/28/16 11:44 97.8 F Intake and Output 09/28/16 09/29/16 09/29/16 23:59 07:59 15:59 Intake Total 325 / 325 40 / 40 125 / 125 Output Total 416 / 416 458 / 458 Balance -91 / -91 -418 / -418 125 / 125 Intake: IV Fluids 85 / 85 40 / 40 125 / 125 Cardizem 125 MG In 85 / 85 40 / 40 125 / 125 Dextrose 5% 100 ML @ 10 MG/HR 10 mls/hr IVC . [id number] [facility] Rx#: [id number] Oral 240 / 240 0 / 0 Output: Urine 400 / 400 450 / 450 Chest Tube Drainage Mediastinal Other: Stool Size Small Stool Characteristics Normal for Patient Stool Color Brown Weight 75.5 kg Patient Weight 09/29/16 23:59 Weight 75.5 kg - Head Head exam: Present: normal inspection - ENT ENT exam: Present: normal exam - Respiratory Respiratory exam: Present: CTAB - Cardiovascular Cardiovascular exam: Present: +S2 - GI/Abdominal GI/Abdominal exam: Present: normal bowel sounds - Extremities Exam Extremities exam: Absent: tenderness - Neurological Exam Neurological exam: Present: oriented X3 - Psychiatric Psychiatric exam: Present: normal affect Oncology: Obj Data - Labs CBC & Chem 7: 09/29/16 06:11 09/27/16 04:40 Labs: Laboratory Results - last 24 hr 09/29/16 06:11 WBC 10.4 RBC 3.04 L Hgb 8.8 L Hct 27.1 L MCV 89.1 MCH 28.9 MCHC 32.5 RDW 17.2 H Plt Count 41 L MPV 11.7 Seg Neutrophils % 60.0 Band Neutrophils % 2.0 Lymphocytes % 32.0 Monocytes % 4.0 Myelocytes % 2.0 H Neutrophils # 6.5 Lymphocytes # 3.3 Monocytes # 0.4 Platelet Estimate Decreased L Immature Plt Fraction 6.6 H Anisocytosis 1+ A - Impressions Impressions Chest X-Ray 09/29/16 09:10 IMPRESSION: 1. Removal of the left-sided chest tube without evidence of a pneumothorax. 2. Bilateral pleural effusions, left side greater than right, with associated bibasilar atelectasis. 3. Pulmonary vascular congestion, stable. D/ / 09/29/2016 10:05:44 Keyon Capellan MD / Leila Johnson Interpreting Provider: Keyon Capellan MD - ABG Interpretation ABG results: ABG ABG pH 7.36 pH Units (7.32-7.45) 09/26/16 04:16 ABG pCO2 47 mmHg (35-45) H 09/26/16 04:16 ABG pO2 67 mmHg (85-104) L 09/26/16 04:16 ABG O2 Saturation 92 % (95-98) L 09/26/16 04:16 PT/INR, D-dimer PT 18.4 Seconds (9.4-12.1) H 09/24/16 04:48 Consult Discharge Plan - Plan Referrals: Yuri Monsivais DO [Primary Care Provider] -
[2016-09-29] MEDS ORDERED: Furosemide 40 MG/4 ML VIAL ONE (12:16)
[2016-09-29] MEDS: Diltiazem CD (24hr) 180 MG CAPSULE PO SCH (12:18)
[2016-09-29] MEDS: Furosemide 40 MG/4 ML VIAL IVP SCH (12:22)
[2016-09-29 12:52] LABS: INR 1.2; Prothrombin Time 12.6 Seconds (9.4-12.1)
[2016-09-29 13:13] LABS: Albumin 2.6 g/dL (3.5-5.0); Albumin/Globulin Ratio 0.6 (1.1-2.2); Calcium 8.3 mg/dL (8.6-10.8); Globulin 4.3 g/dL (2.4-3.5); Potassium 4.6 mEq/L (3.5-4.5); Total Protein 6.9 g/dL (6.0-8.3)
[2016-09-29] MEDS ORDERED: Aminoglycoside Consult 1 EACH MC ONE (13:16)
[2016-09-29] MEDS ORDERED: 0.9 % Sodium Chloride 1,000 ML IVC ONE (14:30)
--- NOTE | 2016-09-29 15:38 | Internal Med Progress Note ---
Date of Encounter: 09/29/16 Time of Encounter: 13:30 - Assessment and plan (1) Pleural effusion Current Visit: Yes Status: Acute Assessment and plan: Chest x-ray reviewed independently- showed bilateral pleural effusion, left more than right. Pulmonology consult appreciated, started IV Lasix for diuresis ; to decide on thoracentesis if indicated. Continue to monitor. (2) Pericardial effusion Current Visit: Yes Status: Acute Assessment and plan: Echocardiogram showed severe pericardial effusion and signs of early tamponade. Cardiothoracic surgery was consulted and patient underwent subxiphoid pericardial window creation, chest tube has been removed today. AFB smear and Gram stain and culture negative. 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 Continue pain control with when necessary Percocet. Patient is medically stable for transfer to regular floor, awaiting beds. (3) New onset a-fib Current Visit: Yes Status: Acute Assessment and plan: Heart rate noted to be better controlled today. Off IV Cardizem drip. Cardiology follow-up noted, signed off today. Continue Cardizem CD 360 mg and metoprolol 25 mg daily. Telemetry monitoring. Patient is not a candidate for long-term anticoagulation due to significant thrombocytopenia. (4) Elevated troponin Current Visit: Yes Status: Resolved (5) Cellulitis Current Visit: Yes Status: Resolved Qualifiers: Site of cellulitis: extremity Site of cellulitis of extremity: upper extremity Laterality: right Qualified Code(s): L03.113 - Cellulitis of right upper limb (6) Refractory thrombocytopenia Current Visit: Yes Status: Acute Assessment and plan: Follows with oncology as outpatient, likely has MDS. Platelet transfusion dependent. Oncology follow-up appreciated; received 4 units platelet transfusion during this admission. Platelet count continues to decline, 41,000 today. Continue when necessary platelet transfusion; (7) Pancytopenia Current Visit: Yes Status: Chronic Assessment and plan: Hemoglobin stable. Continue to monitor. 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 Oxygen requirements noted to be higher than baseline. Tolerates oral diet and reports bowel movements. Chest tube has been removed today. - Constitutional Vitals: Temp Pulse Resp BP Pulse Ox 98.1 F 92 26 116/61 92 09/29/16 12:32 09/29/16 14:43 09/29/16 14:43 09/29/16 14:43 09/29/16 14:43 General appearance: Present: mild distress, A&O X 3, answers questions appropriately - Respiratory Respiratory exam: Present: decreased breath sounds (At bilateral bases), CTAB. Absent: accessory muscle use, rales, rhonchi, wheezes - Cardiovascular Cardiovascular exam: Present: irregular rhythm, +S1, +S2. Absent: diastolic murmur, gallop, rubs, systolic murmur - GI/Abdominal GI/Abdominal exam: Present: normal bowel sounds, soft, no peritoneal signs. Absent: distended, tenderness - Extremities Exam Extremities exam: Present: full ROM, warm, radial pulses palpable and symmetrical. Absent: calf tenderness, cyanotic, pedal edema Internal Medicine: Result - Labs CBC & Chem 7: 09/29/16 06:11 09/29/16 12:05 Labs: Short CBC 09/29/16 Range/Units 06:11 WBC 10.4 (4.3-11.1) K/mcL Hgb 8.8 L (11.5-15.4) g/dL Hct 27.1 L (35.3-44.9) % Plt Count 41 L (140-400) K/mcL Neutrophils # 6.5 (1.6-8.9) K/mcL BMP 09/29/16 12:05 Sodium 139 Potassium 4.6 H D Chloride 103 Carbon Dioxide 30 H BUN 33 H Creatinine 1.52 H Glucose 96 Calcium 8.3 L Liver Function 09/29/16 Range/Units 12:05 Total Bilirubin 0.3 (0.2-1.2) mg/dL AST 27 (5-34) Units/L ALT 15 (0-55) Units/L Alkaline Phosphatase 69 (38-126) Units/L Albumin 2.6 L (3.5-5.0) g/dL - ABG Interpretation ABG results: ABG ABG pH 7.36 pH Units (7.32-7.45) 09/26/16 04:16 ABG pCO2 47 mmHg (35-45) H 09/26/16 04:16 ABG pO2 67 mmHg (85-104) L 09/26/16 04:16 ABG O2 Saturation 92 % (95-98) L 09/26/16 04:16 PT/INR, D-dimer PT 12.6 Seconds (9.4-12.1) H 09/29/16 12:05 - Impressions Impressions Chest X-Ray 09/29/16 09:10 IMPRESSION: 1. Removal of the left-sided chest tube without evidence of a pneumothorax. 2. Bilateral pleural effusions, left side greater than right, with associated bibasilar atelectasis. 3. Pulmonary vascular congestion, stable. D/ / 09/29/2016 10:05:44 Keyon Capellan MD / Leila Johnson Interpreting Provider: Keyon Capellan MD - VTE Documentation of Mechanical Device: Intermittent pneumatic compression device Consult Discharge Plan - Plan Referrals: Yuri Monsivais DO [Primary Care Provider] -
[2016-09-29] MEDS ORDERED: Furosemide 40 MG/4 ML VIAL IVP ONE (16:00)
[2016-09-30] MEDS: Albuterol 2.5 MG/3 ML NEBULIZER IH SCH ×6 (03:33→23:04)
[2016-09-30 06:39] LABS: Hematocrit 22.7 % (35.3-44.9); Hemoglobin 7.6 g/dL (11.5-15.4); Immature Platelets 4.7 % (1.1-6.1); Lymphocytes # 0.9 K/mcL (0.6-4.6); Mean Corpuscular HGB Conc 33.5 g/dL (31.6-35.5); Mean Corpuscular Hemoglobin 29.1 pg (28.0-33.3); Mean Platelet Volume 13.6 fL (9.4-12.4); Red Blood Count 2.61 M/mcL (3.82-4.97); Red Cell Distribution Width 16.6 % (11.5-14.5)
[2016-09-30 06:48] LABS: Calcium 8.1 mg/dL (8.6-10.8); Potassium 3.8 mEq/L (3.5-4.5)
[2016-09-30 06:51] LABS: Platelet Count 22 K/mcL (140-400)
[2016-09-30 07:59] LABS: Monocytes # 0.4 K/mcL (0.0-1.3); Neutrophils # 4.3 K/mcL (1.6-8.9); Platelet Estimate Decreased (Normal)
[2016-09-30] MEDS: Folic Acid 1 MG TABLET PO SCH (08:15)
[2016-09-30] MEDS: Metoprolol XL (24 HR) Succ 25 MG TAB.ER.24H PO SCH (08:15)
[2016-09-30] MEDS: Furosemide 40 MG/4 ML VIAL IVP SCH (08:16)
--- NOTE | 2016-09-30 08:45 | Cardiothoracic Progress Note ---
Date of Encounter: 09/30/16 Time of Encounter: 08:42 - Assessment and plan (1) Pericardial effusion Current Visit: Yes Status: Acute The patient is recovering well from her subxiphoid pericardial window. The chest x-ray performed yesterday showed bilateral pleural effusions with the left side larger than the right side. She may benefit from a thoracentesis in interventional radiology; however, she has thrombocytopenia from her chemotherapy and would likely need a platelet transfusion prior to any intervention. Although the patient states that she is breathing comfortably Jai her O2 sats remained in the high 80s to low 90s with supplemental oxygen. She may benefit from a thoracentesis prior to discharge. Cardiothoracic surgery will sign off this case at this time. The assessment and plan as outlined above was discussed with the patient and/or family members who expressed understanding and agreement. All questions were answered. - Subjective Procedure(s) Performed: POD#4 S/P Subxiphoid pericardial window Interval history: The patient remained hemodynamically stable overnight. She is resting in her hospital bed. She has no complaints. Vital Signs, Last 4 Hours Temp Pulse Resp BP Pulse Ox 09/30/16 08:23 78 22 131/58 93 09/30/16 08:22 97.6 F 09/30/16 07:31 22 93 Oxgyen Flow Rate Oxygen Flow Rate (LPM) 4 Clinical Data, last 8 Hours Output, Urine Amount 300 Output, Urine Amount 700 Weight 09/28/16 09/29/16 09/30/16 23:59 23:59 23:59 Weight 72.1 kg 75.5 kg - Physical Examination General: Conversant, No Apparent Distress Neck: No JVD, Normal carotid pulses Cardiac: Reg Rate and Rhythm, Normal S1 and S2, No Murmur Incision: No signs of infection, Dry/intact dressing Lungs: Normal Breath Sounds, No Wheeze, Rales, Rhonchi Neuro: Alert and responsive, No focal deficits noted Vascular: Normal capillary refill Musculoskeletal: No Chest Wall Tenderness Extremities: No Clubbing, No Cyanosis, No Edema - Labs 09/30/16 06:07 09/30/16 06:07 Lab Results, Last 24 hours 09/29/16 09/29/16 09/30/16 12:05 12:05 06:07 WBC 5.9 Hgb 7.6 L Hct 22.7 L Plt Count 22 L* INR 1.2 Sodium 139 Potassium 4.6 H D Chloride 103 Carbon Dioxide 30 H BUN 33 H Creatinine 1.52 H Glucose 96 Calcium 8.3 L Total Bilirubin 0.3 AST 27 ALT 15 Alkaline Phosphatase 69 09/30/16 06:07 WBC Hgb Hct Plt Count INR Sodium 141 Potassium 3.8 Chloride 102 Carbon Dioxide 31 H BUN 33 H Creatinine 1.37 H Glucose 87 Calcium 8.1 L Total Bilirubin AST ALT Alkaline Phosphatase - VTE Documentation of Mechanical Device: Intermittent pneumatic compression device Consult Discharge Plan - Plan Referrals: ColopyYuri DO [Primary Care Provider] -
[2016-09-30] MEDS ORDERED: Furosemide 40 MG/4 ML VIAL IVP SCH (09:00)
--- NOTE | 2016-09-30 10:28 | Oncology Inp Progress Note ---
Date of Encounter: 09/30/16 Time of Encounter: 10:23 (1) Leukemia Current Visit: No Status: Chronic Assessment and plan: - There are not indications for inpatient chemotherapy at this time. Continue supportive management with platelets transfusion for counts < 20K or less than 50K if there is active bleeding. For procedures ( including IR guided thoracentesis, transfuse platelets prior to the procedure with a goal > 50K. - Continue monitoring CBC daily. - Follow up with outpatient oncologist to discuss timing to resume hypomethylating agent. Qualifiers: Leukemia type: myeloid Myeloid leukemia type: acute Leukemia Active/ Remission status: without remission Qualified Code(s): C92.00 - Acute myeloblastic leukemia, not having achieved remission Oncology: Subj Interval history: CC: pericardial effusion s/p pericardial window Denies significant overnight events. Denies chest pain, shortness of breath. Platelets today down to the 20s but denies bleeding events. - Constitutional Vitals: Vital Signs Temp Pulse Resp BP Pulse Ox 09/30/16 08:23 78 22 131/58 93 09/30/16 08:22 97.6 F 09/30/16 07:31 22 93 09/30/16 04:00 98.3 F 86 22 131/58 93 09/30/16 03:34 18 93 09/30/16 00:00 98.1 F 93 20 128/56 92 09/29/16 23:47 18 92 09/29/16 22:00 87 20 116/60 94 09/29/16 20:04 18 95 09/29/16 20:00 98.1 F 88 24 147/69 100 09/29/16 16:42 92 26 126/60 92 09/29/16 16:39 26 92 09/29/16 14:43 92 26 116/61 92 09/29/16 12:32 98.1 F 09/29/16 12:00 88 26 131/61 92 09/29/16 10:31 88 26 107/54 92 Intake and Output 09/29/16 09/30/16 09/30/16 23:59 07:59 15:59 Intake Total 100 / 100 240 / 240 Output Total 1500 / 1500 1500 / 1500 300 / 300 Balance -1400 / -1400 -1500 / -1500 -60 / -60 Intake: Oral 100 / 100 240 / 240 Output: Urine 1500 / 1500 1500 / 1500 300 / 300 Other: Meal Breakfast Percent of Meal Consumed 100% Stool Size Large Moderate Small Stool Consistency soft soft soft formed Stool Characteristics Normal for Patient Normal for Patient Stool Color Brown Brown Brown # Bowel Movements 1 1 - Respiratory Respiratory exam: Present: CTAB - Cardiovascular Cardiovascular exam: Present: +S1 - GI/Abdominal GI/Abdominal exam: Present: normal bowel sounds - Neurological Exam Neurological exam: Present: oriented X3 Oncology: Obj Data - Labs CBC & Chem 7: 09/30/16 06:07 09/30/16 06:07 Labs: Laboratory Results - last 24 hr 09/29/16 09/29/16 09/30/16 12:05 12:05 06:07 WBC 5.9 RBC 2.61 L Hgb 7.6 L Hct 22.7 L MCV 87.0 MCH 29.1 MCHC 33.5 RDW 16.6 H Plt Count 22 L* MPV 13.6 H Seg Neutrophils % 64.0 Band Neutrophils % 8.0 H Lymphocytes % 16.0 Monocytes % 6.0 Myelocytes % 2.0 H Blast Cells % 4.0 H Neutrophils # 4.3 Lymphocytes # 0.9 Monocytes # 0.4 Platelet Estimate Decreased L Immature Plt Fraction 4.7 PT 12.6 H INR 1.2 Sodium 139 Potassium 4.6 H D Chloride 103 Carbon Dioxide 30 H BUN 33 H Creatinine 1.52 H Est GFR ( Amer) 41 L Est GFR (Non-Af Amer) 34 L BUN/Creatinine Ratio 22 Glucose 96 Calculated Osmolality 295 Calcium 8.3 L Total Bilirubin 0.3 AST 27 ALT 15 Alkaline Phosphatase 69 Serum Total Protein 6.9 Albumin 2.6 L Globulin 4.3 H Albumin/Globulin Ratio 0.6 L 09/30/16 06:07 WBC RBC Hgb Hct MCV MCH MCHC RDW Plt Count MPV Seg Neutrophils % Band Neutrophils % Lymphocytes % Monocytes % Myelocytes % Blast Cells % Neutrophils # Lymphocytes # Monocytes # Platelet Estimate Immature Plt Fraction PT INR Sodium 141 Potassium 3.8 Chloride 102 Carbon Dioxide 31 H BUN 33 H Creatinine 1.37 H Est GFR ( Amer) 47 L Est GFR (Non-Af Amer) 39 L BUN/Creatinine Ratio 24 Glucose 87 Calculated Osmolality 299 Calcium 8.1 L Total Bilirubin AST ALT Alkaline Phosphatase Serum Total Protein Albumin Globulin Albumin/Globulin Ratio - Impressions Impressions Chest X-Ray 09/29/16 09:10 IMPRESSION: 1. Removal of the left-sided chest tube without evidence of a pneumothorax. 2. Bilateral pleural effusions, left side greater than right, with associated bibasilar atelectasis. 3. Pulmonary vascular congestion, stable. D/ / 09/29/2016 10:05:44 Keyon Capellan MD / Leila Johnson Interpreting Provider: Keyon Capellan MD - ABG Interpretation ABG results: ABG ABG pH 7.36 pH Units (7.32-7.45) 09/26/16 04:16 ABG pCO2 47 mmHg (35-45) H 09/26/16 04:16 ABG pO2 67 mmHg (85-104) L 09/26/16 04:16 ABG O2 Saturation 92 % (95-98) L 09/26/16 04:16 PT/INR, D-dimer PT 12.6 Seconds (9.4-12.1) H 09/29/16 12:05 Consult Discharge Plan - Plan Referrals: Yuri Monsivais DO [Primary Care Provider] -
[2016-09-30] MEDS ORDERED: Furosemide 40 MG/4 ML VIAL IVP ONE (10:57)
[2016-09-30] MEDS: Diltiazem CD (24hr) 180 MG CAPSULE PO SCH (11:15)
--- NOTE | 2016-09-30 12:04 | Pulmonology Progress Note ---
<Roderick Daley - Last Filed: 09/30/16 12:08> Date of Encounter: 09/30/16 Time of Encounter: 07:20 Assessment and Plan (1) Pleural effusion Current Visit: Yes Status: Acute Patient seemed to tolerate diuresis well after using 2 doses of 40 mg IV Lasix. Her creatinine is actually improved from where it was yesterday and maintain stability. We will continue diuresis and her with Lasix today. I will monitor her creatinine and electrolytes. We will not be performing a thoracentesis at this time due to her thrombocytopenia. [place] [address] [place] [address]. We will continue monitoring her platelets. As she has no signs of bleeding, it is not indicated to perform a platelet transfusion at this time. (2) New onset a-fib Current Visit: Yes Status: Acute Rate is currently under control and she is converted into sinus rhythm through the use of Lopressor. At this time, I think we should continue this. (3) Pericardial effusion Current Visit: Yes Status: Acute This is managed by Dr. Garcia. (4) Thrombocytopenia Current Visit: Yes Status: Acute (5) Acute myeloid leukemia Current Visit: Yes Status: Chronic This is followed by oncology. Qualifiers: Leukemia Active/Remission status: relapsed Qualified Code(s): C92.02 - Acute myeloblastic leukemia, in relapse (6) DVT prophylaxis Current Visit: Yes Status: Acute SCDs for DVT prophylaxis as this patient is thrombocytopenic and is at risk for bleeding. Subjective Principal diagnosis: Afib, pericardial effusion Interval history: Patient states that she is feeling a lot better since we have started diuresing her. She also states that her breathing has improved significantly. Nurse states that she has put out 1500 mL of fluid in the last 24 hours after getting 2 doses of 40 mg IV Lasix. Objective PUL Vital signs: Last Vital Signs Temp 97.6 F 09/30/16 08:22 Pulse 80 09/30/16 11:23 Resp 22 09/30/16 11:45 BP 122/59 09/30/16 11:23 Pulse Ox 93 09/30/16 11:45 General appearance: no acute distress, alert, other (Patient is alert and oriented to place, person, and time. She is very pleasant and easily arousable. ) Eyes: nonicteric ENT: oropharynx moist Neck: supple Effort: normal Auscultation: bilateral: rales Cardiovascular: regular rate and rhythm, other (Telemetry: Normal sinus rhythm with a ventricular rate of 78.) Gastrointestinal: normoactive bowel sounds Integumentary: normal Extremities: no cyanosis, no edema (This is improved from yesterday.) normal mental status, non-focal exam, pupils equal and round mood appropriate, affect normal Results - Laboratory Findings CBC and BMP: 09/30/16 06:07 09/30/16 06:07 ABG ABG pH 7.36 pH Units (7.32-7.45) 09/26/16 04:16 ABG pCO2 47 mmHg (35-45) H 09/26/16 04:16 ABG pO2 67 mmHg (85-104) L 09/26/16 04:16 ABG O2 Saturation 92 % (95-98) L 09/26/16 04:16 PT/INR, D-dimer PT 12.6 Seconds (9.4-12.1) H 09/29/16 12:05 Abnormal lab findings: Abnormal lab results RBC 2.61 M/mcL (3.82-4.97) L 09/30/16 06:07 Hgb 7.6 g/dL (11.5-15.4) L 09/30/16 06:07 Hct 22.7 % (35.3-44.9) L 09/30/16 06:07 RDW 16.6 % (11.5-14.5) H 09/30/16 06:07 Plt Count 22 K/mcL (140-400) L* 09/30/16 06:07 MPV 13.6 fL (9.4-12.4) H 09/30/16 06:07 Band Neutrophils % 8.0 % (0-4) H 09/30/16 06:07 Metamyelocytes % 2.0 % (0) H 09/25/16 11:18 Myelocytes % 2.0 % (0) H 09/30/16 06:07 Blast Cells % 4.0 % (0) H 09/30/16 06:07 Reactive Lymphocytes Present (Not Present) A 09/28/16 06:10 Smudge Cells Present (Not Present) A 09/26/16 03:30 Platelet Estimate Decreased (Normal) L 09/30/16 06:07 Hypochromasia Present (Not Present) A 09/24/16 17:00 Anisocytosis 1+ (Not Present) A 09/29/16 06:11 Microcytosis Present (Not Present) A 09/23/16 07:53 PT 12.6 Seconds (9.4-12.1) H 09/29/16 12:05 ABG pCO2 47 mmHg (35-45) H 09/26/16 04:16 ABG pO2 67 mmHg (85-104) L 09/26/16 04:16 ABG Total CO2 28.0 mEq/L (20-26) H 09/26/16 04:16 ABG O2 Saturation 92 % (95-98) L 09/26/16 04:16 Carbon Dioxide 31 mEq/L (19-29) H 09/30/16 06:07 BUN 33 mg/dL (7-20) H 09/30/16 06:07 Creatinine 1.37 mg/dL (0.57-1.11) H 09/30/16 06:07 Est GFR ( Amer) 47 (> 60) L 09/30/16 06:07 Est GFR (Non-Af Amer) 39 (> 60) L 09/30/16 06:07 POC Glucose 128 (58-89) H 09/25/16 09:08 Calcium 8.1 mg/dL (8.6-10.8) L 09/30/16 06:07 Troponin I 0.12 ng/mL (0-0.03) H* 09/22/16 22:50 Albumin 2.6 g/dL (3.5-5.0) L 09/29/16 12:05 Globulin 4.3 g/dL (2.4-3.5) H 09/29/16 12:05 Albumin/Globulin Ratio 0.6 (1.1-2.2) L 09/29/16 12:05 - Microbiology Findings Microbiology Findings: Microbiology, Last 48 Hours 09/25/16 Unknown Anaerobic Culture - Final Pericardial Fluid No anaerobes were recovered. - Clinical Findings Intake & Output: Intake & Output 09/29/16 09/30/16 09/30/16 23:59 07:59 15:59 Intake Total 100 / 100 240 / 240 Output Total 1500 / 1500 1500 / 1500 300 / 300 Balance -1400 / -1400 -1500 / -1500 -60 / -60 - VTE Documentation of Mechanical Device: Intermittent pneumatic compression device Consult Discharge Plan - Plan Referrals: Yuri Monsivais DO [Primary Care Provider] - <HubertAdenrupali Caputo - Last Filed: 09/30/16 15:10> Date of Encounter: 09/30/16 Objective PUL Vital signs: Last Vital Signs Temp 97.5 F L 09/30/16 12:07 Pulse 80 09/30/16 11:23 Resp 22 09/30/16 11:45 BP 122/59 09/30/16 11:23 Pulse Ox 93 09/30/16 11:45 Results - Laboratory Findings CBC and BMP: 09/30/16 06:07 09/30/16 06:07 ABG ABG pH 7.36 pH Units (7.32-7.45) 09/26/16 04:16 ABG pCO2 47 mmHg (35-45) H 09/26/16 04:16 ABG pO2 67 mmHg (85-104) L 09/26/16 04:16 ABG O2 Saturation 92 % (95-98) L 09/26/16 04:16 PT/INR, D-dimer PT 12.6 Seconds (9.4-12.1) H 09/29/16 12:05 Abnormal lab findings: Abnormal lab results RBC 2.61 M/mcL (3.82-4.97) L 09/30/16 06:07 Hgb 7.6 g/dL (11.5-15.4) L 09/30/16 06:07 Hct 22.7 % (35.3-44.9) L 09/30/16 06:07 RDW 16.6 % (11.5-14.5) H 09/30/16 06:07 Plt Count 22 K/mcL (140-400) L* 09/30/16 06:07 MPV 13.6 fL (9.4-12.4) H 09/30/16 06:07 Band Neutrophils % 8.0 % (0-4) H 09/30/16 06:07 Metamyelocytes % 2.0 % (0) H 09/25/16 11:18 Myelocytes % 2.0 % (0) H 09/30/16 06:07 Blast Cells % 4.0 % (0) H 09/30/16 06:07 Reactive Lymphocytes Present (Not Present) A 09/28/16 06:10 Smudge Cells Present (Not Present) A 09/26/16 03:30 Platelet Estimate Decreased (Normal) L 09/30/16 06:07 Hypochromasia Present (Not Present) A 09/24/16 17:00 Anisocytosis 1+ (Not Present) A 09/29/16 06:11 Microcytosis Present (Not Present) A 09/23/16 07:53 PT 12.6 Seconds (9.4-12.1) H 09/29/16 12:05 ABG pCO2 47 mmHg (35-45) H 09/26/16 04:16 ABG pO2 67 mmHg (85-104) L 09/26/16 04:16 ABG Total CO2 28.0 mEq/L (20-26) H 09/26/16 04:16 ABG O2 Saturation 92 % (95-98) L 09/26/16 04:16 Carbon Dioxide 31 mEq/L (19-29) H 09/30/16 06:07 BUN 33 mg/dL (7-20) H 09/30/16 06:07 Creatinine 1.37 mg/dL (0.57-1.11) H 09/30/16 06:07 Est GFR ( Amer) 47 (> 60) L 09/30/16 06:07 Est GFR (Non-Af Amer) 39 (> 60) L 09/30/16 06:07 POC Glucose 128 (58-89) H 09/25/16 09:08 Calcium 8.1 mg/dL (8.6-10.8) L 09/30/16 06:07 Troponin I 0.12 ng/mL (0-0.03) H* 09/22/16 22:50 Albumin 2.6 g/dL (3.5-5.0) L 09/29/16 12:05 Globulin 4.3 g/dL (2.4-3.5) H 09/29/16 12:05 Albumin/Globulin Ratio 0.6 (1.1-2.2) L 09/29/16 12:05 - Microbiology Findings Microbiology Findings: Microbiology, Last 48 Hours 09/25/16 Unknown Anaerobic Culture - Final Pericardial Fluid No anaerobes were recovered. - Clinical Findings Intake & Output: Intake & Output 09/29/16 09/30/1617 23:59 07:59 15:59 Intake Total 100 / 100 360 / 360 Output Total 1500 / 1500 1500 / 1500 300 / 300 Balance -1400 / -1400 -1500 / -1500 60 / 60 - Attending Attestation I examined this patient and my medical decision-making was reviewed with the Resident Physician. I agree with the documented findings, disposition and treatment plan as described except to the extent set forth below. Patient seen and examined. Labs, radiology, chart personally reviewed. Agree with resident's history and physical, assessment, plan with following comments: MEDICAL IMAGING TECHNOLOGIST: Patient follows commands, Pulmonary: Acceptable oxygenation and ventilation. The patient is breathing better, however she still using some accessory muscle and she might benefit from thoracentesis when the platelets normalize. Cardiovascular: stable Overall patient is improving and waiting to transfer to the floor.
[2016-09-30 12:19] LABS: Bilirubin,Total 0.7 mg/dL (0.2-1.2)
[2016-09-30] MEDS: *HR* Acetaminophen w/Cod 300-30 mg 1 TAB TABLET PO PRN (20:28)
[2016-10-01] MEDS: Albuterol 2.5 MG/3 ML NEBULIZER IH SCH ×6 (04:07→23:15)
[2016-10-01 06:53] LABS: Red Cell Distribution Width 15.9 % (11.5-14.5)
[2016-10-01 06:55] LABS: Hematocrit 22.9 % (35.3-44.9); Hemoglobin 7.6 g/dL (11.5-15.4); Immature Platelets 6.9 % (1.1-6.1); Mean Corpuscular HGB Conc 33.2 g/dL (31.6-35.5); Mean Corpuscular Hemoglobin 28.1 pg (28.0-33.3); Mean Corpuscular Volume 84.8 fL (83.0-100.0); Mean Platelet Volume 11.1 fL (9.4-12.4)
[2016-10-01 07:11] LABS: Potassium 3.7 mEq/L (3.5-4.5)
[2016-10-01 07:28] LABS: Platelet Count 17 K/mcL (140-400)
[2016-10-01 07:40] LABS: Monocytes # 0.1 K/mcL (0.0-1.3); Neutrophils # 3.7 K/mcL (1.6-8.9)
[2016-10-01 07:41] LABS: Platelet Estimate Decreased (Normal)
[2016-10-01] MEDS: Furosemide 40 MG/4 ML VIAL IVP SCH ×2 (08:59→21:19)
[2016-10-01] MEDS: Diltiazem CD (24hr) 180 MG CAPSULE PO SCH (08:59)
[2016-10-01] MEDS: Metoprolol XL (24 HR) Succ 25 MG TAB.ER.24H PO SCH (09:00)
[2016-10-01] MEDS: Folic Acid 1 MG TABLET PO SCH (09:00)
--- NOTE | 2016-10-01 10:39 | Oncology Inp Progress Note ---
Date of Encounter: 10/01/16 Time of Encounter: 10:37 (1) Leukemia Current Visit: No Status: Chronic Assessment and plan: - CBC showed platelet count dropped to 17K. She will receive one unit of platelets as per transfusion parameters. - From the oncology point of view, she is cleared to be discharged. I would expect that she may need transfusion of blood products twice weekly, so upon discharge she should resume CBCs twice weekly with transfusion parameters of one unit of platelets for counts less than 20K , and 1 PRBC for Hb levels less than 7 g/dl. - If it's decided to perform IR guided thoracentesis, transfuse platelets with pre procedure goal of >50K. - Continue monitoring CBC daily while inpatient. - Follow up with outpatient oncologist to discuss timing to resume chemotherapy. 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 - Last platelet transfusion on 09/27. Today she will get transfusion of one unit of platelets in view that her counts dropped below 20K. No bleeding events. She reports that prior to admission was getting labs twice weekly. She will need to resume labs twice weekly upon discharge. ROS: negative for CP, SOB, nausea, vomiting, diarrhea. - Constitutional Vitals: Vital Signs Temp Pulse Resp BP Pulse Ox 10/01/16 10:05 85 20 10/01/16 08:59 90 20 128/51 10/01/16 07:55 97.9 F 10/01/16 07:28 22 99 10/01/16 04:00 81 22 126/57 91 10/01/16 03:00 98.0 F 10/01/16 00:00 76 21 123/54 93 09/30/16 23:43 98.0 F 09/30/16 22:00 77 22 95 09/30/16 20:00 83 20 125/55 96 09/30/16 19:41 15 92 09/30/16 19:30 97.5 F L 09/30/16 15:55 97.8 F 09/30/16 15:48 18 93 09/30/16 15:22 80 22 117/56 93 09/30/16 12:07 97.5 F L 09/30/16 11:45 22 93 09/30/16 11:23 78 22 122/59 93 Intake and Output 09/30/16 10/01/16 10/01/16 23:59 07:59 15:59 Intake Total 240 / 240 120 / 120 Output Total 400 / 400 400 / 400 Balance -160 / -160 -400 / -400 120 / 120 Intake: Oral 240 / 240 120 / 120 Output: Urine 400 / 400 400 / 400 Other: Meal Dinner Breakfast Percent of Meal Consumed 50% 75% Stool Size Moderate Small Stool Consistency soft formed Stool Color Brown Brown Weight 70.1 kg Patient Weight 10/01/16 23:59 Weight 70.1 kg - Head Head exam: Present: normal inspection - Eye Eye exam: Present: EOMI - ENT ENT exam: Present: normal exam - Respiratory Respiratory exam: Present: CTAB - Cardiovascular Cardiovascular exam: Present: +S1 - GI/Abdominal GI/Abdominal exam: Present: normal bowel sounds. Absent: organomegaly - Extremities Exam Additional comments: minimal bilateral lower extremity edema. - Neurological Exam Neurological exam: Present: oriented X3 - Psychiatric Psychiatric exam: Present: normal affect Oncology: Obj Data - Labs CBC & Chem 7: 10/01/16 06:29 10/01/16 06:29 Labs: Laboratory Results - last 24 hr 09/27/16 09/29/16 10/01/16 20:19 12:05 06:29 WBC 5.4 RBC 2.70 L Hgb 7.6 L Hct 22.9 L MCV 84.8 MCH 28.1 MCHC 33.2 RDW 15.9 H Plt Count 17 L* MPV 11.1 Seg Neutrophils % 54.0 Band Neutrophils % 14.0 H Lymphocytes % 18.0 Monocytes % 2.0 Metamyelocytes % 2.0 H Myelocytes % 2.0 H Promyelocytes % 2.0 H Blast Cells % 6.0 H Neutrophils # 3.7 Lymphocytes # 1.0 Monocytes # 0.1 Platelet Estimate Decreased L Immature Plt Fraction 6.9 H Sodium Potassium Chloride Carbon Dioxide BUN Creatinine Est GFR ( Amer) Est GFR (Non-Af Amer) BUN/Creatinine Ratio Glucose Calculated Osmolality Calcium Total Bilirubin 0.7 Miscellaneous Test 10/01/16 06:29 WBC RBC Hgb Hct MCV MCH MCHC RDW Plt Count MPV Seg Neutrophils % Band Neutrophils % Lymphocytes % Monocytes % Metamyelocytes % Myelocytes % Promyelocytes % Blast Cells % Neutrophils # Lymphocytes # Monocytes # Platelet Estimate Immature Plt Fraction Sodium 143 Potassium 3.7 Chloride 97 L Carbon Dioxide 36 H BUN 33 H Creatinine 1.23 H Est GFR ( Amer) 53 L Est GFR (Non-Af Amer) 44 L BUN/Creatinine Ratio 27 H Glucose 93 Calculated Osmolality 303 H Calcium 8.0 L Total Bilirubin Miscellaneous Test - ABG Interpretation ABG results: ABG ABG pH 7.36 pH Units (7.32-7.45) 09/26/16 04:16 ABG pCO2 47 mmHg (35-45) H 09/26/16 04:16 ABG pO2 67 mmHg (85-104) L 09/26/16 04:16 ABG O2 Saturation 92 % (95-98) L 09/26/16 04:16 PT/INR, D-dimer PT 12.6 Seconds (9.4-12.1) H 09/29/16 12:05 Consult Discharge Plan - Plan Referrals: Yuri Monsivais DO [Primary Care Provider] -
[2016-10-01] MEDS: ALPRAZolam 1 MG TABLET PO PRN (12:23)
[2016-10-01] MEDS ORDERED: 0.9 % Sodium Chloride 500 ML ONE (14:07)
--- NOTE | 2016-10-01 15:16 | Internal Med Progress Note ---
Date of Encounter: 10/01/16 Time of Encounter: 08:15 - Assessment and plan (1) Thrombocytopenia Current Visit: Yes Status: Acute Assessment and plan: Oncology evaluation appreciated pt to be transfused one unit Platelets today will continue to closely monitor (2) Pleural effusion Current Visit: Yes Status: Acute Assessment and plan: Will increase to Lasix 40mg IV BID O2 supplementation No thoracentesis at this time given thrombocytopenia will closely monitor respiratory status (3) Congestive heart failure Current Visit: No Status: Acute Assessment and plan: continue IV diuresis monitor I/Os daily weight fluid restriction diet Qualifiers: Congestive heart failure type: unspecified congestive heart failure type Congestive heart failure chronicity: unspecified congestive heart failure chronicity Qualified Code(s): I50.9 - Heart failure, unspecified (4) Leukemia Current Visit: No Status: Chronic Assessment and plan: oncology evaluation appreciated pt to continue treatment as outpatient Qualifiers: Leukemia type: myeloid Myeloid leukemia type: acute Leukemia Active/ Remission status: without remission Qualified Code(s): C92.00 - Acute myeloblastic leukemia, not having achieved remission (5) Pericardial effusion Current Visit: Yes Status: Acute Assessment and plan: s/p pericardial window but cardiothoracic surgery (6) DVT prophylaxis Current Visit: Yes Status: Acute Assessment and plan: SCD - Subjective Interval history: Patient seen and examined at bedside. Resting in bed and reports of feeling better compared to previous day. Noted to have diffuse rales and tachypneic. Will increase lasix 40mg IV to BID and closely monitor respiratory status. Pt noted to have drop in PLt and will receive one unit PLT today. Patient can be transferred out of the ICU, pending bed availability - Constitutional Vitals: Temp Pulse Resp BP Pulse Ox 97.9 F 81 24 110/57 93 10/01/16 14:35 10/01/16 14:35 10/01/16 14:35 10/01/16 14:35 10/01/16 14:35 General appearance: Present: A&O X 3, no acute distress, answers questions appropriately - Head Head exam: Present: atraumatic, normocephalic - Eye Eye exam: Present: conjuntiva pink, sclera anicteric - Respiratory Respiratory exam: Absent: respiratory distress (diffuse rales), wheezes - Cardiovascular Cardiovascular exam: Present: RRR, +S1, +S2. Absent: diastolic murmur, gallop, rubs, systolic murmur - GI/Abdominal GI/Abdominal exam: Present: normal bowel sounds, soft, no peritoneal signs. Absent: distended, tenderness - Extremities Exam Extremities exam: Present: warm, radial pulses palpable and symmetrical. Absent : calf tenderness - Neurological Exam Neurological exam: Present: alert, oriented X3 - Psychiatric Psychiatric exam: Present: normal affect, normal mood Internal Medicine: Result - Labs CBC & Chem 7: 10/01/16 06:29 10/01/16 06:29 Labs: Short CBC 10/01/16 Range/Units 06:29 WBC 5.4 (4.3-11.1) K/mcL Hgb 7.6 L (11.5-15.4) g/dL Hct 22.9 L (35.3-44.9) % Plt Count 17 L* (140-400) K/mcL Neutrophils # 3.7 (1.6-8.9) K/mcL BMP 10/01/16 06:29 Sodium 143 Potassium 3.7 Chloride 97 L Carbon Dioxide 36 H BUN 33 H Creatinine 1.23 H Glucose 93 Calcium 8.0 L - ABG Interpretation ABG results: ABG ABG pH 7.36 pH Units (7.32-7.45) 09/26/16 04:16 ABG pCO2 47 mmHg (35-45) H 09/26/16 04:16 ABG pO2 67 mmHg (85-104) L 09/26/16 04:16 ABG O2 Saturation 92 % (95-98) L 09/26/16 04:16 PT/INR, D-dimer PT 12.6 Seconds (9.4-12.1) H 09/29/16 12:05 - VTE Documentation of Mechanical Device: Intermittent pneumatic compression device Consult Discharge Plan - Plan Referrals: Yuri Monsivais DO [Primary Care Provider] -
[2016-10-01] MEDS: *HR* Acetaminophen w/Cod 300-30 mg 1 TAB TABLET PO PRN (21:22)
[2016-10-02] MEDS: Albuterol 2.5 MG/3 ML NEBULIZER IH SCH ×6 (03:00→23:43)
[2016-10-02 05:46] LABS: Basophils % 0.2 %; Calcium 8.1 mg/dL (8.6-10.8); Hematocrit 22.6 % (35.3-44.9); Hemoglobin 7.5 g/dL (11.5-15.4); Immature Granulocytes % 5.8 % (0-4); Lymphocytes # 1.1 K/mcL (0.6-4.6); Lymphocytes % 19.3 %; Magnesium 1.6 mg/dL (1.6-2.6); Mean Corpuscular HGB Conc 33.2 g/dL (31.6-35.5); Mean Corpuscular Hemoglobin 28.6 pg (28.0-33.3); Mean Corpuscular Volume 86.3 fL (83.0-100.0); Mean Platelet Volume 10.2 fL (9.4-12.4); Monocytes # 0.8 K/mcL (0.0-1.3); Monocytes % 13.2 %; Neutrophils # 3.5 K/mcL (1.6-8.9); Phosphorous 4.5 mg/dL (2.3-4.7); Potassium 3.6 mEq/L (3.5-4.5); Red Blood Count 2.62 M/mcL (3.82-4.97); Segmented Neutrophils % 61.5 %
[2016-10-02 05:48] LABS: Platelet Count 54 K/mcL (140-400)
[2016-10-02 06:27] LABS: Platelet Estimate Decreased (Normal)
--- NOTE | 2016-10-02 08:01 | Internal Med Progress Note ---
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 She has had this for 3 years and had chemotherapy. She was admitted with chest pain and atrial fibrillation with RVR. Rate was controlled with IV Cardizem. Upon admission, her platelet count was 4000 and her INR was 2. Creatinine is 1.93. Echocardiogram revealed a pericardial effusion with possible early tamponade. Otherwise patient had normal EF and normal LV systolic function. Cardiothoracic surgery was consulted and patient underwent pericardial window. Platelets were transfused on an as-needed basis. Patient acute kidney injury has resolved. She is noted to have pancytopenia and it is not clear that if etiology is MDS or chemotherapy. Beside cardiothoracic surgery cardiology and pulmonology were also consulted. Currently her main issue is that her oxygen saturation is very borderline and she needs supplemental oxygen while she has pleural effusion. Cardiothoracic surgery is recommending thoracentesis by IR. Her platelets were low and therefore she was transfused yesterday again. Patient had a left thoracentesis today and 1200 mL were removed. Chest x-ray showed interval reduction in left pleural effusion and no pneumothorax. With initial pH glucose and LDH it looks like a transudate. Gram stain cultures pending. She is 8 L positive during this admission. I will try to diurese her tonight. - Constitutional Vitals: Temp Pulse Resp BP Pulse Ox 98.3 F 77 19 128/64 100 10/02/16 07:00 10/02/16 07:00 10/02/16 07:00 10/02/16 07:00 10/02/16 07:00 General appearance: Present: A&O X 3, no acute distress, answers questions appropriately - Head Head exam: Present: atraumatic, normocephalic - Eye Eye exam: Present: PERRL, conjuntiva pink, sclera anicteric Pupils: Present: PERRL - Neck Neck exam general surgery: Present: supple, trachea midline. Absent: lymphadenopathy - Respiratory Respiratory exam: Present: CTAB. Absent: accessory muscle use, rales, rhonchi, wheezes - Cardiovascular Cardiovascular exam: Present: RRR, +S1, +S2. Absent: diastolic murmur, gallop, rubs, systolic murmur - GI/Abdominal GI/Abdominal exam: Present: normal bowel sounds, soft, no peritoneal signs. Absent: distended, tenderness - Extremities Exam Extremities exam: Present: warm, radial pulses palpable and symmetrical. Absent : calf tenderness, cyanotic, pedal edema - Neurological Exam Neurological exam: Present: CN II-XII intact, oriented X3, no focal deficits. Absent: pronater drift, facial droop, speech deficit - Skin Skin exam: Present: dry, intact Internal Medicine: Result - Labs CBC & Chem 7: 10/02/16 04:59 10/02/16 04:59 Labs: Short CBC 10/02/16 Range/Units 04:59 WBC 5.7 (4.3-11.1) K/mcL Hgb 7.5 L (11.5-15.4) g/dL Hct 22.6 L (35.3-44.9) % Plt Count 54 L D (140-400) K/mcL Neutrophils # 3.5 (1.6-8.9) K/mcL BMP 10/02/16 04:59 Sodium 139 Potassium 3.6 Chloride 96 L Carbon Dioxide 35 H BUN 29 H Creatinine 1.28 H Glucose 92 Calcium 8.1 L - ABG Interpretation ABG results: ABG ABG pH 7.36 pH Units (7.32-7.45) 09/26/16 04:16 ABG pCO2 47 mmHg (35-45) H 09/26/16 04:16 ABG pO2 67 mmHg (85-104) L 09/26/16 04:16 ABG O2 Saturation 92 % (95-98) L 09/26/16 04:16 PT/INR, D-dimer PT 12.6 Seconds (9.4-12.1) H 09/29/16 12:05 - VTE Documentation of Mechanical Device: Intermittent pneumatic compression device Consult Discharge Plan - Plan Referrals: Yuri Monsivais DO [Primary Care Provider] -
[2016-10-02] MEDS: Folic Acid 1 MG TABLET PO SCH (08:43)
[2016-10-02] MEDS: Metoprolol XL (24 HR) Succ 25 MG TAB.ER.24H PO SCH (08:44)
[2016-10-02] MEDS: Furosemide 40 MG/4 ML VIAL IVP SCH ×2 (08:44→19:00)
[2016-10-02] MEDS: Diltiazem CD (24hr) 180 MG CAPSULE PO SCH (08:44)
--- NOTE | 2016-10-02 11:09 | Oncology Inp Progress Note ---
Date of Encounter: 10/02/16 Time of Encounter: 11:06 (1) Leukemia Current Visit: No Status: Chronic Assessment and plan: - Platelet count improved to the low 50s after receiving one unit of platelet yesterday. No associated bleeding events. - Discharge planning as per primary team. Apparently possible today if not plans for thoracentesis during current hospitalization. - Pleural fluid accumulation more likely not related to leukemia, in view of her symptomatic improvement while being treated with diuretics. - Upon discharge she should resume CBCs twice weekly with transfusion parameters of one unit of platelets for counts less than 20K , and 1 PRBC for Hb levels less than 7 g/dl. - If it's decided to perform IR guided thoracentesis, transfuse platelets with pre procedure goal of >50K. - Follow up with outpatient oncologist to discuss timing to resume chemotherapy. Qualifiers: Leukemia type: myeloid Myeloid leukemia type: acute Leukemia Active/ Remission status: without remission Qualified Code(s): C92.00 - Acute myeloblastic leukemia, not having achieved remission Oncology: Subj Interval history: Hypoxia, thrombocytopenia. Reports that her oxygen requirements are close or at baseline. Denies significant overnight events. Denies bleeding issues. Platelts up to the low 50s after receiving platelet transfusion yesterday.. - Constitutional Vitals: Vital Signs Temp Pulse Resp BP Pulse Ox 10/02/16 07:30 18 93 10/02/16 07:00 98.3 F 77 19 128/64 100 10/02/16 05:05 98.2 F 77 17 123/61 92 10/01/16 23:14 98.5 F 87 16 128/62 93 10/01/16 20:04 21 93 10/01/16 18:00 98.5 F 88 18 128/53 94 10/01/16 17:44 99.0 F 89 20 119/56 10/01/16 16:36 87 22 10/01/16 15:58 97.2 F L 10/01/16 15:27 24 93 10/01/16 14:35 97.9 F 81 24 110/57 93 10/01/16 14:20 97.9 F 87 24 115/60 91 10/01/16 14:13 97.9 F 87 24 115/60 91 10/01/16 12:14 92 20 10/01/16 11:45 98.0 F 10/01/16 11:40 20 99 Intake and Output 10/01/16 10/02/16 10/02/16 23:59 07:59 15:59 Intake Total 400 / 400 240 / 240 Balance 400 / 400 240 / 240 Intake: Oral 240 / 240 Blood Product 400 / 400 Platelet Pheresis Lp Irr 400 / 400 1st Unit [id number] Other: Meal Breakfast Percent of Meal Consumed 100% Weight 69.853 kg - Respiratory Respiratory exam: Present: CTAB - Cardiovascular Cardiovascular exam: Present: +S1 - GI/Abdominal GI/Abdominal exam: Present: normal bowel sounds. Absent: organomegaly - Extremities Exam Extremities exam: Absent: pedal edema Oncology: Obj Data - Labs CBC & Chem 7: 10/02/16 04:59 10/02/16 04:59 Labs: Laboratory Results - last 24 hr 10/02/16 10/02/16 04:59 04:59 WBC 5.7 RBC 2.62 L Hgb 7.5 L Hct 22.6 L MCV 86.3 MCH 28.6 MCHC 33.2 RDW 16.0 H Plt Count 54 L D MPV 10.2 Immature Gran % 5.8 H Seg Neutrophils % 61.5 Lymphocytes % 19.3 Monocytes % 13.2 Eosinophils % 0.0 Basophils % 0.2 Neutrophils # 3.5 Lymphocytes # 1.1 Monocytes # 0.8 Eosinophils # 0.0 Basophils # 0.0 Platelet Estimate Decreased L Sodium 139 Potassium 3.6 Chloride 96 L Carbon Dioxide 35 H BUN 29 H Creatinine 1.28 H Est GFR ( Amer) 51 L Est GFR (Non-Af Amer) 42 L BUN/Creatinine Ratio 23 Glucose 92 Calculated Osmolality 293 Calcium 8.1 L Phosphorus 4.5 Magnesium 1.6 - ABG Interpretation ABG results: ABG ABG pH 7.36 pH Units (7.32-7.45) 09/26/16 04:16 ABG pCO2 47 mmHg (35-45) H 09/26/16 04:16 ABG pO2 67 mmHg (85-104) L 09/26/16 04:16 ABG O2 Saturation 92 % (95-98) L 09/26/16 04:16 PT/INR, D-dimer PT 12.6 Seconds (9.4-12.1) H 09/29/16 12:05 Consult Discharge Plan - Plan Referrals: Yuri Monsivais, DO [Primary Care Provider] -
--- NOTE | 2016-10-02 15:19 | IR Procedure Note ---
Date of procedure: 10/02/16 Consent Obtained: Written consent Timeout: Correct patient and procedure verified, Correct site verified, Time out performed, Skin prep completed Local anesthetic: Lidocaine 1% Indications: Left effusion Procedure Performed: Thoracentesis Site/Technique: Left chest 8fr catheter placement Results/Findings: 1200ml of light todd colored fluid obtained. Estimated blood loss (cc): 1 Complications: None; Tolerated procedure well Post Procedure Treatment Plan: Monitoring in pts room
[2016-10-02] MEDS ORDERED: Furosemide 40 MG/4 ML VIAL IVP STA (18:40)
[2016-10-02] MEDS ORDERED: metOLazone 5 MG TABLET PO STA (18:42)
[2016-10-02] MEDS ORDERED: Magnesium Sulfate 2 GM in D5% in Water 100 ML IVPB STA (18:43)
[2016-10-02] MEDS: *HR* Acetaminophen w/Cod 300-30 mg 1 TAB TABLET PO PRN (19:11)
[2016-10-03] MEDS: Albuterol 2.5 MG/3 ML NEBULIZER IH SCH ×6 (03:30→23:08)
[2016-10-03 05:15] LABS: Hematocrit 24.2 % (35.3-44.9); Mean Corpuscular Volume 86.4 fL (83.0-100.0)
[2016-10-03 05:17] LABS: Hemoglobin 7.8 g/dL (11.5-15.4); Immature Platelets 2.1 % (1.1-6.1); Mean Corpuscular HGB Conc 32.2 g/dL (31.6-35.5); Mean Corpuscular Hemoglobin 27.9 pg (28.0-33.3); Mean Platelet Volume 10.8 fL (9.4-12.4); Red Cell Distribution Width 15.7 % (11.5-14.5)
[2016-10-03 05:21] LABS: Platelet Count 46 K/mcL (140-400)
[2016-10-03 05:29] LABS: Calcium 8.6 mg/dL (8.6-10.8); Potassium 3.8 mEq/L (3.5-4.5)
[2016-10-03 05:56] LABS: Lymphocytes # 1.4 K/mcL (0.6-4.6); Monocytes # 0.3 K/mcL (0.0-1.3); Neutrophils # 2.8 K/mcL (1.6-8.9); Platelet Estimate Decreased (Normal)
[2016-10-03] MEDS: Metoprolol XL (24 HR) Succ 25 MG TAB.ER.24H PO SCH (11:10)
[2016-10-03] MEDS: Furosemide 40 MG/4 ML VIAL IVP SCH (11:10)
[2016-10-03] MEDS: Diltiazem CD (24hr) 180 MG CAPSULE PO SCH (11:10)
[2016-10-03] MEDS: Folic Acid 1 MG TABLET PO SCH (11:10)
[2016-10-03] MEDS ORDERED: metOLazone 5 MG TABLET PO STA (14:03)
[2016-10-03] MEDS ORDERED: Furosemide 80 MG in 0.9 % Sodium Chloride 50 ML IVPB STA (14:04)
[2016-10-03] MEDS ORDERED: Magnesium Sulfate 2 GM in D5% in Water 100 ML IVPB STA (14:06)
--- NOTE | 2016-10-03 14:13 | Discharge Summary ---
Date of Encounter: 10/03/16 Time of Encounter: 14:10 - Discharge Diagnosis (1) Pericardial effusion Priority: Primary Status: Acute (2) Pleural effusion Priority: Primary Status: Acute (3) NSTEMI (non-ST elevated myocardial infarction) Priority: Primary Status: Acute (4) New onset a-fib Priority: Primary Status: Acute (5) Thrombocytopenia Priority: Secondary Status: Chronic (6) Acute kidney injury Priority: Secondary Status: Acute (7) MDS (myelodysplastic syndrome) Priority: Secondary Status: Chronic (8) Acute myeloid leukemia Priority: Secondary Status: Chronic Qualifiers: Leukemia Active/Remission status: relapsed Qualified Code(s): C92.02 - Acute myeloblastic leukemia, in relapse (9) DVT prophylaxis Priority: Secondary Status: Acute - Discharge Medications Prescriptions: Albuterol Neb [Proventil Neb] 2.5 mg IH QID #1 inh Diltiazem CD (24hr) [Cardizem CD] 360 mg PO DAILY #60 Furosemide [Lasix] 40 mg PO BID #60 tablet Metoprolol XL (24 HR) Succ [Toprol Xl] 25 mg PO DAILY #30 Potassium Chloride 40 meq PO DAILY #30 tab.er.prt Home Medications: Citalopram [CeleXA] 20 mg PO DAILY 09/25/14 [History] Folic Acid 1 mg PO DAILY #30 tablet 04/25/16 [Rx] ALPRAZolam [Xanax 1 MG Tablet] 1 mg PO TID PRN 05/26/16 [History] Deferasirox [Jadenu] 1,440 mg PO DAILY #120 tablet 06/17/16 [Rx] Aminocaproic Acid [Amicar] 500 mg PO TID #90 tablet 09/02/16 [Rx] Acetaminophen w/Cod 300-30 mg [Tylenol w/Codeine #3] 1 tab PO Q6HR PRN 09/22/16 [History] Albuterol Neb [Proventil Neb] 2.5 mg IH QID #1 inh 10/03/16 [Rx] Diltiazem CD (24hr) [Cardizem CD] 360 mg PO DAILY #60 10/03/16 [Rx] Furosemide [Lasix] 40 mg PO BID #60 tablet 10/03/16 [Rx] Metoprolol XL (24 HR) Succ [Toprol Xl] 25 mg PO DAILY #30 10/03/16 [Rx] Potassium Chloride 40 meq PO DAILY #30 tab.er.prt 10/03/16 [Rx] Allergies/Adverse Reactions: 3 Allergy/AdvReac Type Severity Reaction Status Date / Time Penicillins Allergy Unknown Hives Verified 09/22/16 10:57 Procedures/tests Complete & Pending: Procedures Performed prior 72 hours Category Date Time Status IR thoracentesis ultrasound [IR] Routine IR 10/02/16 Completed Date of admission: 09/22/16 16:43 Primary care physician: Yuri Monsivais Consults: 09/22/16 16:47 Consult to Cardiology [CONS] Routine Comment: Consulting Provider: Cardiology [place] Reason for Consult: afIB WITH rvr Call Completed: No 09/22/16 17:39 Consult to PICC team [Consult to Invasive Line Access Team] [CONS] Routine Reason for Consult: need for better IV access Line Type: EPIV PICC line indications: Limited vascular access 09/23/16 11:44 Consult to Cardiothoracic Surgery [CONS] Routine Consulting Provider: Cardiothoracic Surgery [place] Reason for Consult: Large pericardial effusion. Call Completed: Yes 09/23/16 15:09 Consult to Oncology Hematology [CONS] Routine Consulting Provider: Kaye Dietz Reason for Consult: Refractory pancytopenia Call Completed: Yes 09/25/16 09:11 Consult to Graphics Coordinator [CONS] Routine Reason for SW Consult: pericardial window 09/29/16 09:11 Consult to Pulmonology [CONS] Routine Consulting Provider: Pulm [facility] [place] Reason for Consult: ICU management Call Completed: Yes 10/02/16 12:56 Consult to Interventional Radiology [CONS] Routine Consulting Provider: Radiology Interventional [place] Reason for Consult: Left Thorocentesis Call Completed: Yes Discharging clinician: Jacoby Gonzalez Anticipated date of discharge: 10/03/16 - Patient Status Disposition: Home, Self-Care Condition: Good Functional capacity at discharge: independent ambulation Overall status at discharge: patient is progressing back to baseline - Discharge Instructions Follow Up With: Yuri Monsivais DO [Primary Care Provider] - - Diet and Activity Activity: resume usual activities as tolerated Diet: advance to your usual diet, low fat, low cholesterol, low salt diet Hospital course: Ms. Miles is a 65-year-old female with a history of AML leukemia. She has had this for 3 years and had chemotherapy. She was admitted with chest pain and atrial fibrillation with RVR. Rate was controlled with IV Cardizem. Upon admission, her platelet count was 4000 and her INR was 2. Creatinine is 1.93. Echocardiogram revealed a pericardial effusion with possible early tamponade. Otherwise patient had normal EF and normal LV systolic function. Cardiothoracic surgery was consulted and patient underwent pericardial window. Platelets were transfused on an as-needed basis. Patient acute kidney injury has resolved. She is noted to have pancytopenia and it is not clear that if etiology is MDS or chemotherapy. Beside cardiothoracic surgery cardiology and pulmonology were also consulted. Currently her main issue is that her oxygen saturation is very borderline and she needs supplemental oxygen while she has pleural effusion. Cardiothoracic surgery is recommending thoracentesis by IR. Her platelets were low and therefore she was transfused yesterday again. Patient had a left thoracentesis yesterday and 1200 mL were removed. Chest x- ray showed interval reduction in left pleural effusion and no pneumothorax. With initial pH glucose and LDH it looks like a transudate. Gram stain cultures pending. She is 8 L positive during this admission. Therefore we diuresed her aggressively and gave her extra dose of Lasix and Zaroxolyn with potassium magnesium and this morning she has 2200 negative net. Will repeat the same dose today and let her go home as her lungs examinations but better and she feels much better than saying ouch instructed on 3 L she can use 2 L of oxygen at home while her baseline is on 3 L. She was offered to stay for another day however she has refused but promised to return if symptoms Worsen. - Time Spent with Patient Total time spent providing and/or coordinating discharge services: Greater than 30 minutes - Constitutional Vitals: Temp Pulse Resp BP Pulse Ox 97.8 F 84 12 110/51 94 10/03/16 14:00 10/03/16 14:00 10/03/16 14:00 10/03/16 14:00 10/03/16 14:00 General appearance: Present: A&O X 3, no acute distress, answers questions appropriately - Head Head exam: Present: atraumatic, normocephalic - Eye Eye exam: Present: PERRL, conjuntiva pink, sclera anicteric Pupils: Present: PERRL - Neck Neck exam general surgery: Present: supple, trachea midline. Absent: lymphadenopathy - Respiratory Respiratory exam: Absent: accessory muscle use, rales, rhonchi, wheezes Additional comments: Breasts on very clear on the left but delete less clear on the right though is still I do not hear any wheezing rales or rub - Cardiovascular Cardiovascular exam: Present: RRR, +S1, +S2. Absent: diastolic murmur, gallop, rubs, systolic murmur - GI/Abdominal GI/Abdominal exam: Present: normal bowel sounds, soft, no peritoneal signs. Absent: distended, tenderness - Extremities Exam Extremities exam: Present: warm, radial pulses palpable and symmetrical. Absent : calf tenderness, cyanotic, pedal edema - Neurological Exam Neurological exam: Present: CN II-XII intact, oriented X3, no focal deficits. Absent: pronater drift, facial droop, speech deficit - Skin Skin exam: Present: dry, intact - VTE Documentation of Mechanical Device: Intermittent pneumatic compression device
[2016-10-03 16:24] VITALS: BP 137/79
[2016-10-04] MEDS: Albuterol 2.5 MG/3 ML NEBULIZER IH SCH (03:36)
== END 2016-10-03 19:00 | disposition home or self-care (01) | DRG 270 ==
LOC: 2NENU 10:52 → EMEROO 10:52 → 2NENU 15:16 → SUATTDRO 16:43 → ICNU 09-25 09:29 → 2NENU 10-01 19:27
PROVIDERS: ADMIT Internal Medicine Endocrinology, Diabetes & Metabolism; ATTEND Internal Medicine

== ENCOUNTER 2016-11-18 12:27 | Observation (INO) ==
--- NOTE | 2016-11-18 13:31 | Emergency Department Note ---
Disposition Clinical Impression: Hypokalemia, Pleural effusion Acute myeloid leukemia Qualifiers: Leukemia Active/Remission status: without remission Qualified Code(s): C92.00 - Acute myeloblastic leukemia, not having achieved remission Leukocytosis Qualifiers: Leukocytosis type: unspecified Qualified Code(s): D72.829 - Elevated white blood cell count, unspecified Disposition: Admitted As Inpatient Condition: Good Time of Disposition: 16:14 General Adult HPI - General Chief complaint: ED General Medical Stated complaint: KAREN from PCP Time Seen by Provider: 11/18/16 12:53 Source: patient Limitations: no limitations Nursing Notes Reviewed: Yes Vital Signs Reviewed: Yes - History of Present Illness HPI Narrative: Patient received a blood transfusion last week. States that she normally gets Lasix with this but did not receive at this time. Complaining of increasing shortness of breath over the weekend. Does not generally wear oxygen however has had to wear 3 L to help with her shortness of breath. States that she was sent here today by her oncologist for an increase in her white blood cell count. It normally runs 3-5000 and today it was 55,000. Pain Scale: 0 - Related Data Home Medications Medication Instructions Recorded Confirmed Citalopram [CeleXA] 20 mg PO DAILY 09/25/14 10/28/16 ALPRAZolam [Xanax 1 MG Tablet] 1 mg PO TID PRN 05/26/16 10/28/16 Acetaminophen w/Cod 300-30 mg 1 tab PO Q6HR PRN 09/22/16 10/28/16 [Tylenol w/Codeine #3] Ascorbic Acid [Vitamin C] 500 mg PO DAILY 11/18/16 11/18/16 Diltiazem HCl [Diltiazem 24Hr Cd] 360 mg PO DAILY 11/18/16 Multivitamin [Multi-Day Vitamins] 1 each PO DAILY 11/18/16 11/18/16 Oxygen 3 l NS AD 11/18/16 11/18/16 Previous Rx's Medication Instructions Recorded Folic Acid 1 mg PO DAILY #30 tablet 04/25/16 Deferasirox [Jadenu] 1,440 mg PO DAILY #120 tablet 06/17/16 Aminocaproic Acid [Amicar] 500 mg PO TID #90 tablet 09/02/16 Allergies Allergy/AdvReac Type Severity Reaction Status Date / Time Penicillins Allergy Unknown Hives Verified 11/18/16 12:40 All systems ED: reviewed and negative except as stated. Constitutional: Denies: fever, chills ENT ED: Denies: congestion Cardiovascular: Reports: dyspnea on exertion. Denies: chest pain, palpitations , syncope Respiratory: Reports: dyspnea. Denies: cough, wheezes, sputum production Gastrointestinal: Denies: abdominal pain, nausea, vomiting, diarrhea, hematemesis, melena, hematochezia Genitourinary: Denies: urgency, dysuria, frequency Musculoskeletal: Denies: back pain, neck pain Integumentary: Denies: rash Neurological: Denies: headache, weakness Past Medical History - Past Medical History Attestation: Yes The following information was validated with the patient. 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 Absent: scleral icterus - ENT ENT exam: normal exam, normal oropharynx, mucous membranes moist - Neck Neck exam: Present: normal inspection, full ROM, trachea midline. Absent: tenderness, meningismus, lymphadenopathy - Chest Chest inspection: Present: normal inspection, symmetric chest wall rise. Absent : tenderness, rash - Respiratory Respiratory exam: Present: normal lung sounds bilaterally (Slightly diminished in the bases bilaterally.). Absent: respiratory distress, wheezes, accessory muscle use - Cardiovascular Cardiovascular exam: Present: regular rate, normal rhythm, normal heart sounds - Abdominal Exam Abdominal exam: Present: soft, Non-Tender, normal bowel sounds. Absent: tenderness, distention, guarding, rebound, rigidity, organomegaly - Extremities Exam Extremities exam: Present: normal inspection, full ROM, normal capillary refill. Absent: tenderness, pedal edema - Back Exam Back exam: Present: normal inspection - Neurological Exam Neurological exam: Present: alert, oriented X3 - Psychiatric Psychiatric exam: Present: normal affect, normal mood - Skin Skin exam: Present: warm, dry, intact, normal color. Absent: rash, cyanosis, diaphoresis, erythema Course Course Narrative: Well-appearing female patient resting in bed. She is on oxygen at this time. She states that she generally does not wear oxygen but over the weekend she has been wearing 3 L due to her shortness of breath. She is a cancer patient. She has a history of AML and is followed at the cancer center. She states that she received a blood transfusion last week and generally gets Lasix with this however she did not this time. She is concerned that she has "fluid overloaded. " She states that she thinks she has fluid on her left lung. She denies any coughs or congestion. She denies any fevers. She states she took her temperature last night and it was 98.5. She denies any chest pain. She does report shortness of breath at rest or when ambulating. She is not dyspneic whenever I am speaking to her. She states she otherwise feels well. Patient does have a history of a pericardial effusion. She had a window approximately 1 month ago. She states she has healed well from this. She does have a well- healed midline scar on her chest. On exam she is not in distress. Her lung sounds are relatively clear but diminished in the bases bilaterally. Her abdomen is soft and nontender. She denies any bowel or bladder issues. She denies any hematochezia hematuria or melena. Patient was sent for the barlow from the cancer center with an increased white blood cell count around 55,000. She states she normally runs in the 20-30,000 range. We are awaiting a callback from the cancer [place] to discuss the patient however I anticipate admission for her. - Reevaluation(s) Reevaluation #1: Patient's lactic acid was 1.1. She does have an elevated alkaline phosphatase and white blood cell count. She also has bilateral pleural effusions. Her creatinine is also increase. We will admit patient for bilateral pleural effusions hypokalemia as well as her leukocytosis. Patient is agreeable to this. We have provided patient with 40 mg of oral potassium here. She states she is supposed to be taking a potassium supplement at home but has not been taking it. Also given her 1 dose of IV Lasix while here. - Consultations Consultation #1: I spoke with the nurse practitioner at the oncology center. She agrees to see patient should be admitted and states that Dr. Joe and will follow along. She reccomends trending the WBC count, and if a source shows to treat it. She could not recommend a specific antibiotic to start currently. Time: 15:27 Consultation #2: Dr. Miramontes accepted patient's stable condition. Time: 15:42 Vital Signs Temperature 98.1 F 11/18/16 12:40 Pulse Rate 99 11/18/16 12:40 Respiratory Rate 20 11/18/16 12:40 Blood Pressure 110/53 11/18/16 12:40 O2 Sat by Pulse Oximetry 96 11/18/16 12:40 Temperature 98.1 F 11/18/16 12:40 Pulse Rate 87 11/18/16 15:40 Respiratory Rate 16 11/18/16 15:40 Blood Pressure 147/76 11/18/16 15:40 O2 Sat by Pulse Oximetry 96 11/18/16 15:40 Oxygen Delivery Oxygen Delivery Nasal Cannula Medical Decision Making - Medical Records Medical records reviewed: Yes I reviewed the patient's medical records. - Lab Data Lab results reviewed: Yes I reviewed the patient's lab results. Result diagrams: 11/18/16 13:31 Lab Results 11/18/16 11/18/16 11/18/16 Range/Units 13:31 13:31 13:31 Sodium 139 (136-145) mEq/L Potassium 2.9 L (3.5-4.5) mEq/L Chloride 102 (98-109) mEq/L Carbon Dioxide 27 (19-29) mEq/L BUN 27 H (7-20) mg/dL Creatinine 2.09 H (0.57-1.11) mg/dL Est GFR ( Amer) 29 L (> 60) Est GFR (Non-Af Amer) 24 L (> 60) BUN/Creatinine Ratio 13 (6-26) Glucose 88 (70-99) mg/dL Calculated Osmolality 293 (280-300) Lactic Acid (0.5-2.2) mmol/L Calcium 8.8 (8.6-10.8) mg/dL Total Bilirubin 0.6 (0.2-1.2) mg/dL AST 40 H (5-34) Units/L ALT 18 (0-55) Units/L Alkaline Phosphatase 221 H (38-126) Units/L Troponin I 0.00 (0-0.03) ng/mL B-Natriuretic Peptide 185 H (0-100) pg/mL Serum Total Protein 8.9 H (6.0-8.3) g/dL Albumin 3.1 L (3.5-5.0) g/dL Globulin 5.8 H (2.4-3.5) g/dL Albumin/Globulin Ratio 0.5 L (1.1-2.2) 11/18/16 Range/Units 13:47 Sodium (136-145) mEq/L Potassium (3.5-4.5) mEq/L Chloride (98-109) mEq/L Carbon Dioxide (19-29) mEq/L BUN (7-20) mg/dL Creatinine (0.57-1.11) mg/dL Est GFR ( Amer) (> 60) Est GFR (Non-Af Amer) (> 60) BUN/Creatinine Ratio (6-26) Glucose (70-99) mg/dL Calculated Osmolality (280-300) Lactic Acid 1.1 (0.5-2.2) mmol/L Calcium (8.6-10.8) mg/dL Total Bilirubin (0.2-1.2) mg/dL AST (5-34) Units/L ALT (0-55) Units/L Alkaline Phosphatase (38-126) Units/L Troponin I (0-0.03) ng/mL B-Natriuretic Peptide (0-100) pg/mL Serum Total Protein (6.0-8.3) g/dL Albumin (3.5-5.0) g/dL Globulin (2.4-3.5) g/dL Albumin/Globulin Ratio (1.1-2.2) - Radiology Data Radiology results reviewed: Yes I reviewed the patient's radiology results. Chest X-Ray 11/18/16 12:53 IMPRESSION: Pulmonary edema with bilateral pleural effusions, small to moderate on the left and small on the right. D/ / Leroy Montero MD / Leroy Montero MD Interpreting Provider: Leroy Montero MD - EKG Data EKG #1 EKG attestation: Yes I reviewed and interpreted this EKG. EKG results narrative: Sinus tachycardia at a rate of 102. CA interval is 129. QRS duration is 74. QT is 307. QTC is 366. No signs of acute ischemia. Patient was in atrial flutter at a rate of 143 on her last EKG dated 09/27/2016.
--- NOTE | 2016-11-18 13:36 | Emergency Department Note ---
Disposition Clinical Impression: Acute myeloid leukemia, Hypokalemia, Pleural effusion, Leukocytosis Disposition: Admitted As Inpatient Condition: Good General Adult HPI - General Chief complaint: ED General Medical Stated complaint: KAREN from PCP Time Seen by Provider: 11/18/16 12:53 Source: patient Limitations: no limitations Nursing Notes Reviewed: Yes Vital Signs Reviewed: Yes - History of Present Illness Pain Scale: 0 - Related Data Home Medications Medication Instructions Recorded Confirmed Citalopram [CeleXA] 20 mg PO DAILY 09/25/14 11/18/16 ALPRAZolam [Xanax 1 MG Tablet] 1 mg PO TID PRN 05/26/16 11/18/16 Acetaminophen w/Cod 300-30 mg 1 tab PO Q6HR PRN 09/22/16 11/18/16 [Tylenol w/Codeine #3] Ascorbic Acid [Vitamin C] 500 mg PO DAILY 11/18/16 11/18/16 Diltiazem HCl [Diltiazem 24Hr Cd] 360 mg PO DAILY 11/18/16 Multivitamin [Multi-Day Vitamins] 1 each PO DAILY 11/18/16 11/18/16 Oxygen 3 l NS AD 11/18/16 11/18/16 Previous Rx's Medication Instructions Recorded Folic Acid 1 mg PO DAILY #30 tablet 04/25/16 Deferasirox [Jadenu] 1,440 mg PO DAILY #120 tablet 06/17/16 Aminocaproic Acid [Amicar] 500 mg PO TID #90 tablet 09/02/16 Allergies Allergy/AdvReac Type Severity Reaction Status Date / Time Penicillins Allergy Unknown Hives Verified 11/18/16 12:40 Past Medical History - Past Medical History Medical history: Reports: cancer, other Surgical history: Reports: cholecystectomy, other Psychiatric history: Reports: anxiety, depression EASTER BUNNY history: Reports: no EASTER BUNNY history - Social History Smoking Status: Former smoker Smokeless Tobacco Status: No Alcohol use: Reports: none Drug use: Reports: none Physical Exam - General Limitations: no limitations General appearance: alert, in no apparent distress Course Vital Signs Temperature 98.1 F 11/18/16 12:40 Pulse Rate 99 11/18/16 12:40 Respiratory Rate 20 11/18/16 12:40 Blood Pressure 110/53 11/18/16 12:40 O2 Sat by Pulse Oximetry 96 11/18/16 12:40 Temperature 97.6 F 11/18/16 17:09 Pulse Rate 91 11/18/16 17:09 Respiratory Rate 20 11/18/16 17:09 Blood Pressure 143/62 11/18/16 17:09 O2 Sat by Pulse Oximetry 93 11/18/16 17:09 Oxygen Delivery Oxygen Delivery Room Air,Nasal Cannula Medical Decision Making - MDM Narrative Medical decision making narrative: I examined this patient and my medical decision-making was reviewed with the Resident Physician. I agree with the documented findings, disposition and treatment plan as described except to the extent set forth below. Patient seen and evaluated by Dr. Thompson and myself, I agree with her evaluation and management plan, supervised the care of the patient's stay. Patient has AML, had a transfusion on Thursday for platelets. She says they forgot to give her Lasix. She did well Thursday then over the weekend developed increasing dyspnea. Went to the cancer center today. Had repeat blood work. Her white blood cell counts were elevated consistent with her AML they sent her over here for the dyspnea. She says otherwise she feels fine, no fevers. We will check labs. Cultures, and then reassess. Spoke with the cancer center and they said they thought she probably needed admitted. Patient said if they need to do that that is fine with her. Chest X-Ray 11/18/16 12:53 IMPRESSION: Pulmonary edema with bilateral pleural effusions, small to moderate on the left and small on the right. D/ / Leroy Montero MD / Leroy Montero MD Interpreting Provider: Leroy Montero MD 1335 hrs.: With the infusions that she has an pulmonary edema we will start her on Lasix here since she was brisk at that Thursday and did not. We also obtained blood cultures. She is in agreement with this plan. 1455 hrs.: Potassium is low will replenish that. Her white count has gone from 3000 55,000. We will speak with oncology about that and then admit her. She says she feels fine and looks good here. Impression is leukocytosis with history of AML, hypokalemia. - Lab Data Result diagrams: 11/18/16 13:31 Lab Results 11/18/16 11/18/16 11/18/16 Range/Units 13:31 13:31 13:31 Sodium 139 (136-145) mEq/L Potassium 2.9 L (3.5-4.5) mEq/L Chloride 102 (98-109) mEq/L Carbon Dioxide 27 (19-29) mEq/L BUN 27 H (7-20) mg/dL Creatinine 2.09 H (0.57-1.11) mg/dL Est GFR ( Amer) 29 L (> 60) Est GFR (Non-Af Amer) 24 L (> 60) BUN/Creatinine Ratio 13 (6-26) Glucose 88 (70-99) mg/dL Calculated Osmolality 293 (280-300) Lactic Acid (0.5-2.2) mmol/L Calcium 8.8 (8.6-10.8) mg/dL Total Bilirubin 0.6 (0.2-1.2) mg/dL AST 40 H (5-34) Units/L ALT 18 (0-55) Units/L Alkaline Phosphatase 221 H (38-126) Units/L Troponin I 0.00 (0-0.03) ng/mL B-Natriuretic Peptide 185 H (0-100) pg/mL Serum Total Protein 8.9 H (6.0-8.3) g/dL Albumin 3.1 L (3.5-5.0) g/dL Globulin 5.8 H (2.4-3.5) g/dL Albumin/Globulin Ratio 0.5 L (1.1-2.2) 11/18/16 Range/Units 13:47 Sodium (136-145) mEq/L Potassium (3.5-4.5) mEq/L Chloride (98-109) mEq/L Carbon Dioxide (19-29) mEq/L BUN (7-20) mg/dL Creatinine (0.57-1.11) mg/dL Est GFR ( Amer) (> 60) Est GFR (Non-Af Amer) (> 60) BUN/Creatinine Ratio (6-26) Glucose (70-99) mg/dL Calculated Osmolality (280-300) Lactic Acid 1.1 (0.5-2.2) mmol/L Calcium (8.6-10.8) mg/dL Total Bilirubin (0.2-1.2) mg/dL AST (5-34) Units/L ALT (0-55) Units/L Alkaline Phosphatase (38-126) Units/L Troponin I (0-0.03) ng/mL B-Natriuretic Peptide (0-100) pg/mL Serum Total Protein (6.0-8.3) g/dL Albumin (3.5-5.0) g/dL Globulin (2.4-3.5) g/dL Albumin/Globulin Ratio (1.1-2.2)
[2016-11-18 13:58] LABS: Albumin 3.1 g/dL (3.5-5.0); Albumin/Globulin Ratio 0.5 (1.1-2.2); Bilirubin,Total 0.6 mg/dL (0.2-1.2); Calcium 8.8 mg/dL (8.6-10.8); Globulin 5.8 g/dL (2.4-3.5); Potassium 2.9 mEq/L (3.5-4.5); Total Protein 8.9 g/dL (6.0-8.3)
[2016-11-18] MEDS ORDERED: Furosemide 40 MG/4 ML VIAL IVP ONE (13:58)
[2016-11-18] MEDS ORDERED: Potassium Chloride Elixir 20 MEQ/15 ML UDC PO ONE (14:20)
[2016-11-18] MEDS ORDERED: Naloxone 0.4 MG/ML INJ IVP PRN (20:07)
[2016-11-18] MEDS ORDERED: *HR* Morphine 2 MG/ML SYRINGE IVP PRN (20:07)
[2016-11-18] MEDS ORDERED: Ondansetron 4 MG/2 ML VIAL IVP PRN (20:07)
[2016-11-18] MEDS ORDERED: Acetaminophen 325 MG TABLET PO PRN (20:07)
[2016-11-18] MEDS ORDERED: *HR* HYDROcodone/Acet 5/325 mg TABLET PO PRN (20:07)
[2016-11-18] MEDS ORDERED: ALPRAZolam 1 MG TABLET PO PRN (20:10)
[2016-11-18 20:36] LABS: Bilirubin,Urine Negative (Negative); Blood,Urine Negative (Negative); Clarity,Urine Clear (Clear); Color,Urine Yellow (Yellow); Glucose,Urine (UA) Normal (Normal); Ketones,Urine Negative (Negative); Leukocyte Esterase,Urine Negative (Negative); Nitrite,Urine Negative (Negative); Protein,Urine Negative (Neg-Trace); Specific Gravity,Urine 1.009 (1.010-1.025); Urobilinogen,Urine Normal (Normal)
[2016-11-18] MEDS: Furosemide 40 MG/4 ML VIAL IVP SCH (21:50)
--- NOTE | 2016-11-18 22:31 | Electrocardiograph Report ---
[facility] Test Date: 2016-11-18 Pat Name: Tamy Miles Department: 103 Room: 3A53 Gender: F [employer]: [facility] : 1950 Requested By: Hayden Sevilla Order Number: [id number] Reading MD: Sal Doshi MD Measurements Intervals [place] Rate: 102 P: 59 MS: 129 QRS: 36 QRSD: 74 T: 45 QT: 307 QTc: 366 Interpretive Statements SINUS TACHYCARDIA SEPTAL MYOCARDIAL INFARCTION Electronically Signed On 11-18-2016 22:29:47 EDT by Sal Doshi MD
--- NOTE | 2016-11-18 22:32 | Internal Med History&Physical ---
Date of Encounter: 11/18/16 Time of Encounter: 09:00 Assessment and Plan (1) Acute respiratory failure with hypoxia Current visit: Yes Status: Acute Will admit the pt into Tele Her resp failure is due to pleural effusion mostly triggered by diastolic CHF exacerbation Cont lasix Cont Duoneb no need of steroids try to neal her off the O2 s she tolerates may need home O2 eval She does use O2 at home as needed basis only.. will do over night pulse oxy study too (2) Acute diastolic heart failure Current visit: Yes Status: Acute Reviewed 2 D Echo from 10/02 showed normal LVEF 70%, Mild diastolic dysfucntion will cont Lasix No need to repeat another 2 D Echo Started her on Coreg (3) Hypokalemia Current visit: Yes Status: Acute Cont replacing (4) Pleural effusion Current visit: Yes Status: Acute Mostly due to CHF cont Lasix (5) Leukocytosis Current visit: Yes Status: Acute due to AML f/u with heme onc as an out pt Qualifiers: Leukocytosis type: unspecified Qualified Code(s): D72.829 - Elevated white blood cell count, unspecified (6) Acute myeloid leukemia Current visit: Yes Status: Chronic f/u with Heme Onc as an out pt Qualifiers: Leukemia Active/Remission status: without remission Qualified Code(s): C92.00 - Acute myeloblastic leukemia, not having achieved remission (7) Thrombocytopenia Current visit: No Status: Acute As per pt 29K platelets are better not bleeding actively now no need to transfuse now (8) HOOD (acute kidney injury) Current visit: No Status: Acute She does have Acute on CKD -2 baseline 1.38,, today @ 2.07 cont close monitoring avoid nephrotoxic meds cont diuresis Internal Medicine - H&P: HPI Chief complaint: Shortness of breath Admitted From: Emergency Dept Plans for Post Hospital Care: Home History of present illness: Ms. Miles is a 66 year old female with known PMH of AML who gets frequent blood transfusion PRBC and Platelets, had her recent transfusion on Thursday now she has been having progressively worsening SOB and ARIAS, for which pt sent to ER for further evaluation. Her CXR showed b/l pleural effusion more on Left compare t Right. She was given Lasix in ER, now she is feeling little better. Denied any CP. She denied any PND, however she does have ARIAS, gets out of breath after few blocks of walk, also uses 2 pillows to sleep. Past Med Surg Social Fam HX - Past Medical History Medical history: cancer, other Psychiatric history: anxiety, depression - Past Surgical History Surgical History: cholecystectomy, other - Social History Smoking Status: Former smoker Smokeless Tobacco Status: No Alcohol use: none Drug use: none - Family History Mother Family Member Ethnicity: Non- Living Status: Hx Family Cardiac Disorders: No Hx Family Respiratory Disorders: Yes (asthma) Hx Family Cancer: Yes Father Family Member Ethnicity: Non- Living Status: Hx Family Cardiac Disorders: Yes (Stroke) Internal Medicine - H&P: Meds Citalopram [CeleXA] 20 mg PO DAILY 09/25/14 [History] Folic Acid 1 mg PO DAILY #30 tablet 04/25/16 [Rx] ALPRAZolam [Xanax 1 MG Tablet] 1 mg PO TID PRN 05/26/16 [History] Deferasirox [Jadenu] 1,440 mg PO DAILY #120 tablet 06/17/16 [Rx] Aminocaproic Acid [Amicar] 500 mg PO TID #90 tablet 09/02/16 [Rx] Acetaminophen w/Cod 300-30 mg [Tylenol w/Codeine #3] 1 tab PO Q6HR PRN 09/22/16 [History] Ascorbic Acid [Vitamin C] 500 mg PO DAILY 11/18/16 [History] Diltiazem HCl [Diltiazem 24Hr Cd] 360 mg PO DAILY 11/18/16 [History] Multivitamin [Multi-Day Vitamins] 1 each PO DAILY 11/18/16 [History] Oxygen 3 l NS AD 11/18/16 [History] 3 Allergy/AdvReac Type Severity Reaction Status Date / Time Penicillins Allergy Unknown Hives Verified 11/18/16 12:40 All Systems PM: A 10-system review of systems was performed and is negative for pertinent findings except as documented above in the HPI. Review of systems: All the systems are reviewed everything is benign except the systems and symptoms I mentioned in the history of present illness - Constitutional Vitals: Temp Pulse Resp BP Pulse Ox 98.4 F 95 20 131/97 93 11/18/16 20:14 11/18/16 20:14 11/18/16 20:14 11/18/16 20:14 11/18/16 20:14 General appearance: Present: A&O X 3, no acute distress, answers questions appropriately - Head Head exam: Present: atraumatic, normal inspection - Respiratory Respiratory exam: Present: decreased breath sounds (on both sides. more on Left basal region compare to right), rales (mild), wheezes (mild). Absent: respiratory distress, rhonchi - Cardiovascular Cardiovascular exam: Present: RRR, +S1, +S2. Absent: systolic murmur - GI/Abdominal GI/Abdominal exam: Present: normal bowel sounds, soft. Absent: rebound, rigid, tenderness - Extremities Exam Extremities exam: Absent: calf tenderness, pedal edema, tenderness - Back Exam Back exam: Absent: CVA tenderness (L), CVA tenderness (R) - Neurological Exam Neurological exam: Present: alert, oriented X3 - Psychiatric Psychiatric exam: Present: normal affect, normal mood Internal Med - H&P Results - Labs CBC & Chem 7: 11/18/16 13:31
[2016-11-19 04:33] LABS: Hemoglobin 8.2 g/dL (11.5-15.4); Nucleated Red Blood Cells 0.2 /100 WBC (0)
[2016-11-19 04:34] LABS: Hematocrit 24.1 % (35.3-44.9); Mean Corpuscular Hemoglobin 28.7 pg (28.0-33.3); Mean Corpuscular Volume 84.3 fL (83.0-100.0); Mean Platelet Volume 10.3 fL (9.4-12.4); Red Blood Count 2.86 M/mcL (3.82-4.97); Red Cell Distribution Width 16.7 % (11.5-14.5)
[2016-11-19 04:44] LABS: Platelet Count 22 K/mcL (140-400)
[2016-11-19 04:58] LABS: Lymphocytes # 8.8 K/mcL (0.6-4.6); Monocytes # 7.6 K/mcL (0.0-1.3); Neutrophils # 37.7 K/mcL (1.6-8.9); Platelet Estimate Marked Decrease (Normal)
[2016-11-19 04:59] LABS: Albumin/Globulin Ratio 0.5 (1.1-2.2); Anisocytosis 1+ (Not Present); Bilirubin,Total 0.5 mg/dL (0.2-1.2); Calcium 8.6 mg/dL (8.6-10.8); Globulin 5.7 g/dL (2.4-3.5); Macrocytosis Present (Not Present); Magnesium 1.9 mg/dL (1.6-2.6); Microcytosis Present (Not Present); Phosphorous 3.4 mg/dL (2.3-4.7); Potassium 3.3 mEq/L (3.5-4.5); Total Protein 8.7 g/dL (6.0-8.3)
[2016-11-19 05:04] LABS: Dohle Bodies Present (Not Present)
[2016-11-19] MEDS: Furosemide 40 MG/4 ML VIAL IVP SCH (08:42)
[2016-11-19] MEDS ORDERED: Diltiazem CD (24hr) 180 MG CAPSULE PO SCH (09:00)
[2016-11-19] MEDS ORDERED: Ascorbic Acid 500 MG TABLET PO SCH (09:00)
[2016-11-19] MEDS ORDERED: Folic Acid 1 MG TABLET PO SCH (09:00)
[2016-11-19] MEDS ORDERED: Famotidine 20 MG TABLET PO SCH (09:00)
[2016-11-19] MEDS ORDERED: Multivit/Ca/Min/Fe/FA 1 TAB TABLET PO SCH (09:00)
--- NOTE | 2016-11-19 10:28 | Discharge Summary ---
Date of Encounter: 11/19/16 Time of Encounter: 09:00 - Discharge Diagnosis (1) Acute respiratory failure with hypoxia Priority: Primary Status: Acute (2) Acute diastolic heart failure Priority: Secondary Status: Acute (3) Acute kidney injury Priority: Secondary Status: Acute (4) Acute pulmonary edema Priority: Secondary Status: Resolved (5) Hypokalemia Priority: Secondary Status: Acute (6) Leukemia Priority: Secondary Status: Chronic Qualifiers: Leukemia type: myeloid Myeloid leukemia type: acute Leukemia Active/ Remission status: without remission Qualified Code(s): C92.00 - Acute myeloblastic leukemia, not having achieved remission (7) Pleural effusion Priority: Secondary Status: Acute - Discharge Medications Prescriptions: Diltiazem HCl [Diltiazem 24Hr Cd] 360 mg PO DAILY #30 cap.er.24h Furosemide [Lasix] 20 mg PO DAILY #30 tablet Metoprolol XL (24 HR) Succ [Toprol XL] 25 mg PO DAILY #30 tab.er.24h Potassium Chloride [K-Tab ER] 20 meq PO DAILY #30 tablet.er Home Medications: Citalopram [CeleXA] 20 mg PO DAILY 09/25/14 [History] Folic Acid 1 mg PO DAILY #30 tablet 04/25/16 [Rx] ALPRAZolam [Xanax 1 MG Tablet] 1 mg PO TID PRN 05/26/16 [History] Deferasirox [Jadenu] 1,440 mg PO DAILY #120 tablet 06/17/16 [Rx] Aminocaproic Acid [Amicar] 500 mg PO TID #90 tablet 09/02/16 [Rx] Acetaminophen w/Cod 300-30 mg [Tylenol w/Codeine #3] 1 tab PO Q6HR PRN 09/22/16 [History] Ascorbic Acid [Vitamin C] 500 mg PO DAILY 11/18/16 [History] Multivitamin [Multi-Day Vitamins] 1 each PO DAILY 11/18/16 [History] Oxygen 3 l NS AD 11/18/16 [History] Diltiazem HCl [Diltiazem 24Hr Cd] 360 mg PO DAILY #30 cap.er.24h 11/19/16 [Rx] Furosemide [Lasix] 20 mg PO DAILY #30 tablet 11/19/16 [Rx] Metoprolol XL (24 HR) Succ [Toprol XL] 25 mg PO DAILY #30 tab.er.24h 10/04/17 [ Rx] Potassium Chloride [K-Tab ER] 20 meq PO DAILY #30 tablet.er 11/19/16 [Rx] Allergies/Adverse Reactions: 3 Allergy/AdvReac Type Severity Reaction Status Date / Time Penicillins Allergy Unknown Hives Verified 11/18/16 12:40 Date of admission: 11/18/16 21:27 Primary care physician: Yuri Monsivais Consults: 11/18/16 15:27 Consult to Oncology Hematology [CONS] Routine Consulting Provider: Amber Joe Reason for Consult: leukocytopenia Call Completed: Yes Discharging clinician: Woody Artis Anticipated date of discharge: 11/19/16 - Patient Status Disposition: Home, Self-Care Condition: Good Functional capacity at discharge: independent ambulation Overall status at discharge: patient is progressing back to baseline - Discharge Instructions Instructions: Leukocytosis (DC), Thrombocytopenia (DC) Follow Up With: Yuri Monsivais DO [Primary Care Provider] - (In 1-2 weeks) Que Zelaya Jr, T[employer]BO[employer] OPERATOR [Advanced Practice Nurse] - 11/21/16 9:30 am Additional Instructions: Follow-up with [facility] as early as possible - Diet and Activity Activity: wear oxygen at all times Diet: low fat, low cholesterol, low salt diet Hospital course: Ms. 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 She had last received blood transfusion on Thursday. She usually receives Lasix during her transfusions but she did not receive it during her last transfusion. She denies any chest pain. Her symptoms improved after she was given Lasix in the ER. Chest x-ray showed findings or history of pulmonary edema. She had a recent 2-D echocardiogram which showed normal ejection fraction but patient did have diastolic dysfunction. This morning she is doing much better and is clinically stable for discharge. However, patient does appear to have progression of her leukemia with increased blasts cells and rise in her leukocyte count to 62 today. Hematology/oncology has been consulted. They recommend bone marrow biopsy. Patient wishes to have this done as outpatient. She does follow-up with hematology oncology and will have this procedure arranged through them. She will be discharged home today on 40 mg of oral Lasix. Patient had previously been placed on Cardizem and metoprolol but was not taking his medications as she ran out of them and did not obtain refills. She has been advised to continue to take these medications and follow up with her snuff container inspector and her primary care provider to make sure she continues to be on these medications for her heart disease. 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 - Time Spent with Patient Total time spent providing and/or coordinating discharge services: Greater than 30 minutes (40 min) - Constitutional Vitals: Temp Pulse Resp BP Pulse Ox 98 F 94 17 136/70 96 11/19/16 08:01 11/19/16 08:01 11/19/16 08:01 11/19/16 08:01 11/19/16 08:01 General appearance: Present: A&O X 3, no acute distress, answers questions appropriately - Respiratory Respiratory exam: Present: CTAB. Absent: accessory muscle use, rales, rhonchi, wheezes - Cardiovascular Cardiovascular exam: Present: RRR, +S1, +S2. Absent: diastolic murmur, gallop, rubs, systolic murmur - GI/Abdominal GI/Abdominal exam: Present: normal bowel sounds, soft, no peritoneal signs. Absent: distended, tenderness - Neurological Exam Neurological exam: Present: alert, oriented X3, no focal deficits. Absent: facial droop, speech deficit
[2016-11-19 12:16] VITALS: BP 112/70
--- NOTE | 2016-11-19 15:18 | Event Note ---
Date of Encounter: 11/19/16 Time of Encounter: 15:15 I visited with the patient this afternoon. After reviewing blood smear, patient has her typical blasts from AML. Patient requesting discharge. I spoke to Dr Joe, and he is in agreement. She will come [facility] morning for her twice weekly CBC where we will review her counts. Patient will meet with me and Dr Joe 11/21/16 at 930 am at [facility]. booking clerk on 3a and Dr[address] Artis notified about discharge approval for today.
== END 2016-11-19 16:05 | disposition home or self-care (01) ==
LOC: 3ANU 12:27 → EMEROO 12:27 → 3ANU 17:14 → SUATTDRO 21:27
PROVIDERS: ADMIT Hospitalist; ATTEND Internal Medicine